=== PATIENT | male | born 1995 | race Caucasian/White ===

== ENCOUNTER 2022-02-25 13:49 | Inpatient (IN) | payer MEDICAID, OTHER ==
[~2022-02-25] VITALS: Ht 172.7 cm; Wt 128.8 kg
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
[2022-02-25 14:15] LABS: BASOPHILS # (AUTO) 0.1 10^3/uL (0.0-0.1); BASOPHILS % (AUTO) 1 % (0-10); EOSINOPHILS # (AUTO) 0.2 10^3/uL (0.0-0.3); EOSINOPHILS % (AUTO) 2 % (0-10); HEMATOCRIT 46 % (40-54); HEMOGLOBIN 14.4 g/dL (13.3-17.7); LYMPHOCYTES # (AUTO) 2.5 10^3/uL (1.0-4.0); LYMPHOCYTES % (AUTO) 21 % (12-44); MEAN CORPUSCULAR HEMOGLOBIN 24 pg (25-34); MEAN CORPUSCULAR HGB CONC 32 g/dL (32-36); MEAN CORPUSCULAR VOLUME 76 fL (80-99); MEAN PLATELET VOLUME 9.2 fL (9.0-12.2); MONOCYTES # (AUTO) 0.8 10^3/uL (0.0-1.0); MONOCYTES % (AUTO) 7 % (0-12); NEUTROPHILS # (AUTO) 8.1 10^3/uL (1.8-7.8); NEUTROPHILS % (AUTO) 69 % (42-75); PLATELET COUNT 426 10^3/uL (130-400); WHITE BLOOD COUNT 11.8 10^3/uL (4.3-11.0)
[2022-02-25] MEDS ORDERED: HYDROmorphone 2 MG/ML VIAL (DILAUDID) IV ONE ×2 (14:30→15:45)
[2022-02-25] MEDS ORDERED: NS 100 ML (IVPB) BAG IV ONE (14:30)
[2022-02-25] MEDS ORDERED: HOLD METFORMIN - RECEIVED CONTRAST 20 ML VIAL IV SCH (14:30)
[2022-02-25] MEDS ORDERED: IOHEXOL 350 MG/ML 100 ML (OMNIPAQUE 350) VIAL IV ONE (14:30)
[2022-02-25 14:32] LABS: ALANINE AMINOTRANSFERASE 74 U/L (0-55); ALBUMIN 4.4 GM/DL (3.2-4.5); ALKALINE PHOSPHATASE 126 U/L (40-136); BILIRUBIN,TOTAL 0.2 MG/DL (0.1-1.0); BUN/CREATININE RATIO 13; CARBON DIOXIDE 23 MMOL/L (21-32); CHLORIDE 101 MMOL/L (98-107); CREATININE SERUM 0.75 MG/DL (0.60-1.30); GFR ESTIMATED 128; GLUCOSE 87 MG/DL (70-105); SALICYLATE < 5.0 MG/DL (5.0-20.0); SODIUM 136 MMOL/L (135-145); TOTAL PROTEIN 9.1 GM/DL (6.4-8.2)
[2022-02-25 14:39] LABS: ACETAMINOPHEN < 10 UG/ML (10-30)
--- NOTE | 2022-02-25 14:40 | Diagnostic Imaging Report ---
PROCEDURE: CT head and CT cervical spine without contrast. TECHNIQUE: Multiple contiguous axial images were obtained through the brain and cervical spine without the use of intravenous contrast. Sagittal and coronal reformations through the cervical spine were then performed. Auto Exposure Controls were utilized during the CT exam to meet ALARA standards for radiation dose reduction. INDICATION: Found down. COMPARISON: No priors. FINDINGS: HEAD: There is no hemorrhage, hydrocephalus, cerebral edema, mass, mass effect, nor evidence for an elevation of the intracerebral pressures. There are no abnormal extra-axial fluid collections. Incidental ventricular variant with a cavum septum pellucidum noted. Orbits sinuses and calvarium all appeared nonacute. There is no evidence for elevated pressures, and there are no findings of focal nor generalized cerebral edema. No mass or mass effect. CERVICAL SPINE: Cervical statures are normal, alignment anatomic. No substantial stenosis. No fracture or bony destructive lesion. IMPRESSION: Unremarkable CT head and cervical spine. Dictated by: Dictated on workstation # [id number]
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
[2022-02-25 15:37] LABS: BILIRUBIN,URINE NEGATIVE (NEGATIVE); CLARITY,URINE CLEAR; COLOR,URINE YELLOW; GLUCOSE, URINE (UA) NEGATIVE (NEGATIVE); KETONES,URINE NEGATIVE (NEGATIVE); LEUKOCYTE ESTERASE ,URINE NEGATIVE (NEGATIVE); NITRITE,URINE NEGATIVE (NEGATIVE); PROTEIN,URINE NEGATIVE (NEGATIVE)
[2022-02-25 15:43] LABS: BACTERIA,URINE NEGATIVE /HPF
[2022-02-25 15:53] LABS: AMPHETAMINE SCREEN, URINE NEGATIVE (NEGATIVE); BARBITURATE SCREEN URINE NEGATIVE (NEGATIVE); BENZODIAZEPINES SCREEN URINE NEGATIVE (NEGATIVE); CANNABINOID SCREEN, URINE POSITIVE (NEGATIVE); COCAINE SCREEN URINE NEGATIVE (NEGATIVE); METHADONE STAT NEGATIVE (NEGATIVE); OPIATE SCREEN URINE NEGATIVE (NEGATIVE); OXYCODONE STAT NEGATIVE (NEGATIVE); PROPOXYPHENE STAT NEGATIVE (NEGATIVE); TRICYCLIC ANTIDEPRESSANTS SCRE NEGATIVE (NEGATIVE)
--- NOTE | 2022-02-25 15:57 | Diagnostic Imaging Report ---
EXAMINATION: Left tibia and fibula radiographs, 2 views. Right tibia and fibula radiographs, 2 views. COMPARISON: None. HISTORY: 26-year-old male, bilateral leg pain. History of prior tibial fractures. FINDINGS: There is sideplate and screw fixation hardware along the left tibia with the mid left tibial diaphyseal fracture. There is a lateral bend of the mid tibial diaphysis. The sideplate and screw fixation hardware appears intact. The tibia projects lateral to the fibula on the frontal view relating to the bend in contour abnormality. There is an essentially nondisplaced mid tibial diaphyseal fracture on the right with intramedullary ousmane and fixation screws. There is a visible fracture line. The hardware appears intact. There is also incompletely imaged hardware at the level of the right distal femur with a mildly displaced distal femoral metadiaphyseal fracture. There are surgical clips posteriorly near the level of the left knee joint. There is no large left knee joint effusion. There is no right knee joint effusion. IMPRESSION: 1. Fractures of the mid tibial diaphysis, bilaterally, with right tibial fracture being essentially nondisplaced with intact open reduction and internal fixation hardware. The left tibial fracture has a significant contour deformity of the tibia and medial bending of the tibia with projection of the tibia lateral to the fibula. 2. Mildly displaced fracture of the right distal femoral metadiaphysis with intact partially visualized hardware. 3. No identified fracture which is not bridged by hardware. 4. No evidence of failure of the hardware. Dictated by: Dictated on workstation # [id number]
--- NOTE | 2022-02-25 16:26 | Diagnostic Imaging Report ---
INDICATION: Found down. EXAM: Two-view bilateral femurs are randomly arranged in a series containing 8 radiographs. FINDINGS: There is an intramedullary ousmaen in the distal right femur. There is a distal femoral shaft horizontal fracture which showed no bony bridging. No proximal injury. On the left, there are surgical clips projecting over the groin, lucencies in the left femur from old removed hardware. In frontal projection, the left knee shows sclerosis at the femoral condyles and tibial articulations with degenerative joint space narrowing and no acute or unhealed left knee fracture. IMPRESSION: Prior surgery to the left knee, severe. Left knee arthritis. Distal right femoral shaft fracture treated with an intramedullary ousmane. Dictated by: Dictated on workstation # [id number]
[2022-02-25] MEDS ORDERED: KETOROLAC 30 MG/ML VIAL IVP ONE (17:00)
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
[2022-02-25 18:00] VITALS: BP 136/86
[2022-02-25] MEDS ORDERED: diphenhydrAMINE 25 MG TAB (BENADRYL) PO PRN (18:15)
[2022-02-25] MEDS ORDERED: ANTACID SUSP 30 ML UDC (MYLANTA) PO PRN (18:15)
[2022-02-25] MEDS ORDERED: BISACODYL 10 MG SUPP (DULCOLAX) PR PRN (18:15)
[2022-02-25] MEDS ORDERED: polyethylene glycoL POWDER 17 GM (MIRALAX) PACK PO PRN (18:15)
[2022-02-25] MEDS ORDERED: MILK OF MAGNESIA 400 MG/5 ML 30 ML UDC PO PRN (18:15)
[2022-02-25] MEDS ORDERED: LACTULOSE SYRUP 10GM/15ML (ENULOSE) 30ML UDC PO PRN (18:15)
[2022-02-25] MEDS ORDERED: CALCIUM CARBONATE 500 MG (TUMS) TAB.CHEW PO PRN (18:15)
[2022-02-25] MEDS ORDERED: ONDANSETRON 4 MG/2 ML (SDV) Z0FRAN IV PRN (18:15)
[2022-02-25] MEDS ORDERED: diphenhydrAMINE 50 MG/ML INJ (BENADRYL) IVP PRN (18:15)
[2022-02-25] MEDS ORDERED: ONDANSETRON 4 MG (ZOFRAN) ORAL DISSOLVE TAB PO PRN (18:15)
[2022-02-25 18:48] VITALS: BP 144/109
[2022-02-25] MEDS: NS IV 1000 ML 1,000 ML IV SCH (18:51)
[2022-02-25] MEDS: ENOXAPARIN 40 MG/0.4 ML (LOVENOX) SYR SC SCH (18:57)
[2022-02-25] MEDS ORDERED: RT-ALBUTEROL SULF 2.5 MG/3 ML PRE-MIX VIAL INH PRN (19:00)
[2022-02-25 19:40] VITALS: BP 106/63
[2022-02-25] MEDS ORDERED: FLU QUADRIvalent (6 months+) 60 mcg/0.5 ml 2022-23 (Fluzone) IM ONE (19:45)
[2022-02-25 20:00] VITALS: BP 103/61
[2022-02-25] MEDS: SENNOSIDES 8.6 MG (SENOKOT) TAB PO SCH (20:29)
[2022-02-25] MEDS: DOCUSATE SODIUM 100 MG (COLACE) CAP PO SCH (20:29)
[2022-02-25] MEDS: HYDROmorphone 2 MG/ML VIAL (DILAUDID) IV PRN (20:30)
[2022-02-25 23:59] VITALS: BP 122/64
[2022-02-26] VITALS (7 sets, daily range): BP systolic 114–154; BP diastolic 59–86
[2022-02-26] MEDS: MELATONIN 3 MG TABLET PO PRN (00:56)
[2022-02-26] MEDS: HYDROmorphone 2 MG/ML VIAL (DILAUDID) IV PRN ×5 (03:28→20:58)
[2022-02-26] MEDS: NS IV 1000 ML 1,000 ML IV SCH ×2 (05:40→10:17)
[2022-02-26] MEDS: ENOXAPARIN 40 MG/0.4 ML (LOVENOX) SYR SC SCH ×2 (05:40→18:48)
[2022-02-26 06:26] LABS: BASOPHILS # (AUTO) 0.1 10^3/uL (0.0-0.1); BASOPHILS % (AUTO) 1 % (0-10); EOSINOPHILS # (AUTO) 0.4 10^3/uL (0.0-0.3); EOSINOPHILS % (AUTO) 6 % (0-10); HEMATOCRIT 45 % (40-54); LYMPHOCYTES # (AUTO) 2.2 10^3/uL (1.0-4.0); LYMPHOCYTES % (AUTO) 29 % (12-44); MEAN CORPUSCULAR HEMOGLOBIN 24 pg (25-34); MEAN CORPUSCULAR HGB CONC 31 g/dL (32-36); MEAN CORPUSCULAR VOLUME 78 fL (80-99); MEAN PLATELET VOLUME 9.8 fL (9.0-12.2); MONOCYTES # (AUTO) 0.5 10^3/uL (0.0-1.0); MONOCYTES % (AUTO) 7 % (0-12); NEUTROPHILS # (AUTO) 4.3 10^3/uL (1.8-7.8); NEUTROPHILS % (AUTO) 58 % (42-75); PLATELET COUNT 151 10^3/uL (130-400); WHITE BLOOD COUNT 7.5 10^3/uL (4.3-11.0)
[2022-02-26 06:35] LABS: SMEAR SCAN COMMENT YES
[2022-02-26 06:54] LABS: ALBUMIN 3.8 GM/DL (3.2-4.5); BILIRUBIN,TOTAL 0.2 MG/DL (0.1-1.0); CALCIUM 9.3 MG/DL (8.5-10.1); CREATININE SERUM 0.73 MG/DL (0.60-1.30); POTASSIUM 4.6 MMOL/L (3.6-5.0); TOTAL PROTEIN 7.9 GM/DL (6.4-8.2)
[2022-02-26] MEDS: DOCUSATE SODIUM 100 MG (COLACE) CAP PO SCH ×2 (08:19→21:03)
[2022-02-26] MEDS: SENNOSIDES 8.6 MG (SENOKOT) TAB PO SCH ×2 (08:20→21:03)
--- NOTE | 2022-02-26 10:18 | Progress Note - Surgery ---
JORGEBORA 02/26/22 1018: Subjective Date Seen by a Provider: Feb 26, 2022 Time Seen by a Provider: 10:13 Subjective/Events-last exam Pt is sleeping comfortably in bed. Pt states no change in his leg pain, rating it a 7/10 at rest. Pt did ask for pain medication in room. Pt states that he has been able to ambulate to bathroom without issue and has been tolerating diet well. Pt has no other complaints at this time. Pt denies CP, SOB, nausea, vomiting, chills, or cough. Review of Systems General: No Chills, No Night Sweats HEENT: No Head Aches, No Eye Pain Pulmonary: No Dyspnea, No Cough Cardiovascular: No: Chest Pain, Lt Headedness Gastrointestinal: No: Nausea, Vomiting, Abdominal Pain Genitourinary: No Dysuria, No Hematuria Musculoskeletal: leg pain (b/l LE) Neurological: No: Weakness, Numbness Objective Exam Vital Signs Date Time Temp Pulse Resp B/P (MAP) Pulse Ox O2 Delivery O2 Flow Rate FiO2 02/26/22 07:27 36.7 103 18 154/82 (106) 96 Room Air 02/26/22 07:26 36.7 103 18 154/82 (106) 96 Room Air 02/26/22 04:00 36.1 98 16 114/59 (77) 94 Room Air 02/26/22 03:57 36.0 98 16 122/64 (83) 97 Room Air 02/25/22 23:59 36.6 98 18 122/64 (83) 97 Room Air 02/25/22 20:00 37.0 80 19 103/61 (75) 96 Room Air 02/25/22 19:40 36.5 100 18 106/63 (77) 95 Room Air 02/25/22 18:48 110 99 21 02/25/22 18:30 99 Room Air 02/25/22 18:00 36.9 109 19 136/86 (103) 94 Room Air 02/25/22 17:35 103 17 114/83 98 Room Air 02/25/22 13:50 110 20 144/109 (121) 99 Room Air I & O 02/26/22 07:00 Intake Total 3320 ml Output Total 2250 ml Balance 1070 ml Capillary Refill : Less Than 3 Seconds General Appearance: No Apparent Distress, Obese HEENT: PERRL/EOMI Respiratory: Lungs Clear, Normal Breath Sounds, No Accessory Muscle Use, No Respiratory Distress Cardiovascular: No Murmur, Tachycardia Peripheral Pulses: 2+ Dorsalis Pedis (R) Gastrointestinal: soft, tenderness (LUQ) Extremity: Pedal Edema (L foot), Other (healing scars and scabs on both legs, bandage on L calf; tenderness over B/L LE) Neurologic/Psychiatric: Alert Skin: Warm/Dry, Other Results Lab Laboratory Tests 02/25/22 13:50: White Blood Count 11.8H, Red Blood Count 5.98H, Hemoglobin 14.4, Hematocrit 46, Mean Corpuscular Volume 76L, Mean Corpuscular Hemoglobin 24L, Mean Corpuscular Hemoglobin Concent 32, Red Cell Distribution Width 20.9H, Platelet Count 426H, Mean Platelet Volume 9.2, Immature Granulocyte % (Auto) 1, Neutrophils (%) (Auto) 69, Lymphocytes (%) (Auto) 21, Monocytes (%) (Auto) 7, Eosinophils (%) (Auto) 2, Basophils (%) (Auto) 1, Neutrophils # (Auto) 8.1H, Lymphocytes # (Auto) 2.5, Monocytes # (Auto) 0.8, Eosinophils # (Auto) 0.2, Basophils # (Auto) 0.1, Immature Granulocyte # (Auto) 0.1, Sodium Level 136, Potassium Level 4.0, Chloride Level 101, Carbon Dioxide Level 23, Anion Gap 12, Blood Urea Nitrogen 10, Creatinine 0.75, Estimat Glomerular Filtration Rate 128, BUN/Creatinine Ratio 13, Glucose Level 87, Calcium Level 10.0, Corrected Calcium 9.7, Total Bilirubin 0.2, Aspartate Amino Transf (AST/SGOT) 40H, Alanine Aminotransferase (ALT/SGPT) 74H, Alkaline Phosphatase 126, C-Reactive Protein High Sensitivity 2.02H, Total Protein 9.1H, Albumin 4.4, Salicylates Level < 5.0L, Acetaminophen Level < 10L, Serum Alcohol < 10 02/25/22 15:30: Urine Color YELLOW, Urine Clarity CLEAR, Urine pH 7.0, Urine Specific [place] <=1.005, Urine Protein NEGATIVE, Urine Glucose (UA) NEGATIVE, Urine Ketones NEGATIVE, Urine Nitrite NEGATIVE, Urine Bilirubin NEGATIVE, Urine Urobilinogen 0.2, Urine Leukocyte Esterase NEGATIVE, Urine RBC (Auto) NEGATIVE, Urine RBC NONE, Urine WBC NONE, Urine Crystals NONE, Urine Bacteria NEGATIVE, Urine Casts NONE, Urine Mucus NEGATIVE, Urine Culture Indicated NO, Urine Opiates Screen NEGATIVE, Urine Oxycodone Screen NEGATIVE, Urine Methadone Screen NEGATIVE, Urine Propoxyphene Screen NEGATIVE, Urine Barbiturates Screen NEGATIVE, Ur Tricyclic Antidepressants Screen NEGATIVE, Urine Phencyclidine Screen NEGATIVE, Urine Amphetamines Screen NEGATIVE, Urine Methamphetamines Screen NEGATIVE, Urine Benzodiazepines Screen NEGATIVE, Urine Cocaine Screen NEGATIVE, Urine Cannabinoids Screen POSITIVEH 02/26/22 06:05: White Blood Count 7.5, Red Blood Count 5.74H, Hemoglobin 14.0, Hematocrit 45, Mean Corpuscular Volume 78L, Mean Corpuscular Hemoglobin 24L, Mean Corpuscular Hemoglobin Concent 31L, Red Cell Distribution Width 21.1H, Platelet Count 151, Mean Platelet Volume 9.8, Immature Granulocyte % (Auto) 1, Neutrophils (%) (Auto) 58, Lymphocytes (%) (Auto) 29, Monocytes (%) (Auto) 7, Eosinophils (%) (Auto) 6, Basophils (%) (Auto) 1, Neutrophils # (Auto) 4.3, Lymphocytes # (Auto) 2.2, Monocytes # (Auto) 0.5, Eosinophils # (Auto) 0.4H, Basophils # (Auto) 0.1, Immature Granulocyte # (Auto) 0.1, Sodium Level 137, Potassium Level 4.6, Chloride Level 107, Carbon Dioxide Level 18L, Anion Gap 12, Blood Urea Nitrogen 14, Creatinine 0.73, Estimat Glomerular Filtration Rate 129, BUN/Creatinine Ratio 19, Glucose Level 94, Calcium Level 9.3, Corrected Calcium 9.5, Total Bilirubin 0.2, Aspartate Amino Transf (AST/SGOT) 47H, Alanine Aminotransferase (ALT/SGPT) 78H, Alkaline Phosphatase 117, Total Protein 7.9, Albumin 3.8, Percent Immature Platelet Fraction 3.3, Smear Scan YES Assessment/Plan Assessment/Plan Assessment/Plan 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 Will defer to wound care for recommendations about L leg wound. Continue pain medication prn, MEMO BRIGGS DO 02/26/22 1244: Subjective Time Seen by a Provider: 11:39 Subjective/Events-last exam Pt javier and examined, states no new changes. He is rating pain at 7 out of 10, but tolerating diet and asking what we can do for his leg. Review of Systems General: No Chills, No Night Sweats Pulmonary: No Dyspnea, No Cough Cardiovascular: No: Chest Pain Gastrointestinal: No: Nausea, Vomiting, Abdominal Pain Musculoskeletal: leg pain (b/l LE) Objective Exam General Appearance: No Apparent Distress, Obese HEENT: PERRL/EOMI Respiratory: Lungs Clear, Normal Breath Sounds, No Accessory Muscle Use, No Respiratory Distress Cardiovascular: No Murmur, Tachycardia Gastrointestinal: soft, tenderness (LUQ) Extremity: Pedal Edema (L foot), Other (healing scars and scabs on both legs, bandage on L calf; tenderness over B/L LE) Assessment/Plan Assessment/Plan Assessment/Plan 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 Continue pain medication prn. Spoke with wound care and Dr. Black regarding his case. Will try Vashe and non-operative treatment of wound, but it may need to be debrided (he has already eaten today). We cannot do a skin graft until the tissue is gone and there is fresh tissue. Supervisory-Addendum Brief Verification & Attestation Participated in pt care: history, MDM, physical Personally performed: exam, history, MDM, supervision of care Care discussed with: Medical Student Procedures: n/a Verification and Attestation of Medical Student E/M Service A medical student performed and documented this service. I then reviewed and verified all information documented by the medical student and made modifications to such information, when appropriate. I personally performed a physical exam, medical decision making and then discussed any differences between the notes and made revisions as necessary to create one note. Memo Briggs , 02/26/22 , 12:44 BORA PATEL Feb 26, 2022 10:18 MEMO BRIGGS DO Feb 26, 2022 12:44
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
[2022-02-27] VITALS (8 sets, daily range): BP systolic 100–131; BP diastolic 64–84
[2022-02-27] MEDS: HYDROmorphone 2 MG/ML VIAL (DILAUDID) IV PRN ×9 (00:42→23:58)
[2022-02-27] MEDS: ENOXAPARIN 40 MG/0.4 ML (LOVENOX) SYR SC SCH ×2 (05:34→18:57)
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
[2022-02-27 06:07] LABS: MEAN CORPUSCULAR HEMOGLOBIN 24 pg (25-34); MEAN CORPUSCULAR VOLUME 80 fL (80-99); MEAN PLATELET VOLUME 10.8 fL (9.0-12.2)
[2022-02-27 06:09] LABS: BASOPHILS # (AUTO) 0.1 10^3/uL (0.0-0.1); BASOPHILS % (AUTO) 1 % (0-10); EOSINOPHILS # (AUTO) 0.6 10^3/uL (0.0-0.3); EOSINOPHILS % (AUTO) 6 % (0-10); HEMATOCRIT 47 % (40-54); HEMOGLOBIN 14.3 g/dL (13.3-17.7); LYMPHOCYTES # (AUTO) 2.5 10^3/uL (1.0-4.0); LYMPHOCYTES % (AUTO) 25 % (12-44); MEAN CORPUSCULAR HGB CONC 30 g/dL (32-36); MONOCYTES # (AUTO) 0.8 10^3/uL (0.0-1.0); MONOCYTES % (AUTO) 8 % (0-12); NEUTROPHILS # (AUTO) 5.9 10^3/uL (1.8-7.8); NEUTROPHILS % (AUTO) 59 % (42-75); PLATELET COUNT 175 10^3/uL (130-400)
[2022-02-27 06:37] LABS: ALBUMIN 3.8 GM/DL (3.2-4.5); BILIRUBIN,TOTAL 0.2 MG/DL (0.1-1.0); CALCIUM 9.4 MG/DL (8.5-10.1); CREATININE SERUM 0.68 MG/DL (0.60-1.30); POTASSIUM 4.5 MMOL/L (3.6-5.0)
[2022-02-27] MEDS: SENNOSIDES 8.6 MG (SENOKOT) TAB PO SCH ×2 (08:38→19:45)
[2022-02-27] MEDS: DOCUSATE SODIUM 100 MG (COLACE) CAP PO SCH ×2 (08:38→19:45)
--- NOTE | 2022-02-27 09:06 | Progress Note - Surgery ---
CASSIERICARDO 02/27/22 0906: Subjective Date Seen by a Provider: Feb 27, 2022 Time Seen by a Provider: 09:00 Subjective/Events-last exam Upon follow up for non-healing LLE wound, S/P debriedment on 02/26/22, Jignesh is resting lateral recumbent in bed. He states that the pain is about the same as yesterday, which he rates as a 6/10. He states that he is sleeping okay, and that he is ambulating. Jignesh has no new complaints at this time. LLE wound is currently bandaged. Review of Systems General: No Chills, No Night Sweats HEENT: No Head Aches, No Visual Changes Pulmonary: No Dyspnea, No Cough Cardiovascular: No: Chest Pain, Palpitations Gastrointestinal: No: Nausea, Vomiting, Abdominal Pain Genitourinary: No Dysuria, No Frequency Musculoskeletal: foot pain (LLE); No: neck pain, shoulder pain Neurological: No: Weakness, Numbness Focused Exam Respiratory: Chest Non Tender, Lungs Clear, Normal Breath Sounds, No Accessory Muscle Use, No Respiratory Distress Cardiovascular: Regular Rate, Rhythm, No Edema, No Gallop, No JVD, No Murmur, Normal Peripheral Pulses Capillary Refill: Less Than 3 Seconds Peripheral Pulses: 2+ Radial Pulses (R), 2+ Radial Pulses (L) Skin: normal color, warm/dry Objective Exam Vital Signs Date Time Temp Pulse Resp B/P (MAP) Pulse Ox O2 Delivery O2 Flow Rate FiO2 02/27/22 08:37 95 Room Air 0.00 02/27/22 07:43 36.7 95 18 130/83 (99) 97 Room Air 02/27/22 06:04 36.5 02/27/22 05:34 36.5 02/27/22 04:00 36.6 107 16 122/84 (97) 99 Room Air 02/27/22 01:12 36.5 02/27/22 00:14 36.5 105 18 117/77 (90) 95 Room Air 02/26/22 21:28 36.2 02/26/22 20:00 Room Air 02/26/22 19:18 36.2 105 20 120/68 (85) 94 Room Air 02/26/22 19:08 95 Room Air 02/26/22 15:46 36.2 103 20 131/86 (101) 95 Room Air 02/26/22 11:11 36.6 100 18 147/79 (101) 95 Room Air I & O 02/27/22 07:00 Intake Total 3870 ml Output Total 4250 ml Balance -380 ml Capillary Refill : Less Than 3 Seconds General Appearance: No Apparent Distress, Obese HEENT: PERRL/EOMI, Pharynx Normal, Moist Mucous Membranes Neck: Full Range of Motion, Normal Inspection, Non Tender, Supple Respiratory: Chest Non Tender, Lungs Clear, Normal Breath Sounds, No Accessory Muscle Use, No Respiratory Distress Cardiovascular: Regular Rate, Rhythm, No Edema, No Gallop, No JVD, No Murmur, Normal Peripheral Pulses Peripheral Pulses: 2+ Radial Pulses (L) Gastrointestinal: non tender, soft Extremity: Inflammation, Pedal Edema, Other ( LLE lesion currently covered with dressing) Neurologic/Psychiatric: Alert, Oriented x3, Normal Mood/Affect, 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 II-XII Norm as Tested Skin: Normal Color, Warm/Dry Results Lab Laboratory Tests 02/27/22 05:44: White Blood Count 10.0, Red Blood Count 5.90H, Hemoglobin 14.3, Hematocrit 47, Mean Corpuscular Volume 80, Mean Corpuscular Hemoglobin 24L, Mean Corpuscular Hemoglobin Concent 30L, Red Cell Distribution Width 20.9H, Platelet Count 175, Mean Platelet Volume 10.8, Immature Granulocyte % (Auto) 1, Neutrophils (%) (Auto) 59, Lymphocytes (%) (Auto) 25, Monocytes (%) (Auto) 8, Eosinophils (%) (Auto) 6, Basophils (%) (Auto) 1, Neutrophils # (Auto) 5.9, Lymphocytes # (Auto) 2.5, Monocytes # (Auto) 0.8, Eosinophils # (Auto) 0.6H, Basophils # (Auto) 0.1, Immature Granulocyte # (Auto) 0.1, Percent Immature Platelet Fraction 10.6H, Sodium Level 135, Potassium Level 4.5, Chloride Level 104, Carbon Dioxide Level 20L, Anion Gap 11, Blood Urea Nitrogen 11, Creatinine 0.68, Estimat Glomerular Filtration Rate 131, BUN/Creatinine Ratio 16, Glucose Level 90, Calcium Level 9.4, Corrected Calcium 9.6, Total Bilirubin 0.2, Aspartate Amino Transf (AST/SGOT) 49H, Alanine Aminotransferase (ALT/SGPT) 82H, Alkaline Phosphatase 112, Total Protein 8.0, Albumin 3.8 Assessment/Plan Assessment/Plan Assessment/Plan Non-healing wound of LLE S/P debridement on 02/26/22 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 Pain controlled currently. Unable to easily ambulate he states, able to use walker to help. Had wound vac on previously. Currently wet to dry. Denies n/v fever sweats chill shortness of breath or chest pain. Objective Exam General Appearance: No Apparent Distress, Obese HEENT: PERRL/EOMI, Moist Mucous Membranes Neck: Normal Inspection, Non Tender Respiratory: Chest Non Tender, No Accessory Muscle Use, No Respiratory Distress Cardiovascular: Regular Rate, Rhythm, No JVD Gastrointestinal: non tender, soft Extremity: Inflammation, Pedal Edema, Other ( LLE lesion currently slight granulation tissue coming in on wound, no eschar. 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 Supervisory-Addendum Brief Verification & Attestation Participated in pt care: history, MDM, physical Personally performed: exam, history, MDM, supervision of care Care discussed with: Medical Student Procedures: n/a Results interpretation: Verified all documentation Verification and Attestation of Medical Student E/M Service A medical student performed and documented this service in my presence. I reviewed and verified all information documented by the medical student and made modifications to such information, when appropriate. I personally performed the physical exam and medical decision making. Neli East, Feb 27, 2022,14:59 RICARDO MATTHEWS Feb 27, 2022 09:06 NELI EAST DO Feb 27, 2022 15:00
--- NOTE | 2022-02-27 12:05 | Physical Therapy Progress Note ---
Therapy Progress Note Pt declined PT this AM. Reports he will get up to chair with nursing later this date. SIMEON LOPEZ DPDaniel Feb 27, 2022 12:05
[2022-02-27] MEDS: HYPOCHLOROUS ACID/NaCl (VASHE) 250 ML IR PRN (21:51)
[2022-02-28] MEDS: HYDROmorphone 2 MG/ML VIAL (DILAUDID) IV PRN ×8 (02:58→23:11)
[2022-02-28 03:01] VITALS: BP 119/77
[2022-02-28] MEDS: ENOXAPARIN 40 MG/0.4 ML (LOVENOX) SYR SC SCH ×2 (05:35→17:56)
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
[2022-02-28 08:51] VITALS: BP 137/83
[2022-02-28] MEDS: DOCUSATE SODIUM 100 MG (COLACE) CAP PO SCH ×2 (08:58→20:39)
[2022-02-28] MEDS: SENNOSIDES 8.6 MG (SENOKOT) TAB PO SCH ×2 (08:58→20:39)
[2022-02-28] MEDS: busPIRone 10 MG (BUSPAR) TAB PO SCH ×2 (08:58→20:39)
[2022-02-28 11:29] VITALS: BP 135/85
--- NOTE | 2022-02-28 15:04 | Progress Note - Surgery ---
Subjective Date Seen by a Provider: Feb 28, 2022 Time Seen by a Provider: 11:05 Subjective/Events-last exam Patient still with some pain. Tolerated dressing change. Not with any new complaints. Denies n/v fever sweats chills shortness of breath or chest pain. Objective Exam Vital Signs Date Time Temp Pulse Resp B/P (MAP) Pulse Ox O2 Delivery O2 Flow Rate FiO2 02/28/22 11:29 36.2 100 18 135/85 (102) 98 Room Air 02/28/22 08:51 35.9 68 18 137/83 (101) 99 Room Air 02/28/22 08:00 Room Air 0.00 02/28/22 03:01 36.5 107 20 119/77 (91) 94 Room Air 02/27/22 23:12 36.4 103 20 131/84 (100) 95 Room Air 02/27/22 21:50 36.7 109 20 129/80 (96) 95 Room Air 02/27/22 20:20 37.0 111 18 130/84 (99) 97 Room Air 02/27/22 19:50 Room Air 02/27/22 19:46 96 Room Air 02/27/22 16:28 36.7 111 18 125/77 (93) 96 Room Air I & O 02/28/22 07:00 Intake Total 3265 ml Output Total 4250 ml Balance -985 ml Capillary Refill : Less Than 3 Seconds General Appearance: No Apparent Distress, WD/WN, Chronically ill HEENT: PERRL/EOMI, Moist Mucous Membranes Neck: Normal Inspection, Non Tender Respiratory: Chest Non Tender, No Accessory Muscle Use, No Respiratory Distress Cardiovascular: Regular Rate, Rhythm, No JVD Peripheral Pulses: 2+ Radial Pulses (R), 2+ Radial Pulses (L) Gastrointestinal: non tender, soft Extremity: Pedal Edema, Other ( LLE lesion currently slight granulation tissue coming in on wound, no eschar. 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 May benefit from skin graft in near future. NELI MALONE DO Feb 28, 2022 15:04
[2022-02-28 15:11] VITALS: BP 124/78
[2022-02-28 20:01] VITALS: BP 121/83
[2022-02-28] MEDS: HYPOCHLOROUS ACID/NaCl (VASHE) 250 ML IR PRN (20:53)
[2022-02-28 23:51] VITALS: BP 112/67
[2022-03-01] VITALS (7 sets, daily range): BP systolic 106–136; BP diastolic 67–87
[2022-03-01] MEDS: HYDROmorphone 2 MG/ML VIAL (DILAUDID) IV PRN ×3 (01:26→06:50)
[2022-03-01] MEDS: ENOXAPARIN 40 MG/0.4 ML (LOVENOX) SYR SC SCH ×2 (06:49→17:14)
[2022-03-01] MEDS: SENNOSIDES 8.6 MG (SENOKOT) TAB PO SCH ×2 (08:45→21:01)
[2022-03-01] MEDS: DOCUSATE SODIUM 100 MG (COLACE) CAP PO SCH ×2 (08:45→21:01)
[2022-03-01] MEDS: busPIRone 10 MG (BUSPAR) TAB PO SCH ×2 (08:45→21:00)
--- NOTE | 2022-03-01 09:18 | Progress Note - Surgery ---
Subjective Date Seen by a Provider: Mar 01, 2022 Time Seen by a Provider: 09:18 Subjective/Events-last exam Patient still with left lower extremity pain. Wound is clean and doing okay. He has no other concerns at this time. Denies n/v fever sweats chills shortness of breath or chest pain at this time. Objective Exam Vital Signs Date Time Temp Pulse Resp B/P (MAP) Pulse Ox O2 Delivery O2 Flow Rate FiO2 03/01/22 08:01 35.8 96 20 116/82 (93) 93 Room Air 03/01/22 03:55 36.0 03/01/22 03:25 36.0 98 16 126/80 (95) 97 Room Air 03/01/22 01:56 36.6 02/28/22 23:51 36.6 86 16 112/67 (82) 96 Room Air 02/28/22 21:12 35.9 02/28/22 20:45 Room Air 02/28/22 20:01 35.9 104 17 121/83 (96) 96 Room Air 02/28/22 19:10 36.0 02/28/22 15:11 36.0 109 18 124/78 (93) 94 Room Air 02/28/22 11:29 36.2 100 18 135/85 (102) 98 Room Air I & O 03/01/22 07:00 Intake Total 3270 ml Output Total 4300 ml Balance -1030 ml Capillary Refill : Less Than 3 Seconds General Appearance: No Apparent Distress, WD/WN, Chronically ill HEENT: PERRL/EOMI, Moist Mucous Membranes Neck: Normal Inspection, Non Tender Respiratory: Chest Non Tender, No Accessory Muscle Use, No Respiratory Distress Cardiovascular: Regular Rate, Rhythm, No JVD Peripheral Pulses: 2+ Radial Pulses (R), 2+ Radial Pulses (L) Gastrointestinal: non tender, soft Extremity: Pedal Edema, Other ( LLE lesion currently slight granulation tissue coming in on wound, no eschar. 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 May benefit from skin graft in near future. No other changes at this time. NELI MALONE DO Mar 01, 2022 09:18
--- NOTE | 2022-03-01 11:15 | Physical Therapy Daily Note ---
PT Daily Note-Current Subjective Patient in bed pre tx, agrees to PT, has 6/10 pain in left leg. Pain Section J - Health Conditions 1. Rarely or not at all 2. Occasionally 3. Frequently 4. Almost constantly 8. Unable to answer Pain Effect on Sleep: 2 Pain Interference with Therapy: 2 Pain Interference w/Day-to-Day: 2 Appearance Patient in recliner post tx with nurse call, phone, tray, all needs met. Mental Status Patient Orientation: Person, Place, Situation Transfers SCALE: Activities may be completed with or without assistive devices. 6-Czdlqadwox-qdzewws completes the activity by him/herself with no assistance from a helper. 5-Set-up or Clean-up Assistance-helper sets up or cleans up; patient completes activity. [place] assists only prior to or following the activity. 4-Supervision or Touching Assistance-helper provides verbal cues and/or touching/steadying and/or contact guard assistance as patient completes activity. Assistance may be provided throughout the activity or intermittently. 3-Partial/Moderate Assistance-helper does LESS THAN HALF the effort. [place] lifts, holds or supports trunk or limbs, but provides less than half the effort. 2-Substantial/Maximal Assistance-helper does MORE THAN HALF the effort. [place] lifts or holds trunk or limbs and provides more than half the effort. 6-Sfkbbptnh-dbjvfr does ALL the effort. Patient does none of the effort to complete the activity. Or, the assistance of 2 or more helpers is required for the patient to complete the activity. If activity was not attempted, code reason: 7-Patient Refused. 9-Not Applicable-not attempted and the patient did not perform the activity before the current illness, exacerbation or injury. 10-Not Attempted due to Environmental Limitations-(lack of equipment, weather restraints, etc.). 88-Not Attempted due to Medical Conditions or Safety Concerns. Roll Left & Right (QC): 6 Lying to Sitting/Side of Bed(Q: 6 Sit to Stand (QC): 4 Chair/Vbh-lo-Pgkdw Xfer(QC): 4 Patient sits to the side of the bed with independence, puts on his own boot on the left side and sock on the right side, ambulates into the restroom to brush his teeth and then to his recliner. Weight Bearing There are no weight bearing restrictions ordered at this time. Patient states that at the hospital he was allowed to bear weight on both legs but he does have to wear a boot on the left leg. Gait Training Distance: 10'x2 Walk 10 feet (QC): 4 Gait Persons Needed: 1 Gait Assistive Device: FWW CGA, encouraged patient to not bear full weight on his LLE due to the bent hardware. Had patient perform no more than partial weight bearing and he did well with it. Exercises Seated Therapy Exercises: Ankle pumps (RLE only), Long arc quads Seated Reps: 20 Treatments bed mobility and transfers, ambulation, LE ROM Assessment Current Status: Fair Progress good mobility, some unsteadiness but no LOB PT Nursing Home Goals Nursing Home Goals PT Oven Dauber Goals Time Frame: Mar 05, 2022 Roll Left & Right (QC): 6 Sit to Lying (QC): 6 Lying-Sitting on Side/Bed(QC): 6 Sit to Stand (QC): 6 Chair/Uus-ro-Bmxsm Xfer(QC): 6 Walk 10 feet (QC): 6 PT Plan Problem List Problem List: Activity Tolerance, Functional Strength, Safety, Balance, Gait, Transfer, Bed Mobility, ROM Treatment/Plan Treatment Plan: Continue Plan of Care Treatment Plan: Bed Mobility, Education, Functional Activity Jony, Functional Strength, Gait, Safety, Therapeutic Exercise, Transfers Treatment Duration: Mar 05, 2022 Frequency: 6 times per week Estimated Hrs Per Day: .25 hour per day Patient and/or Family Agrees t: Yes Safety Risks/Education Patient Education: Gait Training, Transfer Techniques, Correct Positioning, Sa fety Issues Teaching Recipient: Patient Teaching Methods: Demonstration, Discussion Response to Teaching: Reinforcement Needed Time Time In: 1053 Time Out: 1103 DATE: Mar 01, 2022 Total Billed Treatment Time: 10 Total Billed Treatment 1 visit FA 11' MICKEY PORTER PT Mar 01, 2022 11:15
--- NOTE | 2022-03-01 11:15 | Occupational Ther Daily Note ---
OT Current Status-Daily Note Subjective Pt alert, lying in bed. Pt very anxious about clothing for discharge, therapy services after discharge, going to chapel to pray. Will relay to SW. Pt states that pain is not bad. Pt agrees to therapy. Mental Status/Objective Patient Orientation: Person, Place, Time, Situation Attachments: IV ADL-Treatment Supine to EOB independent. Gave pt walking boot and pt able to don/doff by self. Pt donned/doffed R sock by self after gathered supplies. Pt ambulated using FWW with SBA and stood at sink, pt complete oral care independently. Pt able to don/doff hospital gown over head by self. Pt stated that he has had 2 showers since being in the hospital. After session, pt sitting in recliner with call light/phone in reach. All needs met in room. Therapy Code Descriptions/Definitions Functional [place] Measure: 0=Not Assessed/NA 4=Minimal Assistance 1=Total Assistance 5=Supervision or Setup 2=Maximal Assistance 6=Modified [place] 3=Moderate Assistance 7=Complete IndependenceSCALE: Activities may be completed with or without assistive devices. 8-Pzridjsnxa-wdxmszq completes the activity by him/herself with no assistance from a helper. 5-Set-up or Clean-up Assistance-helper sets up or cleans up; patient completes activity. [place] assists only prior to or following the activity. 4-Supervision or Touching Assistance-helper provides verbal cues and/or touching/steadying and/or contact guard assistance as patient completes activity. Assistance may be provided throughout the activity or intermittently. 3-Partial/Moderate Assistance-helper does LESS THAN HALF the effort. [place] lifts, holds or supports trunk or limbs, but provides less than half the effort. 2-Substantial/Maximal Assistance-helper does MORE THAN HALF the effort. [place] lifts or holds trunk or limbs and provides more than half the effort. 9-Lmahsznqs-qhhucg does ALL the effort. Patient does none of the effort to co mplete the activity. Or, the assistance of 2 or more helpers is required for the patient to complete the activity. If activity was not attempted, code reason: 7-Patient Refused. 9-Not Applicable-not attempted and the patient did not perform the activity before the current illness, exacerbation or injury. 10-Not Attempted due to Environmental Limitations-(lack of equipment, weather restraints, etc.). 88-Not Attempted due to Medical Conditions or Safety Concerns. Oral Hygiene (QC): 6 Upper Body Dressing (QC): 5 On/Off Footwear: 5 OT Skilled Nursing Goals [employer] Goals Time Frame: Mar 12, 2022 Eating (QC): 6 Oral Hygiene (QC): 6 Toileting Hygiene (QC): 6 Shower/Bathe Self (QC): 5 Upper Body Dressing (QC): 6 Lower Body Dressing (QC): 6 On/Off Footwear (QC): 5 Additional Goals: 1-Demonstrate ADL Tasks, 2-Verbalize Understanding, 3- ImproveStrength/Jony 1=Demonstrate adherence to instructed precautions during ADL tasks. 2=Patient will verbalize/demonstrate understanding of assistive devices/modifications for ADL. 3=Patient will improve strength/tolerance for activity to enable patient to perform ADL's. OT Education/Plan Problem List/Assessment Assessment: Impaired Self-Care Skills Discharge Recommendations Plan/Recommendations: Continue POC Treatment Plan/Plan of Care Patient would benefit from OT for education, treatment and training to promote independence in ADL's, mobility, safety and/or upper extremity function for ADL's. Plan of Care: ADL Retraining, Functional Mobility, Group Exercise/Act as Ind, Orthotic Fitting/Training, UE Funct Exercise/Act, W/C Management Training Treatment Duration: Mar 12, 2022 Frequency: 3 times per week (3-5x/week ) Estimated Hrs Per Day: .25 hour per day Rehab Potential: Fair Time Start Time: 10:43 Stop Time: 10:55 DATE: Mar 01, 2022 Total Time Billed (hr/min): 12 Billed Treatment Time 1 visit-ADL 1 (12 min) ASHER ALEJO Mar 01, 2022 11:15
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
[2022-03-01] MEDS: MELATONIN 3 MG TABLET PO PRN (21:00)
[2022-03-02 03:37] VITALS: BP 132/64
[2022-03-02] MEDS: ENOXAPARIN 40 MG/0.4 ML (LOVENOX) SYR SC SCH ×2 (05:48→19:42)
[2022-03-02] MEDS: ACETAMINOPHEN 325 MG TABLET PO PRN (05:51)
[2022-03-02 05:52] LABS: HEMATOCRIT 46 % (40-54); HEMOGLOBIN 14.2 g/dL (13.3-17.7); MEAN CORPUSCULAR HEMOGLOBIN 24 pg (25-34); MEAN CORPUSCULAR HGB CONC 31 g/dL (32-36); MEAN CORPUSCULAR VOLUME 77 fL (80-99); MEAN PLATELET VOLUME 9.1 fL (9.0-12.2); PLATELET COUNT 355 10^3/uL (130-400); WHITE BLOOD COUNT 11.7 10^3/uL (4.3-11.0)
[2022-03-02 06:17] LABS: ALBUMIN 4.2 GM/DL (3.2-4.5); BILIRUBIN,TOTAL 0.2 MG/DL (0.1-1.0); CALCIUM 9.9 MG/DL (8.5-10.1); CREATININE SERUM 0.71 MG/DL (0.60-1.30); POTASSIUM 3.9 MMOL/L (3.6-5.0); TOTAL PROTEIN 8.4 GM/DL (6.4-8.2)
[2022-03-02] MEDS: busPIRone 10 MG (BUSPAR) TAB PO SCH ×2 (07:51→19:42)
[2022-03-02] MEDS: SENNOSIDES 8.6 MG (SENOKOT) TAB PO SCH ×2 (07:55→20:48)
[2022-03-02] MEDS: DOCUSATE SODIUM 100 MG (COLACE) CAP PO SCH ×2 (07:55→20:48)
[2022-03-02 07:58] VITALS: BP 104/72
--- NOTE | 2022-03-02 08:39 | Occupational Ther Daily Note ---
OT Current Status-Daily Note Subjective Pt requested pain meds and nursing notified, Pain Numeric Pain Scale: 5-Moderate Pain Location: Left Location Body Site: Calf Pain Description: Throbbing Mental Status/Objective Patient Orientation: Person, Place, Time Wu wrap RLE, CAM boot to be applied when ambulating. Pt apllies boot when handed ADL-Treatment Transfer supine to sit Mi, applied CAM boot RLE sock on LLE with set up. Ambulation to bathroom WBAT w/ encouragement to offload RLE and increase UE strength. for standing grooming tasks CGA Therapy Code Descriptions/Definitions Functional [place] Measure: 0=Not Assessed/NA 4=Minimal Assistance 1=Total Assistance 5=Supervision or Setup 2=Maximal Assistance 6=Modified [place] 3=Moderate Assistance 7=Complete IndependenceSCALE: Activities may be completed with or without assistive devices. 4-Hmbddewrvv-gsdwrfj completes the activity by him/herself with no assistance from a helper. 5-Set-up or Clean-up Assistance-helper sets up or cleans up; patient completes activity. [place] assists only prior to or following the activity. 4-Supervision or Touching Assistance-helper provides verbal cues and/or touching/steadying and/or contact guard assistance as patient completes activity. Assistance may be provided throughout the activity or intermittently. 3-Partial/Moderate Assistance-helper does LESS THAN HALF the effort. [place] lifts, holds or supports trunk or limbs, but provides less than half the effort. 2-Substantial/Maximal Assistance-helper does MORE THAN HALF the effort. [place] lifts or holds trunk or limbs and provides more than half the effort. 8-Tefbqlnry-fvckuc does ALL the effort. Patient does none of the effort to complete the activity. Or, the assistance of 2 or more helpers is required for the patient to complete the activity. If activity was not attempted, code reason: 7-Patient Refused. 9-Not Applicable-not attempted and the patient did not perform the activity before the current illness, exacerbation or injury. 10-Not Attempted due to Environmental Limitations-(lack of equipment, weather restraints, etc.). 88-Not Attempted due to Medical Conditions or Safety Concerns. Oral Hygiene (QC): 5 On/Off Footwear: 5 Education OT Patient Education: Correct positioning, Instructions don/doff splint/brace, Progress toward Goal/Update tx plan, Purpose of tx/functional activities, Reviewed precautions, Safety issues, Transfer techniques, Use of adapted equipment Teaching Recipient: Patient Teaching Methods: Demonstration, Discussion Response to Teaching: Verbalize Understanding, Return Demonstration, R einforcement Needed OT Longterm Goals Longterm Goals Time Frame: Mar 12, 2022 Eating (QC): 6 Oral Hygiene (QC): 6 Toileting Hygiene (QC): 6 Shower/Bathe Self (QC): 5 Upper Body Dressing (QC): 6 Lower Body Dressing (QC): 6 On/Off Footwear (QC): 5 Additional Goals: 1-Demonstrate ADL Tasks, 2-Verbalize Understanding, 3- ImproveStrength/Jony 1=Demonstrate adherence to instructed precautions during ADL tasks. 2=Patient will verbalize/demonstrate understanding of assistive devices/modifications for ADL. 3=Patient will improve strength/tolerance for activity to enable patient to perform ADL's. OT Education/Plan Discharge Recommendations Plan/Recommendations: Continue POC Treatment Plan/Plan of Care Treatment,Training & Education: Yes Patient would benefit from OT for education, treatment and training to promote independence in ADL's, mobility, safety and/or upper extremity function for ADL's. Plan of Care: ADL Retraining, Functional Mobility, Group Exercise/Act as Ind, Orthotic Fitting/Training, UE Funct Exercise/Act, W/C Management Training Treatment Duration: Mar 12, 2022 Frequency: 3 times per week (3-5x/week ) Estimated Hrs Per Day: .25 hour per day Rehab Potential: Fair Time Start Time: 08:11 Stop Time: 08:26 DATE: Mar 02, 2022 Total Time Billed (hr/min): 15 Billed Treatment Time 1 visit, 1 ADL 15 minutes KETTY FIELDS OT Mar 02, 2022 08:39
--- NOTE | 2022-03-02 11:03 | Physical Therapy Daily Note ---
PT Daily Note-Current Subjective Patient in bed pre tx, patient is weeping and has visible beads of sweat on his face, patient states he has 10/10 pain in left leg, patient also has a damp spot on his sheet around his left ankle. Nurse notified. Patient doesn't want to get out of bed at this time but does agree to some exercises in bed. Pain Section J - Health Conditions 1. Rarely or not at all 2. Occasionally 3. Frequently 4. Almost constantly 8. Unable to answer Pain Effect on Sleep: 2 Pain Interference with Therapy: 2 Pain Interference w/Day-to-Day: 2 Appearance Patient in bed post tx with nurse call, phone, tray, all needs met. Mental Status Patient Orientation: Person, Place, Situation Transfers SCALE: Activities may be completed with or without assistive devices. 0-Hcyrfduncc-settgsp completes the activity by him/herself with no assistance from a helper. 5-Set-up or Clean-up Assistance-helper sets up or cleans up; patient completes activity. [place] assists only prior to or following the activity. 4-Supervision or Touching Assistance-helper provides verbal cues and/or touching/steadying and/or contact guard assistance as patient completes activity. Assistance may be provided throughout the activity or intermittently. 3-Partial/Moderate Assistance-helper does LESS THAN HALF the effort. [place] lifts, holds or supports trunk or limbs, but provides less than half the effort. 2-Substantial/Maximal Assistance-helper does MORE THAN HALF the effort. [place] lifts or holds trunk or limbs and provides more than half the effort. 1-Bichmxoyt-eaolur does ALL the effort. Patient does none of the effort to complete the activity. Or, the assistance of 2 or more helpers is required for the patient to complete the activity. If activity was not attempted, code reason: 7-Patient Refused. 9-Not Applicable-not attempted and the patient did not perform the activity before the current illness, exacerbation or injury. 10-Not Attempted due to Environmental Limitations-(lack of equipment, weather restraints, etc.). 88-Not Attempted due to Medical Conditions or Safety Concerns. Weight Bearing There are no weight bearing restrictions ordered at this time. Patient states that at the hospital he was allowed to bear weight on both legs but he does have to wear a boot on the left leg. 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 Time Frame: Mar 05, 2022 Roll Left & Right (QC): 6 Sit to Lying (QC): 6 Lying-Sitting on Side/Bed(QC): 6 Sit to Stand (QC): 6 Chair/Ysg-pv-Jjadn Xfer(QC): 6 Walk 10 feet (QC): 6 PT Plan Problem List Problem List: Activity Tolerance, Functional Strength, Safety, Balance, Gait, Transfer, Bed Mobility, ROM Treatment/Plan Treatment Plan: Continue Plan of Care Treatment Plan: Bed Mobility, Education, Functional Activity Jony, Functional Strength, Gait, Safety, Therapeutic Exercise, Transfers Treatment Duration: Mar 05, 2022 Frequency: 6 times per week Estimated Hrs Per Day: .25 hour per day Patient and/or Family Agrees t: Yes Safety Risks/Education Patient Education: Correct Positioning, Safety Issues Teaching Recipient: Patient Teaching Methods: Demonstration, Discussion Response to Teaching: Reinforcement Needed Time Time In: 1036 Time Out: 1046 DATE: Mar 02, 2022 Total Billed Treatment Time: 10 Total Billed Treatment 1 visit EX MICKEY CARTER PT Mar 02, 2022 11:03
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
[2022-03-02 12:02] VITALS: BP 110/75
--- NOTE | 2022-03-02 13:10 | Progress Note ---
Subjective Subjective/Events-last exam Afebrile, states he is still struggling with pain. Per Surgery plan to debride some of his wound tomorrow. Objective Exam Last Set of Vital Signs Vital Signs Date Time Temp Pulse Resp B/P (MAP) Pulse Ox O2 Delivery O2 Flow Rate FiO2 03/02/22 12:02 36.4 100 18 110/75 (87) 98 Room Air 03/02/22 03:37 0.00 0.00 02/25/22 18:48 21 Capillary Refill : Less Than 3 Seconds I&O Intake and Output 03/02/22 00:00 Intake Total 2920 ml Output Total 2900 ml Balance 20 ml Intake Oral 2920 ml Output Urine Total 2900 ml # Voids 2 # Bowel Movements 3 General: Alert, No Acute Distress Lungs: Clear to Auscultation, Normal Air Movement Heart: Regular Rate, No Murmurs Extremities: Other (left lower leg in brace, bowed, dressing in place to left joyner/lower leg) Psych/Mental Status: Mood NL Results/Procedures Lab Laboratory Tests 03/02/22 05:05: White Blood Count 11.7H, Red Blood Count 5.95H, Hemoglobin 14.2, Hematocrit 46, Mean Corpuscular Volume 77L, Mean Corpuscular Hemoglobin 24L, Mean Corpuscular Hemoglobin Concent 31L, Red Cell Distribution Width 20.6H, Platelet Count 355, Mean Platelet Volume 9.1, Sodium Level 136, Potassium Level 3.9, Chloride Level 101, Carbon Dioxide Level 24, Anion Gap 11, Blood Urea Nitrogen 16, Creatinine 0.71, Estimat Glomerular Filtration Rate 130, BUN/Creatinine Ratio 23, Glucose Level 97, Calcium Level 9.9, Corrected Calcium 9.7, Total Bilirubin 0.2, Aspartate Amino Transf (AST/SGOT) 35H, Alanine Aminotransferase (ALT/SGPT) 90H, Alkaline Phosphatase 122, Total Protein 8.4H, Albumin 4.2 Microbiology 02/26/22 Gram Stain - Final, Complete 02/26/22 Wound Culture - Final, Complete Mixed Bacterial Amy Streptococcus dysgalactiae Radiology Date of Exam:02/25/22 TIBIA/FIBULA, BILATERAL, 2VIEW EXAMINATION: Left tibia and fibula radiographs, 2 views. Right tibia and fibula radiographs, 2 views. COMPARISON: None. HISTORY: 26-year-old male, bilateral leg pain. History of prior tibial fractures. FINDINGS: There is sideplate and screw fixation hardware along the left tibia with the mid left tibial diaphyseal fracture. There is a lateral bend of the mid tibial diaphysis. The sideplate and screw fixation hardware appears intact. The tibia projects lateral to the fibula on the frontal view relating to the bend in contour abnormality. There is an essentially nondisplaced mid tibial diaphyseal fracture on the right with intramedullary ousmane and fixation screws. There is a visible fracture line. The hardware appears intact. There is also incompletely imaged hardware at the level of the right distal femur with a mildly displaced distal femoral metadiaphyseal fracture. There are surgical clips posteriorly near the level of the left knee joint. There is no large left knee joint effusion. There is no right knee joint effusion. IMPRESSION: 1. Fractures of the mid tibial diaphysis, bilaterally, with right tibial fracture being essentially nondisplaced with intact open reduction and internal fixation hardware. The left tibial fracture has a significant contour deformity of the tibia and medial bending of the tibia with projection of the tibia lateral to the fibula. 2. Mildly displaced fracture of the right distal femoral metadiaphysis with intact partially visualized hardware. 3. No identified fracture which is not bridged by hardware. 4. No evidence of failure of the hardware. Dictated by: Dictated on workstation # [id number] Dict: 02/25/22 1549 Trans: 02/25/22 1721 [facility] [id number] Interpreted by: DIANA HESTER MD Electronically signed by: DIANA HESTER MD 02/25/22 172 Date of Exam:02/25/22 CT CHEST/ABDOMEN/PELVIS W PROCEDURE: CT chest, abdomen, and pelvis with contrast. TECHNIQUE: Multiple contiguous axial images were obtained through the chest, abdomen, and pelvis after the administration of intravenous contrast. Auto Exposure Controls were utilized during the CT exam to meet ALARA standards for radiation dose reduction. INDICATION: Found down. The patient does not remember how he wound up face down in a ditch when he was found. COMPARISON: I have no priors. FINDINGS: CHEST: There is some residual thymic tissue in the anterior mediastinum, unremarkable for age. No mediastinal, hilar, or axillary mass or lymphadenopathy. No lung contusion, pneumothorax, or hemothorax. Some physiologic partial atelectasis in the lung bases is likely owing to a somewhat suboptimal inspiratory volume. No convincing evidence for mirna edema or pneumonia. No pleural or pericardial effusion. No acute soft tissue or osseous chest wall pathology. There are nonacute right lateral rib fractures at the seventh, eighth, and ninth levels. Spine appeared unremarkable. Sternum, manubrium, and diaphragm are intact. ABDOMEN AND PELVIS: There is fatty hepatomegaly without evidence for hepatic or splenic laceration. The spleen is normal in size. The adrenals are negative. The gallbladder is unremarkable. The pancreas is nonfocal and nonacute. The unobstructed kidneys were normal. There is no intra- or extra-peritoneal hemorrhage. There was no ascites. The urinary bladder is intact. The bony pelvis is nonacute. Prior surgery to the proximal right femur is noted. There are surgical clips in the left groin. There is no bowel, biliary, or urinary tract obstruction. There are a few scattered diverticula without features of diverticulitis. No viscus perforation. Some mild nonspecific left inguinal adenopathy is present adjacent to the surgical clips, which may be from previous lymph node biopsy or dissection. No intra-abdominal pelvic mesenteric or retroperitoneal adenopathy. IMPRESSION: CHEST: 1. No acute post-traumatic findings in the chest, abdomen, or pelvis. 2. Chest shows subacute or early chronic right lateral rib deformities; otherwise, negative. ABDOMEN AND PELVIS: Fatty hepatomegaly without pancreatitis, organ laceration, ascites, or hemorrhage. There is noninflamed diverticulosis. Prior surgery to the left groin present. There is some mild nonspecific left inguinal lymphadenopathy. Dictated by: Dictated on workstation # [id number] Dict: 02/25/22 1442 Trans: 02/25/22 1515 [id number] Interpreted by: CRISTA CARLIN Electronically signed by: CRISTA CARLIN 02/25/22 1515 Assessment/Plan Assessment/Plan (1) Fall from wheelchair Status: Acute Assessment & Plan: Found down in ditch by road, uncertain etiology and pt does not recall. Imaging shows chronic injuries. PT. Working on safe discharge plan. Qualifiers: Qualified Codes: W05.0XXA - Fall from non-moving wheelchair, initial encounter (2) Leg wound, left Status: Acute Assessment & Plan: Surgery consulted, appreciate recommendations. Possible need for skin graft. 03/02- plan for debridement tomorrow per Surgery Qualifiers: Qualified Codes: S81.802A - Unspecified open wound, left lower leg, initial encounter (3) Bilateral tibial fractures Status: Chronic Assessment & Plan: Hardware in place, s/p rehab stay, using walker and wheelchair per his report. Qualifiers: (4) Right femoral shaft fracture Status: Chronic Qualifiers: (5) Arthritis of left knee Status: Chronic (6) Right rib fracture Status: Chronic Qualifiers: (7) Homeless Status: Acute Assessment & Plan: Social work consulted. (8) DVT prophylaxis Status: Acute Assessment & Plan: Enoxaparin CHAI LOGAN MD Mar 02, 2022 13:10
[2022-03-02 16:06] VITALS: BP 114/60
[2022-03-02] MEDS: MELATONIN 3 MG TABLET PO PRN ×2 (18:01→19:45)
[2022-03-02 19:08] VITALS: BP 137/82
[2022-03-03] VITALS (12 sets, daily range): BP systolic 104–150; BP diastolic 62–98
[2022-03-03] MEDS: ENOXAPARIN 40 MG/0.4 ML (LOVENOX) SYR SC SCH ×2 (06:49→19:14)
--- NOTE | 2022-03-03 07:24 | Progress Note - Surgery ---
MICHAEL THOMPSON 03/03/22 0724: Subjective Date Seen by a Provider: Mar 03, 2022 Time Seen by a Provider: 06:45 Subjective/Events-last exam The patient is lying in bed asleep on evaluation. He is easily rousable. The patient reports the pain in his bilateral legs is still present but improved compared to yesterday. He indicates he does have new onset, dull, aching, persistent chest pain to his left lower lateral chest wall. The patient remarks he has urinated since last night without issue, and had a BM yesterday night as well, which was not diarrheic. The patient denies any fever, chills, abdominal pain, palpations, shortness of breath, cough, headache, or eye pain. He endorses continued numbness to his distal left lower extremity. Review of Systems General: No Chills, No Night Sweats HEENT: No Head Aches, No Eye Pain Pulmonary: No Dyspnea, No Cough Cardiovascular: Chest Pain (left lateral lower chest wall, dull and aching); No: Palpitations Gastrointestinal: No: Abdominal Pain, Diarrhea, Constipation Genitourinary: No Dysuria, No Frequency Musculoskeletal: leg pain Neurological: Numbness Objective Exam Vital Signs Date Time Temp Pulse Resp B/P (MAP) Pulse Ox O2 Delivery O2 Flow Rate FiO2 03/03/22 07:13 36.1 73 18 113/74 (87) 92 Room Air 03/03/22 04:00 36.4 108 18 106/62 (77) 98 Room Air 03/03/22 00:34 36.0 106 18 104/69 (81) 98 Room Air 03/02/22 20:00 Room Air 03/02/22 19:08 36.0 115 20 137/82 (100) 95 Room Air 03/02/22 17:02 109 03/02/22 16:06 36.4 119 20 114/60 (78) 95 Room Air 03/02/22 12:02 36.4 100 18 110/75 (87) 98 Room Air 03/02/22 08:00 Room Air 03/02/22 07:58 36.2 100 18 104/72 (83) 96 Room Air I & O 03/03/22 07:00 Intake Total 2650 ml Output Total 2450 ml Balance 200 ml Capillary Refill : Less Than 3 Seconds General Appearance: WD/WN, Other (somnolent but rousable) HEENT: PERRL/EOMI; No Photophobia Neck: Non Tender; No Carotid Bruit Respiratory: No Accessory Muscle Use, No Respiratory Distress; No Crackles, No Rhonci, No Wheezing Cardiovascular: Regular Rate, Rhythm, No Murmur Peripheral Pulses: 2+ Dorsalis Pedis (R) (left DP pulse not obtained due to bandaging), 2+ Radial Pulses (R), 2+ Radial Pulses (L) Gastrointestinal: normal bowel sounds, non tender, soft Extremity: Pedal Edema (left foot only, also compromising ability to feel pulses in foot. Foot is warm, toes slightly cold), Other (LLE with bandaging around the calf and proximal foot, not directly visualized) Neurologic/Psychiatric: Alert, Oriented x3, Sensory Deficit (numbness to the left foot), Other (Anxious) Skin: No Jaundice, No Pallor Results Lab Microbiology 02/26/22 Gram Stain - Final, Complete 02/26/22 Wound Culture - Final, Complete Mixed Bacterial Amy Streptococcus dysgalactiae Assessment/Plan Assessment/Plan Assessment/Plan Non-healing wound of LLE with necrotic tissue - not visualized this morning, bandage appears dry externally Bent Hardware in Left Tibia Left lower extremity pain Left lower lateral chest wall pain Improved pain management on oxycodone 10 mg Q6H, continue pain control regimen. Visit to the OR scheduled for debridement of LLE necrotic tissue later today. New onset chest pain likely musculoskeletal and secondary to sedentary positioning in his bed. CLARKE BRIGGS DO 03/03/22 1026: Subjective Time Seen by a Provider: 10:19 Subjective/Events-last exam Pt seen in [facility] just before going back to surgery, no new complaints and stated no questions. Left leg marked. Review of Systems General: No Chills, No Night Sweats Pulmonary: No Dyspnea, No Cough Cardiovascular: Chest Pain (left lateral lower chest wall, dull and aching); No: Palpitations Gastrointestinal: No: Abdominal Pain, Diarrhea, Constipation Musculoskeletal: leg pain Neurological: Numbness Objective Exam General Appearance: Mild Distress, Obese HEENT: PERRL/EOMI Respiratory: Lungs Clear, No Accessory Muscle Use, No Respiratory Distress Cardiovascular: Regular Rate, Rhythm, No Murmur Gastrointestinal: non tender, soft Extremity: Pedal Edema (left foot only, also compromising ability to feel pulses in foot. Foot is warm, toes slightly cold), Other (LLE with bandaging around the calf and proximal foot, not directly visualized) Neurologic/Psychiatric: Sensory Deficit (numbness to the left foot), Other (Anxious) Assessment/Plan Assessment/Plan Assessment/Plan Non-healing wound of LLE with necrotic tissue - not visualized this morning, bandage appears dry externally Bent Hardware in Left Tibia Left lower extremity pain Left lower lateral chest wall pain Improved pain management on oxycodone 10 mg Q6H, continue pain control regimen. Visit to the OR scheduled for debridement of LLE necrotic tissue later today. New onset chest pain likely musculoskeletal and secondary to sedentary positioning in his bed. Supervisory-Addendum Brief Verification & Attestation Participated in pt care: history, MDM, physical Personally performed: exam, history, MDM, supervision of care Care discussed with: Medical Student Procedures: n/a Verification and Attestation of Medical Student E/M Service A medical student performed and documented this service. I then reviewed and verified all information documented by the medical student and made modificati ons to such information, when appropriate. I personally performed a physical exam, medical decision making and then discussed any differences between the notes and made revisions as necessary to create one note. Clarke Briggs , 03/03/22 , 10:26 MICHAEL THOMPSON Mar 03, 2022 07:24 CLARKE BRIGGS DO Mar 03, 2022 10:26
[2022-03-03] MEDS: busPIRone 10 MG (BUSPAR) TAB PO SCH ×2 (07:56→20:01)
[2022-03-03] MEDS: SENNOSIDES 8.6 MG (SENOKOT) TAB PO SCH ×2 (07:56→20:01)
[2022-03-03] MEDS: DOCUSATE SODIUM 100 MG (COLACE) CAP PO SCH ×2 (07:56→20:01)
--- NOTE | 2022-03-03 08:14 | Occupational Ther Daily Note ---
OT Current Status-Daily Note Subjective OT arrived with pt sleeping and pt opened eyes with therapist present. Pt is aware of surgery for today. Mental Status/Objective Patient Orientation: Person, Time, Eyes Open ADL-Treatment OT provided 2 sets of clothing for trail. Therapy Code Descriptions/Definitions Functional [place] Measure: 0=Not Assessed/NA 4=Minimal Assistance 1=Total Assistance 5=Supervision or Setup 2=Maximal Assistance 6=Modified [place] 3=Moderate Assistance 7=Complete IndependenceSCALE: Activities may be completed with or without assistive devices. 3-Ppkyqtrjyb-lwrxifj completes the activity by him/herself with no assistance from a helper. 5-Set-up or Clean-up Assistance-helper sets up or cleans up; patient completes activity. [place] assists only prior to or following the activity. 4-Supervision or Touching Assistance-helper provides verbal cues and/or touching/steadying and/or contact guard assistance as patient completes activity. Assistance may be provided throughout the activity or intermittently. 3-Partial/Moderate Assistance-helper does LESS THAN HALF the effort. [place] lifts, holds or supports trunk or limbs, but provides less than half the effort. 2-Substantial/Maximal Assistance-helper does MORE THAN HALF the effort. [place] lifts or holds trunk or limbs and provides more than half the effort. 0-Ppmwwdhsb-uqbkiv does ALL the effort. Patient does none of the effort to complete the activity. Or, the assistance of 2 or more helpers is required for the patient to complete the activity. If activity was not attempted, code reason: 7-Patient Refused. 9-Not Applicable-not attempted and the patient did not perform the activity before the current illness, exacerbation or injury. 10-Not Attempted due to Environmental Limitations-(lack of equipment, weather restraints, etc.). 88-Not Attempted due to Medical Conditions or Safety Concerns. Oral Hygiene (QC): 5 Upper Body Dressing (QC): 5 Lower Body Dressing (QC): 4 (OT assisted elastic leg over CAM boot ) On/Off Footwear: 5 Education OT Patient Education: Correct positioning, Energy conservation, Modified ADL techniques, Reviewed precautions, Rehab process, Safety issues, Use of adapted equipment Teaching Recipient: Patient Teaching Methods: Demonstration, Discussion Response to Teaching: Verbalize Understanding, Return Demonstration, Reinforcement Needed OT Detention Goals Therapy Teacher Goals Time Frame: Mar 12, 2022 Eating (QC): 6 Oral Hygiene (QC): 6 Toileting Hygiene (QC): 6 Shower/Bathe Self (QC): 5 Upper Body Dressing (QC): 6 Lower Body Dressing (QC): 6 On/Off Footwear (QC): 5 Additional Goals: 1-Demonstrate ADL Tasks, 2-Verbalize Understanding, 3- ImproveStrength/Jony 1=Demonstrate adherence to instructed precautions during ADL tasks. 2=Patient will verbalize/demonstrate understanding of assistive devices/modifica tions for ADL. 3=Patient will improve strength/tolerance for activity to enable patient to perform ADL's. OT Education/Plan Discharge Recommendations Plan/Recommendations: Continue POC Treatment Plan/Plan of Care Treatment,Training & Education: Yes Patient would benefit from OT for education, treatment and training to promote independence in ADL's, mobility, safety and/or upper extremity function for ADL's. Plan of Care: ADL Retraining, Functional Mobility, Group Exercise/Act as Ind, Orthotic Fitting/Training, UE Funct Exercise/Act, W/C Management Training Treatment Duration: Mar 12, 2022 Frequency: 3 times per week (3-5x/week ) Estimated Hrs Per Day: .25 hour per day Rehab Potential: Good Time Start Time: 07:31 Stop Time: 07:59 DATE: Mar 03, 2022 Total Time Billed (hr/min): 28 Billed Treatment Time 1 visit 2 ADLS 28 minutes KETTY FIELDS OT Mar 03, 2022 08:14
[2022-03-03] MEDS ORDERED: fentaNYL INJ 100 MCG/2 ML AMP ONE (09:25)
[2022-03-03] MEDS ORDERED: LIDOCAINE PF 2% 5 ML (XYLOCAINE) VIAL ONE (09:25)
[2022-03-03] MEDS ORDERED: proPOfol 200 MG/20 ML (DIPRIVAN) VIAL IV ONE (09:25)
[2022-03-03] MEDS ORDERED: SEVOFLURANE (ULTANE) 15 ML INHAL SOLN ONE ×2 (09:25→11:15)
[2022-03-03] MEDS ORDERED: MIDAZOLAM 2 MG/2 ML (VERSED) VIAL ONE (09:25)
[2022-03-03] MEDS ORDERED: BUP/EPI 0.25% 1:200,000 (MARCAINE) 30 ML VIAL ONE (09:34)
[2022-03-03] MEDS ORDERED: ceFAZolin INJECTION 2,000 MG ONE (10:24)
[2022-03-03] MEDS ORDERED: ceFAZolin INJECTION 2,000 MG in NS (IVPB) 50 ML IV NR (10:30)
[2022-03-03] MEDS: LACTATED RINGERS 1,000 ML IV PRN ×2 (10:39→11:38)
--- NOTE | 2022-03-03 11:16 | Progress Note-Post Operative ---
Post-Operative Progess Note Surgeon (s)/Lime Kiln Operator (s) Surgeon MEMO LANG DO Lime Kiln Operator: TORIBIO Pulido Pre-Operative Diagnosis Non -healing Left lower leg wound with necrotic tissue Post-Operative Diagnosis same pending path Procedure & Operative Findings Date of Procedure 03/03/22 Procedure Performed/Findings Debridement of Necrotic fascia - appx 4 cm squared Anesthesia Type LMA Estimated Blood Loss Estimated blood loss (mL): less than 5ml Specimens/Packing Specimens Removed necrotic tissue Packin MEMO LANG DO Mar 03, 2022 11:16
[2022-03-03] MEDS ORDERED: MEPERIDINE (DEMEROL) INJ 50 MG/ML IVP ONE (11:30)
[2022-03-03] MEDS ORDERED: ONDANSETRON 4 MG/2 ML (SDV) Z0FRAN IVP PRN (11:30)
[2022-03-03] MEDS ORDERED: morphine INJ 10 MG/ML 1ML (SYR OR VIAL) IVP ONE (11:30)
[2022-03-03] MEDS ORDERED: HYDROmorphone 2 MG/ML VIAL (DILAUDID) IV ONE (11:30)
[2022-03-03] MEDS ORDERED: PROMETHAZINE INJ 25 MG/ML (PHENERGAN) AMP IVP ONE (11:30)
[2022-03-03] MEDS ORDERED: morphine INJ 10 MG/ML 1ML (SYR OR VIAL) ONE (11:31)
--- NOTE | 2022-03-03 11:45 | Physical Therapy Progress Note ---
Therapy Progress Note Pt. unavailable for Rx, gone for surgical procedure at this time. will follow . MINA Perez LEE A PTA Mar 03, 2022 11:45
--- NOTE | 2022-03-03 12:12 | Anesthesia-General Post-Op ---
General Patient Condition Mental Status/LOC: Same as Preop Cardiovascular: Satisfactory Nausea/Vomiting: Absent Respiratory: Satisfactory Pain: Controlled Complications: Absent Post Op Complications Complications None Follow Up Care/Instructions Patient Instructions None needed. Anesthesia/Patient Condition Patient Condition Patient is doing well, no complaints, stable vital signs, no apparent adverse anesthesia problems. No complications reported per nursing. ESTRELLITA CALHOUN CRNA Mar 03, 2022 12:12
--- NOTE | 2022-03-03 13:31 | Physical Therapy Daily Note ---
PT Daily Note-Current Subjective Pt. just back from surgical procedure 1 hr ago. Pt. states he is at 7/10 pain in left leg . Pt agrees to bed exercises only. Pain Numeric Pain Scale: 7 Location: Left Location Body Site: Calf (and anterior lower leg) Pain Description: Stabbing Section J - Health Conditions 1. Rarely or not at all 2. Occasionally 3. Frequently 4. Almost constantly 8. Unable to answer Pain Effect on Sleep: 3 Pain Interference with Therapy: 3 Pain Interference w/Day-to-Day: 3 Appearance quiet with furrowed brow during Rx. Mental Status Patient Orientation: Normal For Age Attachments: IV Transfers SCALE: Activities may be completed with or without assistive devices. 1-Edukjtyvil-daaaxak completes the activity by him/herself with no assistance from a helper. 5-Set-up or Clean-up Assistance-helper sets up or cleans up; patient completes activity. [place] assists only prior to or following the activity. 4-Supervision or Touching Assistance-helper provides verbal cues and/or touching/steadying and/or contact guard assistance as patient completes activity. Assistance may be provided throughout the activity or intermittently. 3-Partial/Moderate Assistance-helper does LESS THAN HALF the effort. [place] lifts, holds or supports trunk or limbs, but provides less than half the effort. 2-Substantial/Maximal Assistance-helper does MORE THAN HALF the effort. [place] lifts or holds trunk or limbs and provides more than half the effort. 5-Vtmpsrrpd-zeqryl does ALL the effort. Patient does none of the effort to complete the activity. Or, the assistance of 2 or more helpers is required for the patient to complete the activity. If activity was not attempted, code reason: 7-Patient Refused. 9-Not Applicable-not attempted and the patient did not perform the activity before the current illness, exacerbation or injury. 10-Not Attempted due to Environmental Limitations-(lack of equipment, weather restraints, etc.). 88-Not Attempted due to Medical Conditions or Safety Concerns. pt rolls left and right indep, pushed self up in bed indep with instruction Weight Bearing There are no weight bearing restrictions ordered at this time. Patient states that at the hospital he was allowed to bear weight on both legs but he does have to wear a boot on the left leg. Gait Training pt. declined Exercises Supine Ex: Ankle pumps, Quad Set, Rolling, Glut sets, Heel Slides, Scooting, Straight leg raise, Hip abd/add Supine Reps: 15 Treatments rolling , scooting, LE ex Assessment Current Status: Fair Progress pain limits pts participation this date PT Mcfp Goals Tack Picker Goals PT Tack Picker Goals Time Frame: Mar 05, 2022 Roll Left & Right (QC): 6 Sit to Lying (QC): 6 Lying-Sitting on Side/Bed(QC): 6 Sit to Stand (QC): 6 Chair/Jaz-su-Fthqn Xfer(QC): 6 Walk 10 feet (QC): 6 PT Plan Treatment/Plan Treatment Plan: Continue Plan of Care Treatment Plan: Bed Mobility, Education, Functional Activity Jony, Functional Strength, Gait, Safety, Therapeutic Exercise, Transfers Treatment Duration: Mar 05, 2022 Frequency: 6 times per week Estimated Hrs Per Day: .25 hour per day Patient and/or Family Agrees t: Yes Safety Risks/Education Patient Education: Correct Positioning Teaching Recipient: Patient Response to Teaching: Reinforcement Needed Time Time In: 1310 Time Out: 1325 DATE: Mar 03, 2022 Total Billed Treatment Time: 15 Total Billed Treatment 1,EX 15m TORIN STRONG ACETYLENE PLANT OPERATOR Mar 03, 2022 13:31
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
[2022-03-03] MEDS: LORazepam 0.5 MG (ATIVAN) TABLET PO PRN (16:35)
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
[2022-03-03] MEDS: MELATONIN 3 MG TABLET PO PRN (19:13)
[2022-03-04 03:08] VITALS: BP 127/84
[2022-03-04 06:03] LABS: HEMATOCRIT 45 % (40-54); HEMOGLOBIN 13.8 g/dL (13.3-17.7); MEAN CORPUSCULAR HEMOGLOBIN 24 pg (25-34); MEAN CORPUSCULAR HGB CONC 31 g/dL (32-36); MEAN CORPUSCULAR VOLUME 79 fL (80-99); MEAN PLATELET VOLUME 9.1 fL (9.0-12.2); PLATELET COUNT 308 10^3/uL (130-400); WHITE BLOOD COUNT 9.8 10^3/uL (4.3-11.0)
[2022-03-04] MEDS: ENOXAPARIN 40 MG/0.4 ML (LOVENOX) SYR SC SCH ×2 (06:12→18:20)
[2022-03-04 06:32] LABS: ALBUMIN 4.1 GM/DL (3.2-4.5); BILIRUBIN,TOTAL 0.2 MG/DL (0.1-1.0); CALCIUM 9.5 MG/DL (8.5-10.1); CREATININE SERUM 0.75 MG/DL (0.60-1.30); POTASSIUM 3.9 MMOL/L (3.6-5.0); TOTAL PROTEIN 8.1 GM/DL (6.4-8.2)
--- NOTE | 2022-03-04 06:58 | Progress Note - Surgery ---
MICHAEL THOMPSON 03/04/22 0658: Subjective Date Seen by a Provider: Mar 04, 2022 Time Seen by a Provider: 06:45 Subjective/Events-last exam The patient on evaluation is lying in bed, initially asleep but easily rousable though somnolent. He states he has persistent bilateral leg pain distal to the knees, about the same as yesterday. He indicates he has had a BM and has been urinating without issue since the surgery yesterday. He has also been consuming food and fluids. He denies any chest pain at this time, improved from yesterday. Review of Systems General: No Chills, No Appetite HEENT: No Head Aches Pulmonary: No Dyspnea Cardiovascular: No: Chest Pain Gastrointestinal: No: Abdominal Pain, Diarrhea, Constipation Genitourinary: No Dysuria, No Retention Musculoskeletal: leg pain Neurological: Numbness Objective Exam Vital Signs Date Time Temp Pulse Resp B/P (MAP) Pulse Ox O2 Delivery O2 Flow Rate FiO2 03/04/22 06:07 Room Air 0.00 03/04/22 03:08 36.8 98 20 127/84 (98) 94 Room Air 03/03/22 23:51 36.8 110 20 113/76 (88) 94 Room Air 03/03/22 21:26 35.8 03/03/22 20:00 Room Air 03/03/22 19:21 35.0 116 20 150/86 (107) 98 Room Air 03/03/22 15:17 35.6 114 20 144/83 (103) 95 Room Air 03/03/22 12:13 Room Air 03/03/22 12:10 36.4 18 127/95 (106) 93 Room Air 03/03/22 12:00 18 134/98 (110) 92 Room Air 03/03/22 12:00 36.6 66 18 117/62 (80) 94 Room Air 03/03/22 11:50 Room Air 03/03/22 11:50 20 135/97 (110) 95 Room Air 03/03/22 11:40 20 130/91 (104) 100 OxyMask 2.00 03/03/22 11:35 OxyMask 3.00 03/03/22 11:31 20 122/90 (101) 100 OxyMask 3.00 03/03/22 11:21 36.4 24 126/83 (97) 99 OxyMask 6.00 03/03/22 11:21 OxyMask 6.00 03/03/22 08:00 Room Air 03/03/22 07:13 36.1 73 18 113/74 (87) 92 Room Air I & O 03/04/22 07:00 Intake Total 5500 ml Output Total 3900 ml Balance 1600 ml Capillary Refill : Less Than 3 Seconds General Appearance: Mild Distress, Obese HEENT: PERRL/EOMI, Moist Mucous Membranes Respiratory: Lungs Clear, No Accessory Muscle Use, No Respiratory Distress Cardiovascular: Regular Rate, Rhythm, No Murmur Peripheral Pulses: 2+ Dorsalis Pedis (R) (left DP pulse not obtained due to bandaging), 2+ Radial Pulses (R), 2+ Radial Pulses (L) Gastrointestinal: non tender, soft Extremity: Pedal Edema (left foot only, also compromising ability to feel pulses in foot. Foot and toes are warm with brisk capillary refill.), Other (LLE with bandaging around the calf and proximal foot, not directly visualized) Neurologic/Psychiatric: Sensory Deficit (numbness to the left foot) Skin: No Pallor Results Lab Laboratory Tests 03/04/22 05:40: White Blood Count 9.8, Red Blood Count 5.71H, Hemoglobin 13.8, Hematocrit 45, Mean Corpuscular Volume 79L, Mean Corpuscular Hemoglobin 24L, Mean Corpuscular Hemoglobin Concent 31L, Red Cell Distribution Width 20.4H, Platelet Count 308, Mean Platelet Volume 9.1, Sodium Level 137, Potassium Level 3.9, Chloride Level 104, Carbon Dioxide Level 24, Anion Gap 9, Blood Urea Nitrogen 16, Creatinine 0.75, Estimat Glomerular Filtration Rate 128, BUN/Creatinine Ratio 21, Glucose Level 95, Calcium Level 9.5, Corrected Calcium 9.4, Total Bilirubin 0.2, Aspartate Amino Transf (AST/SGOT) 31, Alanine Aminotransferase (ALT/SGPT) 85H, Alkaline Phosphatase 115, Total Protein 8.1, Albumin 4.1 Microbiology 03/02/22 MRSA Screen - Final, Complete 02/26/22 Gram Stain - Final, Complete 02/26/22 Wound Culture - Final, Complete Mixed Bacterial Amy Streptococcus dysgalactiae Assessment/Plan Assessment/Plan Assessment/Plan Non-healing wound of LLE S/p debridement for non-healing wound of LLE with necrotic tissue - POD 1. Not visualized this morning, bandage appears clean and dry externally Bent Hardware in Left Tibia Left lower extremity pain Left lower lateral chest wall pain - resolved Improved pain management on oxycodone 10 mg Q6H, continue pain control regimen. Bandage not taken down today, will recheck wound in 1-2 days. Chest wall pain has resolved at this time. CLARKE BRIGGS DO 03/04/22 1150: Subjective Time Seen by a Provider: 11:09 Subjective/Events-last exam Pt seen and examined, no new changes and still has leg pain. He is asking about the skin graft. Review of Systems General: No Chills HEENT: No Head Aches Pulmonary: No Dyspnea, No Cough Cardiovascular: No: Chest Pain Gastrointestinal: No: Abdominal Pain, Diarrhea, Constipation Musculoskeletal: leg pain Neurological: Numbness Objective Exam General Appearance: Anxious, Mild Distress, Obese HEENT: Moist Mucous Membranes Respiratory: Lungs Clear, Normal Breath Sounds, No Accessory Muscle Use, No Respiratory Distress Cardiovascular: Regular Rate, Rhythm, No Murmur Gastrointestinal: non tender, soft Extremity: Pedal Edema (left foot only, also compromising ability to feel pulses in foot. Foot and toes are warm with brisk capillary refill.), Other (LLE with bandaging around the calf and proximal foot, not directly visualized) Assessment/Plan Assessment/Plan Assessment/Plan Non-healing wound of LLE S/p debridement for non-healing wound of LLE with necrotic tissue - POD 1. Not visualized this morning, bandage appears clean and dry externally Bent Hardware in Left Tibia Left lower extremity pain Left lower lateral chest wall pain - resolved Improved pain management on oxycodone 10 mg Q6H, continue pain control regimen. Plan to take to OR tomorrow for skin graft and wound VAC placement. Discussed risks and complications with pt; not limited to pain, bleeding, infection, scar (especially from donor site). All questions answered to his satisfaction. Supervisory-Addendum Brief Verification & Attestation Participated in pt care: history, MDM, physical Personally performed: exam, history, MDM, supervision of care Care discussed with: Medical Student Procedures: n/a Verification and Attestation of Medical Student E/M Service A medical student performed and documented this service. I then reviewed and verified all information documented by the medical student and made modifications to such information, when appropriate. I personally performed a physical exam, medical decision making and then discussed any differences between the notes and made revisions as necessary to create one note. Clarke Briggs , 03/04/22 , 11:50 MICHAEL THOMPSON Mar 04, 2022 06:58 CLARKE BRIGGS DO Mar 04, 2022 11:50
[2022-03-04 07:26] VITALS: BP 118/68
[2022-03-04] MEDS: busPIRone 10 MG (BUSPAR) TAB PO SCH ×2 (08:10→20:11)
[2022-03-04] MEDS: LORazepam 0.5 MG (ATIVAN) TABLET PO PRN ×2 (08:13→16:52)
--- NOTE | 2022-03-04 08:17 | Occupational Ther Daily Note ---
OT Current Status-Daily Note Subjective Slept well and ordered breakfast this morning, requesting a sweat shirt or jacket for wheeling self in hallways Pain Numeric Pain Scale: 5-Moderate Pain Comment: Both legs from knees down to feet. numbness to left foot Mental Status/Objective Patient Orientation: Person, Place, Time Attachments: IV IV disconnected by nurse to allow patient access to bathroom ADL-Treatment Therapy Code Descriptions/Definitions Functional Cable Measure: 0=Not Assessed/NA 4=Minimal Assistance 1=Total Assistance 5=Supervision or Setup 2=Maximal Assistance 6=Modified Cable 3=Moderate Assistance 7=Complete IndependenceSCALE: Activities may be completed with or without assistive devices. 4-Pwgnlfdbma-bqdrlyj completes the activity by him/herself with no assistance from a helper. 5-Set-up or Clean-up Assistance-helper sets up or cleans up; patient completes activity. [place] assists only prior to or following the activity. 4-Supervision or Touching Assistance-helper provides verbal cues and/or touching/steadying and/or contact guard assistance as patient completes activity. Assistance may be provided throughout the activity or intermittently. 3-Partial/Moderate Assistance-helper does LESS THAN HALF the effort. [place] lifts, holds or supports trunk or limbs, but provides less than half the effort. 2-Substantial/Maximal Assistance-helper does MORE THAN HALF the effort. [place] lifts or holds trunk or limbs and provides more than half the effort. 7-Ehxswhxdw-cjmmbf does ALL the effort. Patient does none of the effort to complete the activity. Or, the assistance of 2 or more helpers is required for the patient to complete the activity. If activity was not attempted, code reason: 7-Patient Refused. 9-Not Applicable-not attempted and the patient did not perform the activity before the current illness, exacerbation or injury. 10-Not Attempted due to Environmental Limitations-(lack of equipment, weather restraints, etc.). 88-Not Attempted due to Medical Conditions or Safety Concerns. Oral Hygiene (QC): 6 On/Off Footwear: 5 (does not wear CAM boot despite OT recommendation. Set up o f clean nonskid socks provided w/ fall reduction educaiton) Toilet Transfer (QC): 5 (Transer out of WC to stand and use GB for stability to urinate) Education OT Patient Education: Correct positioning, Instructions don/doff splint/brace, Progress toward Goal/Update tx plan, Purpose of tx/functional activities, Reviewed precautions, Rehab process, Safety issues, Transfer techniques, Use of adapted equipment Teaching Recipient: Patient Teaching Methods: Demonstration, Discussion Response to Teaching: Verbalize Understanding, Return Demonstration, Reinforcement Needed OT Correction Goals Director Fraud Goals Time Frame: Mar 12, 2022 Eating (QC): 6 Oral Hygiene (QC): 6 Toileting Hygiene (QC): 6 Shower/Bathe Self (QC): 5 Upper Body Dressing (QC): 6 Lower Body Dressing (QC): 6 On/Off Footwear (QC): 5 Additional Goals: 1-Demonstrate ADL Tasks, 2-Verbalize Understanding, 3-ImproveStrength/Jony 1=Demonstrate adherence to instructed precautions during ADL tasks. 2=Patient will verbalize/demonstrate understanding of assistive devices/modifications for ADL. 3=Patient will improve strength/tolerance for activity to enable patient to perform ADL's. OT Education/Plan Discharge Recommendations Plan/Recommendations: Continue POC Treatment Plan/Plan of Care Treatment,Training & Education: Yes Patient would benefit from OT for education, treatment and training to promote independence in ADL's, mobility, safety and/or upper extremity function for ADL's. Plan of Care: ADL Retraining, Functional Mobility, Group Exercise/Act as Ind, Orthotic Fitting/Training, UE Funct Exercise/Act, W/C Management Training Treatment Duration: Mar 12, 2022 Frequency: 3 times per week (3-5x/week ) Estimated Hrs Per Day: .25 hour per day Rehab Potential: Good Time Start Time: 07:30 Stop Time: 07:47 DATE: Mar 04, 2022 Total Time Billed (hr/min): 17 Billed Treatment Time 1 visit, 1 ADLS 17 minutes KETTY FIELDS OT Mar 04, 2022 08:17
[2022-03-04] MEDS: DOCUSATE SODIUM 100 MG (COLACE) CAP PO SCH ×2 (09:42→20:11)
[2022-03-04] MEDS: SENNOSIDES 8.6 MG (SENOKOT) TAB PO SCH ×2 (09:43→20:11)
--- NOTE | 2022-03-04 09:57 | Physical Therapy Daily Note ---
PT Daily Note-Current Subjective Patient in bed sleeping pre tx, agrees to exercises in bed, states he has already been up and doesn't want to get out of bed at this time. Pain 6/10 in left leg. Pain Section J - Health Conditions 1. Rarely or not at all 2. Occasionally 3. Frequently 4. Almost constantly 8. Unable to answer Pain Effect on Sleep: 3 Pain Interference with Therapy: 3 Pain Interference w/Day-to-Day: 3 Appearance patient in bed post tx with nurse call, phone, tray, all needs met. Mental Status Patient Orientation: Person, Place, Situation Transfers SCALE: Activities may be completed with or without assistive devices. 7-Yeckirifsk-novrxik completes the activity by him/herself with no assistance from a helper. 5-Set-up or Clean-up Assistance-helper sets up or cleans up; patient completes activity. [place] assists only prior to or following the activity. 4-Supervision or Touching Assistance-helper provides verbal cues and/or touching/steadying and/or contact guard assistance as patient completes activity. Assistance may be provided throughout the activity or intermittently. 3-Partial/Moderate Assistance-helper does LESS THAN HALF the effort. [place] lifts, holds or supports trunk or limbs, but provides less than half the effort. 2-Substantial/Maximal Assistance-helper does MORE THAN HALF the effort. [place] lifts or holds trunk or limbs and provides more than half the effort. 6-Evjndvlxy-ousjec does ALL the effort. Patient does none of the effort to complete the activity. Or, the assistance of 2 or more helpers is required for the patient to complete the activity. If activity was not attempted, code reason: 7-Patient Refused. 9-Not Applicable-not attempted and the patient did not perform the activity before the current illness, exacerbation or injury. 10-Not Attempted due to Environmental Limitations-(lack of equipment, weather restraints, etc.). 88-Not Attempted due to Medical Conditions or Safety Concerns. Weight Bearing There are no weight bearing restrictions ordered at this time. Patient states that at the hospital he was allowed to bear weight on both legs but he does have to wear a boot on the left leg. Exercises Supine Ex: Ankle pumps, Quad Set, Glut sets, Heel Slides, Short Arc Quads, Straight leg raise, Hip abd/add Supine Reps: 20 Treatments LE ROM Assessment Current Status: Fair Progress patient very drowsy, needed several cues to stay on task PT Senior Care Goals Financial Reporting Director Goals PT Financial Reporting Director Goals Time Frame: Mar 05, 2022 Roll Left & Right (QC): 6 Sit to Lying (QC): 6 Lying-Sitting on Side/Bed(QC): 6 Sit to Stand (QC): 6 Chair/Oba-ls-Ssnra Xfer(QC): 6 Walk 10 feet (QC): 6 PT Plan Problem List Problem List: Activity Tolerance, Functional Strength, Safety, Balance, Gait, Transfer, Bed Mobility, ROM Treatment/Plan Treatment Plan: Continue Plan of Care Treatment Plan: Bed Mobility, Education, Functional Activity Jony, Functional Strength, Gait, Safety, Therapeutic Exercise, Transfers Treatment Duration: Mar 05, 2022 Frequency: 6 times per week Estimated Hrs Per Day: .25 hour per day Patient and/or Family Agrees t: Yes Safety Risks/Education Patient Education: Correct Positioning, Safety Issues Teaching Recipient: Patient Teaching Methods: Demonstration, Discussion Response to Teaching: Reinforcement Needed Time Time In: 928 Time Out: 938 DATE: Mar 04, 2022 Total Billed Treatment Time: 10 Total Billed Treatment 1 visit EX MICKEY CARTER PT Mar 04, 2022 09:57
[2022-03-04 12:05] VITALS: BP 131/66
--- NOTE | 2022-03-04 12:49 | Progress Note ---
Subjective Subjective/Events-last exam Afebrile, no acute events. He says the anxiety medicine didn't work. He thinks he needs another surgery. States pain is bearable. Objective Exam Last Set of Vital Signs Vital Signs Date Time Temp Pulse Resp B/P (MAP) Pulse Ox O2 Delivery O2 Flow Rate FiO2 03/04/22 12:05 36.0 108 18 131/66 (87) 96 Room Air 03/04/22 06:07 0.00 Capillary Refill : Less Than 3 Seconds I&O Intake and Output 03/04/22 00:00 Intake Total 4900 ml Output Total 3350 ml Balance 1550 ml Intake Oral 1800 ml IV Total 3100 ml Output Urine Total 3350 ml General: Alert, No Acute Distress Lungs: Clear to Auscultation, Normal Air Movement Psych/Mental Status: Mood NL Results/Procedures Lab Laboratory Tests 03/04/22 05:40: White Blood Count 9.8, Red Blood Count 5.71H, Hemoglobin 13.8, Hematocrit 45, Mean Corpuscular Volume 79L, Mean Corpuscular Hemoglobin 24L, Mean Corpuscular Hemoglobin Concent 31L, Red Cell Distribution Width 20.4H, Platelet Count 308, Mean Platelet Volume 9.1, Sodium Level 137, Potassium Level 3.9, Chloride Level 104, Carbon Dioxide Level 24, Anion Gap 9, Blood Urea Nitrogen 16, Creatinine 0.75, Estimat Glomerular Filtration Rate 128, BUN/Creatinine Ratio 21, Glucose Level 95, Calcium Level 9.5, Corrected Calcium 9.4, Total Bilirubin 0.2, Aspar purcell Amino Transf (AST/SGOT) 31, Alanine Aminotransferase (ALT/SGPT) 85H, Alkaline Phosphatase 115, Total Protein 8.1, Albumin 4.1 Microbiology 03/02/22 MRSA Screen - Final, Complete 02/26/22 Gram Stain - Final, Complete 02/26/22 Wound Culture - Final, Complete Mixed Bacterial Amy Streptococcus dysgalactiae Radiology Date of Exam:02/25/22 TIBIA/FIBULA, BILATERAL, 2VIEW EXAMINATION: Left tibia and fibula radiographs, 2 views. Right tibia and fibula radiographs, 2 views. COMPARISON: None. HISTORY: 26-year-old male, bilateral leg pain. History of prior tibial fractures. FINDINGS: There is sideplate and screw fixation hardware along the left tibia with the mid left tibial diaphyseal fracture. There is a lateral bend of the mid tibial diaphysis. The sideplate and screw fixation hardware appears intact. The tibia projects lateral to the fibula on the frontal view relating to the bend in contour abnormality. There is an essentially nondisplaced mid tibial diaphyseal fracture on the right with intramedullary ousmane and fixation screws. There is a visible fracture line. The hardware appears intact. There is also incompletely imaged hardware at the level of the right distal femur with a mildly displaced distal femoral metadiaphyseal fracture. There are surgical clips posteriorly near the level of the left knee joint. There is no large left knee joint effusion. There is no right knee joint effusion. IMPRESSION: 1. Fractures of the mid tibial diaphysis, bilaterally, with right tibial fracture being essentially nondisplaced with intact open reduction and internal fixation hardware. The left tibial fracture has a significant contour deformity of the tibia and medial bending of the tibia with projection of the tibia lateral to the fibula. 2. Mildly displaced fracture of the right distal femoral metadiaphysis with intact partially visualized hardware. 3. No identified fracture which is not bridged by hardware. 4. No evidence of failure of the hardware. Dictated by: Dictated on workstation # [id number] Dict: 02/25/22 1549 Trans: 02/25/22 1721 [facility] [id number] Interpreted by: DIANA HESTER MD Electronically signed by: DIANA HESTER MD 02/25/22 1721 Date of Exam:02/25/22 CT CHEST/ABDOMEN/PELVIS W PROCEDURE: CT chest, abdomen, and pelvis with contrast. TECHNIQUE: Multiple contiguous axial images were obtained through the chest, abdomen, and pelvis after the administration of intravenous contrast. Auto Exposure Controls were utilized during the CT exam to meet ALARA standards for radiation dose reduction. INDICATION: Found down. The patient does not remember how he wound up face down in a ditch when he was found. COMPARISON: I have no priors. FINDINGS: CHEST: There is some residual thymic tissue in the anterior mediastinum, unremarkable for age. No mediastinal, hilar, or axillary mass or lymphadenopathy. No lung contusion, pneumothorax, or hemothorax. Some physiologic partial atelectasis in the lung bases is likely owing to a somewhat suboptimal inspiratory volume. No convincing evidence for mirna edema or pneumonia. No pleural or pericardial effusion. No acute soft tissue or osseous chest wall pathology. There are nonacute right lateral rib fractures at the seventh, eighth, and ninth levels. Spine appeared unremarkable. Sternum, manubrium, and diaphragm are intact. ABDOMEN AND PELVIS: There is fatty hepatomegaly without evidence for hepatic or splenic laceration. The spleen is normal in size. The adrenals are negative. The gallbladder is unremarkable. The pancreas is nonfocal and nonacute. The unobstructed kidneys were normal. There is no intra- or extra-peritoneal hemorrhage. There was no ascites. The urinary bladder is intact. The bony pelvis is nonacute. Prior surgery to the proximal right femur is noted. There are surgical clips in the left groin. There is no bowel, biliary, or urinary tract obstruction. There are a few scattered diverticula without features of diverticulitis. No viscus perforation. Some mild nonspecific left inguinal adenopathy is present adjacent to the surgical clips, which may be from previous lymph node biopsy or dissection. No intra-abdominal pelvic mesenteric or retroperitoneal adenopathy. IMPRESSION: CHEST: 1. No acute post-traumatic findings in the chest, abdomen, or pelvis. 2. Chest shows subacute or early chronic right lateral rib deformities; otherwise, negative. ABDOMEN AND PELVIS: Fatty hepatomegaly without pancreatitis, organ laceration, ascites, or hemorrhage. There is noninflamed diverticulosis. Prior surgery to the left groin present. There is some mild nonspecific left inguinal lymphadenopathy. Dictated by: Dictated on workstation # [id number] Dict: 02/25/22 1442 Trans: 02/25/22 1515 [id number] Interpreted by: CRISTA CARLIN Electronically signed by: CRISTA CARLIN 02/25/22 1515 Assessment/Plan Assessment/Plan (1) Fall from wheelchair Status: Acute Assessment & Plan: Found down in ditch by road, uncertain etiology and pt does not recall. Imaging shows chronic injuries. PT. Working on safe discharge plan. Qualifiers: Qualified Codes: W05.0XXA - Fall from non-moving wheelchair, initial encounter (2) Leg wound, left Status: Acute Assessment & Plan: Surgery consulted, appreciate recommendations. Possible need for skin graft. 03/02- plan for debridement tomorrow per Surgery 03/03- s/p debridement, appreciate Surgery recommendations Qualifiers: Qualified Codes: S81.802A - Unspecified open wound, left lower leg, initial encounter (3) Bilateral tibial fractures Status: Chronic Assessment & Plan: Hardware in place, s/p rehab stay, using walker and wheelchair per his report. Qualifiers: (4) Right femoral shaft fracture Status: Chronic Qualifiers: (5) Arthritis of left knee Status: Chronic (6) Right rib fracture Status: Chronic Qualifiers: (7) Homeless Status: Acute Assessment & Plan: Social work consulted. 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 (9) DVT prophylaxis Status: Acute Assessment & Plan: Enoxaparin CHAI LOGAN MD Mar 04, 2022 12:49
[2022-03-04 16:16] VITALS: BP 145/87
[2022-03-04 19:03] VITALS: BP 132/72
[2022-03-04] MEDS: MELATONIN 3 MG TABLET PO PRN (20:11)
[2022-03-05] VITALS (13 sets, daily range): BP systolic 104–143; BP diastolic 55–108
[2022-03-05] MEDS: ENOXAPARIN 40 MG/0.4 ML (LOVENOX) SYR SC SCH ×2 (06:02→18:34)
--- NOTE | 2022-03-05 08:04 | Progress Note - Surgery ---
MICHAEL THOMPSON 03/05/22 0804: Subjective Date Seen by a Provider: Mar 05, 2022 Time Seen by a Provider: 07:40 Subjective/Events-last exam The patient at time of evaluation is seated in his wheelchair, about to move around the hallways of the fourth floor. The patient reports he feels improved from yesterday, with decreased bilateral leg pain. He states he is having BMs and urinating without issue. He denies any new pains or complaints. Patient is again asking about skin graft surgery. Review of Systems General: No Chills, No Fatigue HEENT: No Head Aches Pulmonary: No Dyspnea, No Cough Cardiovascular: No: Chest Pain Gastrointestinal: No: Abdominal Pain Genitourinary: No Dysuria, No Retention Musculoskeletal: leg pain Objective Exam Vital Signs Date Time Temp Pulse Resp B/P (MAP) Pulse Ox O2 Delivery O2 Flow Rate FiO2 03/05/22 03:56 36.0 97 16 119/77 (91) 98 Room Air 03/05/22 00:20 36.1 98 16 108/61 (77) 97 Room Air 03/04/22 20:10 Room Air 03/04/22 19:03 36.8 114 18 132/72 (92) 96 Room Air 03/04/22 16:16 35.9 115 18 145/87 (106) 96 Room Air 03/04/22 12:05 36.0 108 18 131/66 (87) 96 Room Air I & O 03/05/22 07:00 Intake Total 2100 ml Output Total 4000 ml Balance -1900 ml Capillary Refill : Less Than 3 Seconds General Appearance: No Apparent Distress, Anxious, Obese HEENT: Moist Mucous Membranes Respiratory: Lungs Clear, Normal Breath Sounds, No Accessory Muscle Use, No Respiratory Distress Cardiovascular: Regular Rate, Rhythm, No Murmur Peripheral Pulses: 2+ Dorsalis Pedis (R) (left DP pulse not obtained due to bandaging), 2+ Radial Pulses (R), 2+ Radial Pulses (L) Gastrointestinal: non tender, soft Extremity: Pedal Edema (left foot only, also compromising ability to feel pulses in foot. Foot and toes are warm with brisk capillary refill.), Other (LLE with bandaging around the calf and proximal foot, not directly visualized) Neurologic/Psychiatric: Alert, Oriented x3, Sensory Deficit (numbness to the left foot) Skin: No Pallor Results Lab Microbiology 03/02/22 MRSA Screen - Final, Complete 02/26/22 Gram Stain - Final, Complete 02/26/22 Wound Culture - Final, Complete Mixed Bacterial Amy Streptococcus dysgalactiae Assessment/Plan Assessment/Plan Assessment/Plan Non-healing wound of LLE S/p debridement for non-healing wound of LLE with necrotic tissue - POD 2. Not visualized this morning, bandage appears clean and dry externally Bent Hardware in Left Tibia Left lower extremity pain Left lower lateral chest wall pain - resolved Improved pain management on oxycodone 10 mg Q6H, continue pain control regimen. Plan to take to OR today for skin graft and wound VAC placement. CLARKE BRIGGS DO 03/05/22 1031: Subjective Time Seen by a Provider: 10:04 Subjective/Events-last exam Pt seen and examined, no changes and states he is ready for skin graft today. Review of Systems General: No Chills HEENT: No Head Aches Pulmonary: No Dyspnea, No Cough Cardiovascular: No: Chest Pain Gastrointestinal: No: Abdominal Pain Genitourinary: No Dysuria Musculoskeletal: leg pain Objective Exam General Appearance: No Apparent Distress, Anxious, Obese HEENT: Moist Mucous Membranes Respiratory: Lungs Clear, Normal Breath Sounds, No Accessory Muscle Use, No Respiratory Distress Cardiovascular: Regular Rate, Rhythm, No Murmur Gastrointestinal: non tender, soft Extremity: Pedal Edema (left foot only, also compromising ability to feel pul ses in foot. Foot and toes are warm with brisk capillary refill.), Other (LLE with bandaging around the calf and proximal foot, not directly visualized) Assessment/Plan Assessment/Plan Assessment/Plan Non-healing wound of LLE S/p debridement for non-healing wound of LLE with necrotic tissue - POD 2. Not visualized this morning, bandage appears clean and dry externally Bent Hardware in Left Tibia Left lower extremity pain Left lower lateral chest wall pain - resolved Improved pain management on oxycodone 10 mg Q6H, continue pain control regimen. Plan to take to OR today for skin graft and wound VAC placement. Supervisory-Addendum Brief Verification & Attestation Participated in pt care: history, MDM, physical Personally performed: exam, history, MDM, supervision of care Care discussed with: Medical Student Procedures: n/a Verification and Attestation of Medical Student E/M Service A medical student performed and documented this service. I then reviewed and verified all information documented by the medical student and made modifications to such information, when appropriate. I personally performed a physical exam, medical decision making and then discussed any differences between the notes and made revisions as necessary to create one note. Clarke Briggs , 03/05/22 , 10:31 MICHAEL THOMPSON Mar 05, 2022 08:04 CLARKE BRIGGS DO Mar 05, 2022 10:31
[2022-03-05] MEDS: SENNOSIDES 8.6 MG (SENOKOT) TAB PO SCH ×2 (09:00→20:04)
[2022-03-05] MEDS: DOCUSATE SODIUM 100 MG (COLACE) CAP PO SCH ×2 (09:00→20:04)
[2022-03-05] MEDS: busPIRone 10 MG (BUSPAR) TAB PO SCH (09:00)
--- NOTE | 2022-03-05 09:06 | Occupational Ther Daily Note ---
OT Current Status-Daily Note Subjective NPO currently for skin graft of LE, reports family member in [place] is opening her home for pt to stay ADL-Treatment Therapy Code Descriptions/Definitions Functional [place] Measure: 0=Not Assessed/NA 4=Minimal Assistance 1=Total Assistance 5=Supervision or Setup 2=Maximal Assistance 6=Modified [place] 3=Moderate Assistance 7=Complete IndependenceSCALE: Activities may be completed with or without assistive devices. 0-Cbsrafjvmv-fizygba completes the activity by him/herself with no assistance from a helper. 5-Set-up or Clean-up Assistance-helper sets up or cleans up; patient completes activity. [place] assists only prior to or following the activity. 4-Supervision or Touching Assistance-helper provides verbal cues and/or touching/steadying and/or contact guard assistance as patient completes activity. Assistance may be provided throughout the activity or intermittently. 3-Partial/Moderate Assistance-helper does LESS THAN HALF the effort. [place] lifts, holds or supports trunk or limbs, but provides less than half the effort. 2-Substantial/Maximal Assistance-helper does MORE THAN HALF the effort. [place] lifts or holds trunk or limbs and provides more than half the effort. 6-Dyxwlttzv-glgqzl does ALL the effort. Patient does none of the effort to complete the activity. Or, the assistance of 2 or more helpers is required for the patient to complete the activity. If activity was not attempted, code reason: 7-Patient Refused. 9-Not Applicable-not attempted and the patient did not perform the activity before the current illness, exacerbation or injury. 10-Not Attempted due to Environmental Limitations-(lack of equipment, weather restraints, etc.). 88-Not Attempted due to Medical Conditions or Safety Concerns. On/Off Footwear: 6 Toileting Hygiene (QC): 6 Toilet Transfer (QC): 6 WC transfers from bed Mod I, SBA standing for toileting, Mod I standing grooming at sink Education OT Patient Education: Correct positioning, Energy conservation, Modified ADL techniques, Reviewed precautions, Rehab process, Safety issues Teaching Recipient: Patient Teaching Methods: Demonstration, Discussion Response to Teaching: Verbalize Understanding, Return Demonstration, Reinforcement Needed OT Long-Term Goals Long-Term Goals Time Frame: Mar 12, 2022 Eating (QC): 6 Oral Hygiene (QC): 6 Toileting Hygiene (QC): 6 Shower/Bathe Self (QC): 5 Upper Body Dressing (QC): 6 Lower Body Dressing (QC): 6 On/Off Footwear (QC): 5 Additional Goals: 1-Demonstrate ADL Tasks, 2-Verbalize Understanding, 3- ImproveStrength/Jony 1=Demonstrate adherence to instructed precautions during ADL tasks. 2=Patient will verbalize/demonstrate understanding of assistive devices/modifications for ADL. 3=Patient will improve strength/tolerance for activity to enable patient to perform ADL's. OT Education/Plan Discharge Recommendations Plan/Recommendations: Continue POC Treatment Plan/Plan of Care Patient would benefit from OT for education, treatment and training to promote independence in ADL's, mobility, safety and/or upper extremity function for ADL's. Plan of Care: ADL Retraining, Functional Mobility, Group Exercise/Act as Ind, Orthotic Fitting/Training, UE Funct Exercise/Act, W/C Management Training Treatment Duration: Mar 12, 2022 Frequency: 3 times per week (3-5x/week ) Estimated Hrs Per Day: .25 hour per day Rehab Potential: Good Time Start Time: 07:30 Stop Time: 07:45 DATE: Mar 05, 2022 Total Time Billed (hr/min): 15 Billed Treatment Time 1, ADL, 15 KETTY FIELDS OT Mar 05, 2022 09:06
[2022-03-05] MEDS ORDERED: morphine INJ 10 MG/ML 1ML (SYR OR VIAL) IVP STA (09:24)
--- NOTE | 2022-03-05 10:55 | Physical Therapy Daily Note ---
PT Daily Note-Current Subjective Patient in bed pre tx, agrees to PT, has unrated pain in left leg, patient states his pain is better than yesterday. Pain Section J - Health Conditions 1. Rarely or not at all 2. Occasionally 3. Frequently 4. Almost constantly 8. Unable to answer Pain Effect on Sleep: 3 Pain Interference with Therapy: 3 Pain Interference w/Day-to-Day: 3 Appearance Patient in at bedside post tx, has nurse call, phone, tray, all need smet. Mental Status Patient Orientation: Person, Place, Situation Transfers SCALE: Activities may be completed with or without assistive devices. 8-Efpojsxnvk-rdyijrp completes the activity by him/herself with no assistance from a helper. 5-Set-up or Clean-up Assistance-helper sets up or cleans up; patient completes activity. [place] assists only prior to or following the activity. 4-Supervision or Touching Assistance-helper provides verbal cues and/or touching/steadying and/or contact guard assistance as patient completes activity. Assistance may be provided throughout the activity or intermittently. 3-Partial/Moderate Assistance-helper does LESS THAN HALF the effort. [place] lifts, holds or supports trunk or limbs, but provides less than half the effort. 2-Substantial/Maximal Assistance-helper does MORE THAN HALF the effort. [place] lifts or holds trunk or limbs and provides more than half the effort. 1-Obhtnqxeu-htvxjo does ALL the effort. Patient does none of the effort to complete the activity. Or, the assistance of 2 or more helpers is required for the patient to complete the activity. If activity was not attempted, code reason: 7-Patient Refused. 9-Not Applicable-not attempted and the patient did not perform the activity before the current illness, exacerbation or injury. 10-Not Attempted due to Environmental Limitations-(lack of equipment, weather restraints, etc.). 88-Not Attempted due to Medical Conditions or Safety Concerns. Lying to Sitting/Side of Bed(Q: 6 Chair/Lim-vs-Yfsob Xfer(QC): 4 squat pivot transfer to from bed SBA Weight Bearing There are no weight bearing restrictions ordered at this time. Patient states that at the hospital he was allowed to bear weight on both legs but he does have to wear a boot on the left leg. Wheelchair Training Does the Pt Use a Wheelchair?: Yes Wheel 50 ft with 2 turns (QC): 6 Wheel 150 ft (QC): 6 1000', patient practiced going up and down a long ramp Treatments bed mobility and transfers, WC mobility Assessment Current Status: Fair Progress no difficulty with WC mobility or ramp PT Physical Therapy Director Goals Physical Therapy Director Goals PT Physical Therapy Director Goals Time Frame: Mar 05, 2022 Roll Left & Right (QC): 6 Sit to Lying (QC): 6 Lying-Sitting on Side/Bed(QC): 6 Sit to Stand (QC): 6 Chair/Qrh-fv-Wspuf Xfer(QC): 6 Walk 10 feet (QC): 6 PT Plan Problem List Problem List: Activity Tolerance, Functional Strength, Safety, Balance, Gait, Transfer, Bed Mobility, ROM Treatment/Plan Treatment Plan: Continue Plan of Care Treatment Plan: Bed Mobility, Education, Functional Activity Jony, Functional Strength, Gait, Safety, Therapeutic Exercise, Transfers Treatment Duration: Mar 05, 2022 Frequency: 6 times per week Estimated Hrs Per Day: .25 hour per day Patient and/or Family Agrees t: Yes Safety Risks/Education Patient Education: Transfer Techniques, Correct Positioning, W/C Management, Safety Issues Teaching Recipient: Patient Teaching Methods: Demonstration, Discussion Response to Teaching: Reinforcement Needed Time Time In: 1030 Time Out: 1041 DATE: Mar 05, 2022 Total Billed Treatment Time: 11 Total Billed Treatment 1 visit FA 11' MICKEY PORTER PT Mar 05, 2022 10:55
[2022-03-05] MEDS ORDERED: MINERAL OIL 10 ML (MURI-LUBE) VIAL ONE (12:05)
[2022-03-05] MEDS ORDERED: fentaNYL INJ 100 MCG/2 ML AMP ONE (12:49)
[2022-03-05] MEDS ORDERED: proPOfol 200 MG/20 ML (DIPRIVAN) VIAL IV ONE (12:49)
[2022-03-05] MEDS ORDERED: MIDAZOLAM 2 MG/2 ML (VERSED) VIAL ONE (12:49)
[2022-03-05] MEDS ORDERED: ONDANSETRON 4 MG/2 ML (SDV) Z0FRAN ONE (12:49)
[2022-03-05] MEDS ORDERED: LIDOCAINE PF 2% 5 ML (XYLOCAINE) VIAL ONE (12:49)
[2022-03-05] MEDS ORDERED: HYDROmorphone 2 MG/ML VIAL (DILAUDID) ONE (13:12)
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
--- NOTE | 2022-03-05 13:47 | Progress Note-Post Operative ---
Post-Operative Progess Note Surgeon (s)/Surgical Pathologist (s) Surgeon MEMO LANG DO Surgical Pathologist: TORIBIO Pulido Pre-Operative Diagnosis Non -healing Left lower leg wound Post-Operative Diagnosis same pending path Procedure & Operative Findings Date of Procedure 03/05/22 Procedure Performed/Findings Skin excision from donor site 13 x 5cm Split thickness skin graft 9.5 x 4.5 cm Wound VAC placement 10 x 5 cm Anesthesia Type LMA Estimated Blood Loss Estimated blood loss (mL): scant Specimens/Packing Specimens Removed none Packin MEMO LANG DO Mar 05, 2022 13:47
[2022-03-05] MEDS ORDERED: SEVOFLURANE (ULTANE) 15 ML INHAL SOLN ONE (13:56)
[2022-03-05] MEDS: morphine ER 15 MG (MS CONTIN) TAB PO SCH ×2 (14:00→21:58)
[2022-03-05] MEDS: LACTATED RINGERS 1,000 ML IV PRN (14:11)
[2022-03-05] MEDS ORDERED: CATHETER FLUSH 10 ML SYR IVP PRN (14:15)
[2022-03-05] MEDS ORDERED: LACTATED RINGERS 1,000 ML IV PRN ×2 (14:15→14:30)
[2022-03-05] MEDS ORDERED: morphine INJ 10 MG/ML 1ML (SYR OR VIAL) ONE (14:28)
--- NOTE | 2022-03-05 14:28 | Anesthesia-General Post-Op ---
General Patient Condition Mental Status/LOC: Same as Preop Cardiovascular: Satisfactory Nausea/Vomiting: Absent Respiratory: Satisfactory Pain: Controlled Complications: Absent Post Op Complications Complications None Follow Up Care/Instructions Patient Instructions None needed. Anesthesia/Patient Condition Patient Condition Patient is doing well, no complaints, stable vital signs, no apparent adverse anesthesia problems. No complications reported per nursing. ESTRELLITA CALHOUN CRNA Mar 05, 2022 14:28
[2022-03-05] MEDS ORDERED: HYDROmorphone 2 MG/ML VIAL (DILAUDID) IV ONE (14:30)
[2022-03-05] MEDS ORDERED: morphine INJ 10 MG/ML 1ML (SYR OR VIAL) IVP ONE (14:30)
[2022-03-05] MEDS ORDERED: ONDANSETRON 4 MG/2 ML (SDV) Z0FRAN IVP PRN (14:30)
[2022-03-05] MEDS ORDERED: MEPERIDINE (DEMEROL) INJ 50 MG/ML IVP ONE (14:30)
[2022-03-05] MEDS ORDERED: PROMETHAZINE INJ 25 MG/ML (PHENERGAN) AMP IVP ONE (14:30)
[2022-03-05] MEDS: busPIRone 15 MG (BUSPAR) TABLET PO SCH (20:04)
[2022-03-05] MEDS: OLANZapine 5 MG ODT (ZyPREXA ZYDIS) PO SCH (20:04)
[2022-03-05] MEDS: MELATONIN 3 MG TABLET PO PRN (20:04)
[2022-03-05] MEDS: DULoxetine 30 MG (CYMBALTA) CAP PO SCH (20:04)
[2022-03-05] MEDS: PREGABALIN 50 MG (LYRICA) CAP PO SCH (20:04)
[2022-03-05] MEDS: SENNA W/DOCUSATE (SENOKOT S) TABLET PO SCH (20:04)
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
[2022-03-06 03:56] VITALS: BP 102/54
[2022-03-06] MEDS: morphine ER 15 MG (MS CONTIN) TAB PO SCH ×3 (06:02→21:42)
[2022-03-06] MEDS: ENOXAPARIN 40 MG/0.4 ML (LOVENOX) SYR SC SCH ×2 (06:02→17:55)
[2022-03-06] MEDS: MULTIVIT W/MINERALS TAB (THERAGRAN M) PO SCH (06:02)
[2022-03-06 07:06] VITALS: BP 107/64
[2022-03-06] MEDS: ZINC SULFATE 220 MG CAPSULE PO SCH (08:27)
[2022-03-06] MEDS: OLANZapine 2.5 MG (ZyPREXA) TAB PO SCH (08:27)
[2022-03-06] MEDS: PREGABALIN 50 MG (LYRICA) CAP PO SCH ×2 (08:28→20:01)
[2022-03-06] MEDS: SENNA W/DOCUSATE (SENOKOT S) TABLET PO SCH ×2 (08:28→20:01)
[2022-03-06] MEDS: DULoxetine 30 MG (CYMBALTA) CAP PO SCH ×3 (08:28→20:01)
[2022-03-06] MEDS: CLOPIDOGREL 75 MG (PLAVIX) TABLET PO SCH (08:28)
[2022-03-06] MEDS: DOCUSATE SODIUM 100 MG (COLACE) CAP PO SCH ×2 (08:28→20:01)
[2022-03-06] MEDS: busPIRone 15 MG (BUSPAR) TABLET PO SCH ×3 (08:28→20:01)
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
[2022-03-06] MEDS: SENNOSIDES 8.6 MG (SENOKOT) TAB PO SCH ×2 (09:51→20:01)
[2022-03-06 11:02] VITALS: BP 143/89
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
--- NOTE | 2022-03-06 13:25 | Physical Therapy Daily Note ---
PT Daily Note-Current Subjective Pt notes (L) LE pain is 7/10 on arrival, but he is eager to get up and walk. Pt states, "I need to get out of this bed." Pain Section J - Health Conditions 1. Rarely or not at all 2. Occasionally 3. Frequently 4. Almost constantly 8. Unable to answer Pain Effect on Sleep: 3 Pain Interference with Therapy: 3 Pain Interference w/Day-to-Day: 3 Mental Status Patient Orientation: Person, Place, Time, Situation wound vac Transfers SCALE: Activities may be completed with or without assistive devices. 2-Lnkqqfuzej-zvspyry completes the activity by him/herself with no assistance from a helper. 5-Set-up or Clean-up Assistance-helper sets up or cleans up; patient completes activity. [place] assists only prior to or following the activity. 4-Supervision or Touching Assistance-helper provides verbal cues and/or touching/steadying and/or contact guard assistance as patient completes activity. Assistance may be provided throughout the activity or intermittently. 3-Partial/Moderate Assistance-helper does LESS THAN HALF the effort. [place] lifts, holds or supports trunk or limbs, but provides less than half the effort. 2-Substantial/Maximal Assistance-helper does MORE THAN HALF the effort. [place] lifts or holds trunk or limbs and provides more than half the effort. 1-Lurkegjjx-yzncbc does ALL the effort. Patient does none of the effort to complete the activity. Or, the assistance of 2 or more helpers is required for the patient to complete the activity. If activity was not attempted, code reason: 7-Patient Refused. 9-Not Applicable-not attempted and the patient did not perform the activity before the current illness, exacerbation or injury. 10-Not Attempted due to Environmental Limitations-(lack of equipment, weather restraints, etc.). 88-Not Attempted due to Medical Conditions or Safety Concerns. Roll Left & Right (QC): 5 Sit to Lying (QC): 5 Lying to Sitting/Side of Bed(Q: 5 Sit to Stand (QC): 5 Chair/Jxd-fc-Fziqk Xfer(QC): 5 Weight Bearing Left Lower Extremity: Left Weight Bearing/Tolerated There are no weight bearing restrictions ordered at this time. Patient states that at the hospital he was allowed to bear weight on both legs but he does have to wear a boot on the left leg. Gait Training Does the Patient Walk?: Yes Distance: 92ft Walk 10 feet (QC): 5 Walk 50 ft with 2 Turns(QC): 5 Gait Persons Needed: 1 Gait Assistive Device: FWW Wheelchair Training Does the Pt Use a Wheelchair?: No Exercises Supine Ex: LE Protocol Supine Reps: 20 Assessment Current Status: Good Progress Pt is able to perform (L) LE supine ex (I). No issues with gait. Pt was able to ambulate safely and stopped due to fatigue. PT Junior Web Designer Goals Junior Web Designer Goals PT Junior Web Designer Goals Time Frame: Mar 05, 2022 Roll Left & Right (QC): 6 Sit to Lying (QC): 6 Lying-Sitting on Side/Bed(QC): 6 Sit to Stand (QC): 6 Chair/Pss-lr-Afekm Xfer(QC): 6 Walk 10 feet (QC): 6 PT Plan Treatment/Plan Treatment Plan: Continue Plan of Care Treatment Plan: Bed Mobility, Education, Functional Activity Jony, Functional Strength, Gait, Safety, Therapeutic Exercise, Transfers Treatment Duration: Mar 05, 2022 Frequency: 6 times per week Estimated Hrs Per Day: .25 hour per day Patient and/or Family Agrees t: Yes Time Time In: 1120 Time Out: 1140 DATE: Mar 06, 2022 Total Billed Treatment Time: 20 Total Billed Treatment 1, gt 20 JAMIR MORTON PT Mar 06, 2022 13:25
[2022-03-06 15:37] VITALS: BP 123/70
[2022-03-06 19:08] VITALS: BP 145/82
[2022-03-06] MEDS: OLANZapine 5 MG ODT (ZyPREXA ZYDIS) PO SCH (20:01)
[2022-03-06] MEDS: MELATONIN 3 MG TABLET PO PRN (20:01)
[2022-03-06 23:13] VITALS: BP 109/67
[2022-03-07] VITALS (7 sets, daily range): BP systolic 105–163; BP diastolic 64–82
[2022-03-07] MEDS: ENOXAPARIN 40 MG/0.4 ML (LOVENOX) SYR SC SCH ×2 (06:06→18:14)
[2022-03-07] MEDS: MULTIVIT W/MINERALS TAB (THERAGRAN M) PO SCH (06:06)
[2022-03-07] MEDS: morphine ER 15 MG (MS CONTIN) TAB PO SCH ×3 (06:06→20:31)
[2022-03-07] MEDS: PREGABALIN 50 MG (LYRICA) CAP PO SCH ×2 (08:09→20:31)
[2022-03-07] MEDS: DULoxetine 30 MG (CYMBALTA) CAP PO SCH ×3 (08:09→20:31)
[2022-03-07] MEDS: ZINC SULFATE 220 MG CAPSULE PO SCH (08:09)
[2022-03-07] MEDS: busPIRone 15 MG (BUSPAR) TABLET PO SCH ×3 (08:09→20:30)
[2022-03-07] MEDS: DOCUSATE SODIUM 100 MG (COLACE) CAP PO SCH ×2 (08:09→20:31)
[2022-03-07] MEDS: OLANZapine 2.5 MG (ZyPREXA) TAB PO SCH (08:09)
[2022-03-07] MEDS: CLOPIDOGREL 75 MG (PLAVIX) TABLET PO SCH (08:10)
[2022-03-07] MEDS: SENNA W/DOCUSATE (SENOKOT S) TABLET PO SCH ×2 (08:42→20:30)
[2022-03-07] MEDS: SENNOSIDES 8.6 MG (SENOKOT) TAB PO SCH ×2 (08:42→20:31)
--- NOTE | 2022-03-07 11:37 | Progress Note - Surgery ---
MESERET RUVALCABA 03/07/22 1137: Subjective Date Seen by a Provider: Mar 07, 2022 Time Seen by a Provider: 10:05 Subjective/Events-last exam Pt resting comfortably in NAD. States his pain is under control, but still present. He started PT yesterday. Denies fever, chills, sweats, N/V, chest pain, shortness of breath. Review of Systems General: No Chills, No Night Sweats HEENT: No Visual Changes Pulmonary: No Dyspnea, No Cough Cardiovascular: No: Chest Pain Gastrointestinal: No: Nausea, Vomiting, Abdominal Pain Genitourinary: No Dysuria, No Frequency Musculoskeletal: leg pain (left leg pain) Neurological: No: Weakness, Numbness Objective Exam Vital Signs Date Time Temp Pulse Resp B/P (MAP) Pulse Ox O2 Delivery O2 Flow Rate FiO2 03/07/22 11:10 36.9 105 20 132/76 (94) 95 Room Air 03/07/22 08:48 Room Air 03/07/22 07:22 36.6 104 18 124/79 (94) 95 Room Air 03/07/22 06:47 Room Air 0.00 03/07/22 03:06 36.1 72 16 105/64 (78) 96 Room Air 03/06/22 23:13 36.2 80 16 109/67 (81) 94 Room Air 03/06/22 19:49 Room Air 03/06/22 19:08 36.7 98 18 145/82 (103) 94 Room Air 03/06/22 15:37 36.0 95 18 123/70 (87) 92 Room Air I & O 03/07/22 07:00 Intake Total 2080 ml Output Total 2025 ml Balance 55 ml Capillary Refill : Less Than 3 Seconds General Appearance: No Apparent Distress, Chronically ill HEENT: PERRL/EOMI, Moist Mucous Membranes Neck: Non Tender, Supple Respiratory: Chest Non Tender, No Accessory Muscle Use, No Respiratory Distress Cardiovascular: Regular Rate, Rhythm, No JVD Peripheral Pulses: 2+ Dorsalis Pedis (R), 2+ Left Dors-Pedis (L), 2+ Radial Pulses (R), 2+ Radial Pulses (L) Gastrointestinal: non tender, soft Extremity: Other (LLE with c/d/i bandaging. No surrounding erythema. Wound vacc in place.) Neurologic/Psychiatric: Alert, Oriented x3 Skin: Normal Color, Warm/Dry Lymphatic: No Adenopathy (supraclavicular) Results Lab Microbiology 03/02/22 MRSA Screen - Final, Complete 02/26/22 Gram Stain - Final, Complete 02/26/22 Wound Culture - Final, Complete Mixed Bacterial Amy Streptococcus dysgalactiae Assessment/Plan Assessment/Plan Assessment/Plan Non-healing wound of LLE S/p debridement for non-healing wound of LLE with necrotic tissue - POD 4. S/p skin graft and wound VAC placement - POD 2. Bent Hardware in Left Tibia Left lower extremity pain Left lower lateral chest wall pain - resolved Wound VAC in place Continue PT Pain control NELI EAST DO 03/07/22 1227: Subjective Subjective/Events-last exam Laying in bed. Wound vac on. Pain controlled. Denies any new complaints. Denies n/v fever sweats chills shortness of breath or chest pain. Objective Exam General Appearance: No Apparent Distress, Chronically ill HEENT: PERRL/EOMI, Normal ENT Inspection Neck: Non Tender, Supple Respiratory: Chest Non Tender, No Accessory Muscle Use, No Respiratory Distress Cardiovascular: Regular Rate, Rhythm, No JVD Gastrointestinal: non tender, soft Extremity: Non Tender, No Calf Tenderness Neurologic/Psychiatric: Alert, Oriented x3 Skin: Normal Color, Warm/Dry Lymphatic: No Adenopathy Assessment/Plan Assessment/Plan Assessment/Plan Non-healing wound of LLE S/p debridement for non-healing wound of LLE with necrotic tissue - POD 4. S/p skin graft and wound VAC placement - POD 2. Bent Hardware in Left Tibia Left lower extremity pain Left lower lateral chest wall pain - resolved Wound VAC in place Continue PT Pain control Supervisory-Addendum Brief Verification & Attestation Participated in pt care: history, MDM, physical Personally performed: exam, history, MDM, supervision of care Care discussed with: Medical Student Procedures: n/a Results interpretation: Verified all documentation Verification and Attestation of Medical Student E/M Service A medical student performed and documented this service in my presence. I reviewed and verified all information documented by the medical student and made modifications to such information, when appropriate. I personally performed the physical exam and medical decision making. Neli East, Mar 07, 2022,12:27 MESERET RUVALCABA Mar 07, 2022 11:37 NELI EAST DO Mar 07, 2022 12:27
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
[2022-03-07] MEDS: LORazepam 0.5 MG (ATIVAN) TABLET PO PRN (17:25)
[2022-03-07] MEDS: MELATONIN 3 MG TABLET PO PRN (18:14)
[2022-03-07] MEDS: OLANZapine 5 MG ODT (ZyPREXA ZYDIS) PO SCH (20:30)
[2022-03-08] VITALS (7 sets, daily range): BP systolic 105–146; BP diastolic 61–90
[2022-03-08] MEDS: MULTIVIT W/MINERALS TAB (THERAGRAN M) PO SCH (06:06)
[2022-03-08] MEDS: morphine ER 15 MG (MS CONTIN) TAB PO SCH ×3 (06:06→20:45)
[2022-03-08] MEDS: ENOXAPARIN 40 MG/0.4 ML (LOVENOX) SYR SC SCH ×2 (06:06→18:29)
--- NOTE | 2022-03-08 07:41 | Progress Note - Surgery ---
MICHAEL THOMPSON 03/08/22 0741: Subjective Date Seen by a Provider: Mar 08, 2022 Time Seen by a Provider: 07:15 Subjective/Events-last exam The patient is lying in bed asleep at time of evaluation, easily rousable but somnolent. The patient reports his leg pain is unchanged from the past couple days and is manageable at this time. He indicates he started PT 2 days ago and believes this has been going well. The patient denies any new symptoms, as well as any chills, chest pain, abdominal pain, shortness of breath, cough, headache, difficulty eating or drinking, or difficulty urinating or passing stools. Review of Systems General: No Chills, No Appetite HEENT: No Head Aches Pulmonary: No Dyspnea, No Cough Cardiovascular: No: Chest Pain Gastrointestinal: No: Abdominal Pain, Diarrhea, Constipation Genitourinary: No Dysuria, No Retention Musculoskeletal: leg pain (bilateral) Neurological: Numbness (left) Objective Exam Vital Signs Date Time Temp Pulse Resp B/P (MAP) Pulse Ox O2 Delivery O2 Flow Rate FiO2 03/08/22 03:22 36.7 89 18 105/66 (79) 93 Room Air 03/07/22 23:26 36.2 96 18 123/82 (96) 96 Room Air 03/07/22 20:00 Room Air 03/07/22 19:37 36.4 78 20 135/78 (97) 94 03/07/22 16:00 130/80 (97) 03/07/22 15:23 36.7 114 20 163/72 (102) 94 03/07/22 11:10 36.9 105 20 132/76 (94) 95 Room Air 03/07/22 08:48 Room Air I & O 03/08/22 07:00 Intake Total 2570 ml Output Total 4300 ml Balance -1730 ml Capillary Refill : Less Than 3 Seconds General Appearance: No Apparent Distress, Obese HEENT: PERRL/EOMI Neck: Non Tender Respiratory: Lungs Clear, Normal Breath Sounds, No Accessory Muscle Use, No Respiratory Distress Cardiovascular: Regular Rate, Rhythm, No Edema, No Gallop, No Murmur Peripheral Pulses: 2+ Dorsalis Pedis (R), 2+ Left Dors-Pedis (L) Gastrointestinal: non tender, soft Extremity: No Pedal Edema, Other (left leg with bandaging and wound VAC dressing in place. bandaging appears clean, dry, and intact. no erythema on surrounding skin) Neurologic/Psychiatric: Alert, Oriented x3, Sensory Deficit (numbness to left leg) Skin: Normal Color, Warm/Dry Results Lab Microbiology 03/02/22 MRSA Screen - Final, Complete 02/26/22 Gram Stain - Final, Complete 02/26/22 Wound Culture - Final, Complete Mixed Bacterial Amy Streptococcus dysgalactiae Assessment/Plan Assessment/Plan Assessment/Plan Non-healing wound of LLE S/p debridement for non-healing wound of LLE with necrotic tissue - POD 5. S/p skin graft and wound VAC placement - POD 3. Bent Hardware in Left Tibia Left lower extremity pain Left lower lateral chest wall pain - resolved Wound VAC in place, consider bandage takedown and visualization today. Continue PT. Continue pain control. CLARKE BRIGGS DO 03/08/22 1630: Subjective Time Seen by a Provider: 15:23 Subjective/Events-last exam Pt seen and examined, no new complaints although he did ask about fixing "the bow" in my leg. Pain is controlled. Review of Systems General: No Chills HEENT: No Head Aches Pulmonary: No Dyspnea, No Cough Cardiovascular: No: Chest Pain Gastrointestinal: No: Abdominal Pain, Diarrhea, Constipation Musculoskeletal: leg pain (bilateral) Neurological: Numbness (left) Objective Exam General Appearance: No Apparent Distress HEENT: PERRL/EOMI Respiratory: Lungs Clear, Normal Breath Sounds, No Accessory Muscle Use, No Respiratory Distress Cardiovascular: Regular Rate, Rhythm, No Murmur Gastrointestinal: non tender, soft Extremity: No Pedal Edema, Other (left leg with bandaging and wound VAC dressing in place. bandaging appears clean, dry, and intact. no erythema on surrounding skin) Neurologic/Psychiatric: Alert, Oriented x3 Assessment/Plan Assessment/Plan Assessment/Plan Non-healing wound of LLE - S/p debridement for non-healing wound of LLE with necrotic tissue - POD 5. S/p skin graft and wound VAC placement - POD 3. Bent Hardware in Left Tibia Left lower extremity pain Left lower lateral chest wall pain - resolved Wound VAC in place, consider bandage takedown and visualization today. Continue PT. Continue pain control. Supervisory-Addendum Brief Verification & Attestation Participated in pt care: history, MDM, physical Personally performed: exam, history, MDM, supervision of care Care discussed with: Medical Student Procedures: n/a Verification and Attestation of Medical Student E/M Service A medical student performed and documented this service. I then reviewed and verified all information documented by the medical student and made modifications to such information, when appropriate. I personally performed a physical exam, medical decision making and then discussed any differences between the notes and made revisions as necessary to create one note. Clarke Briggs , 03/08/22 , 16:30 MICHAEL THOMPSON Mar 08, 2022 07:41 CLARKE BRIGGS DO Mar 08, 2022 16:30
[2022-03-08] MEDS: OLANZapine 2.5 MG (ZyPREXA) TAB PO SCH (08:22)
[2022-03-08] MEDS: CLOPIDOGREL 75 MG (PLAVIX) TABLET PO SCH (08:22)
[2022-03-08] MEDS: DOCUSATE SODIUM 100 MG (COLACE) CAP PO SCH ×2 (08:22→20:45)
[2022-03-08] MEDS: SENNOSIDES 8.6 MG (SENOKOT) TAB PO SCH ×2 (08:22→20:45)
[2022-03-08] MEDS: DULoxetine 30 MG (CYMBALTA) CAP PO SCH ×3 (08:22→20:45)
[2022-03-08] MEDS: ZINC SULFATE 220 MG CAPSULE PO SCH (08:22)
[2022-03-08] MEDS: SENNA W/DOCUSATE (SENOKOT S) TABLET PO SCH ×2 (08:22→20:45)
[2022-03-08] MEDS: busPIRone 15 MG (BUSPAR) TABLET PO SCH ×3 (08:22→20:46)
[2022-03-08] MEDS: PREGABALIN 50 MG (LYRICA) CAP PO SCH ×2 (08:22→20:46)
[2022-03-08] MEDS ORDERED: hydrOXYzine (ATARAX) 10 MG TAB PO PRN (10:45)
--- NOTE | 2022-03-08 11:44 | Physical Therapy Daily Note ---
PT Daily Note-Current Subjective Patient in bed pre tx, agrees to PT, has 5/10 pain in his left leg, patient has a wound vac now. Pain Section J - Health Conditions 1. Rarely or not at all 2. Occasionally 3. Frequently 4. Almost constantly 8. Unable to answer Pain Effect on Sleep: 3 Pain Interference with Therapy: 3 Pain Interference w/Day-to-Day: 3 Appearance Patient in bed post tx with nurse call, phone, tray, all needs met. Mental Status Patient Orientation: Person, Place, Situation wound vac Transfers SCALE: Activities may be completed with or without assistive devices. 1-Jzuzhfqvfq-ffjoxma completes the activity by him/herself with no assistance from a helper. 5-Set-up or Clean-up Assistance-helper sets up or cleans up; patient completes activity. Shevlin assists only prior to or following the activity. 4-Supervision or Touching Assistance-helper provides verbal cues and/or touching/steadying and/or contact guard assistance as patient completes activity. Assistance may be provided throughout the activity or intermittently. 3-Partial/Moderate Assistance-helper does LESS THAN HALF the effort. Shevlin lifts, holds or supports trunk or limbs, but provides less than half the effort. 2-Substantial/Maximal Assistance-helper does MORE THAN HALF the effort. Shevlin lifts or holds trunk or limbs and provides more than half the effort. 4-Aalysjgzb-ytkmgy does ALL the effort. Patient does none of the effort to complete the activity. Or, the assistance of 2 or more helpers is required for the patient to complete the activity. If activity was not attempted, code reason: 7-Patient Refused. 9-Not Applicable-not attempted and the patient did not perform the activity before the current illness, exacerbation or injury. 10-Not Attempted due to Environmental Limitations-(lack of equipment, weather restraints, etc.). 88-Not Attempted due to Medical Conditions or Safety Concerns. Roll Left & Right (QC): 6 Sit to Lying (QC): 6 Lying to Sitting/Side of Bed(Q: 6 Sit to Stand (QC): 4 Chair/Gfp-gj-Loivv Xfer(QC): 4 Weight Bearing Left Lower Extremity: Left Weight Bearing/Tolerated There are no weight bearing restrictions ordered at this time. Patient states that at the hospital he was allowed to bear weight on both legs but he does have to wear a boot on the left leg. Gait Training Distance: 70' Walk 10 feet (QC): 4 Walk 50 ft with 2 Turns(QC): 4 Gait Persons Needed: 1 Gait Assistive Device: FWW SBA, uses boot on his left leg, performed partial weight bearing, patient is very concerned about the bend in his leg. Treatments bed mobility and ambulation Assessment Current Status: Fair Progress performed well PT Family Lawyer Goals Nursing Home Goals PT Nursing Home Goals Time Frame: Mar 05, 2022 Roll Left & Right (QC): 6 Sit to Lying (QC): 6 Lying-Sitting on Side/Bed(QC): 6 Sit to Stand (QC): 6 Chair/Jwn-lm-Lqrsn Xfer(QC): 6 Walk 10 feet (QC): 6 PT Plan Problem List Problem List: Activity Tolerance, Functional Strength, Safety, Balance, Gait, Transfer, Bed Mobility, ROM Treatment/Plan Treatment Plan: Continue Plan of Care Treatment Plan: Bed Mobility, Education, Functional Activity Jony, Functional Strength, Gait, Safety, Therapeutic Exercise, Transfers Treatment Duration: Mar 05, 2022 Frequency: 6 times per week Estimated Hrs Per Day: .25 hour per day Patient and/or Family Agrees t: Yes Safety Risks/Education Patient Education: Gait Training, Transfer Techniques, Correct Positioning, Safety Issues Teaching Recipient: Patient Teaching Methods: Demonstration, Discussion Response to Teaching: Reinforcement Needed Time Time In: 1124 Time Out: 1134 DATE: Mar 08, 2022 Total Billed Treatment Time: 10 Total Billed Treatment 1 visit FA MICKEY CARTER PT Mar 08, 2022 11:44
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
[2022-03-08] MEDS: LORazepam 0.5 MG (ATIVAN) TABLET PO PRN (14:32)
--- NOTE | 2022-03-08 14:46 | Occupational Ther Daily Note ---
OT Current Status-Daily Note Subjective Pt alert, sitting in recliner. Pt agrees to therapy. Pt appears very anxious today. Mental Status/Objective Patient Orientation: Person, Place, Time, Situation Attachments: Drains (wound vac), IV ADL-Treatment Therapy Code Descriptions/Definitions Functional [place] Measure: 0=Not Assessed/NA 4=Minimal Assistance 1=Total Assistance 5=Supervision or Setup 2=Maximal Assistance 6=Modified [place] 3=Moderate Assistance 7=Complete IndependenceSCALE: Activities may be completed with or without assistive devices. 2-Idzmkapwjk-yrerqge completes the activity by him/herself with no assistance from a helper. 5-Set-up or Clean-up Assistance-helper sets up or cleans up; patient completes activity. [place] assists only prior to or following the activity. 4-Supervision or Touching Assistance-helper provides verbal cues and/or touching/steadying and/or contact guard assistance as patient completes activity. Assistance may be provided throughout the activity or intermittently. 3-Partial/Moderate Assistance-helper does LESS THAN HALF the effort. [place] lifts, holds or supports trunk or limbs, but provides less than half the effort. 2-Substantial/Maximal Assistance-helper does MORE THAN HALF the effort. [place] lifts or holds trunk or limbs and provides more than half the effort. 5-Dllxqpdfb-sufwrj does ALL the effort. Patient does none of the effort to complete the activity. Or, the assistance of 2 or more helpers is required for the patient to complete the activity. If activity was not attempted, code reason: 7-Patient Refused. 9-Not Applicable-not attempted and the patient did not perform the activity before the current illness, exacerbation or injury. 10-Not Attempted due to Environmental Limitations-(lack of equipment, weather restraints, etc.). 88-Not Attempted due to Medical Conditions or Safety Concerns. Other Treatment Pt completed 3 B UE exercises against gravity to increase strength for daily functional activities. 2 sets 15 reps of 2 exercises, 2 sets 9 reps of arm chair pushups. Pt fatigued quickly and declines to complete more than 2 sets of each exercises. After therapy, pt sitting in recliner with call light/phone in reach. All needs met. OT Mcfp Goals Senior Hadoop Developer Goals Time Frame: Mar 12, 2022 Eating (QC): 6 Oral Hygiene (QC): 6 Toileting Hygiene (QC): 6 Shower/Bathe Self (QC): 5 Upper Body Dressing (QC): 6 Lower Body Dressing (QC): 6 On/Off Footwear (QC): 5 Additional Goals: 1-Demonstrate ADL Tasks, 2-Verbalize Understanding, 3- ImproveStrength/Jony 1=Demonstrate adherence to instructed precautions during ADL tasks. 2=Patient will verbalize/demonstrate understanding of assistive devices/modifications for ADL. 3=Patient will improve strength/tolerance for activity to enable patient to perform ADL's. OT Education/Plan Problem List/Assessment Assessment: Decreased Activ Tolerance, Decreased UE Strength Discharge Recommendations Plan/Recommendations: Continue POC Treatment Plan/Plan of Care Patient would benefit from OT for education, treatment and training to promote independence in ADL's, mobility, safety and/or upper extremity function for ADL's. Plan of Care: ADL Retraining, Functional Mobility, Group Exercise/Act as Ind, Orthotic Fitting/Training, UE Funct Exercise/Act, W/C Management Training Treatment Duration: Mar 12, 2022 Frequency: 3 times per week (3-5x/week ) Estimated Hrs Per Day: .25 hour per day Rehab Potential: Good Time Start Time: 13:55 Stop Time: 14:15 DATE: Mar 08, 2022 Total Time Billed (hr/min): 20 Billed Treatment Time 1 visit-EX 1 (20 min) ASHER ALEJO Mar 08, 2022 14:46
[2022-03-08] MEDS: MELATONIN 3 MG TABLET PO PRN (20:45)
[2022-03-08] MEDS: hydrOXYzine (VISTARIL/ATARAX) 25 MG capsule/tablet PO PRN (20:46)
[2022-03-08] MEDS: OLANZapine 5 MG ODT (ZyPREXA ZYDIS) PO SCH (20:46)
[2022-03-09 03:25] VITALS: BP 127/83
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
[2022-03-09] MEDS: MULTIVIT W/MINERALS TAB (THERAGRAN M) PO SCH (05:44)
[2022-03-09] MEDS: ENOXAPARIN 40 MG/0.4 ML (LOVENOX) SYR SC SCH ×2 (05:44→17:44)
[2022-03-09] MEDS: morphine ER 15 MG (MS CONTIN) TAB PO SCH ×3 (05:44→21:44)
[2022-03-09 06:41] LABS: BASOPHILS # (AUTO) 0.1 10^3/uL (0.0-0.1); BASOPHILS % (AUTO) 1 % (0-10); EOSINOPHILS # (AUTO) 0.6 10^3/uL (0.0-0.3); EOSINOPHILS % (AUTO) 5 % (0-10); HEMATOCRIT 43 % (40-54); HEMOGLOBIN 13.1 g/dL (13.3-17.7); LYMPHOCYTES # (AUTO) 2.5 10^3/uL (1.0-4.0); LYMPHOCYTES % (AUTO) 23 % (12-44); MEAN CORPUSCULAR HEMOGLOBIN 24 pg (25-34); MEAN CORPUSCULAR HGB CONC 31 g/dL (32-36); MEAN CORPUSCULAR VOLUME 79 fL (80-99); MEAN PLATELET VOLUME 9.6 fL (9.0-12.2); MONOCYTES % (AUTO) 10 % (0-12); NEUTROPHILS # (AUTO) 6.5 10^3/uL (1.8-7.8); NEUTROPHILS % (AUTO) 60 % (42-75); PLATELET COUNT 306 10^3/uL (130-400); WHITE BLOOD COUNT 10.8 10^3/uL (4.3-11.0)
[2022-03-09 07:22] LABS: ALBUMIN 3.9 GM/DL (3.2-4.5); BILIRUBIN,TOTAL 0.2 MG/DL (0.1-1.0); CALCIUM 9.6 MG/DL (8.5-10.1); CREATININE SERUM 0.71 MG/DL (0.60-1.30); POTASSIUM 3.9 MMOL/L (3.6-5.0); TOTAL PROTEIN 7.8 GM/DL (6.4-8.2)
[2022-03-09 08:02] VITALS: BP 123/60
[2022-03-09] MEDS: ZINC SULFATE 220 MG CAPSULE PO SCH (08:22)
[2022-03-09] MEDS: PREGABALIN 50 MG (LYRICA) CAP PO SCH ×2 (08:22→21:12)
[2022-03-09] MEDS: DOCUSATE SODIUM 100 MG (COLACE) CAP PO SCH ×2 (08:22→21:11)
[2022-03-09] MEDS: SENNA W/DOCUSATE (SENOKOT S) TABLET PO SCH ×2 (08:22→21:12)
[2022-03-09] MEDS: SENNOSIDES 8.6 MG (SENOKOT) TAB PO SCH ×2 (08:22→21:12)
[2022-03-09] MEDS: OLANZapine 2.5 MG (ZyPREXA) TAB PO SCH (08:22)
[2022-03-09] MEDS: busPIRone 15 MG (BUSPAR) TABLET PO SCH ×3 (08:22→21:12)
[2022-03-09] MEDS: DULoxetine 30 MG (CYMBALTA) CAP PO SCH ×3 (08:22→21:11)
[2022-03-09] MEDS: CLOPIDOGREL 75 MG (PLAVIX) TABLET PO SCH (08:22)
--- NOTE | 2022-03-09 08:30 | Progress Note - Surgery ---
MICHAEL THOMPSON 03/09/22 0830: Subjective Date Seen by a Provider: Mar 09, 2022 Time Seen by a Provider: 07:45 Subjective/Events-last exam The patient is asleep in bed at time of evaluation, easily rousable. The patient reports his leg pain is unchanged at this time, as is his left leg numbness. He states PT is going well. The patient denies any new concerns, as well as any headache, chest pain, shortness of breath, chills, abdominal pain, decreased appetite, or difficulty with urination or stooling. Review of Systems General: No Chills HEENT: No Head Aches Pulmonary: No Dyspnea Cardiovascular: No: Chest Pain Gastrointestinal: No: Abdominal Pain Genitourinary: No Dysuria, No Retention Musculoskeletal: leg pain Neurological: Numbness Objective Exam Vital Signs Date Time Temp Pulse Resp B/P (MAP) Pulse Ox O2 Delivery O2 Flow Rate FiO2 03/09/22 08:02 36.4 96 20 123/60 (81) 94 Room Air 03/09/22 03:25 36.4 75 18 127/83 (98) 96 Room Air 0.00 0.00 03/08/22 23:06 36.5 95 18 146/90 (108) 94 Room Air 0.00 0.00 03/08/22 20:00 Room Air 03/08/22 19:24 36.5 110 18 139/77 (97) 93 Room Air 03/08/22 15:25 36.2 109 18 132/79 (96) 94 Room Air 03/08/22 13:34 109 140/85 (103) 03/08/22 12:00 36.6 112 19 132/81 (98) 94 Room Air I & O 03/09/22 06:59 Intake Total 2250 ml Output Total 2025 ml Balance 225 ml Capillary Refill : Less Than 3 Seconds General Appearance: No Apparent Distress, Obese HEENT: PERRL/EOMI Neck: Non Tender Respiratory: Lungs Clear, Normal Breath Sounds, No Accessory Muscle Use, No Respiratory Distress Cardiovascular: Regular Rate, Rhythm, No Murmur Peripheral Pulses: 2+ Dorsalis Pedis (R), 2+ Left Dors-Pedis (L), 2+ Radial Pulses (R), 2+ Radial Pulses (L) Gastrointestinal: non tender, soft Extremity: No Pedal Edema, Other (left leg with bandaging and wound VAC dressing in place. bandaging appears clean, dry, and intact. no erythema on surrounding skin) Neurologic/Psychiatric: Alert, Oriented x3, Sensory Deficit (left lower leg) Skin: Warm/Dry, Erythema (left lower leg) Results Lab Laboratory Tests 03/09/22 05:25: White Blood Count 10.8, Red Blood Count 5.36, Hemoglobin 13.1L, Hematocrit 43, Mean Corpuscular Volume 79L, Mean Corpuscular Hemoglobin 24L, Mean Corpuscular Hemoglobin Concent 31L, Red Cell Distribution Width 19.6H, Platelet Count 306, Mean Platelet Volume 9.6, Immature Granulocyte % (Auto) 1, Neutrophils (%) (Auto) 60, Lymphocytes (%) (Auto) 23, Monocytes (%) (Auto) 10, Eosinophils (%) (Auto) 5, Basophils (%) (Auto) 1, Neutrophils # (Auto) 6.5, Lymphocytes # (Auto) 2.5, Monocytes # (Auto) 1.0, Eosinophils # (Auto) 0.6H, Basophils # (Auto) 0.1, Immature Granulocyte # (Auto) 0.1, Sodium Level 136, Potassium Level 3.9, Chloride Level 103, Carbon Dioxide Level 25, Anion Gap 8, Blood Urea Nitrogen 14, Creatinine 0.71, Estimat Glomerular Filtration Rate 130, BUN/Creatinine Ratio 20, Glucose Level 98, Calcium Level 9.6, Corrected Calcium 9.7, Total Bilirubin 0.2, Aspartate Amino Transf (AST/SGOT) 24, Alanine Aminotransferase (ALT/SGPT) 70H, Alkaline Phosphatase 106, Total Protein 7.8, Albumin 3.9 Microbiology 03/02/22 MRSA Screen - Final, Complete 02/26/22 Gram Stain - Final, Complete 02/26/22 Wound Culture - Final, Complete Mixed Bacterial Amy Streptococcus dysgalactiae Assessment/Plan Assessment/Plan Assessment/Plan Non-healing wound of LLE - S/p debridement for non-healing wound of LLE with necrotic tissue - POD 6. S/p skin graft and wound VAC placement - POD 4. Bent Hardware in Left Tibia Left lower extremity pain Left lower lateral chest wall pain - resolved Wound VAC in place, plan for takedown and visualization in 3 days. Continue PT. Continue pain control. Begin discussion with social insurance adviser for placement of the patient in a care facility. CLARKE BRIGGS DO 03/09/22 1413: Subjective Time Seen by a Provider: 11:35 Subjective/Events-last exam Pt seen and examined, no new changes. Review of Systems General: No Chills HEENT: No Head Aches Pulmonary: No Dyspnea Cardiovascular: No: Chest Pain Gastrointestinal: No: Abdominal Pain Genitourinary: No Dysuria Musculoskeletal: leg pain Neurological: Numbness Objective Exam General Appearance: No Apparent Distress, Obese HEENT: PERRL/EOMI Respiratory: Lungs Clear, Normal Breath Sounds, No Accessory Muscle Use, No Respiratory Distress Cardiovascular: Regular Rate, Rhythm, No Murmur Gastrointestinal: non tender, soft Extremity: No Pedal Edema, Other (left leg with bandaging and wound VAC dressing in place. bandaging appears clean, dry, and intact. no erythema on surrounding skin) Neurologic/Psychiatric: Alert, Oriented x3, Sensory Deficit (left lower leg) Skin: Erythema (left lower leg) Assessment/Plan Assessment/Plan Assessment/Plan Non-healing wound of LLE - S/p debridement for non-healing wound of LLE with necrotic tissue - POD 6. S/p skin graft and wound VAC placement - POD 4. Bent Hardware in Left Tibia Left lower extremity pain Left lower lateral chest wall pain - resolved Wound VAC in place, plan for takedown and visualization on Tuesday. Continue PT. Continue pain control. Begin discussion with social insurance adviser for placement of the patient in a care facility. Supervisory-Addendum Brief Verification & Attestation Participated in pt care: history, MDM, physical Personally performed: exam, history, MDM, supervision of care Care discussed with: Medical Student Procedures: n/a Verification and Attestation of Medical Student E/M Service A medical student performed and documented this service. I then reviewed and verified all information documented by the medical student and made modifications to such information, when appropriate. I personally performed a physical exam, medical decision making and then discussed any differences between the notes and made revisions as necessary to create one note. Clarke Briggs , 03/09/22 , 14:13 MICHAEL THOMPSON Mar 09, 2022 08:30 CLARKE BRIGGS DO Mar 09, 2022 14:13
--- NOTE | 2022-03-09 09:29 | Physical Therapy Daily Note ---
PT Daily Note-Current Subjective Patient in bed pre tx, agrees reluctantly to PT, states he is too tired to ambulate, agrees to exercises in bed, doesn't voice any complaints of pain. Pain Section J - Health Conditions 1. Rarely or not at all 2. Occasionally 3. Frequently 4. Almost constantly 8. Unable to answer Pain Effect on Sleep: 3 Pain Interference with Therapy: 3 Pain Interference w/Day-to-Day: 3 Appearance Patient in bed post tx with nurse call, phone, tray, all needs met. Mental Status Patient Orientation: Person, Place, Situation wound vac Transfers SCALE: Activities may be completed with or without assistive devices. 4-Nzcafzlrsd-zdopffn completes the activity by him/herself with no assistance from a helper. 5-Set-up or Clean-up Assistance-helper sets up or cleans up; patient completes activity. [place] assists only prior to or following the activity. 4-Supervision or Touching Assistance-helper provides verbal cues and/or touching/steadying and/or contact guard assistance as patient completes activity. Assistance may be provided throughout the activity or intermittently. 3-Partial/Moderate Assistance-helper does LESS THAN HALF the effort. [place] lifts, holds or supports trunk or limbs, but provides less than half the effort. 2-Substantial/Maximal Assistance-helper does MORE THAN HALF the effort. [place] lifts or holds trunk or limbs and provides more than half the effort. 7-Rblnyzwdn-czrqby does ALL the effort. Patient does none of the effort to complete the activity. Or, the assistance of 2 or more helpers is required for the patient to complete the activity. If activity was not attempted, code reason: 7-Patient Refused. 9-Not Applicable-not attempted and the patient did not perform the activity before the current illness, exacerbation or injury. 10-Not Attempted due to Environmental Limitations-(lack of equipment, weather restraints, etc.). 88-Not Attempted due to Medical Conditions or Safety Concerns. Weight Bearing Left Lower Extremity: Left Weight Bearing/Tolerated There are no weight bearing restrictions ordered at this time. Patient states that at the hospital he was allowed to bear weight on both legs but he does have to wear a boot on the left leg. Exercises Supine Ex: Ankle pumps, Quad Set, Glut sets, Heel Slides, Short Arc Quads, Straight leg raise, Hip abd/add Supine Reps: 20 (AROM) Treatments LE ROM Assessment Current Status: Fair Progress all AROM, no assist needed PT Custodial Goals Solar Lab Technician Goals PT Solar Lab Technician Goals Time Frame: Mar 05, 2022 Roll Left & Right (QC): 6 Sit to Lying (QC): 6 Lying-Sitting on Side/Bed(QC): 6 Sit to Stand (QC): 6 Chair/Tqv-wb-Gjbvv Xfer(QC): 6 Walk 10 feet (QC): 6 PT Plan Problem List Problem List: Activity Tolerance, Functional Strength, Safety, Balance, Gait, Transfer, Bed Mobility, ROM Treatment/Plan Treatment Plan: Continue Plan of Care Treatment Plan: Bed Mobility, Education, Functional Activity Jony, Functional Strength, Gait, Safety, Therapeutic Exercise, Transfers Treatment Duration: Mar 05, 2022 Frequency: 6 times per week Estimated Hrs Per Day: .25 hour per day Patient and/or Family Agrees t: Yes Safety Risks/Education Patient Education: Correct Positioning, Safety Issues Teaching Recipient: Patient Teaching Methods: Demonstration, Discussion Response to Teaching: Reinforcement Needed Time Time In: 909 Time Out: 919 DATE: Mar 09, 2022 Total Billed Treatment Time: 10 Total Billed Treatment 1 visit EX 10' MICKEY PORTER PT Mar 09, 2022 09:29
[2022-03-09 11:24] VITALS: BP 101/66
--- NOTE | 2022-03-09 11:57 | Occ Therapy Progress Note ---
Therapy Progress Note Pt sleeping in bed, woke to name. Pt stated that he just finished with therapy and was sleeping. Encouraged pt to participate in OT session. Pt continued to refuse stating that he was sleeping and is to tired to participate. ASHER ALEJO Mar 09, 2022 11:57
[2022-03-09 15:32] VITALS: BP 124/79
[2022-03-09] MEDS: LORazepam 0.5 MG (ATIVAN) TABLET PO PRN (16:22)
[2022-03-09 20:03] VITALS: BP 135/80
[2022-03-09] MEDS: OLANZapine 5 MG ODT (ZyPREXA ZYDIS) PO SCH (21:11)
[2022-03-09 23:12] VITALS: BP 129/85
[2022-03-10 03:03] VITALS: BP 127/84
[2022-03-10] MEDS: ENOXAPARIN 40 MG/0.4 ML (LOVENOX) SYR SC SCH ×2 (06:02→17:30)
[2022-03-10] MEDS: MULTIVIT W/MINERALS TAB (THERAGRAN M) PO SCH (06:03)
[2022-03-10] MEDS: morphine ER 15 MG (MS CONTIN) TAB PO SCH ×3 (06:03→22:09)
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
[2022-03-10 08:02] VITALS: BP 114/71
[2022-03-10] MEDS: PREGABALIN 50 MG (LYRICA) CAP PO SCH ×2 (08:43→20:01)
[2022-03-10] MEDS: DULoxetine 30 MG (CYMBALTA) CAP PO SCH ×3 (08:43→20:02)
[2022-03-10] MEDS: busPIRone 15 MG (BUSPAR) TABLET PO SCH ×3 (08:43→20:01)
[2022-03-10] MEDS: ZINC SULFATE 220 MG CAPSULE PO SCH (08:43)
[2022-03-10] MEDS: CLOPIDOGREL 75 MG (PLAVIX) TABLET PO SCH (08:43)
[2022-03-10] MEDS: DOCUSATE SODIUM 100 MG (COLACE) CAP PO SCH ×2 (08:43→22:28)
[2022-03-10] MEDS: OLANZapine 2.5 MG (ZyPREXA) TAB PO SCH (08:43)
[2022-03-10] MEDS: SENNOSIDES 8.6 MG (SENOKOT) TAB PO SCH ×2 (08:43→22:28)
[2022-03-10] MEDS: SENNA W/DOCUSATE (SENOKOT S) TABLET PO SCH ×2 (08:44→22:28)
--- NOTE | 2022-03-10 09:01 | Occ Therapy Progress Note ---
Therapy Progress Note [id number] In room with Patient, discussed recent refusals and sleepiness and benefits of OT. Call to nurse to discuss participation level and possible DC KETTY FIELDS OT Mar 10, 2022 09:01
[2022-03-10 12:05] VITALS: BP 144/89
--- NOTE | 2022-03-10 14:15 | Physical Therapy Daily Note ---
PT Daily Note-Current Subjective Patient in bed pre tx, agrees to PT, has 7/10 pain in left leg. Pain Section J - Health Conditions 1. Rarely or not at all 2. Occasionally 3. Frequently 4. Almost constantly 8. Unable to answer Pain Effect on Sleep: 3 Pain Interference with Therapy: 3 Pain Interference w/Day-to-Day: 3 Appearance Patient in bed post tx with nurse call, phone, tray, all needs met. Mental Status Patient Orientation: Person, Place, Situation wound vac Transfers SCALE: Activities may be completed with or without assistive devices. 9-Jvbvtwqhfg-tpbcvnm completes the activity by him/herself with no assistance from a helper. 5-Set-up or Clean-up Assistance-helper sets up or cleans up; patient completes activity. [place] assists only prior to or following the activity. 4-Supervision or Touching Assistance-helper provides verbal cues and/or touching/steadying and/or contact guard assistance as patient completes activ ity. Assistance may be provided throughout the activity or intermittently. 3-Partial/Moderate Assistance-helper does LESS THAN HALF the effort. [place] lifts, holds or supports trunk or limbs, but provides less than half the effort. 2-Substantial/Maximal Assistance-helper does MORE THAN HALF the effort. [place] lifts or holds trunk or limbs and provides more than half the effort. 9-Tgwgdmjxa-xwqfel does ALL the effort. Patient does none of the effort to complete the activity. Or, the assistance of 2 or more helpers is required for the patient to complete the activity. If activity was not attempted, code reason: 7-Patient Refused. 9-Not Applicable-not attempted and the patient did not perform the activity before the current illness, exacerbation or injury. 10-Not Attempted due to Environmental Limitations-(lack of equipment, weather restraints, etc.). 88-Not Attempted due to Medical Conditions or Safety Concerns. Roll Left & Right (QC): 6 Sit to Lying (QC): 6 Lying to Sitting/Side of Bed(Q: 6 Sit to Stand (QC): 4 Weight Bearing Left Lower Extremity: Left Weight Bearing/Tolerated There are no weight bearing restrictions ordered at this time. Patient states that at the hospital he was allowed to bear weight on both legs but he does have to wear a boot on the left leg. Gait Training Distance: 60' Walk 10 feet (QC): 4 Walk 50 ft with 2 Turns(QC): 4 Gait Assistive Device: FWW SBA, patient wears a boot on the left leg, slow, antalgic ambulation, SOB afterward Treatments bed mobility and transfers, ambulation Assessment Current Status: Poor Progress patient seems to be declining in endurance PT Bridge Mechanic Goals Bridge Mechanic Goals PT Nursing Home Goals Time Frame: Mar 05, 2022 Roll Left & Right (QC): 6 Sit to Lying (QC): 6 Lying-Sitting on Side/Bed(QC): 6 Sit to Stand (QC): 6 Chair/Ypt-vo-Lbprw Xfer(QC): 6 Walk 10 feet (QC): 6 PT Plan Problem List Problem List: Activity Tolerance, Functional Strength, Safety, Balance, Gait, Transfer, Bed Mobility, ROM Treatment/Plan Treatment Plan: Continue Plan of Care Treatment Plan: Bed Mobility, Education, Functional Activity Jony, Functional Strength, Gait, Safety, Therapeutic Exercise, Transfers Treatment Duration: Mar 05, 2022 Frequency: 6 times per week Estimated Hrs Per Day: .25 hour per day Patient and/or Family Agrees t: Yes Safety Risks/Education Patient Education: Gait Training, Transfer Techniques, Correct Positioning, Safety Issues Teaching Recipient: Patient Teaching Methods: Demonstration, Discussion Response to Teaching: Reinforcement Needed Time Time In: 1347 Time Out: 1357 DATE: Mar 10, 2022 Total Billed Treatment Time: 10 Total Billed Treatment 1 visit GT MICKEY CARTER PT Mar 10, 2022 14:15
[2022-03-10 15:45] VITALS: BP 150/90
[2022-03-10] MEDS ORDERED: NS IV 1000 ML 1,000 ML IV SCH (17:00)
[2022-03-10] MEDS ORDERED: amLODIPine 5 MG (NORVASC) TAB PO NR (17:15)
[2022-03-10 17:33] LABS: BASOPHILS # (AUTO) 0.1 10^3/uL (0.0-0.1); BASOPHILS % (AUTO) 1 % (0-10); EOSINOPHILS # (AUTO) 0.6 10^3/uL (0.0-0.3); EOSINOPHILS % (AUTO) 5 % (0-10); HEMATOCRIT 42 % (40-54); HEMOGLOBIN 13.1 g/dL (13.3-17.7); LYMPHOCYTES # (AUTO) 2.6 10^3/uL (1.0-4.0); LYMPHOCYTES % (AUTO) 23 % (12-44); MEAN CORPUSCULAR HEMOGLOBIN 24 pg (25-34); MEAN CORPUSCULAR HGB CONC 31 g/dL (32-36); MEAN CORPUSCULAR VOLUME 79 fL (80-99); MEAN PLATELET VOLUME 9.1 fL (9.0-12.2); MONOCYTES % (AUTO) 9 % (0-12); NEUTROPHILS # (AUTO) 7.3 10^3/uL (1.8-7.8); NEUTROPHILS % (AUTO) 63 % (42-75); PLATELET COUNT 329 10^3/uL (130-400); WHITE BLOOD COUNT 11.6 10^3/uL (4.3-11.0)
[2022-03-10 18:05] LABS: ALBUMIN 3.9 GM/DL (3.2-4.5); POTASSIUM 4.2 MMOL/L (3.6-5.0)
[2022-03-10 18:06] LABS: CALCIUM 8.9 MG/DL (8.5-10.1)
[2022-03-10 18:08] LABS: TOTAL PROTEIN 7.9 GM/DL (6.4-8.2)
[2022-03-10 18:09] LABS: BILIRUBIN,TOTAL 0.1 MG/DL (0.1-1.0)
[2022-03-10 18:11] LABS: CREATININE SERUM 0.76 MG/DL (0.60-1.30)
[2022-03-10 19:06] VITALS: BP 128/83
[2022-03-10] MEDS: LORazepam 0.5 MG (ATIVAN) TABLET PO PRN (20:00)
[2022-03-10] MEDS: OLANZapine 5 MG ODT (ZyPREXA ZYDIS) PO SCH (20:03)
[2022-03-10] MEDS: inSUlin ASPART (NovoLOG) 1 UNIT/0.01 ML (CHARGE PER UNIT) SC SCH (21:34)
[2022-03-10] MEDS: MELATONIN 3 MG TABLET PO PRN (23:01)
[2022-03-10 23:03] VITALS: BP 138/91
[2022-03-11] VITALS (7 sets, daily range): BP systolic 111–143; BP diastolic 65–90
[2022-03-11] MEDS: inSUlin ASPART (NovoLOG) 1 UNIT/0.01 ML (CHARGE PER UNIT) SC SCH ×4 (05:44→19:47)
[2022-03-11] MEDS: morphine ER 15 MG (MS CONTIN) TAB PO SCH ×3 (06:21→21:06)
[2022-03-11] MEDS: ENOXAPARIN 40 MG/0.4 ML (LOVENOX) SYR SC SCH ×2 (06:22→17:52)
[2022-03-11] MEDS: MULTIVIT W/MINERALS TAB (THERAGRAN M) PO SCH (06:22)
--- NOTE | 2022-03-11 07:41 | Progress Note - Surgery ---
MICHAEL THOMPSON 03/11/22 0741: Subjective Date Seen by a Provider: Mar 11, 2022 Time Seen by a Provider: 07:00 Subjective/Events-last exam The patient is lying in bed asleep at time of evaluation this morning, easily rousable. The patient reports his bilateral leg pain and left leg numbness are unchanged since yesterday. He indicates PT is going well. He has no difficulty with food or fluid intake, or urination or stooling. The patient denies any new concerns, as well as any chills, chest pain, shortness of breath, or abdominal pain. Review of Systems General: No Chills Pulmonary: No Dyspnea Cardiovascular: No: Chest Pain Gastrointestinal: No: Abdominal Pain, Diarrhea, Constipation Genitourinary: No Frequency, No Retention Focused Exam Lactate Level 03/10/22 17:23: Lactic Acid Level 1.80 Objective Exam Vital Signs Date Time Temp Pulse Resp B/P (MAP) Pulse Ox O2 Delivery O2 Flow Rate FiO2 03/11/22 03:41 36.4 83 20 134/80 (98) 93 Room Air 03/10/22 23:03 36.8 106 20 138/91 (107) 95 Room Air 03/10/22 20:01 Room Air 03/10/22 19:06 36.6 112 18 128/83 (98) 95 Room Air 03/10/22 15:45 36.3 120 18 150/90 (110) 96 Room Air 03/10/22 12:05 37.1 120 18 144/89 (107) 96 Room Air 03/10/22 08:02 36.6 83 18 114/71 (85) 91 Room Air 03/10/22 08:00 Room Air I & O 03/11/22 07:00 Intake Total 2720 ml Output Total 2575 ml Balance 145 ml Capillary Refill : Less Than 3 Seconds General Appearance: No Apparent Distress, WD/WN, Chronically ill HEENT: PERRL/EOMI Respiratory: Lungs Clear, Normal Breath Sounds, No Accessory Muscle Use, No Respiratory Distress Cardiovascular: Regular Rate, Rhythm, No Murmur Peripheral Pulses: 2+ Dorsalis Pedis (R), 2+ Left Dors-Pedis (L), 2+ Radial Pul ses (R), 2+ Radial Pulses (L) Gastrointestinal: non tender, soft Extremity: No Pedal Edema, Other (left lower leg with bandaging and wound VAC dressing in place. left upper leg dressing still in place after being changed yesterday, surrounding skin is dry and nonerythematous.) Neurologic/Psychiatric: Alert, Oriented x3, Sensory Deficit (left lower leg) Skin: Normal Color, Warm/Dry, Erythema (left lower leg) Results Lab Laboratory Tests 03/10/22 17:23: White Blood Count 11.6H, Red Blood Count 5.38, Hemoglobin 13.1L, Hematocrit 42, Mean Corpuscular Volume 79L, Mean Corpuscular Hemoglobin 24L, Mean Corpuscular Hemoglobin Concent 31L, Red Cell Distribution Width 19.3H, Platelet Count 329, Mean Platelet Volume 9.1, Immature Granulocyte % (Auto) 1, Neutrophils (%) (Auto) 63, Lymphocytes (%) (Auto) 23, Monocytes (%) (Auto) 9, Eosinophils (%) (Auto) 5, Basophils (%) (Auto) 1, Neutrophils # (Auto) 7.3, Lymphocytes # (Auto) 2.6, Monocytes # (Auto) 1.0, Eosinophils # (Auto) 0.6H, Basophils # (Auto) 0.1, Immature Granulocyte # (Auto) 0.1, Sodium Level 135, Potassium Level 4.2, Chloride Level 103, Carbon Dioxide Level 21, Anion Gap 11, Blood Urea Nitrogen 17, Creatinine 0.76, Estimat Glomerular Filtration Rate 127, BUN/Creatinine Ratio 22, Glucose Level 210H, Lactic Acid Level 1.80, Calcium Level 8.9, Corrected Calcium 9.0, Total Bilirubin 0.1, Aspartate Amino Transf (AST/SGOT) 26, Alanine Aminotransferase (ALT/SGPT) 61H, Alkaline Phosphatase 117, Total Protein 7.9, Albumin 3.9 03/10/22 21:23: Glucometer 147H 03/11/22 05:40: Glucometer 114H Microbiology 03/02/22 MRSA Screen - Final, Complete 02/26/22 Gram Stain - Final, Complete 02/26/22 Wound Culture - Final, Complete Mixed Bacterial Amy Streptococcus dysgalactiae Assessment/Plan Assessment/Plan Assessment/Plan Non-healing wound of LLE - S/p debridement for non-healing wound of LLE with necrotic tissue - POD 8. S/p skin graft and wound VAC placement - POD 6. Bent Hardware in Left Tibia Left lower extremity pain Left lower lateral chest wall pain - resolved Left lower leg numbness Wound VAC in place, plan for takedown and visualization on Tuesday. Continue PT. Continue pain control. Begin discussion with geriatric social work professor for placement of the patient in a care facility. CLARKE BRIGGS DO 03/11/22 1424: Subjective Time Seen by a Provider: 11:12 Subjective/Events-last exam Pt seen and examined, no new complaints. Sitting up in bed eating lunch. Review of Systems General: No Chills Pulmonary: No Dyspnea Cardiovascular: No: Chest Pain Gastrointestinal: No: Abdominal Pain, Diarrhea, Constipation Genitourinary: No Frequency, No Retention Objective Exam General Appearance: No Apparent Distress, WD/WN HEENT: PERRL/EOMI Respiratory: Lungs Clear, Normal Breath Sounds, No Accessory Muscle Use, No Respiratory Distress Cardiovascular: Regular Rate, Rhythm, No Murmur Gastrointestinal: non tender, soft Extremity: Other (left lower leg with bandaging and wound VAC dressing in place. left upper leg dressing still in place after being changed yesterday, surrounding skin is dry and nonerythematous.) Neurologic/Psychiatric: Sensory Deficit (left lower leg) Skin: Erythema (left lower leg) Assessment/Plan Assessment/Plan Assessment/Plan Non-healing wound of LLE - S/p debridement for non-healing wound of LLE with necrotic tissue - POD 8. S/p skin graft and wound VAC placement - POD 6. Bent Hardware in Left Tibia Left lower extremity pain Left lower lateral chest wall pain - resolved Left lower leg numbness Wound VAC in place, plan for takedown and visualization on Tuesday. Continue PT. Continue pain control. Begin discussion with geriatric social work professor for placement of the patient in a care facility. Supervisory-Addendum Brief Verification & Attestation Participated in pt care: history, MDM, physical Personally performed: exam, history, MDM, supervision of care Care discussed with: Medical Student Procedures: n/a Verification and Attestation of Medical Student E/M Service A medical student performed and documented this service. I then reviewed and verified all information documented by the medical student and made modific ations to such information, when appropriate. I personally performed a physical exam, medical decision making and then discussed any differences between the notes and made revisions as necessary to create one note. Clarke Briggs , 03/11/22 , 14:24 MICHAEL THOMPSON Mar 11, 2022 07:41 CLARKE BRIGGS DO Mar 11, 2022 14:24
[2022-03-11] MEDS: DOCUSATE SODIUM 100 MG (COLACE) CAP PO SCH ×2 (08:43→19:40)
[2022-03-11] MEDS: SENNA W/DOCUSATE (SENOKOT S) TABLET PO SCH ×2 (08:43→19:40)
[2022-03-11] MEDS: SENNOSIDES 8.6 MG (SENOKOT) TAB PO SCH ×2 (08:43→19:40)
[2022-03-11] MEDS: OLANZapine 2.5 MG (ZyPREXA) TAB PO SCH (08:43)
[2022-03-11] MEDS: busPIRone 15 MG (BUSPAR) TABLET PO SCH ×3 (08:43→19:40)
[2022-03-11] MEDS: PREGABALIN 50 MG (LYRICA) CAP PO SCH ×2 (08:43→19:40)
[2022-03-11] MEDS: CLOPIDOGREL 75 MG (PLAVIX) TABLET PO SCH (08:43)
[2022-03-11] MEDS: ZINC SULFATE 220 MG CAPSULE PO SCH (08:43)
[2022-03-11] MEDS: DULoxetine 30 MG (CYMBALTA) CAP PO SCH ×3 (08:43→19:40)
[2022-03-11] MEDS: amLODIPine 5 MG (NORVASC) TAB PO SCH (08:44)
--- NOTE | 2022-03-11 08:46 | Occupational Ther Daily Note ---
OT Current Status-Daily Note Subjective Asleep on arrival and easily aroused Pain Numeric Pain Scale: 0-No Pain Appearance Wrapped in blankets and facing window Mental Status/Objective Patient Orientation: Person, Place, Time, Eyes Open, Situation, Normal For Age Attachments: Other-See Comments (wound vac) ADL-Treatment Change hospital gown declined clothing, toileting transfer from Therapy Code Descriptions/Definitions Functional [place] Measure: 0=Not Assessed/NA 4=Minimal Assistance 1=Total Assistance 5=Supervision or Setup 2=Maximal Assistance 6=Modified [place] 3=Moderate Assistance 7=Complete IndependenceSCALE: Activities may be completed with or without assistive devices. 2-Jcomqfeqrv-nttfkkv completes the activity by him/herself with no assistance from a helper. 5-Set-up or Clean-up Assistance-helper sets up or cleans up; patient completes activity. [place] assists only prior to or following the activity. 4-Supervision or Touching Assistance-helper provides verbal cues and/or touching/steadying and/or contact guard assistance as patient completes activity. Assistance may be provided throughout the activity or intermittently. 3-Partial/Moderate Assistance-helper does LESS THAN HALF the effort. [place] lif ts, holds or supports trunk or limbs, but provides less than half the effort. 2-Substantial/Maximal Assistance-helper does MORE THAN HALF the effort. [place] lifts or holds trunk or limbs and provides more than half the effort. 2-Mlmdtedfu-knwzib does ALL the effort. Patient does none of the effort to complete the activity. Or, the assistance of 2 or more helpers is required for the patient to complete the activity. If activity was not attempted, code reason: 7-Patient Refused. 9-Not Applicable-not attempted and the patient did not perform the activity before the current illness, exacerbation or injury. 10-Not Attempted due to Environmental Limitations-(lack of equipment, weather restraints, etc.). 88-Not Attempted due to Medical Conditions or Safety Concerns. Upper Body Dressing (QC): 6 On/Off Footwear: 6 (socks only, CAM boot for transfer) Toilet Transfer (QC): 5 (OT assist with wound vac managment during transfer.) Education OT Patient Education: Energy conservation, Progress toward Goal/Update tx plan, Purpose of tx/functional activities, Reviewed precautions (A caring and [place] converation for particiaotion, plan for future, and DC to family in [facility]), Rehab process, Safety issues, Transfer techniques Teaching Recipient: Patient Response to Teaching: Verbalize Understanding, Return Demonstration, Reinforcement Needed OT Detention Goals Detention Goals Time Frame: Mar 12, 2022 Eating (QC): 6 Oral Hygiene (QC): 6 Toileting Hygiene (QC): 6 Shower/Bathe Self (QC): 5 Upper Body Dressing (QC): 6 Lower Body Dressing (QC): 6 On/Off Footwear (QC): 5 Additional Goals: 1-Demonstrate ADL Tasks, 2-Verbalize Understanding, 3- ImproveStrength/Jony 1=Demonstrate adherence to instructed precautions during ADL tasks. 2=Patient will verbalize/demonstrate understanding of assistive devices/modifications for ADL. 3=Patient will improve strength/tolerance for activity to enable patient to perform ADL's. OT Education/Plan Discharge Recommendations Plan/Recommendations: Continue POC Therapy Discharge Recommendati: Post Acute OT Comment Pt reports he can stay with his aunt, OT recommends HH for transition to home Treatment Plan/Plan of Care Treatment,Training & Education: Yes Patient would benefit from OT for education, treatment and training to promote independence in ADL's, mobility, safety and/or upper extremity function for ADL's. Plan of Care: ADL Retraining, Functional Mobility, Group Exercise/Act as Ind, Orthotic Fitting/Training, UE Funct Exercise/Act, W/C Management Training Treatment Duration: Mar 12, 2022 Frequency: 3 times per week (3-5x/week ) Estimated Hrs Per Day: .25 hour per day Rehab Potential: Good OT left with pt up on commode, WC wound vac and instruction to use call light, OT notified MANAGER [employer] Time Start Time: 07:42 Stop Time: 07:58 DATE: Mar 11, 2022 Total Time Billed (hr/min): 16 Billed Treatment Time 1 ADL 16 KETTY FIELDS OT Mar 11, 2022 08:46
--- NOTE | 2022-03-11 10:48 | Physical Therapy Daily Note ---
PT Daily Note-Current Subjective Patient declined ambulation on this date. He agrees to w/c mobility Pain Section J - Health Conditions 1. Rarely or not at all 2. Occasionally 3. Frequently 4. Almost constantly 8. Unable to answer Pain Effect on Sleep: 3 Pain Interference with Therapy: 3 Pain Interference w/Day-to-Day: 3 Mental Status Patient Orientation: Normal For Age wound vac distal left LE Transfers SCALE: Activities may be completed with or without assistive devices. 8-Xfnfjijndx-uewcwlv completes the activity by him/herself with no assistance from a helper. 5-Set-up or Clean-up Assistance-helper sets up or cleans up; patient completes activity. [place] assists only prior to or following the activity. 4-Supervision or Touching Assistance-helper provides verbal cues and/or touching/steadying and/or contact guard assistance as patient completes activity. Assistance may be provided throughout the activity or intermittently. 3-Partial/Moderate Assistance-helper does LESS THAN HALF the effort. [place] lifts, holds or supports trunk or limbs, but provides less than half the effort. 2-Substantial/Maximal Assistance-helper does MORE THAN HALF the effort. [place] lifts or holds trunk or limbs and provides more than half the effort. 8-Qxqkxerdp-sevvjc does ALL the effort. Patient does none of the effort to complete the activity. Or, the assistance of 2 or more helpers is required for the patient to complete the activity. If activity was not attempted, code reason: 7-Patient Refused. 9-Not Applicable-not attempted and the patient did not perform the activity before the current illness, exacerbation or injury. 10-Not Attempted due to Environmental Limitations-(lack of equipment, weather restraints, etc.). 88-Not Attempted due to Medical Conditions or Safety Concerns. Lying to Sitting/Side of Bed(Q: 6 Sit to Stand (QC): 6 Toilet Transfer (QC): 6 Weight Bearing Left Lower Extremity: Left Weight Bearing/Tolerated There are no weight bearing restrictions ordered at this time. Patient states that at the hospital he was allowed to bear weight on both legs but he does have to wear a boot on the left leg. Wheelchair Training Does the Pt Use a Wheelchair?: Yes Wheel 50 ft with 2 turns (QC): 6 Wheel 150 ft (QC): 6 Type of Wheelchair: Manual patient able to negotiate turns independently. Safely locks brakes for safe transfers Assessment PT donned left distal LE boot to protect LE. Patient tolerated treatment well. PT to increase activity as tolerated by patient. PT Long-Term Goals Long-Term Goals PT Monogram Operator Goals Time Frame: Mar 05, 2022 Roll Left & Right (QC): 6 Sit to Lying (QC): 6 Lying-Sitting on Side/Bed(QC): 6 Sit to Stand (QC): 6 Chair/Kqn-ri-Lmnzs Xfer(QC): 6 Walk 10 feet (QC): 6 PT Plan Treatment/Plan Treatment Plan: Continue Plan of Care Treatment Plan: Bed Mobility, Education, Functional Activity Jony, Functional Strength, Gait, Safety, Therapeutic Exercise, Transfers Treatment Duration: Mar 05, 2022 Frequency: 6 times per week Estimated Hrs Per Day: .25 hour per day Patient and/or Family Agrees t: Yes Time Time In: 929 Time Out: 939 DATE: Mar 11, 2022 Total Billed Treatment Time: 10 Total Billed Treatment 1 visit [facility] 10 min VINCE CONTI PT Mar 11, 2022 10:47
[2022-03-11] MEDS ORDERED: meTOprolol TARTRATE 25 MG (LOPRESSOR) TABLET PO NR (12:00)
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
[2022-03-11] MEDS: hydrOXYzine (VISTARIL/ATARAX) 25 MG capsule/tablet PO PRN (17:52)
[2022-03-11] MEDS: MELATONIN 3 MG TABLET PO PRN (19:40)
[2022-03-11] MEDS: meTOprolol TARTRATE 50 MG (LOPRESSOR) TAB PO SCH (19:40)
[2022-03-11] MEDS: OLANZapine 5 MG ODT (ZyPREXA ZYDIS) PO SCH (19:40)
[2022-03-12 03:30] VITALS: BP 103/57
[2022-03-12] MEDS: inSUlin ASPART (NovoLOG) 1 UNIT/0.01 ML (CHARGE PER UNIT) SC SCH ×4 (05:45→21:07)
[2022-03-12] MEDS: ENOXAPARIN 40 MG/0.4 ML (LOVENOX) SYR SC SCH ×2 (05:48→21:07)
[2022-03-12] MEDS: morphine ER 15 MG (MS CONTIN) TAB PO SCH ×3 (05:48→21:06)
[2022-03-12] MEDS: MULTIVIT W/MINERALS TAB (THERAGRAN M) PO SCH (05:48)
[2022-03-12] MEDS: OLANZapine 2.5 MG (ZyPREXA) TAB PO SCH (08:00)
[2022-03-12] MEDS: busPIRone 15 MG (BUSPAR) TABLET PO SCH ×3 (08:00→21:07)
[2022-03-12] MEDS: meTOprolol TARTRATE 50 MG (LOPRESSOR) TAB PO SCH ×2 (08:00→21:05)
[2022-03-12] MEDS: DULoxetine 30 MG (CYMBALTA) CAP PO SCH ×3 (08:00→21:06)
[2022-03-12] MEDS: SENNA W/DOCUSATE (SENOKOT S) TABLET PO SCH ×2 (08:01→21:06)
[2022-03-12] MEDS: SENNOSIDES 8.6 MG (SENOKOT) TAB PO SCH ×2 (08:01→21:00)
[2022-03-12] MEDS: PREGABALIN 50 MG (LYRICA) CAP PO SCH ×2 (08:01→21:06)
[2022-03-12] MEDS: amLODIPine 5 MG (NORVASC) TAB PO SCH (08:01)
[2022-03-12] MEDS: DOCUSATE SODIUM 100 MG (COLACE) CAP PO SCH ×2 (08:01→21:06)
[2022-03-12] MEDS: CLOPIDOGREL 75 MG (PLAVIX) TABLET PO SCH (08:01)
[2022-03-12] MEDS: ZINC SULFATE 220 MG CAPSULE PO SCH (08:01)
[2022-03-12 08:04] VITALS: BP 123/75
--- NOTE | 2022-03-12 08:46 | Occupational Ther Daily Note ---
OT Current Status-Daily Note Subjective Up sitting EOB on arrival Appearance Hospital gown CAM boot on , wound vac turned off, scheduled to remove today Mental Status/Objective Patient Orientation: Person, Place, Time, Situation Attachments: Other-See Comments (wound vac turned off and secured, possible removal today) ADL-Treatment Pt declined change of gown, WC level oral and face grooming and apply deodorant Therapy Code Descriptions/Definitions Functional [place] Measure: 0=Not Assessed/NA 4=Minimal Assistance 1=Total Assistance 5=Supervision or Setup 2=Maximal Assistance 6=Modified [place] 3=Moderate Assistance 7=Complete IndependenceSCALE: Activities may be completed with or without assistive devices. 8-Nexaioinyx-lqxpcht completes the activity by him/herself with no assistance from a helper. 5-Set-up or Clean-up Assistance-helper sets up or cleans up; patient completes activity. [place] assists only prior to or following the activity. 4-Supervision or Touching Assistance-helper provides verbal cues and/or touch ing/steadying and/or contact guard assistance as patient completes activity. Assistance may be provided throughout the activity or intermittently. 3-Partial/Moderate Assistance-helper does LESS THAN HALF the effort. [place] lifts, holds or supports trunk or limbs, but provides less than half the effort. 2-Substantial/Maximal Assistance-helper does MORE THAN HALF the effort. [place] lifts or holds trunk or limbs and provides more than half the effort. 7-Uzbcvylte-dktejc does ALL the effort. Patient does none of the effort to complete the activity. Or, the assistance of 2 or more helpers is required for the patient to complete the activity. If activity was not attempted, code reason: 7-Patient Refused. 9-Not Applicable-not attempted and the patient did not perform the activity before the current illness, exacerbation or injury. 10-Not Attempted due to Environmental Limitations-(lack of equipment, weather restraints, etc.). 88-Not Attempted due to Medical Conditions or Safety Concerns. Oral Hygiene (QC): 6 Other Treatment completed WC mobility in hallways with OT added resistance to WC for strengthening and endurance Education OT Patient Education: Exercise program, Purpose of tx/functional activities, Reviewed precautions, Rehab process, Safety issues, W/C management Teaching Recipient: Patient Teaching Methods: Demonstration, Discussion Response to Teaching: Verbalize Understanding, Return Demonstration, Reinforcement Needed OT Roll Out Manager Goals Roll Out Manager Goals Time Frame: Mar 12, 2022 Eating (QC): 6 Oral Hygiene (QC): 6 Toileting Hygiene (QC): 6 Shower/Bathe Self (QC): 5 Upper Body Dressing (QC): 6 Lower Body Dressing (QC): 6 On/Off Footwear (QC): 5 Additional Goals: 1-Demonstrate ADL Tasks, 2-Verbalize Understanding, 3- ImproveStrength/Jony 1=Demonstrate adherence to instructed precautions during ADL tasks. 2=Patient will verbalize/demonstrate understanding of assistive devices/modifications for ADL. 3=Patient will improve strength/tolerance for activity to enable patient to perform ADL's. OT Education/Plan Discharge Recommendations Plan/Recommendations: Continue POC Therapy Discharge Recommendati: Home & Family, Post Acute OT Comment Pt reports needs a ride to family in [place]. At completion of therapy up in chair drawing at tray table, phone and call light in reach, wound vac on WC Treatment Plan/Plan of Care Treatment,Training & Education: Yes Patient would benefit from OT for education, treatment and training to promote independence in ADL's, mobility, safety and/or upper extremity function for ADL's. Plan of Care: ADL Retraining, Functional Mobility, Group Exercise/Act as Ind, Orthotic Fitting/Training, UE Funct Exercise/Act, W/C Management Training Treatment Duration: Mar 12, 2022 Frequency: 3 times per week (3-5x/week ) Estimated Hrs Per Day: .25 hour per day Rehab Potential: Good Time Start Time: 08:13 Stop Time: 08:37 DATE: Mar 12, 2022 Total Time Billed (hr/min): 24 Billed Treatment Time 1 ADl, 1 FA 24 minutes KETTY FIELDS OT Mar 12, 2022 08:46
--- NOTE | 2022-03-12 09:12 | Progress Note - Surgery ---
MICHAEL THOMPSON 03/12/22 0912: Subjective Date Seen by a Provider: Mar 12, 2022 Time Seen by a Provider: 09:00 Subjective/Events-last exam The patient is seated comfortably in his recliner at the time of his evaluation. He reports his pain is unchanged from yesterday, with pain below his knees bilat erally. He endorses unchanged left lower leg numbness as well. The patient denies any chills, headache, chest pain, shortness of breath, abdominal pain, change in appetite, difficulty with food or fluid intake, or issues with urination or stooling, Review of Systems General: No Chills HEENT: No Head Aches Pulmonary: No Dyspnea Cardiovascular: No: Chest Pain Gastrointestinal: No: Abdominal Pain, Diarrhea, Constipation Genitourinary: No Dysuria, No Retention Focused Exam Lactate Level 03/10/22 17:23: Lactic Acid Level 1.80 Objective Exam Vital Signs Date Time Temp Pulse Resp B/P (MAP) Pulse Ox O2 Delivery O2 Flow Rate FiO2 03/12/22 08:04 36.6 80 18 123/75 (91) 93 Room Air 03/12/22 03:30 36.4 86 18 103/57 (72) 92 Room Air 03/11/22 23:46 36.0 86 18 117/72 (87) 93 Room Air 03/11/22 19:40 Room Air 03/11/22 19:37 36.9 110 18 143/88 (106) 95 Room Air 03/11/22 16:38 37.0 97 18 128/86 (100) 96 Room Air 03/11/22 11:41 37.2 111 18 122/76 (91) 97 Room Air I & O 03/12/22 07:00 Intake Total 3267 ml Output Total 1200 ml Balance 2067 ml Capillary Refill : Less Than 3 Seconds General Appearance: No Apparent Distress, Obese HEENT: PERRL/EOMI Respiratory: Lungs Clear, Normal Breath Sounds, No Accessory Muscle Use, No Respiratory Distress Cardiovascular: Regular Rate, Rhythm, No Murmur Peripheral Pulses: 2+ Dorsalis Pedis (R), 2+ Left Dors-Pedis (L), 2+ Radial Pulses (R), 2+ Radial Pulses (L) Gastrointestinal: non tender, soft Extremity: Other (left lower leg with bandaging and wound VAC dressing in place. left upper leg dressing in place, surrounding skin is dry and noner ythematous.) Neurologic/Psychiatric: Sensory Deficit (left lower leg) Skin: Erythema (left lower leg) Results Lab Laboratory Tests 03/11/22 11:04: Glucometer 155H 03/11/22 16:37: Glucometer 99 03/11/22 19:44: Glucometer 178H 03/12/22 05:40: Glucometer 111H Microbiology 03/02/22 MRSA Screen - Final, Complete 02/26/22 Gram Stain - Final, Complete 02/26/22 Wound Culture - Final, Complete Mixed Bacterial Amy Streptococcus dysgalactiae Assessment/Plan Assessment/Plan Assessment/Plan Non-healing wound of LLE - S/p debridement for non-healing wound of LLE with n ecrotic tissue - POD 9. S/p skin graft and wound VAC placement - POD 7. Bent Hardware in Left Tibia Left lower extremity pain Left lower lateral chest wall pain - resolved Left lower leg numbness Wound VAC in place, plan for takedown and visualization later today. If skin graft appears to be doing well, plan for discharge to a long-term care facility as soon as [employer] job [employer] are able to find one; plan to consult orthopedics for repair of his left lower leg hardware. Continue PT. Continue pain control. CLARKE BRIGGS DO 03/12/22 1205: Subjective Time Seen by a Provider: 10:58 Subjective/Events-last exam Pt seen and examined, no new complaints. Still states leg hurts and he is very worried about the "bend". Review of Systems General: No Chills HEENT: No Head Aches Pulmonary: No Dyspnea Cardiovascular: No: Chest Pain Gastrointestinal: No: Abdominal Pain Genitourinary: No Dysuria Musculoskeletal: leg pain Objective Exam General Appearance: Anxious, Obese HEENT: PERRL/EOMI Respiratory: Lungs Clear, Normal Breath Sounds, No Accessory Muscle Use, No Respiratory Distress Cardiovascular: Regular Rate, Rhythm, No Murmur Extremity: Other (Donor site looks good and is healing well, Lower leg has foul smell, but VAC taken down and it appears that the skin graft has taken) Neurologic/Psychiatric: Sensory Deficit (left lower leg) Assessment/Plan Assessment/Plan Assessment/Plan Non-healing wound of LLE - S/p debridement for non-healing wound of LLE with necrotic tissue - POD 9. S/p skin graft and wound VAC placement - POD 7. Bent Hardware in Left Tibia Left lower extremity pain Left lower lateral chest wall pain - resolved Left lower leg numbness Wound takedown and visualization done; area looks good, but may have pseusomonas colonization and that is foul smell. Skin graft is viable. Will use VASHE wash and dressings on the area now. Ortho consult needed after everything has healed. I told pt he should not walk on that leg, it is only going to make "bend" worse. Supervisory-Addendum Brief Verification & Attestation Participated in pt care: history, MDM, physical Personally performed: exam, history, MDM, supervision of care Care discussed with: Medical Student Procedures: n/a Verification and Attestation of Medical Student E/M Service A medical student performed and documented this service. I then reviewed and verified all information documented by the medical student and made modifications to such information, when appropriate. I personally performed a physical exam, medical decision making and then discussed any differences between the notes and made revisions as necessary to create one note. Clarke Briggs , 03/12/22 , 12:04 MICHAEL THOMPSON Mar 12, 2022 09:12 CLARKE BRIGGS DO Mar 12, 2022 12:05
--- NOTE | 2022-03-12 10:41 | Physical Therapy Daily Note ---
PT Daily Note-Current Subjective Patient in recliner pre tx, agrees to PT, has 5/10 pain in left leg. Pain Section J - Health Conditions 1. Rarely or not at all 2. Occasionally 3. Frequently 4. Almost constantly 8. Unable to answer Pain Effect on Sleep: 3 Pain Interference with Therapy: 3 Pain Interference w/Day-to-Day: 3 Appearance Patient in WC in room post tx with nurse call. Mental Status Patient Orientation: Person, Place, Situation wound vac Transfers SCALE: Activities may be completed with or without assistive devices. 2-Qirdegpzfv-ynacohp completes the activity by him/herself with no assistance from a helper. 5-Set-up or Clean-up Assistance-helper sets up or cleans up; patient completes activity. [place] assists only prior to or following the activity. 4-Supervision or Touching Assistance-helper provides verbal cues and/or touching/steadying and/or contact guard assistance as patient completes activity. Assistance may be provided throughout the activity or intermittently. 3-Partial/Moderate Assistance-helper does LESS THAN HALF the effort. [place] lifts, holds or supports trunk or limbs, but provides less than half the effort. 2-Substantial/Maximal Assistance-helper does MORE THAN HALF the effort. [place] lifts or holds trunk or limbs and provides more than half the effort. 9-Ibfjbkjsi-jkqlto does ALL the effort. Patient does none of the effort to complete the activity. Or, the assistance of 2 or more helpers is required for the patient to complete the activity. If activity was not attempted, code reason: 7-Patient Refused. 9-Not Applicable-not attempted and the patient did not perform the activity before the current illness, exacerbation or injury. 10-Not Attempted due to Environmental Limitations-(lack of equipment, weather restraints, etc.). 88-Not Attempted due to Medical Conditions or Safety Concerns. Sit to Stand (QC): 4 Chair/Zio-hx-Qfncd Xfer(QC): 4 SBA Weight Bearing Left Lower Extremity: Left Weight Bearing/Tolerated There are no weight bearing restrictions ordered at this time. Patient states that at the hospital he was allowed to bear weight on both legs but he does have to wear a boot on the left leg. Gait Training Distance: 50' Walk 10 feet (QC): 4 Walk 50 ft with 2 Turns(QC): 4 Gait Persons Needed: 1 Gait Assistive Device: FWW SBA, WC follow, wears boot, patient instructed to take weight off of left leg due to bent hardware. Slow, antalgic ambulation. Wheelchair Training Does the Pt Use a Wheelchair?: Yes Wheel 50 ft with 2 turns (QC): 6 Wheel 150 ft (QC): 6 Type of Wheelchair: Manual 200' Treatments transfers, ambulation, WC mobility Assessment Current Status: Poor Progress Patient continues to have a lot of pain with activity/ambulation. PT Shelter Goals Town Planner Goals PT Shelter Goals Time Frame: Mar 05, 2022 Roll Left & Right (QC): 6 Sit to Lying (QC): 6 Lying-Sitting on Side/Bed(QC): 6 Sit to Stand (QC): 6 Chair/Qyw-wj-Xgnui Xfer(QC): 6 Walk 10 feet (QC): 6 PT Plan Problem List Problem List: Activity Tolerance, Functional Strength, Safety, Balance, Gait, Transfer, Bed Mobility, ROM Treatment/Plan Treatment Plan: Continue Plan of Care Treatment Plan: Bed Mobility, Education, Functional Activity Jony, Functional Strength, Gait, Safety, Therapeutic Exercise, Transfers Treatment Duration: Mar 05, 2022 Frequency: 6 times per week Estimated Hrs Per Day: .25 hour per day Patient and/or Family Agrees t: Yes Safety Risks/Education Patient Education: Gait Training, Transfer Techniques, Reviewed Precautions, Correct Positioning, W/C Management, Safety Issues Teaching Recipient: Patient Teaching Methods: Demonstration, Discussion Response to Teaching: Reinforcement Needed Time Time In: 1008 Time Out: 1018 DATE: Mar 12, 2022 Total Billed Treatment Time: 10 Total Billed Treatment 1 visit FA MICKEY CARTER PT Mar 12, 2022 10:41
[2022-03-12 11:25] VITALS: BP 122/73
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
[2022-03-12] MEDS: LORazepam 0.5 MG (ATIVAN) TABLET PO PRN (12:24)
[2022-03-12 15:21] VITALS: BP 106/55
[2022-03-12 19:21] VITALS: BP 115/75
[2022-03-12] MEDS: OLANZapine 5 MG ODT (ZyPREXA ZYDIS) PO SCH (21:06)
[2022-03-12] MEDS: MELATONIN 3 MG TABLET PO PRN (21:07)
[2022-03-12 23:27] VITALS: BP 117/75
[2022-03-13] VITALS (8 sets, daily range): BP systolic 100–144; BP diastolic 67–100
[2022-03-13] MEDS: inSUlin ASPART (NovoLOG) 1 UNIT/0.01 ML (CHARGE PER UNIT) SC SCH ×4 (05:36→20:59)
[2022-03-13] MEDS: ENOXAPARIN 40 MG/0.4 ML (LOVENOX) SYR SC SCH ×2 (05:40→17:17)
[2022-03-13] MEDS: morphine ER 15 MG (MS CONTIN) TAB PO SCH ×3 (05:40→21:00)
[2022-03-13] MEDS: MULTIVIT W/MINERALS TAB (THERAGRAN M) PO SCH (05:40)
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
[2022-03-13] MEDS: PREGABALIN 50 MG (LYRICA) CAP PO SCH ×2 (08:34→21:00)
[2022-03-13] MEDS: ZINC SULFATE 220 MG CAPSULE PO SCH (08:34)
[2022-03-13] MEDS: busPIRone 15 MG (BUSPAR) TABLET PO SCH ×3 (08:34→20:59)
[2022-03-13] MEDS: SENNA W/DOCUSATE (SENOKOT S) TABLET PO SCH ×2 (08:34→22:39)
[2022-03-13] MEDS: DOCUSATE SODIUM 100 MG (COLACE) CAP PO SCH ×2 (08:34→22:39)
[2022-03-13] MEDS: meTOprolol TARTRATE 50 MG (LOPRESSOR) TAB PO SCH ×2 (08:34→20:59)
[2022-03-13] MEDS: DULoxetine 30 MG (CYMBALTA) CAP PO SCH ×3 (08:34→21:00)
[2022-03-13] MEDS: CLOPIDOGREL 75 MG (PLAVIX) TABLET PO SCH (08:34)
[2022-03-13] MEDS: OLANZapine 2.5 MG (ZyPREXA) TAB PO SCH (08:34)
[2022-03-13] MEDS: amLODIPine 5 MG (NORVASC) TAB PO SCH (08:35)
[2022-03-13] MEDS: SENNOSIDES 8.6 MG (SENOKOT) TAB PO SCH ×2 (08:35→22:39)
--- NOTE | 2022-03-13 09:06 | Physical Therapy Progress Note ---
Therapy Progress Note Patient declined PT on this date wanting to sleep. PT attempted to encourage patient, however, patient continued to decline. Will attempt Tuesday. 1 ref VINCE CONTI PT Mar 13, 2022 09:06
[2022-03-13] MEDS: LORazepam 0.5 MG (ATIVAN) TABLET PO PRN (12:51)
[2022-03-13] MEDS: MELATONIN 3 MG TABLET PO PRN (21:00)
[2022-03-13] MEDS: OLANZapine 5 MG ODT (ZyPREXA ZYDIS) PO SCH (21:00)
[2022-03-14 04:00] VITALS: BP 124/80
[2022-03-14] MEDS: inSUlin ASPART (NovoLOG) 1 UNIT/0.01 ML (CHARGE PER UNIT) SC SCH ×4 (05:27→21:00)
[2022-03-14] MEDS: morphine ER 15 MG (MS CONTIN) TAB PO SCH ×3 (05:34→20:56)
[2022-03-14] MEDS: MULTIVIT W/MINERALS TAB (THERAGRAN M) PO SCH (05:34)
[2022-03-14] MEDS: ENOXAPARIN 40 MG/0.4 ML (LOVENOX) SYR SC SCH ×2 (05:34→17:58)
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
[2022-03-14 07:57] VITALS: BP 110/76
[2022-03-14] MEDS: PREGABALIN 50 MG (LYRICA) CAP PO SCH ×2 (08:28→20:56)
[2022-03-14] MEDS: DULoxetine 30 MG (CYMBALTA) CAP PO SCH ×3 (08:28→20:56)
[2022-03-14] MEDS: ZINC SULFATE 220 MG CAPSULE PO SCH (08:28)
[2022-03-14] MEDS: ACETAMINOPHEN 325 MG TABLET PO PRN (08:28)
[2022-03-14] MEDS: OLANZapine 2.5 MG (ZyPREXA) TAB PO SCH (08:28)
[2022-03-14] MEDS: CLOPIDOGREL 75 MG (PLAVIX) TABLET PO SCH (08:28)
[2022-03-14] MEDS: busPIRone 15 MG (BUSPAR) TABLET PO SCH ×3 (08:28→20:56)
[2022-03-14] MEDS: amLODIPine 5 MG (NORVASC) TAB PO SCH (08:28)
[2022-03-14] MEDS: meTOprolol TARTRATE 50 MG (LOPRESSOR) TAB PO SCH ×2 (08:28→20:56)
[2022-03-14] MEDS: SENNOSIDES 8.6 MG (SENOKOT) TAB PO SCH ×2 (09:34→21:00)
[2022-03-14] MEDS: SENNA W/DOCUSATE (SENOKOT S) TABLET PO SCH ×2 (09:34→21:00)
[2022-03-14] MEDS: DOCUSATE SODIUM 100 MG (COLACE) CAP PO SCH ×2 (09:34→21:00)
[2022-03-14 11:08] VITALS: BP 130/80
[2022-03-14 15:12] VITALS: BP 131/82
[2022-03-14] MEDS: hydrOXYzine (VISTARIL/ATARAX) 25 MG capsule/tablet PO PRN (15:33)
[2022-03-14 19:09] VITALS: BP 140/90
[2022-03-14] MEDS: MELATONIN 3 MG TABLET PO PRN (20:56)
[2022-03-14] MEDS: OLANZapine 5 MG ODT (ZyPREXA ZYDIS) PO SCH (20:56)
[2022-03-14 23:38] VITALS: BP 114/71
[2022-03-15 04:03] VITALS: BP 125/69
[2022-03-15] MEDS: inSUlin ASPART (NovoLOG) 1 UNIT/0.01 ML (CHARGE PER UNIT) SC SCH ×4 (05:23→21:12)
[2022-03-15] MEDS: MULTIVIT W/MINERALS TAB (THERAGRAN M) PO SCH (05:28)
[2022-03-15] MEDS: morphine ER 15 MG (MS CONTIN) TAB PO SCH ×3 (05:29→20:57)
[2022-03-15] MEDS: ENOXAPARIN 40 MG/0.4 ML (LOVENOX) SYR SC SCH ×2 (05:29→17:27)
[2022-03-15 08:00] VITALS: BP 132/83
[2022-03-15] MEDS: busPIRone 15 MG (BUSPAR) TABLET PO SCH ×3 (08:28→20:57)
[2022-03-15] MEDS: PREGABALIN 50 MG (LYRICA) CAP PO SCH ×2 (08:28→20:57)
[2022-03-15] MEDS: OLANZapine 2.5 MG (ZyPREXA) TAB PO SCH (08:28)
[2022-03-15] MEDS: CLOPIDOGREL 75 MG (PLAVIX) TABLET PO SCH (08:28)
[2022-03-15] MEDS: meTOprolol TARTRATE 50 MG (LOPRESSOR) TAB PO SCH ×2 (08:28→20:57)
[2022-03-15] MEDS: DOCUSATE SODIUM 100 MG (COLACE) CAP PO SCH ×2 (08:28→21:25)
[2022-03-15] MEDS: ZINC SULFATE 220 MG CAPSULE PO SCH (08:28)
[2022-03-15] MEDS: ACETAMINOPHEN 325 MG TABLET PO PRN (08:29)
[2022-03-15] MEDS: DULoxetine 30 MG (CYMBALTA) CAP PO SCH ×3 (08:29→20:57)
[2022-03-15] MEDS: amLODIPine 5 MG (NORVASC) TAB PO SCH (08:29)
[2022-03-15] MEDS: SENNA W/DOCUSATE (SENOKOT S) TABLET PO SCH ×2 (08:40→21:26)
[2022-03-15] MEDS: SENNOSIDES 8.6 MG (SENOKOT) TAB PO SCH ×2 (08:41→21:26)
--- NOTE | 2022-03-15 09:06 | Physical Therapy Daily Note ---
PT Daily Note-Current Subjective Patient in WC at bedside pre tx, agrees to PT, has 4/10 pain in left leg. Pain Section J - Health Conditions 1. Rarely or not at all 2. Occasionally 3. Frequently 4. Almost constantly 8. Unable to answer Pain Effect on Sleep: 3 Pain Interference with Therapy: 3 Pain Interference w/Day-to-Day: 3 Appearance patient in WC post tx with nurse call, phone, tray, all needs met. Mental Status Patient Orientation: Person, Place, Situation Transfers SCALE: Activities may be completed with or without assistive devices. 5-Qnyiudwitd-sjwaxkd completes the activity by him/herself with no assistance from a helper. 5-Set-up or Clean-up Assistance-helper sets up or cleans up; patient completes activity. [place] assists only prior to or following the activity. 4-Supervision or Touching Assistance-helper provides verbal cues and/or touching/steadying and/or contact guard assistance as patient completes activi ty. Assistance may be provided throughout the activity or intermittently. 3-Partial/Moderate Assistance-helper does LESS THAN HALF the effort. [place] lifts, holds or supports trunk or limbs, but provides less than half the effort. 2-Substantial/Maximal Assistance-helper does MORE THAN HALF the effort. [place] lifts or holds trunk or limbs and provides more than half the effort. 5-Wlnmjiqkz-xpfkym does ALL the effort. Patient does none of the effort to complete the activity. Or, the assistance of 2 or more helpers is required for the patient to complete the activity. If activity was not attempted, code reason: 7-Patient Refused. 9-Not Applicable-not attempted and the patient did not perform the activity before the current illness, exacerbation or injury. 10-Not Attempted due to Environmental Limitations-(lack of equipment, weather restraints, etc.). 88-Not Attempted due to Medical Conditions or Safety Concerns. Sit to Stand (QC): 4 Weight Bearing Left Lower Extremity: Left Weight Bearing/Tolerated There are no weight bearing restrictions ordered at this time. Patient states that at the hospital he was allowed to bear weight on both legs but he does have to wear a boot on the left leg. Gait Training Distance: 80' Walk 10 feet (QC): 4 Walk 50 ft with 2 Turns(QC): 4 Gait Persons Needed: 1 Gait Assistive Device: FWW WC follow, SBA, slow but steady ambulation, needs several standing rest breaks due to arm fatigue, wears boot on left leg Treatments ambulation Assessment Current Status: Fair Progress slowly improving endurance PT Life Claims Examiner Goals Life Claims Examiner Goals PT Mcfp Goals Time Frame: Mar 05, 2022 Roll Left & Right (QC): 6 Sit to Lying (QC): 6 Lying-Sitting on Side/Bed(QC): 6 Sit to Stand (QC): 6 Chair/Nua-pc-Hzent Xfer(QC): 6 Walk 10 feet (QC): 6 PT Plan Problem List Problem List: Activity Tolerance, Functional Strength, Safety, Balance, Gait, Transfer, Bed Mobility, ROM Treatment/Plan Treatment Plan: Continue Plan of Care Treatment Plan: Bed Mobility, Education, Functional Activity Jony, Functional Strength, Gait, Safety, Therapeutic Exercise, Transfers Treatment Duration: Mar 05, 2022 Frequency: 6 times per week Estimated Hrs Per Day: .25 hour per day Patient and/or Family Agrees t: Yes Safety Risks/Education Patient Education: Gait Training, Transfer Techniques, Correct Positioning, Safety Issues Teaching Recipient: Patient Teaching Methods: Demonstration, Discussion Response to Teaching: Reinforcement Needed Time Time In: 820 Time Out: 829 DATE: Mar 15, 2022 Total Billed Treatment Time: 9 Total Billed Treatment 1 visit GT 9' MICKEY PORTER PT Mar 15, 2022 09:06
--- NOTE | 2022-03-15 09:51 | Occupational Ther Daily Note ---
OT Current Status-Daily Note Subjective Pt alert, lying in bed. Pt agrees to therapy. No c/o pain. Mental Status/Objective Patient Orientation: Person, Place, Time, Situation Attachments: Other-See Comments (cam boot) ADL-Treatment Pt completed sponge bath seated at sink, stood to complete berenice area/buttocks by self. Set up for upper/lower body dressing. Independent with oral care seated at sink. After session, pt sitting in w/c with call light/phone in reach. All needs met in room. Therapy Code Descriptions/Definitions Functional [place] Measure: 0=Not Assessed/NA 4=Minimal Assistance 1=Total Assistance 5=Supervision or Setup 2=Maximal Assistance 6=Modified [place] 3=Moderate Assistance 7=Complete IndependenceSCALE: Activities may be completed with or without assistive devices. 8-Voabjxqtgp-ndzyrda completes the activity by him/herself with no assistance from a helper. 5-Set-up or Clean-up Assistance-helper sets up or cleans up; patient completes activity. [place] assists only prior to or following the activity. 4-Supervision or Touching Assistance-helper provides verbal cues and/or touching/steadying and/or contact guard assistance as patient completes act ivity. Assistance may be provided throughout the activity or intermittently. 3-Partial/Moderate Assistance-helper does LESS THAN HALF the effort. [place] lifts, holds or supports trunk or limbs, but provides less than half the effort. 2-Substantial/Maximal Assistance-helper does MORE THAN HALF the effort. [place] lifts or holds trunk or limbs and provides more than half the effort. 3-Ttlrklluu-lztpds does ALL the effort. Patient does none of the effort to complete the activity. Or, the assistance of 2 or more helpers is required for the patient to complete the activity. If activity was not attempted, code reason: 7-Patient Refused. 9-Not Applicable-not attempted and the patient did not perform the activity before the current illness, exacerbation or injury. 10-Not Attempted due to Environmental Limitations-(lack of equipment, weather restraints, etc.). 88-Not Attempted due to Medical Conditions or Safety Concerns. Oral Hygiene (QC): 6 Upper Body Dressing (QC): 5 Lower Body Dressing (QC): 5 OT Pin Attacher Goals Pin Attacher Goals Time Frame: Mar 12, 2022 Eating (QC): 6 Oral Hygiene (QC): 6 Toileting Hygiene (QC): 6 Shower/Bathe Self (QC): 5 Upper Body Dressing (QC): 6 Lower Body Dressing (QC): 6 On/Off Footwear (QC): 5 Additional Goals: 1-Demonstrate ADL Tasks, 2-Verbalize Understanding, 3- ImproveStrength/Jony 1=Demonstrate adherence to instructed precautions during ADL tasks. 2=Patient will verbalize/demonstrate understanding of assistive devices/modifications for ADL. 3=Patient will improve strength/tolerance for activity to enable patient to perform ADL's. OT Education/Plan Problem List/Assessment Assessment: Impaired Self-Care Skills Discharge Recommendations Plan/Recommendations: Continue POC Treatment Plan/Plan of Care Patient would benefit from OT for education, treatment and training to promote independence in ADL's, mobility, safety and/or upper extremity function for ADL's. Plan of Care: ADL Retraining, Functional Mobility, Group Exercise/Act as Ind, Orthotic Fitting/Training, UE Funct Exercise/Act, W/C Management Training Treatment Duration: Mar 12, 2022 Frequency: 3 times per week (3-5x/week ) Estimated Hrs Per Day: .25 hour per day Rehab Potential: Good Time Start Time: 09:33 Stop Time: 09:48 DATE: Mar 15, 2022 Total Time Billed (hr/min): 15 Billed Treatment Time 1 visit-ADL 1 (15 min) ASHER ALEJO Mar 15, 2022 09:51
[2022-03-15 11:55] VITALS: BP 147/78
--- NOTE | 2022-03-15 15:01 | Progress Note ---
Subjective Subjective/Events-last exam Patient states that he is feeling well this AM. Been up in wheel chair most of the morning. Tolerating PO diet. Review of Systems Pulmonary: No Dyspnea, No Cough Cardiovascular: No: Chest Pain, Palpitations Musculoskeletal: leg pain Neurological: Weakness, Incoordination Objective Exam Last Set of Vital Signs Vital Signs Date Time Temp Pulse Resp B/P (MAP) Pulse Ox O2 Delivery O2 Flow Rate FiO2 03/15/22 11:55 35.4 110 19 147/78 (101) 92 Room Air 03/12/22 08:00 0.00 Capillary Refill : Less Than 3 Seconds I&O Intake and Output 03/15/22 00:00 Intake Total 3930 ml Output Total 4510 ml Balance -580 ml Intake Oral 3930 ml Output Urine Total 4510 ml General: Alert, Oriented X3, No Acute Distress Lungs: Clear to Auscultation, Normal Air Movement Heart: Regular Rate, No Murmurs Abdomen: Normal Bowel Sounds, Soft, No Tenderness, No Masses Extremities: Other (Left leg brace in place) Neuro: Normal Speech, Cranial Nerves 3-12 NL Results/Procedures Lab Laboratory Tests 03/14/22 15:14: Glucometer 142H 03/14/22 20:30: Glucometer 145H 03/15/22 05:11: Glucometer 113H 03/15/22 11:12: Glucometer 93 Microbiology 03/02/22 MRSA Screen - Final, Complete 02/26/22 Gram Stain - Final, Complete 02/26/22 Wound Culture - Final, Complete Mixed Bacterial Amy Streptococcus dysgalactiae Radiology Date of Exam:02/25/22 TIBIA/FIBULA, BILATERAL, 2VIEW EXAMINATION: Left tibia and fibula radiographs, 2 views. Right tibia and fibula radiographs, 2 views. COMPARISON: None. HISTORY: 26-year-old male, bilateral leg pain. History of prior tibial fractures. FINDINGS: There is sideplate and screw fixation hardware along the left tibia with the mid left tibial diaphyseal fracture. There is a lateral bend of the mid tibial diaphysis. The sideplate and screw fixation hardware appears intact. The tibia projects lateral to the fibula on the frontal view relating to the bend in contour abnormality. There is an essentially nondisplaced mid tibial diaphyseal fracture on the right with intramedullary ousmane and fixation screws. There is a visible fracture line. The hardware appears intact. There is also incompletely imaged hardware at the level of the right distal femur with a mildly displaced distal femoral metadiaphyseal fracture. There are surgical clips posteriorly near the level of the left knee joint. There is no large left knee joint effusion. There is no right knee joint effusion. IMPRESSION: 1. Fractures of the mid tibial diaphysis, bilaterally, with right tibial fracture being essentially nondisplaced with intact open reduction and internal fixation hardware. The left tibial fracture has a significant contour deformity of the tibia and medial bending of the tibia with projection of the tibia lateral to the fibula. 2. Mildly displaced fracture of the right distal femoral metadiaphysis with intact partially visualized hardware. 3. No identified fracture which is not bridged by hardware. 4. No evidence of failure of the hardware. Dictated by: Dictated on workstation # [id number] Dict: 02/25/22 1549 Trans: 02/25/22 1721 [id number] Interpreted by: DIANA HESTER MD Electronically signed by: DIANA HESTER MD 02/25/22 172 Date of Exam:02/25/22 CT CHEST/ABDOMEN/PELVIS W PROCEDURE: CT chest, abdomen, and pelvis with contrast. TECHNIQUE: Multiple contiguous axial images were obtained through the chest, abdomen, and pelvis after the administration of intravenous contrast. Auto Exposure Controls were utilized during the CT exam to meet ALARA standards for radiation dose reduction. INDICATION: Found down. The patient does not remember how he wound up face down in a ditch when he was found. COMPARISON: I have no priors. FINDINGS: CHEST: There is some residual thymic tissue in the anterior mediastinum, unremarkable for age. No mediastinal, hilar, or axillary mass or lymphadenopathy. No lung contusion, pneumothorax, or hemothorax. Some physiologic partial atelectasis in the lung bases is likely owing to a somewhat suboptimal inspiratory volume. No convincing evidence for mirna edema or pneumonia. No pleural or pericardial effusion. No acute soft tissue or osseous chest wall pathology. There are nonacute right lateral rib fractures at the seventh, eighth, and ninth levels. Spine appeared unremarkable. Sternum, manubrium, and diaphragm are intact. ABDOMEN AND PELVIS: There is fatty hepatomegaly without evidence for hepatic or splenic laceration. The spleen is normal in size. The adrenals are negative. The gallbladder is unremarkable. The pancreas is nonfocal and nonacute. The unobstructed kidneys were normal. There is no intra- or extra-peritoneal hemorrhage. There was no ascites. The urinary bladder is intact. The bony pelvis is nonacute. Prior surgery to the proximal right femur is noted. There are surgical clips in the left groin. There is no bowel, biliary, or urinary tract obstruction. There are a few scattered diverticula without features of diverticulitis. No viscus perforation. Some mild nonspecific left inguinal adenopathy is present adjacent to the surgical clips, which may be from previous lymph node biopsy or dissection. No intra-abdominal pelvic mesenteric or retroperitoneal adenopathy. IMPRESSION: CHEST: 1. No acute post-traumatic findings in the chest, abdomen, or pelvis. 2. Chest shows subacute or early chronic right lateral rib deformities; otherwise, negative. ABDOMEN AND PELVIS: Fatty hepatomegaly without pancreatitis, organ laceration, ascites, or hemorrhage. There is noninflamed diverticulosis. Prior surgery to the left groin present. There is some mild nonspecific left inguinal lymphadenopathy. Dictated by: Dictated on workstation # [id number] Dict: 02/25/22 1442 Trans: 02/25/22 1515 [id number] Interpreted by: CRISTA CARLIN Electronically signed by: CRISTA CARLIN 02/25/22 1515 Assessment/Plan Assessment/Plan (1) Fall from wheelchair Status: Acute Assessment & Plan: Found down in ditch by road, uncertain etiology and pt does not recall. Imaging shows chronic injuries. PT. Working on safe discharge plan. 03/15: Plan to d.c to SNF in AM Qualifiers: Qualified Codes: W05.0XXA - Fall from non-moving wheelchair, initial encounter (2) Leg wound, left Status: Acute Assessment & Plan: Surgery consulted, appreciate recommendations. Possible need for skin graft. 03/02- plan for debridement tomorrow per Surgery 03/03- s/p debridement, appreciate Surgery recommendations 03/05- to OR again today 03/15: No longer requiring wound vac, dressing per surgery Qualifiers: Qualified Codes: S81.802A - Unspecified open wound, left lower leg, initial encounter (3) Bilateral tibial fractures Status: Chronic Assessment & Plan: Hardware in place, s/p rehab stay, using walker and wheelchair per his report. Qualifiers: (4) Right femoral shaft fracture Status: Chronic Qualifiers: (5) Arthritis of left knee Status: Chronic (6) Right rib fracture Status: Chronic Qualifiers: (7) HTN (hypertension) Status: Chronic Assessment & Plan: 03/15: Well controlled, no med adjustment at this time Qualifiers: Qualified Codes: I10 - Essential (primary) hypertension (8) Homeless Status: Acute Assessment & Plan: Social work consulted. 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 03/05 able to get his discharge med list, resuming multiple medications including increasing dose of scheduled buspirone, hydroxyzine prn, cymbalta and olanzepine (10) DVT prophylaxis Status: Acute Assessment & Plan: Enoxaparin CLAUDIA BA MD Mar 15, 2022 15:01
[2022-03-15 15:57] VITALS: BP 131/83
[2022-03-15 19:22] VITALS: BP 120/86
[2022-03-15] MEDS: OLANZapine 5 MG ODT (ZyPREXA ZYDIS) PO SCH (20:57)
[2022-03-15 23:38] VITALS: BP 113/73
[2022-03-16] MEDS: LORazepam 0.5 MG (ATIVAN) TABLET PO PRN ×2 (02:18→20:01)
[2022-03-16 03:25] VITALS: BP 121/79
[2022-03-16] MEDS: inSUlin ASPART (NovoLOG) 1 UNIT/0.01 ML (CHARGE PER UNIT) SC SCH ×4 (05:19→22:21)
[2022-03-16] MEDS: morphine ER 15 MG (MS CONTIN) TAB PO SCH ×3 (05:53→20:01)
[2022-03-16] MEDS: ENOXAPARIN 40 MG/0.4 ML (LOVENOX) SYR SC SCH ×2 (05:54→17:38)
[2022-03-16] MEDS: MULTIVIT W/MINERALS TAB (THERAGRAN M) PO SCH (05:54)
[2022-03-16 07:14] VITALS: BP 138/79
[2022-03-16] MEDS: DOCUSATE SODIUM 100 MG (COLACE) CAP PO SCH ×2 (08:14→22:25)
[2022-03-16] MEDS: SENNOSIDES 8.6 MG (SENOKOT) TAB PO SCH ×2 (08:15→22:26)
[2022-03-16] MEDS: SENNA W/DOCUSATE (SENOKOT S) TABLET PO SCH ×2 (08:15→22:26)
--- NOTE | 2022-03-16 08:20 | Occupational Ther Daily Note ---
OT Current Status-Daily Note Subjective Resting peacefully on arrival, no c/o pain Mental Status/Objective Patient Orientation: Person, Place, Time, Situation ADL-Treatment Patient participate in WC level LB/UB dressing and sink grooming for face/hair/oral care Therapy Code Descriptions/Definitions Functional [place] Measure: 0=Not Assessed/NA 4=Minimal Assistance 1=Total Assistance 5=Supervision or Setup 2=Maximal Assistance 6=Modified [place] 3=Moderate Assistance 7=Complete IndependenceSCALE: Activities may be completed with or without assistive devices. 7-Bpwjyocovd-ysrlyoo completes the activity by him/herself with no assistance from a helper. 5-Set-up or Clean-up Assistance-helper sets up or cleans up; patient completes activity. [place] assists only prior to or following the activity. 4-Supervision or Touching Assistance-helper provides verbal cues and/or touching/steadying and/or contact guard assistance as patient completes a ctivity. Assistance may be provided throughout the activity or intermittently. 3-Partial/Moderate Assistance-helper does LESS THAN HALF the effort. [place] lifts, holds or supports trunk or limbs, but provides less than half the effort. 2-Substantial/Maximal Assistance-helper does MORE THAN HALF the effort. [place] lifts or holds trunk or limbs and provides more than half the effort. 2-Jmrouhyuh-lbaojl does ALL the effort. Patient does none of the effort to complete the activity. Or, the assistance of 2 or more helpers is required for the patient to complete the activity. If activity was not attempted, code reason: 7-Patient Refused. 9-Not Applicable-not attempted and the patient did not perform the activity before the current illness, exacerbation or injury. 10-Not Attempted due to Environmental Limitations-(lack of equipment, weather restraints, etc.). 88-Not Attempted due to Medical Conditions or Safety Concerns. Eating (QC): 6 Oral Hygiene (QC): 6 Upper Body Dressing (QC): 6 Lower Body Dressing (QC): 6 On/Off Footwear: 6 Education OT Patient Education: Exercise program, Progress toward Goal/Update tx plan, Reviewed precautions, Rehab process, Safety issues Teaching Recipient: Patient Teaching Methods: Demonstration, Discussion Response to Teaching: Verbalize Understanding, Return Demonstration 3 sets of clothing have been provided for Patient, west snot have shoes or undergarments, items are in a new backpack OT Residential Goals Community Services Manager Goals Time Frame: Mar 12, 2022 Eating (QC): 6 Oral Hygiene (QC): 6 Toileting Hygiene (QC): 6 Shower/Bathe Self (QC): 5 Upper Body Dressing (QC): 6 Lower Body Dressing (QC): 6 On/Off Footwear (QC): 5 Additional Goals: 1-Demonstrate ADL Tasks, 2-Verbalize Understanding, 3- ImproveStrength/Jony 1=Demonstrate adherence to instructed precautions during ADL tasks. 2=Patient will verbalize/demonstrate understanding of assistive devices/modifications for ADL. 3=Patient will improve strength/tolerance for activity to enable patient to perform ADL's. OT Education/Plan Problem List/Assessment Assessment: Decreased Activ Tolerance, Impaired I ADL's Discharge Recommendations Plan/Recommendations: Continue POC Comment Patient reports to OT may DC to post acute rehab today Treatment Plan/Plan of Care Treatment,Training & Education: Yes Patient would benefit from OT for education, treatment and training to promote independence in ADL's, mobility, safety and/or upper extremity function for ADL's. Plan of Care: ADL Retraining, Functional Mobility, Group Exercise/Act as Ind, Orthotic Fitting/Training, UE Funct Exercise/Act, W/C Management Training Treatment Duration: Mar 12, 2022 Frequency: 3 times per week (3-5x/week ) Estimated Hrs Per Day: .25 hour per day Rehab Potential: Good Patient in WC fully dressed and performing WC mobility in hallways Time Start Time: 07:33 Stop Time: 07:46 DATE: Mar 16, 2022 Total Time Billed (hr/min): 13 Billed Treatment Time 1 ADL 13 KETTY FIELDS OT Mar 16, 2022 08:20
[2022-03-16] MEDS: ZINC SULFATE 220 MG CAPSULE PO SCH (08:24)
[2022-03-16] MEDS: meTOprolol TARTRATE 50 MG (LOPRESSOR) TAB PO SCH ×2 (08:25→20:01)
[2022-03-16] MEDS: PREGABALIN 50 MG (LYRICA) CAP PO SCH ×2 (08:25→20:01)
[2022-03-16] MEDS: OLANZapine 2.5 MG (ZyPREXA) TAB PO SCH (08:25)
[2022-03-16] MEDS: busPIRone 15 MG (BUSPAR) TABLET PO SCH ×3 (08:25→20:01)
[2022-03-16] MEDS: DULoxetine 30 MG (CYMBALTA) CAP PO SCH ×3 (08:25→20:01)
[2022-03-16] MEDS: CLOPIDOGREL 75 MG (PLAVIX) TABLET PO SCH (08:25)
[2022-03-16] MEDS: amLODIPine 5 MG (NORVASC) TAB PO SCH (08:25)
--- NOTE | 2022-03-16 08:32 | Physical Therapy Daily Note ---
PT Daily Note-Current Subjective Patient in WC pre tx, agrees to PT, has 6/10 pain in left leg. Pain Section J - Health Conditions 1. Rarely or not at all 2. Occasionally 3. Frequently 4. Almost constantly 8. Unable to answer Pain Effect on Sleep: 3 Pain Interference with Therapy: 3 Pain Interference w/Day-to-Day: 3 Appearance Patient in WC at bedside post tx with nurse call, phone, tray, all needs met. Mental Status Patient Orientation: Person, Place, Situation Transfers SCALE: Activities may be completed with or without assistive devices. 9-Mnozzdsjsn-rppyuqy completes the activity by him/herself with no assistance from a helper. 5-Set-up or Clean-up Assistance-helper sets up or cleans up; patient completes activity. [place] assists only prior to or following the activity. 4-Supervision or Touching Assistance-helper provides verbal cues and/or touching/steadying and/or contact guard assistance as patient completes activi ty. Assistance may be provided throughout the activity or intermittently. 3-Partial/Moderate Assistance-helper does LESS THAN HALF the effort. [place] lifts, holds or supports trunk or limbs, but provides less than half the effort. 2-Substantial/Maximal Assistance-helper does MORE THAN HALF the effort. [place] lifts or holds trunk or limbs and provides more than half the effort. 8-Gmrjvrcdr-mglqlf does ALL the effort. Patient does none of the effort to complete the activity. Or, the assistance of 2 or more helpers is required for the patient to complete the activity. If activity was not attempted, code reason: 7-Patient Refused. 9-Not Applicable-not attempted and the patient did not perform the activity before the current illness, exacerbation or injury. 10-Not Attempted due to Environmental Limitations-(lack of equipment, weather restraints, etc.). 88-Not Attempted due to Medical Conditions or Safety Concerns. Sit to Stand (QC): 4 Chair/Mam-io-Rvqsi Xfer(QC): 4 Weight Bearing Left Lower Extremity: Left Weight Bearing/Tolerated There are no weight bearing restrictions ordered at this time. Patient states that at the hospital he was allowed to bear weight on both legs but he does have to wear a boot on the left leg. Gait Training Distance: 80' Walk 10 feet (QC): 4 Walk 50 ft with 2 Turns(QC): 4 Gait Persons Needed: 1 Gait Assistive Device: FWW SBA, slow and steady but antalgic ambulation, wears boot on the left leg. Treatments ambulation Assessment Current Status: Fair Progress slowly improving ambulation and endurance, patient was fairly SOB after ambulation, recovered quickly after sitting back down PT Fdc Goals Fdc Goals PT Samples And Repairs Preparer Goals Time Frame: Mar 05, 2022 Roll Left & Right (QC): 6 Sit to Lying (QC): 6 Lying-Sitting on Side/Bed(QC): 6 Sit to Stand (QC): 6 Chair/Dih-mx-Xneja Xfer(QC): 6 Walk 10 feet (QC): 6 PT Plan Problem List Problem List: Activity Tolerance, Functional Strength, Safety, Balance, Gait, Transfer, ROM Treatment/Plan Treatment Plan: Continue Plan of Care Treatment Plan: Education, Functional Activity Jony, Functional Strength, Gait, Safety, Therapeutic Exercise, Transfers Treatment Duration: Mar 05, 2022 Frequency: 6 times per week Estimated Hrs Per Day: .25 hour per day Patient and/or Family Agrees t: Yes Safety Risks/Education Patient Education: Gait Training, Transfer Techniques, Correct Positioning, Safety Issues Teaching Recipient: Patient Teaching Methods: Demonstration, Discussion Response to Teaching: Reinforcement Needed Time Time In: 815 Time Out: 823 DATE: Mar 16, 2022 Total Billed Treatment Time: 8 Total Billed Treatment 1 visit GT 8' MICKEY PORTER PT Mar 16, 2022 08:32
--- NOTE | 2022-03-16 08:39 | Progress Note - Surgery ---
MICHAEL THOMPSON 03/16/22 0839: Subjective Date Seen by a Provider: Mar 16, 2022 Time Seen by a Provider: 08:30 Subjective/Events-last exam The patient is seated in his wheelchair this morning at time of evaluation. He states he is feeling well today, and his bilateral leg pain is unchanged from previous. He endorses continued left lower leg numbness. The patient indicates he is non-weightbearing on his left leg as much as possible at this time. He denies any chills, headache, chest pain, shortness of breath, abdominal pain, difficulty with food or fluid intake, diarrhea, constipation, or urinary symptoms. Review of Systems General: No Chills HEENT: No Head Aches Pulmonary: No Dyspnea Cardiovascular: No: Chest Pain Gastrointestinal: No: Abdominal Pain, Diarrhea, Constipation Genitourinary: No Dysuria, No Retention Musculoskeletal: leg pain Objective Exam Vital Signs Date Time Temp Pulse Resp B/P (MAP) Pulse Ox O2 Delivery O2 Flow Rate FiO2 03/16/22 08:00 Room Air 03/16/22 07:14 37.1 87 16 138/79 (98) 91 Room Air 03/16/22 03:25 36.7 97 18 121/79 (93) 95 Room Air 03/15/22 23:38 36.3 95 18 113/73 (86) 94 Room Air 03/15/22 20:58 Room Air 03/15/22 19:22 36.8 103 18 120/86 (97) 94 Room Air 03/15/22 15:57 37.1 97 18 131/83 (99) 94 Room Air 03/15/22 11:55 35.4 110 19 147/78 (101) 92 Room Air 03/15/22 08:36 Room Air I & O 03/16/22 07:00 Intake Total 4030 ml Output Total 3000 ml Balance 1030 ml Capillary Refill : Less Than 3 Seconds General Appearance: No Apparent Distress, Chronically ill HEENT: PERRL/EOMI Respiratory: Lungs Clear, Normal Breath Sounds, No Accessory Muscle Use, No Respiratory Distress Cardiovascular: Regular Rate, Rhythm, No Murmur Peripheral Pulses: 2+ Dorsalis Pedis (R), 2+ Radial Pulses (R), 2+ Radial Pulses (L) Gastrointestinal: non tender, soft Extremity: Pedal Edema (trace left pedal edema), Other (Left anterior thigh donor site has dressing, not visualized, dressing appears clean, dry, and intact. Left lateral lower leg has dressing in place, wound not visualized, dressing appears clean, dry, intact externally.) Neurologic/Psychiatric: Alert, Oriented x3, Sensory Deficit (left lower leg) Skin: Erythema (left lower leg) Results Lab Laboratory Tests 03/15/22 11:12: Glucometer 93 03/15/22 16:01: Glucometer 152H 03/15/22 20:47: Glucometer 115H 03/16/22 05:16: Glucometer 121H Microbiology 03/02/22 MRSA Screen - Final, Complete 02/26/22 Gram Stain - Final, Complete 02/26/22 Wound Culture - Final, Complete Mixed Bacterial Amy Streptococcus dysgalactiae Assessment/Plan Assessment/Plan Assessment/Plan Non-healing wound of LLE - S/p debridement for non-healing wound of LLE with necrotic tissue - POD 13. S/p skin graft and wound VAC placement - POD 11. Bent Hardware in Left Tibia Left lower extremity pain Left lower lateral chest wall pain - resolved Left lower leg numbness Patient states he is feeling ready to go to custodial facility, plan is to move him to SNF later today. Patient continued to be non-weightbearing on his left leg. Outpatient orthopedics consult recommended for left leg fracture. Continue using VASHE wash and dressings to cleanse left lower leg wound, and monitor skin graft periodically. CLARKE BRIGGS DO 03/16/22 1114: Subjective Time Seen by a Provider: 11:09 Subjective/Events-last exam Pt seen and examined, no new changes. He is ready to go to rehab/LTF. Review of Systems General: No Chills Pulmonary: No Dyspnea Cardiovascular: No: Chest Pain Gastrointestinal: No: Abdominal Pain, Diarrhea, Constipation Musculoskeletal: leg pain Objective Exam General Appearance: No Apparent Distress, Chronically ill HEENT: PERRL/EOMI Respiratory: Lungs Clear, Normal Breath Sounds, No Accessory Muscle Use, No Respiratory Distress Cardiovascular: Regular Rate, Rhythm, No Murmur Gastrointestinal: non tender, soft Extremity: Pedal Edema (trace left pedal edema), Other (Left anterior thigh donor site has dressing, not visualized, dressing appears clean, dry, and intact. Left lateral lower leg has dressing in place, wound not visualized, dressing appears clean, dry, intact externally.) Neurologic/Psychiatric: Sensory Deficit (left lower leg) Skin: Erythema (left lower leg) Assessment/Plan Assessment/Plan Assessment/Plan Non-healing wound of LLE - S/p debridement for non-healing wound of LLE with necrotic tissue - POD 13. S/p skin graft and wound VAC placement - POD 11. Bent Hardware in Left Tibia Left lower extremity pain Left lower lateral chest wall pain - resolved Left lower leg numbness Patient states he is feeling ready to go to custodial facility, plan is to move him to SNF later today. Patient continued to be non-weightbearing on his left leg. Outpatient orthopedics consult recommended for left leg fracture. Continue using VASHE wash and dressings to cleanse left lower leg wound, and monitor skin graft periodically. Supervisory-Addendum Brief Verification & Attestation Participated in pt care: history, MDM, physical Personally performed: exam, history, MDM, supervision of care Care discussed with: Medical Student Procedures: n/a Verification and Attestation of Medical Student E/M Service A medical student performed and documented this service. I then reviewed and verified all information documented by the medical student and made modifications to such information, when appropriate. I personally performed a physical exam, medical decision making and then discussed any differences between the notes and made revisions as necessary to create one note. Clarke Briggs , 03/16/22 , 11:14 MICHAEL THOMPSON Mar 16, 2022 08:39 CLARKE BRIGGS DO Mar 16, 2022 11:14
[2022-03-16 11:23] VITALS: BP 125/73
--- NOTE | 2022-03-16 11:32 | Discharge Summary ---
Discharge Summary Hospital Course Hospital Course Date of Admission: Mar 02, 2022 at 13:10 Admission Diagnosis : Family Physician/Provider: [facility] Date of Discharge: 03/16/22 Discharge Diagnosis: Fall From Wheelchair Left leg wound Bilateral tibial fractures R Femoral shaft fracture HTN Anxiety BMI 40 Hospital Course: 26 yo M that was found in the ditch with concerns of trauma. Large Left LE wound that required wound vac during hospitalization. Patient good rehab candidate and will transition to SNF to work on strength and wound care. Labs and Pending Lab Test: Laboratory Tests 03/15/22 16:01: Glucometer 152H 03/15/22 20:47: Glucometer 115H 03/16/22 05:16: Glucometer 121H Microbiology 03/02/22 MRSA Screen - Final, Complete 02/26/22 Gram Stain - Final, Complete 02/26/22 Wound Culture - Final, Complete Mixed Bacterial Amy Streptococcus dysgalactiae Home Meds Active No Active Prescriptions or Reported Medications Skilled NF Admit to: [facility] Certification (SNF) I certify that SNF services are required to be given on an inpatient basis because of the above named patient's need for jail care on a continuing basis for the conditions(s) for which he/she was receiving inpatient hospital services prior to his/her transfer to the SNF. Senior Living Facility Order: Nursing Services, Agency Manager-Evaluate & Treat, Physical Therapy-Evaluate & Treat, Wound Care-Eval/Treat Oxygen Delivery Method: Room Air Discharge Diet: Cardiac Diet Daily Activity as Tolerated: Yes Resuscitation Status: Full Code Claudia Huffman Mar 16, 2022 11:28 Discharge Physical Exam General: Alert, Oriented X3, No Acute Distress Lungs: Clear to Auscultation, Normal Air Movement Heart: Regular Rate, No Murmurs Abdomen: Normal Bowel Sounds, Soft, No Tenderness, No Masses Extremities: Other (LE deformity with halo brace on left LE) Neuro: Normal Speech, Cranial Nerves 3-12 NL CLAUDIA HUFFMAN MD Mar 16, 2022 11:32
[2022-03-16] MEDS ORDERED: PREG50CA2 PO (11:37)
[2022-03-16] MEDS ORDERED: OLAN5TAB23 PO (11:37)
[2022-03-16] MEDS ORDERED: MULT-1137 PO (11:37)
[2022-03-16] MEDS ORDERED: OLAN2.5T27 PO (11:37)
[2022-03-16] MEDS ORDERED: TIZA-186 PO (11:37)
[2022-03-16] MEDS ORDERED: CLOP75TA28 PO (11:37)
[2022-03-16] MEDS ORDERED: AMLO-250 PO (11:37)
[2022-03-16] MEDS ORDERED: DULO30CA3 PO (11:37)
[2022-03-16] MEDS ORDERED: METO50TA15 PO (11:37)
[2022-03-16 15:59] VITALS: BP 131/81
[2022-03-16 19:52] VITALS: BP 123/81
[2022-03-16] MEDS: OLANZapine 5 MG ODT (ZyPREXA ZYDIS) PO SCH (20:01)
[2022-03-16] MEDS: HYPOCHLOROUS ACID/NaCl (VASHE) 250 ML IR PRN (22:15)
[2022-03-16] MEDS: MELATONIN 3 MG TABLET PO PRN (22:24)
[2022-03-16 23:02] VITALS: BP 123/89
[2022-03-17] MEDS: ENOXAPARIN 40 MG/0.4 ML (LOVENOX) SYR SC SCH (06:32)
[2022-03-17] MEDS: MULTIVIT W/MINERALS TAB (THERAGRAN M) PO SCH (06:32)
[2022-03-17] MEDS: morphine ER 15 MG (MS CONTIN) TAB PO SCH ×2 (06:32→13:43)
[2022-03-17] MEDS: inSUlin ASPART (NovoLOG) 1 UNIT/0.01 ML (CHARGE PER UNIT) SC SCH ×2 (06:34→11:01)
[2022-03-17 07:04] VITALS: BP 126/74
[2022-03-17] MEDS: busPIRone 15 MG (BUSPAR) TABLET PO SCH ×2 (07:39→13:43)
[2022-03-17] MEDS: OLANZapine 2.5 MG (ZyPREXA) TAB PO SCH (07:39)
[2022-03-17] MEDS: DULoxetine 30 MG (CYMBALTA) CAP PO SCH ×2 (07:39→13:43)
[2022-03-17] MEDS: PREGABALIN 50 MG (LYRICA) CAP PO SCH (07:39)
[2022-03-17] MEDS: amLODIPine 5 MG (NORVASC) TAB PO SCH (07:40)
[2022-03-17] MEDS: ZINC SULFATE 220 MG CAPSULE PO SCH (07:40)
[2022-03-17] MEDS: meTOprolol TARTRATE 50 MG (LOPRESSOR) TAB PO SCH (07:40)
[2022-03-17] MEDS: CLOPIDOGREL 75 MG (PLAVIX) TABLET PO SCH (07:40)
[2022-03-17] MEDS: DOCUSATE SODIUM 100 MG (COLACE) CAP PO SCH (07:44)
[2022-03-17] MEDS: SENNA W/DOCUSATE (SENOKOT S) TABLET PO SCH (07:44)
[2022-03-17] MEDS: SENNOSIDES 8.6 MG (SENOKOT) TAB PO SCH (07:44)
--- NOTE | 2022-03-17 09:40 | Physical Therapy Daily Note ---
PT Daily Note-Current Subjective Patient in in room pre tx, agrees to PT, has 4/10 pain in left leg. Pain Section J - Health Conditions 1. Rarely or not at all 2. Occasionally 3. Frequently 4. Almost constantly 8. Unable to answer Pain Effect on Sleep: 3 Pain Interference with Therapy: 3 Pain Interference w/Day-to-Day: 3 Appearance Patient in in room post tx, has nurse call Mental Status Patient Orientation: Person, Place, Situation Transfers SCALE: Activities may be completed with or without assistive devices. 4-Cmeytetios-gtvdipz completes the activity by him/herself with no assistance from a helper. 5-Set-up or Clean-up Assistance-helper sets up or cleans up; patient completes activity. [place] assists only prior to or following the activity. 4-Supervision or Touching Assistance-helper provides verbal cues and/or touching/steadying and/or contact guard assistance as patient completes activity. Assistance may be provided throughout the activity or intermittently. 3-Partial/Moderate Assistance-helper does LESS THAN HALF the effort. [place] lifts, holds or supports trunk or limbs, but provides less than half the effort. 2-Substantial/Maximal Assistance-helper does MORE THAN HALF the effort. [place] lifts or holds trunk or limbs and provides more than half the effort. 5-Pqhsmhpdf-pioken does ALL the effort. Patient does none of the effort to complete the activity. Or, the assistance of 2 or more helpers is required for the patient to complete the activity. If activity was not attempted, code reason: 7-Patient Refused. 9-Not Applicable-not attempted and the patient did not perform the activity before the current illness, exacerbation or injury. 10-Not Attempted due to Environmental Limitations-(lack of equipment, weather restraints, etc.). 88-Not Attempted due to Medical Conditions or Safety Concerns. Sit to Stand (QC): 4 SBA Weight Bearing Left Lower Extremity: Left Weight Bearing/Tolerated There are no weight bearing restrictions ordered at this time. Patient states that at the hospital he was allowed to bear weight on both legs but he does have to wear a boot on the left leg. 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 PT Detention Goals Time Frame: Mar 05, 2022 Roll Left & Right (QC): 6 Sit to Lying (QC): 6 Lying-Sitting on Side/Bed(QC): 6 Sit to Stand (QC): 6 Chair/Jmx-nt-Caphj Xfer(QC): 6 Walk 10 feet (QC): 6 PT Plan Problem List Problem List: Activity Tolerance, Functional Strength, Safety, Balance, Gait, Transfer, ROM Treatment/Plan Treatment Plan: Continue Plan of Care Treatment Plan: Education, Functional Activity Jony, Functional Strength, Gait, Safety, Therapeutic Exercise, Transfers Treatment Duration: Mar 05, 2022 Frequency: 6 times per week Estimated Hrs Per Day: .25 hour per day Patient and/or Family Agrees t: Yes Safety Risks/Education Patient Education: Gait Training, Transfer Techniques, Correct Positioning, Safety Issues Teaching Recipient: Patient Teaching Methods: Demonstration, Discussion Response to Teaching: Reinforcement Needed Time Time In: 926 Time Out: 934 DATE: Mar 17, 2022 Total Billed Treatment Time: 8 Total Billed Treatment 1 visit FA 8' MICKEY PORTER PT Mar 17, 2022 09:40
[2022-03-17 12:19] VITALS: BP 130/75
[2022-03-17] MEDS: ACETAMINOPHEN 325 MG TABLET PO PRN (13:43)
[2022-03-17] MEDS: LORazepam 0.5 MG (ATIVAN) TABLET PO PRN (13:43)
--- NOTE | 2022-03-17 13:57 | Occupational Ther Daily Note ---
OT Current Status-Daily Note Subjective Pt alert, lying in bed. Pt agrees to therapy, not OOB. Pt states that he has a headache, reported to [facility]. Mental Status/Objective Patient Orientation: Person, Place, Time, Situation ADL-Treatment Therapy Code Descriptions/Definitions Functional [place] Measure: 0=Not Assessed/NA 4=Minimal Assistance 1=Total Assistance 5=Supervision or Setup 2=Maximal Assistance 6=Modified [place] 3=Moderate Assistance 7=Complete IndependenceSCALE: Activities may be completed with or without assistive devices. 5-Ppbndxqxmg-joftbiy completes the activity by him/herself with no assistance from a helper. 5-Set-up or Clean-up Assistance-helper sets up or cleans up; patient completes activity. [place] assists only prior to or following the activity. 4-Supervision or Touching Assistance-helper provides verbal cues and/or touching/steadying and/or contact guard assistance as patient completes activity. Assistance may be provided throughout the activity or intermittently. 3-Partial/Moderate Assistance-helper does LESS THAN HALF the effort. [place] lifts, holds or supports trunk or limbs, but provides less than half the effort. 2-Substantial/Maximal Assistance-helper does MORE THAN HALF the effort. [place] lifts or holds trunk or limbs and provides more than half the effort. 1-Ulbmnpdgr-efahgj does ALL the effort. Patient does none of the effort to complete the activity. Or, the assistance of 2 or more helpers is required for the patient to complete the activity. If activity was not attempted, code reason: 7-Patient Refused. 9-Not Applicable-not attempted and the patient did not perform the activity before the current illness, exacerbation or injury. 10-Not Attempted due to Environmental Limitations-(lack of equipment, weather restraints, etc.). 88-Not Attempted due to Medical Conditions or Safety Concerns. Other Treatment Pt completed 3 B UE exercises against gravity, 1 set 20 reps. Pt declined any further exercises or ADLs. After therapy, pt lying in bed with call light/phone. All needs met in room. 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 2=Patient will verbalize/demonstrate understanding of assistive devices/modifications for ADL. 3=Patient will improve strength/tolerance for activity to enable patient to perform ADL's. OT Education/Plan Discharge Recommendations Plan/Recommendations: Continue POC Treatment Plan/Plan of Care Patient would benefit from OT for education, treatment and training to promote independence in ADL's, mobility, safety and/or upper extremity function for ADL's. Plan of Care: ADL Retraining, Functional Mobility, Group Exercise/Act as Ind, Orthotic Fitting/Training, UE Funct Exercise/Act, W/C Management Training Treatment Duration: Mar 12, 2022 Frequency: 3 times per week (3-5x/week ) Estimated Hrs Per Day: .25 hour per day Rehab Potential: Good Time Start Time: 13:33 Stop Time: 13:41 DATE: Mar 17, 2022 Total Time Billed (hr/min): 8 Billed Treatment Time 1 visit-EX 1 (8 min) ASHER ALEJO Mar 17, 2022 13:57
[2022-03-17 15:30] VITALS: BP 130/75
== END 2022-03-17 15:30 | DRG 577 ==
LOC: EDUNIT# 13:49 → ER 13:51 → 4TH 16:56 → OBSVTOIN 03-02 13:10 → 4TH 03-09 13:09
PROVIDERS: ADMIT Internal Medicine; ATTEND Family Medicine
PROC: 0JBP0ZZ Excision of Left Lower Leg Subcutaneous Tissue and Fascia, Open Approach (ICD-10-PCS; principal; 2022-03-03 10:43)
PROC: 0HRLX74 Replacement of Left Lower Leg Skin with Autologous Tissue Substitute, Partial Thickness, External Approach (ICD-10-PCS; 2022-03-05)
DX: S81.802A Unspecified open wound, left lower leg, initial encounter (principal); Z68.41 Body mass index [BMI] 40.0-44.9, adult; F17.210 Nicotine dependence, cigarettes, uncomplicated; F41.9 Anxiety disorder, unspecified; F32.A Depression, unspecified; G89.29 Other chronic pain; F43.20 Adjustment disorder, unspecified; W05.0XXA Fall from non-moving wheelchair, initial encounter; M17.12 Unilateral primary osteoarthritis, left knee; E66.9 Obesity, unspecified; R07.89 Other chest pain; Z20.822 Contact with and (suspected) exposure to COVID-19
CPT/HCPCS: 36415; 70450; 71260; 72125; 74177; 80053; 80306; 80320; 80329; 81000; 82947; 83605; 85025; 85027; 86141; 87070; 87081; 87205; 87636; 90686; 93041; 94760; 96374; 96375; 96376; G0378

== ENCOUNTER → 2022-03-31 | Outpatient (CLI) | payer MEDICAID ==
[~2022-03-31] MED LIST: AMLO-250 PO; CLOP75TA28 PO; DULO30CA3 PO; METO50TA15 PO; MULT-1137 PO; OLAN2.5T27 PO; OLAN5TAB23 PO; PREG50CA2 PO; TIZA-186 PO
[2022-03-31 14:05] LABS: BASOPHILS # (AUTO) 0.1 10^3/uL (0.0-0.1); BASOPHILS % (AUTO) 0 % (0-10); EOSINOPHILS # (AUTO) 0.2 10^3/uL (0.0-0.3); EOSINOPHILS % (AUTO) 1 % (0-10); HEMATOCRIT 47 % (40-54); HEMOGLOBIN 14.9 g/dL (13.3-17.7); LYMPHOCYTES # (AUTO) 2.2 10^3/uL (1.0-4.0); LYMPHOCYTES % (AUTO) 14 % (12-44); MEAN CORPUSCULAR HEMOGLOBIN 25 pg (25-34); MEAN CORPUSCULAR HGB CONC 32 g/dL (32-36); MEAN CORPUSCULAR VOLUME 78 fL (80-99); MEAN PLATELET VOLUME 9.1 fL (9.0-12.2); MONOCYTES % (AUTO) 12 % (0-12); NEUTROPHILS % (AUTO) 73 % (42-75); PLATELET COUNT 278 10^3/uL (130-400); WHITE BLOOD COUNT 16.5 10^3/uL (4.3-11.0)
[2022-03-31 14:42] LABS: ANISOCYTOSIS SLIGHT; BAND NEUTROPHILS 3 %; BASOPHILS % (MANUAL) 0 %; EOSINOPHILS % (MANUAL) 0 %; ERYTHROCYTE SEDIMENTATION RATE 6 MM/HR (0-15); LYMPHOCYTES % (MANUAL) 13 %; MONOCYTES % (MANUAL) 16 %; NEUTROPHILS % (MANUAL) 68 %
== END ==
LOC: WOUNDCARE 12:48
PROVIDERS: ATTEND Family Medicine
DX: I96 Gangrene, not elsewhere classified (principal); L97.323 Non-pressure chronic ulcer of left ankle with necrosis of muscle; T81.31XA Disruption of external operation (surgical) wound, not elsewhere classified, initial encounter; T84.7XXA Infection and inflammatory reaction due to other internal orthopedic prosthetic devices, implants and grafts, initial encounter; R73.9 Hyperglycemia, unspecified; T65.292A Toxic effect of other tobacco and nicotine, intentional self-harm, initial encounter; R50.9 Fever, unspecified; E66.01 Morbid (severe) obesity due to excess calories; T86.821 Skin graft (allograft) (autograft) failure; Z68.41 Body mass index [BMI] 40.0-44.9, adult
CPT/HCPCS: 11043; 83036; 85007; 85027; 85652; 86141; 87070; 87205; A6260; G0463; L4360; 36415

== ENCOUNTER → 2022-04-09 | Outpatient (CLI) | payer MEDICAID ==
[~2022-04-09] MED LIST changes: +GADOTERATE 0.5 MMOL/ML (CLARISCAN) 20 ML VIAL IV ONE
--- NOTE | 2022-04-09 14:07 | Diagnostic Imaging Report ---
Exam: MRI left tibia and fibula without and with intravenous contrast. Date: April 09, 2022. Indication: 26-year-old male, left lower leg ulcer. Comparison: Tibia and fibula radiographs February 25, 2022. Technique: Multiple noncontrast MRI sequences of the left tibia and fibula were obtained. Findings: There is hardware related artifact relating to sideplate and screw fixation hardware at the level of the tibia. There is a deformity of the tibia. There is no clearly identified T1 marrow signal loss or bone destruction. Osseous evaluation is limited in the region of the hardware given the adjacent artifact. There is edema involving essentially the entire imaged musculature with sparing of the medial head of gastrocnemius. There is no identified intramuscular fluid collection or otherwise identified drainable fluid collection. There is no tibiotalar or subtalar joint effusion. Impression: 1. Prominent hardware related artifact relating to left tibial hardware. 2. No definite evidence of osteomyelitis or other acute osseous abnormality. 3. Multifocal intramuscular edema involving the entire imaged musculature except for the medial head of gastrocnemius. This is nonspecific and may reflect early denervation related signal changes or nonspecific myositis. Multiple low-grade muscle strains or contusions are considered less likely. 4. No identified discrete drainable fluid collection or abscess. Dictated by: Dictated on workstation # [id number]
--- NOTE | 2022-04-09 16:48 | Diagnostic Imaging Report ---
INDICATION: Bilateral lower extremity ulcers. History of tobacco use and hypertension. Bilateral claudication and rest pain. TECHNIQUE: Segmental pulse pressures were performed of the upper and lower extremities. FINDINGS: Resting Doppler Blood Pressures RIGHT Brachial: 104 mmHg Ankle (Posterior Tibial): 141 mm Hg Index: 1.36 Ankle (Dorsalis Pedis): 134 mm Hg Index: 1.29 LEFT Brachial: 91 mmHg Ankle (Posterior Tibial): 125 mm Hg Index: 1.20 Ankle (Dorsalis Pedis): 121 mm Hg Index: 1.16 IMPRESSION: Ankle-brachial indices as above. Ankle-Brachial Index Diagnosis/Interpretation <=0.90 Peripheral Arterial Disease 0.91-0.99 Borderline 1.00-1.40 Normal >1.40 Concern for noncompressible arteries, (assoc with Diabetes Mellitus) Dictated by: Dictated on workstation # [id number]
== END ==
LOC: RAD 10:45
PROVIDERS: ATTEND Family Medicine
DX: L97.323 Non-pressure chronic ulcer of left ankle with necrosis of muscle (principal); T81.31XA Disruption of external operation (surgical) wound, not elsewhere classified, initial encounter; T84.7XXA Infection and inflammatory reaction due to other internal orthopedic prosthetic devices, implants and grafts, initial encounter; R73.9 Hyperglycemia, unspecified; T65.292A Toxic effect of other tobacco and nicotine, intentional self-harm, initial encounter; R50.9 Fever, unspecified; E66.01 Morbid (severe) obesity due to excess calories; T86.821 Skin graft (allograft) (autograft) failure; I10 Essential (primary) hypertension; L97.929 Non-pressure chronic ulcer of unspecified part of left lower leg with unspecified severity; L97.919 Non-pressure chronic ulcer of unspecified part of right lower leg with unspecified severity
CPT/HCPCS: 73720; 93923

== ENCOUNTER → 2022-04-12 | Outpatient (CLI) | payer MEDICAID ==
[~2022-04-12] MED LIST changes: -GADOTERATE 0.5 MMOL/ML (CLARISCAN) 20 ML VIAL IV ONE
== END ==
LOC: WOUNDCARE 08:24
PROVIDERS: ATTEND Family Medicine
DX: T81.31XA Disruption of external operation (surgical) wound, not elsewhere classified, initial encounter (principal); T84.7XXA Infection and inflammatory reaction due to other internal orthopedic prosthetic devices, implants and grafts, initial encounter; R73.9 Hyperglycemia, unspecified; T65.292A Toxic effect of other tobacco and nicotine, intentional self-harm, initial encounter; R50.9 Fever, unspecified; E66.01 Morbid (severe) obesity due to excess calories; T86.821 Skin graft (allograft) (autograft) failure; I70.242 Atherosclerosis of native arteries of left leg with ulceration of calf; I77.77 Dissection of artery of lower extremity; T79.A22A Traumatic compartment syndrome of left lower extremity, initial encounter; R00.0 Tachycardia, unspecified; T43.625A Adverse effect of amphetamines, initial encounter; I96 Gangrene, not elsewhere classified
CPT/HCPCS: 11044; 11047; 87070; 87205; G0463

== ENCOUNTER 2022-09-25 19:50 | Inpatient (IN) | payer MEDICAID ==
[~2022-09-25] VITALS: Ht 172.7 cm; Wt 134.1 kg
[2022-09-25 19:45] VITALS: BP 160/108
[2022-09-25] MEDS ORDERED: ASPIRIN 81 MG CHEWABLE TABLET PO ONE (20:00)
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
[2022-09-25] MEDS ORDERED: KETOROLAC 30 MG/ML VIAL IVP STA (20:24)
[2022-09-25 20:29] LABS: BASOPHILS # (AUTO) 0.1 10^3/uL (0.0-0.1); BASOPHILS % (AUTO) 1 % (0-10); EOSINOPHILS # (AUTO) 0.4 10^3/uL (0.0-0.3); EOSINOPHILS % (AUTO) 3 % (0-10); HEMATOCRIT 49 % (40-54); HEMOGLOBIN 16.6 g/dL (13.3-17.7); LYMPHOCYTES # (AUTO) 3.1 10^3/uL (1.0-4.0); LYMPHOCYTES % (AUTO) 19 % (12-44); MEAN CORPUSCULAR HEMOGLOBIN 27 pg (25-34); MEAN CORPUSCULAR HGB CONC 34 g/dL (32-36); MEAN CORPUSCULAR VOLUME 81 fL (80-99); MEAN PLATELET VOLUME 11.3 fL (9.0-12.2); MONOCYTES # (AUTO) 0.7 10^3/uL (0.0-1.0); MONOCYTES % (AUTO) 5 % (0-12); NEUTROPHILS # (AUTO) 11.4 10^3/uL (1.8-7.8); NEUTROPHILS % (AUTO) 72 % (42-75); PLATELET COUNT 283 10^3/uL (130-400); WHITE BLOOD COUNT 15.8 10^3/uL (4.3-11.0)
[2022-09-25 20:35] LABS: BILIRUBIN,URINE NEGATIVE (NEGATIVE); CLARITY,URINE CLEAR; COLOR,URINE YELLOW; GLUCOSE, URINE (UA) 3+ (NEGATIVE); KETONES,URINE NEGATIVE (NEGATIVE); LEUKOCYTE ESTERASE ,URINE NEGATIVE (NEGATIVE); NITRITE,URINE NEGATIVE (NEGATIVE); PH,URINE 6.5 (5-9); PROTEIN,URINE NEGATIVE (NEGATIVE)
[2022-09-25 20:42] LABS: ALANINE AMINOTRANSFERASE 114 U/L (0-55); ALBUMIN 4.3 GM/DL (3.2-4.5); ALKALINE PHOSPHATASE 148 U/L (40-136); AMYLASE 28 U/L (25-125); BILIRUBIN,TOTAL 0.2 MG/DL (0.1-1.0); BUN/CREATININE RATIO 16; CALCIUM 9.9 MG/DL (8.5-10.1); CARBON DIOXIDE 19 MMOL/L (21-32); CHLORIDE 91 MMOL/L (98-107); CREATINE KINASE 80 U/L (30-200); CREATININE SERUM 1.12 MG/DL (0.60-1.30); GFR ESTIMATED 92; LIPASE 67 U/L (8-78); POTASSIUM 4.6 MMOL/L (3.6-5.0); SODIUM 126 MMOL/L (135-145); TOTAL PROTEIN 9.7 GM/DL (6.4-8.2)
[2022-09-25 20:43] LABS: INR 0.8 (0.8-1.4); PROTHROMBIN TIME PATIENT 11.6 SEC (12.2-14.7)
[2022-09-25 20:46] LABS: FIBRIN DEGRADATION PRODUCTS 0.59 UG/ML (0.00-0.49); GLUCOSE 561 MG/DL (70-105)
--- NOTE | 2022-09-25 20:48 | Diagnostic Imaging Report ---
HISTORY: Chest pain. COMPARISON: None. TECHNIQUE: Frontal view of the chest. FINDINGS: Lung volumes are low. The cardiac silhouette appears normal in size given technique. Vascular structures are mildly prominent and there is mild atelectasis in the right lung base, likely due to the low lung volumes. No pleural effusion or pneumothorax is seen. IMPRESSION: Prominence of the pulmonary markings as well as right basilar atelectasis is thought to be due to low lung volumes. Underlying infection or edema is not excluded. Dictated by: Dictated on workstation # [id number]
[2022-09-25] MEDS ORDERED: NS IV 1000 ML 1,000 ML IV SCH (21:00)
[2022-09-25 21:01] LABS: BACTERIA,URINE TRACE /HPF
[2022-09-25 21:02] LABS: ERYTHROCYTE SEDIMENTATION RATE 1 MM/HR (0-15)
[2022-09-25 21:03] LABS: CREATINE KINASE MB 0.9 NG/ML (<6.6); TSH (THYROID ANALYZER) 2.44 UIU/ML (0.35-4.94)
[2022-09-25 21:10] LABS: AMPHETAMINE SCREEN, URINE NEGATIVE (NEGATIVE); BARBITURATE SCREEN URINE NEGATIVE (NEGATIVE); BENZODIAZEPINES SCREEN URINE NEGATIVE (NEGATIVE); CANNABINOID SCREEN, URINE NEGATIVE (NEGATIVE); COCAINE SCREEN URINE NEGATIVE (NEGATIVE); METHADONE STAT NEGATIVE (NEGATIVE); OPIATE SCREEN URINE NEGATIVE (NEGATIVE); OXYCODONE STAT NEGATIVE (NEGATIVE); PROPOXYPHENE STAT NEGATIVE (NEGATIVE); TRICYCLIC ANTIDEPRESSANTS SCRE NEGATIVE (NEGATIVE)
[2022-09-25 21:45] LABS: ABG OXYGEN SATURATION 93 % (94-100); ABG PCO2 53 MMHG (35-45); ABG PO2 62 MMHG (79-93)
[2022-09-25 21:50] LABS: ABG PH 7.33 (7.37-7.43); ALLENS TEST YES-POS; PATIENT TEMP 36.9; VENTILATOR NO
--- NOTE | 2022-09-25 21:50 | Diagnostic Imaging Report ---
INDICATION: Chest pain, dyspnea, elev lft. EXAMINATION: CTA chest, abdomen, and pelvis. TECHNIQUE: Thin axial sections through the chest, abdomen, and pelvis were obtained following intravenous contrast bolus. Multiplanar MIP images were reconstructed and reviewed. All CT scans use one or more of the following dose optimizing techniques: automated exposure control, MA and/or KvP adjustment based on patient size and exam type or iterative reconstruction. COMPARISON: 02/25/2022. FINDINGS: CTA CHEST: There is motion artifact on multiple images resulting in suboptimal evaluation. The pulmonary arteries are diagnostic to the lobar and proximal segmental levels. No filling defects are seen to indicate a pulmonary embolus. There is no right heart strain. The heart is normal in size. There is no pericardial effusion. The aorta is normal in caliber. There is no axillary adenopathy. There is no mediastinal adenopathy. There is marked elevation of the right hemidiaphragm. There is atelectasis in the right lung base. There is no pleural effusion or pneumothorax. No acute osseous abnormality is seen. CT ABDOMEN AND PELVIS: There is fatty infiltration throughout the liver and the liver is large measuring 28 cm in length. The spleen appears normal. The pancreas appears normal. The adrenal glands are normal. The kidneys demonstrate normal enhancement with no hydronephrosis. The aorta is normal in caliber. There is no lymphadenopathy. The bowel loops are nondistended without obstruction. There is no free fluid or free air seen. The appendix is normal. There is moderate stool throughout the colon. There are clips noted in the left inguinal region. There is a ousmane in the right femur. No acute osseous abnormality is seen. IMPRESSION: 1. No pulmonary embolus. 2. Elevated right hemidiaphragm with right basilar atelectasis. 3. Marked hepatomegaly with hepatic steatosis. 4. Moderate stool in the colon, please correlate with any history of constipation. Dictated by: Dictated on workstation # [id number]
[2022-09-25] MEDS ORDERED: CEFEPIME INJECTION 1,000 MG in NS (IVPB) 50 ML 50 ML IV ONE (22:00)
[2022-09-25] MEDS ORDERED: inSUlin (REGULAR) HUMAN 1 UNIT/0.01 ML (CHARGE PER UNIT) IV ONE ×2 (22:00→23:00)
[2022-09-25] MEDS ORDERED: HOLD METFORMIN - RECEIVED CONTRAST 20 ML VIAL IV SCH (22:15)
[2022-09-25] MEDS ORDERED: IOHEXOL 350 MG/ML 100 ML (OMNIPAQUE 350) VIAL IV ONE (22:15)
[2022-09-25] MEDS ORDERED: NS 100 ML (IVPB) BAG IV ONE (22:15)
[2022-09-25] MEDS ORDERED: fentaNYL INJ 100 MCG/2 ML AMP IVP ONE (22:30)
[2022-09-25 23:00] VITALS: BP 138/85
[2022-09-25] MEDS ORDERED: DexMEDEtomidine 250 ML DRIP 250 ML IV SCH (23:00)
[2022-09-25] MEDS ORDERED: LACTULOSE SYRUP 10GM/15ML (ENULOSE) 30ML UDC PO PRN (23:00)
[2022-09-25] MEDS ORDERED: NS IV 500 ML 500 ML IV PRN (23:00)
[2022-09-25] MEDS ORDERED: ONDANSETRON 4 MG (ZOFRAN) ORAL DISSOLVE TAB PO PRN (23:00)
[2022-09-25] MEDS ORDERED: ANTACID SUSP 30 ML UDC (MYLANTA) PO PRN (23:00)
[2022-09-25] MEDS ORDERED: polyethylene glycoL POWDER 17 GM (MIRALAX) PACK PO PRN (23:00)
[2022-09-25] MEDS ORDERED: diphenhydrAMINE 25 MG TABLET PO PRN (23:00)
[2022-09-25] MEDS ORDERED: ENOXAPARIN 40 MG/0.4 ML SYRINGE SC SCH (23:00)
[2022-09-25] MEDS ORDERED: diphenhydrAMINE INJ 50 MG/ML VIAL IVP PRN (23:00)
[2022-09-25] MEDS ORDERED: MILK OF MAGNESIA 400 MG/5 ML 30 ML UDC PO PRN (23:00)
[2022-09-25] MEDS ORDERED: BISACODYL 10 MG SUPPOSITORY PR PRN (23:00)
[2022-09-25] MEDS ORDERED: VANCOMYCIN INJECTION 0.1 MG in NS (IVPB) 250 ML 250 ML IV SCH (23:00)
[2022-09-25] MEDS ORDERED: CALCIUM CARBONATE 500 MG CHEW TABLET PO PRN (23:00)
[2022-09-25 23:03] VITALS: BP 151/115
[2022-09-25] MEDS: NS IV 1000 ML 1,000 ML IV SCH (23:24)
--- NOTE | 2022-09-25 23:47 | Tele-ICU Consult ---
Progress Note 27 yo male presented with chest pain and dyspnea x 3 days. Also subjective fever, nonproductive cough Focused Exam Sepsis Stage: Sepsis Possible Source: Pulmonary Lactate Level 09/25/22 20:10: Lactic Acid Level 1.22 Height, Weight, BMI Height: '" Weight: lbs. oz. kg; 43.18 BMI Method:Stated Respiratory: No Accessory Muscle Use, No Respiratory Distress Skin: normal color Lactic Acid Level Laboratory Tests Test 09/25/22 20:10 Lactic Acid Level 1.22 MMOL/L (0.50-2.00) Within 3hrs of presentation: Lactate level Allergies and Home Medications Allergies Coded Allergies: No Known Drug Allergies (Unverified , 11/10/11) Home Medications Amlodipine Besylate 5 Mg Tablet, 5 MG PO DAILY Prescribed by: CLAUDIA BA on 03/16/22 113 Clopidogrel Bisulfate 75 Mg Tablet, 75 MG PO DAILY Prescribed by: CLAUDIA BA on 03/16/22 113 Duloxetine HCl 30 Mg Capsule.dr, 30 MG PO TID Prescribed by: CLAUDIA BA on 03/16/22 113 Metoprolol Tartrate 50 Mg Tablet, 50 MG PO BID Prescribed by: CLAUDIA BA on 03/16/22 1137 Multivitamin/Iron/Folic Acid 18 Mg Iron-400 Mcg Tablet, 1 EA PO DAILY@0700 Prescribed by: CLAUDIA BA on 03/16/22 113 Olanzapine 2.5 Mg Tablet, 2.5 MG PO DAILY Prescribed by: CLAUDIA BA on 03/16/22 1137 Olanzapine 5 Mg Tab.rapdis, 10 MG PO HS Prescribed by: CLAUDIA BA on 03/16/22 113 Pregabalin 50 Mg Capsule, 50 MG PO BID Prescribed by: CLAUDIA BA on 03/16/22 1138 Tizanidine HCl 4 Mg Tablet, 4 MG PO BID PRN for spasm Prescribed by: CLAUDIA BA on 03/16/22 113 Assessment/Plan Assessment and Plan Assess & Plan/Chief Complaint 27 yo male, possible sepsis, given Abx for possible pneumonia, lactate normal, check urine legionella Chest pain, check f/u troponin DM, uncontrolled, insulin drip started Enoxaparin prophy Critical Care Critically Ill Patient CC TIME : Critical Care Start Date: Sep 25, 2022 Critical Care Start Time: 23:40 Stop date: Sep 25, 2022 Stop Time: 23:56 Past Ereldpz-Fknwyo-Lypmfn Hx Patient Social History Smoking Status: Current Everyday Smoker Alcohol Use?: No Past Medical History Surgeries: Yes (Chest and abdominal surgery status post,) Orthopedic Respiratory: No Currently Using CPAP: No Currently Using BIPAP: No Cardiac: No Neurological: Yes Concussion, Neuropathy Genitourinary: No Gastrointestinal: Yes (Abdominal surgery secondary to trauma) Musculoskeletal: Yes Arthritis, Fractures Endocrine: No HEENT: No Cancer: No Psychosocial: Yes Anxiety, Depression Family Medical History No Pertinent Family Hx, Other Conditions/Hx Physical Exam Physical Exam Vital Signs Vital Signs - First Documented 09/25/22 09/25/22 09/25/22 09/25/22 19:45 19:50 19:56 23:03 Temp 36.9 Pulse 104 Resp 39 B/P (MAP) 160/108 (125) Pulse Ox 94 O2 Delivery Room Air O2 Flow Rate 2.00 FiO2 21 Capillary Refill : Less Than 3 Seconds Height, Weight, BMI Height: '" Weight: lbs. oz. kg; 43.18 BMI Method:Stated General Appearance: No Apparent Distress HEENT: Moist Mucous Membranes Respiratory: No Accessory Muscle Use, No Respiratory Distress Results Labs Labs Laboratory Tests 09/25/22 20:00: Influenza Type A (RT-PCR) Not Detected, Influenza Type B (RT-PCR) Not Detected, SARS-CoV-2 RNA (RT-PCR) Not Detected 09/25/22 20:10: White Blood Count 15.8H, Red Blood Count 6.07H, Hemoglobin 16.6, Hematocrit 49, Mean Corpuscular Volume 81, Mean Corpuscular Hemoglobin 27, Mean Corpuscular Hemoglobin Concent 34, Red Cell Distribution Width 17.1H, Platelet Count 283, Mean Platelet Volume 11.3, Immature Granulocyte % (Auto) 1, Neutrophils (%) (Auto) 72, Lymphocytes (%) (Auto) 19, Monocytes (%) (Auto) 5, Eosinophils (%) (Auto) 3, Basophils (%) (Auto) 1, Neutrophils # (Auto) 11.4H, Lymphocytes # (Auto) 3.1, Monocytes # (Auto) 0.7, Eosinophils # (Auto) 0.4H, Basophils # (Auto) 0.1, Immature Granulocyte # (Auto) 0.1, Erythrocyte Sedimentation Rate 1, Prothrombin Time 11.6L, INR Comment 0.8, Activated Partial Thromboplast Time 30, D-Dimer 0.59H, Sodium Level 126L, Potassium Level 4.6, Chloride Level 91L, Carbon Dioxide Level 19L, Anion Gap 16H, Blood Urea Nitrogen 18, Creatinine 1.12, Estimat Glomerular Filtration Rate 92, BUN/Creatinine Ratio 16, Glucose Level 561*H, Lactic Acid Level 1.22, Calcium Level 9.9, Corrected Calcium 9.7, Magnesium Level 2.0, Total Bilirubin 0.2, Aspartate Amino Transf (AST/SGOT) 61H, Alanine Aminotransferase (ALT/SGPT) 114H, Alkaline Phosphatase 148H, Total Creatine Kinase 80, Creatine Kinase MB 0.9, Myoglobin 13.0, Troponin I < 0.028, C-Reactive Protein High Sensitivity 3.27H, B-Type Natriuretic Peptide < 10.0, Total Protein 9.7H, Albumin 4.3, Amylase Level 28, Lipase 67, Beta- Hydroxybutyrate (Chem panel) 0.40H, TSH O'Brien Testing 2.44, Serum Alcohol < 10 09/25/22 20:30: Urine Color YELLOW, Urine Clarity CLEAR, Urine pH 6.5, Urine Specific Tram 1.010L, Urine Protein NEGATIVE, Urine Glucose (UA) 3+H, Urine Ketones NEGATIVE, Urine Nitrite NEGATIVE, Urine Bilirubin NEGATIVE, Urine Urobilinogen 0.2, Urine Leukocyte Esterase NEGATIVE, Urine RBC (Auto) NEGATIVE, Urine RBC NONE, Urine WBC NONE, Urine Squamous Epithelial Cells NONE, Urine Crystals NONE, Urine Bacteria TRACE, Urine Casts NONE, Urine Mucus NEGATIVE, Urine Culture Indicated NO, Urine Opiates Screen NEGATIVE, Urine Oxycodone Screen NEGATIVE, Urine Methadone Screen NEGATIVE, Urine Propoxyphene Screen NEGATIVE, Urine Barbiturates Screen NEGATIVE, Ur Tricyclic Antidepressants Screen NEGATIVE, Urine Phencyclidine Screen NEGATIVE, Urine Amphetamines Screen NEGATIVE, Urine Methamphetamines Screen NEGATIVE, Urine Benzodiazepines Screen NEGATIVE, Urine Cocaine Screen NEGATIVE, Urine Cannabinoids Screen NEGATIVE 09/25/22 21:05: Rapid Plasma Reagin Nonreactive 09/25/22 21:35: Blood Gas Puncture Site RIGHT RADIAL, Blood Gas Patient Temperature 36.9, Arterial Blood pH 7.33*L, Arterial Blood Partial Pressure CO2 53H, Arterial Blood Partial Pressure O2 62L, Arterial Blood HCO3 27, Arterial Blood Total CO2 29.0, Arterial Blood Oxygen Saturation 93L, Arterial Blood Base Excess 2.0, Mike Test YES-POS, Blood Gas Ventilator Setting NO, Blood Gas Inspired Oxygen NA 09/25/22 23:21: Glucometer 367H GRICELDA ROQUE MD Sep 25, 2022 23:47
[2022-09-25] MEDS: VANCOMYCIN 1250MG/250ML PREMIX 250 ML IV SCH (23:54)
[2022-09-26] MEDS ORDERED: RT-ALBUTEROL SULF 2.5 MG/3 ML PRE-MIX VIAL INH PRN
[2022-09-26] MEDS: VANCOMYCIN 1250MG/250ML PREMIX 250 ML IV SCH (02:19)
[2022-09-26] MEDS: HYDROmorphone 2 MG/ML VIAL (DILAUDID) IV PRN ×6 (02:20→23:41)
[2022-09-26] MEDS: CEFEPIME INJECTION 1,000 MG in NS (IVPB) 50 ML 50 ML IV SCH ×4 (04:48→22:09)
[2022-09-26 05:01] LABS: BASOPHILS # (AUTO) 0.1 10^3/uL (0.0-0.1); BASOPHILS % (AUTO) 1 % (0-10); EOSINOPHILS # (AUTO) 0.4 10^3/uL (0.0-0.3); EOSINOPHILS % (AUTO) 3 % (0-10); HEMATOCRIT 45 % (40-54); HEMOGLOBIN 14.8 g/dL (13.3-17.7); LYMPHOCYTES # (AUTO) 3.1 10^3/uL (1.0-4.0); LYMPHOCYTES % (AUTO) 27 % (12-44); MEAN CORPUSCULAR HEMOGLOBIN 27 pg (25-34); MEAN CORPUSCULAR HGB CONC 33 g/dL (32-36); MEAN CORPUSCULAR VOLUME 82 fL (80-99); MEAN PLATELET VOLUME 10.3 fL (9.0-12.2); MONOCYTES # (AUTO) 0.7 10^3/uL (0.0-1.0); MONOCYTES % (AUTO) 6 % (0-12); NEUTROPHILS # (AUTO) 7.2 10^3/uL (1.8-7.8); NEUTROPHILS % (AUTO) 62 % (42-75); PLATELET COUNT 190 10^3/uL (130-400); WHITE BLOOD COUNT 11.7 10^3/uL (4.3-11.0)
[2022-09-26] MEDS: RT-ALBUTEROL SULF 2.5 MG/3 ML PRE-MIX VIAL INH SCH ×4 (05:31→21:18)
[2022-09-26 05:45] LABS: ALANINE AMINOTRANSFERASE 93 U/L (0-55); ALBUMIN 3.7 GM/DL (3.2-4.5); ALKALINE PHOSPHATASE 123 U/L (40-136); BILIRUBIN,TOTAL 0.2 MG/DL (0.1-1.0); BUN/CREATININE RATIO 22; CALCIUM 8.8 MG/DL (8.5-10.1); CARBON DIOXIDE 20 MMOL/L (21-32); CHLORIDE 102 MMOL/L (98-107); CHOLESTEROL 250 MG/DL (< 200); CREATININE SERUM 0.77 MG/DL (0.60-1.30); GFR ESTIMATED 126; GLUCOSE 196 MG/DL (70-105); HDL CHOLESTEROL 30 MG/DL (40-60); PHOSPHORUS 4.9 MG/DL (2.3-4.7); POTASSIUM 3.8 MMOL/L (3.6-5.0); SODIUM 136 MMOL/L (135-145); TOTAL PROTEIN 7.7 GM/DL (6.4-8.2); TRIGLYCERIDES 1106 MG/DL (<150)
[2022-09-26 05:57] LABS: ABG BASE EXCESS 1.4 MMOL/L (-2.5-2.5); ABG OXYGEN SATURATION 97 % (94-100); ABG PCO2 64 MMHG (35-45); ABG PO2 88 MMHG (79-93); ABG TCO2 29.8 MMOL/L (21.0-31.0)
[2022-09-26] MEDS: KCL 20 MEQ TAB (K-DUR) PO SCH (05:57)
[2022-09-26] MEDS: MAGNESIUM 1 GM/100 ML IVPB 100 ML IV SCH (05:57)
[2022-09-26] MEDS: POTASSIUM CL 10MEQ/50ML IVPB 50 ML IV SCH (05:57)
[2022-09-26 05:58] LABS: INSPIRED O2 27% NC; PATIENT TEMP 36.7; VENTILATOR NO
[2022-09-26 05:59] LABS: ABG PH 7.26 (7.37-7.43)
[2022-09-26] MEDS ORDERED: KCL 20 MEQ TAB (K-DUR) PO ONE (06:15)
[2022-09-26 06:30] VITALS: BP 158/92
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
[2022-09-26] MEDS: SENNOSIDES 8.6 MG (SENOKOT) TAB PO SCH ×2 (08:13→21:00)
[2022-09-26] MEDS: DOCUSATE SODIUM 100 MG CAPSULE PO SCH ×2 (08:13→21:00)
[2022-09-26] MEDS: NS IV 1000 ML 1,000 ML IV SCH ×2 (08:14→15:07)
[2022-09-26 10:28] VITALS: BP 140/88
[2022-09-26] MEDS ORDERED: NS IV 500 ML 500 ML IV SCH (10:30)
--- NOTE | 2022-09-26 10:37 | Tele-ICU Progress Note ---
Subjective Date Seen by a Provider: Sep 26, 2022 Time Seen by a Provider: 10:21 Subjective/Events-last exam (Tele-ICU Physician , Progress Note ) Service provided via interactive audio and video telecommunications [facility] to a patient admitted to ICU bed in [facility]. Patient is seen today due to persistent need of ICU care Available chart/ vitals / labs / Images reviewed Video assessment done using teleICU camera, rest of exam as per RN He is a 27-year-old male resident of a local [facility] with past medical history of severe anxiety disorder and morbid obesity presented to the emergency room with a complaint of weakness and nausea and found to be having very high blood sugar. Patient is not known to have any diabetes. Before. He is also complaining of right-sided chest pain. It is kind of a pleuritic type pain. He was evaluated with CT angiogram of the chest and showed no acute pulmonary embolism but has a right basilar atelectasis with elevated diaphragm on the right side. He was somewhat warm and diaphoretic. His troponin x2 are negative and EKG also did not show any acute changes. He is admitted to the intensive care unit for close monitoring and management and a insulin drip is initiated as well as IV antibiotics for possible sepsis. He is started on IV fluids but so far he did not have much of urine output. Blood sugars are improving. Impression 1. Newly diagnosed with a diabetes mellitus which is uncontrolled and appears to be type II. 2. Oliguria secondary to dehydration. 3. Right-sided chest pain probably muscular skeletal type or possibly underlying pneumonia. 4. Chronic anxiety disorder. 5. Morbid obesity. Recommendations 1. We will continue insulin drip and try to wean off as soon as blood sugars are under control 2. Continue IV antibiotics per primary care physician 3. Analgesic therapy per pain management 4. Ativan for anxiety disorder. 5. DVT prophylaxis with subcutaneous Lovenox. 6. Suggest cardiology consultation. Also get a 2D echocardiogram. 7. We will give a normal saline bolus 500 cc now and see the urine output response. Coordination of care with primary care physician and bedside consultants. I am remotely monitoring this patient from Tele icu station in [place]. I am unable to do the bedside exam, and history/physical and pertinent information is taken from other notes in the computer and bedside staff. Certain portions of this document may have been dictated utilizing voice r ecognition technology such as Dragon. Inherent to this technology, typographical and grammatical errors may exist. As much as I am diligent to identify and correct to these mistakes, some errors may remain in the document. Critical care time devoted to this patient today is approximately is-20 minutes Certain portions of this document may have been dictated utilizing voice recognition technology such as Dragon. Inherent to this technology, typographical and grammatical errors may exist. As much as I am diligent to identify and correct to these mistakes, some errors may remain in the document Sepsis Event Evaluation Height, Weight, BMI Height: '" Weight: lbs. oz. kg; 45.09 BMI Method:Stated Focused Exam Lactate Level 09/25/22 20:10: Lactic Acid Level 1.22 Time of Focused Exam: 21:45 Exam Exam Patient acknowledged, consented, and participated in this virtual visit which was conducted using real time audio/video Vital Signs Date Time Temp Pulse Resp B/P (MAP) Pulse Ox O2 Delivery O2 Flow Rate FiO2 09/26/22 10:00 86 15 148/113 (125) 92 Nasal Cannula 3.00 09/26/22 09:49 36.9 09/26/22 09:00 101 14 157/108 (118) 94 NIV Bilevel 30.00 09/26/22 08:00 100 20 139/103 (111) 94 NIV Bilevel 30.00 09/26/22 08:00 97 Nasal Cannula 2.00 09/26/22 07:05 36.9 09/26/22 07:00 92 15 134/80 (99) 94 NIV Bilevel 30.00 09/26/22 07:00 91 09/26/22 06:30 75 26 92 30.00 09/26/22 06:30 NIV Bilevel 30.00 09/26/22 06:21 95 Nasal Cannula 2.00 09/26/22 06:00 85 150/116 (127) 94 Nasal Cannula 2.00 09/26/22 05:31 100 Nasal Cannula 2.00 09/26/22 05:00 76 151/111 (124) 96 Nasal Cannula 2.00 09/26/22 04:00 97 Nasal Cannula 2.00 09/26/22 04:00 76 178/98 (124) 92 Nasal Cannula 2.00 09/26/22 03:00 66 11 170/146 (154) 96 Nasal Cannula 2.00 09/26/22 02:00 109 27 136/79 (98) 97 Nasal Cannula 2.00 09/26/22 01:04 105 09/26/22 01:00 108 147/106 (120) 94 Nasal Cannula 2.00 09/26/22 00:08 90 Room Air 0.00 21 09/25/22 23:49 93 Room Air 0.00 21 09/25/22 23:45 105 147/93 (118) 93 Nasal Cannula 2.00 09/25/22 23:30 111 28 168/111 (128) 92 Nasal Cannula 2.00 09/25/22 23:15 120 20 143/109 (116) 92 Room Air 09/25/22 23:03 36.9 123 92 21 09/25/22 23:00 97 28 138/85 (102) 92 Room Air 09/25/22 23:00 97 23 138/85 (100) 93 Room Air 09/25/22 23:00 92 Room Air 09/25/22 22:47 111 09/25/22 22:45 36.5 09/25/22 22:18 36.9 109 20 137/92 98 Nasal Cannula 2.00 09/25/22 19:56 Nasal Cannula 2.00 09/25/22 19:50 36.9 123 20 151/115 (127) 94 Room Air 09/25/22 19:45 104 39 160/108 (125) Room Air I & O 09/26/22 07:00 Intake Total 3130 ml Output Total 1250 ml Balance 1880 ml Height & Weight Height: '" Weight: lbs. oz. kg; 45.09 BMI Method:Stated General Appearance: WD/WN, Obese, Other (MILDLY DYSPNEIC, VERY WARM AND SKIN IS MOIST/DIAPHORETIC) HEENT: PERRL/EOMI, Normal ENT Inspection, Moist Mucous Membranes Neck: Normal Inspection Respiratory: Other (STILL MILDLY DYSPNEIC AND TACHYPNEIC WITH SOME MILD UPPER AIRWAY WHEEZING) Cardiovascular: Tachycardia Capillary Refill: Less Than 3 Seconds Extremity: Normal Capillary Refill, No Pedal Edema, Other (LEFT BKA STUMP WITH AT LEAST 2 OPEN AREAS WITH SMALL AMOUNT OF PURULENT AND SEROUS DRAINAGE. THERE IS MILD ERYTHEMA TO THE SURGICAL SCAR, THERE IS TENDERNESS TO THE AREA. 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, workforce analyst II-XII Norm as Tested Skin: Normal Color (DARK SKINNED/), Diaphoresis, Tattoos/Piercings (MULTIPLE TATTOOS), Other (WARM , MOIST) Results Lab Laboratory Tests 09/25/22 20:10 09/26/22 05:00 Assessment/Plan Assessment/Plan as above Critical Care: Critically Ill Patient Time spent with patient (mins): 20 DOROTHY JOLLY MD Sep 26, 2022 10:37
[2022-09-26] MEDS: VANCOMYCIN 1500MG/300ML PREMIX 300 ML IV SCH ×2 (10:47→22:56)
--- NOTE | 2022-09-26 12:38 | Diagnostic Imaging Report ---
EXAMINATION: Chest 1 view HISTORY: Pneumonia. Followup. COMPARISON: 09/25/2022. FINDINGS: Lung volumes are low. Opacities are again noted in the right lung base. Stable prominent cardiac silhouette. No large pleural effusion or pneumothorax. IMPRESSION: 1. Persistent low lung volumes with stable right basilar opacities. Findings may represent atelectasis or infection. Dictated by: Dictated on workstation # [id number]
[2022-09-26] MEDS: ENOXAPARIN 40 MG/0.4 ML SYRINGE SC SCH ×2 (13:20→22:56)
[2022-09-26] MEDS: LORazepam INJ 2 MG/ML (ATIVAN) VIAL IVP PRN ×2 (13:21→23:35)
[2022-09-26 14:44] LABS: ABG BASE EXCESS 2.2 MMOL/L (-2.5-2.5); ABG OXYGEN SATURATION 96 % (94-100); ABG PCO2 57 MMHG (35-45); ABG PO2 69 MMHG (79-93); ABG TCO2 30.2 MMOL/L (21.0-31.0)
[2022-09-26] MEDS: ONDANSETRON 4 MG/2 ML (SDV) Z0FRAN IV PRN ×2 (14:46→22:17)
[2022-09-26 14:48] LABS: ALLENS TEST NO; INSPIRED O2 4; PATIENT TEMP 35.2; VENTILATOR NO
[2022-09-26 14:59] VITALS: BP 136/93
[2022-09-26 15:45] LABS: CHLORIDE 104 MMOL/L (98-107); POTASSIUM 4.2 MMOL/L (3.6-5.0); SODIUM 135 MMOL/L (135-145)
[2022-09-26 15:46] LABS: CALCIUM 8.6 MG/DL (8.5-10.1)
[2022-09-26 15:47] LABS: GLUCOSE 178 MG/DL (70-105)
[2022-09-26 15:48] LABS: CARBON DIOXIDE 23 MMOL/L (21-32)
--- NOTE | 2022-09-26 15:50 | Diagnostic Imaging Report ---
PROCEDURE: CT abdomen and pelvis without contrast. TECHNIQUE: Multiple contiguous axial images were obtained through the abdomen and pelvis without the use of intravenous contrast. Auto Exposure Controls were utilized during the CT exam to meet ALARA standards for radiation dose reduction. INDICATION: Right upper quadrant abdominal pain. COMPARISON: 09/25/2022. FINDINGS: No interval change since the CT from the day before. Stable hepatomegaly with hepatic steatosis. IMPRESSION: Stable abdomen and pelvis. Dictated by: Dictated on workstation # [id number]
[2022-09-26 15:51] LABS: BUN/CREATININE RATIO 19; CREATININE SERUM 0.67 MG/DL (0.60-1.30); GFR ESTIMATED 131
[2022-09-26] MEDS: METOCLOPRAMIDE INJ 10 MG/2 ML (REGLAN) IVP PRN ×2 (16:22→23:28)
[2022-09-26 18:36] VITALS: BP 165/120
[2022-09-26] MEDS: LORazepam 0.5 MG (ATIVAN) TABLET PO PRN (18:58)
[2022-09-27] MEDS: ACETAMINOPHEN 325 MG TABLET PO PRN (01:22)
[2022-09-27] MEDS: RT-ALBUTEROL SULF 2.5 MG/3 ML PRE-MIX VIAL INH SCH ×4 (02:24→22:14)
[2022-09-27] MEDS: NS IV 1000 ML 1,000 ML IV SCH ×4 (02:26→20:53)
[2022-09-27] MEDS: CEFEPIME INJECTION 1,000 MG in NS (IVPB) 50 ML 50 ML IV SCH ×4 (03:13→21:11)
[2022-09-27 05:05] LABS: BASOPHILS # (AUTO) 0.1 10^3/uL (0.0-0.1); BASOPHILS % (AUTO) 1 % (0-10); EOSINOPHILS # (AUTO) 0.1 10^3/uL (0.0-0.3); EOSINOPHILS % (AUTO) 1 % (0-10); HEMATOCRIT 44 % (40-54); LYMPHOCYTES # (AUTO) 1.2 10^3/uL (1.0-4.0); LYMPHOCYTES % (AUTO) 9 % (12-44); MEAN CORPUSCULAR HEMOGLOBIN 27 pg (25-34); MEAN CORPUSCULAR HGB CONC 32 g/dL (32-36); MEAN CORPUSCULAR VOLUME 83 fL (80-99); MEAN PLATELET VOLUME 10.3 fL (9.0-12.2); MONOCYTES # (AUTO) 0.6 10^3/uL (0.0-1.0); MONOCYTES % (AUTO) 5 % (0-12); NEUTROPHILS # (AUTO) 10.9 10^3/uL (1.8-7.8); NEUTROPHILS % (AUTO) 84 % (42-75); PLATELET COUNT 205 10^3/uL (130-400); WHITE BLOOD COUNT 12.9 10^3/uL (4.3-11.0)
[2022-09-27 05:24] LABS: ALBUMIN 3.7 GM/DL (3.2-4.5); POTASSIUM 3.9 MMOL/L (3.6-5.0)
[2022-09-27 05:25] LABS: CALCIUM 8.9 MG/DL (8.5-10.1)
[2022-09-27 05:26] LABS: TOTAL PROTEIN 6.9 GM/DL (6.4-8.2)
[2022-09-27 05:28] LABS: BILIRUBIN,TOTAL 0.2 MG/DL (0.1-1.0)
[2022-09-27 05:30] LABS: CREATININE SERUM 0.64 MG/DL (0.60-1.30); PHOSPHORUS 3.3 MG/DL (2.3-4.7)
[2022-09-27] MEDS: MAGNESIUM 1 GM/100 ML IVPB 100 ML IV SCH (05:36)
[2022-09-27] MEDS: POTASSIUM CL 10MEQ/50ML IVPB 50 ML IV SCH ×3 (05:36→07:34)
[2022-09-27] MEDS: KCL 20 MEQ TAB (K-DUR) PO SCH (05:36)
[2022-09-27 05:58] VITALS: BP 139/79
[2022-09-27] MEDS: HYDROmorphone 2 MG/ML VIAL (DILAUDID) IV PRN ×7 (07:42→23:38)
[2022-09-27] MEDS: ONDANSETRON 4 MG/2 ML (SDV) Z0FRAN IV PRN (07:42)
--- NOTE | 2022-09-27 08:10 | Diagnostic Imaging Report ---
INDICATION: Shortness of air TECHNIQUE: Single view chest 3:27 AM CORRELATION STUDY: 09/26/2022 FINDINGS: Hypoventilation with asymmetric located right diaphragm again demonstrated. Given this, there are some chronic lung limon but no definitive infiltrates. Unchanged cardiac enlargement. Vasculature overall stable. IMPRESSION: 1. Hypoventilation with low lung volumes. No definitive infiltrate. Cardiac enlargement without overt failure. Dictated by: Dictated on workstation # [id number]
[2022-09-27] MEDS ORDERED: TROUGH ORDER-PHARMACY XX ONE (09:00)
[2022-09-27] MEDS: MUPIROCIN 2% OINT 22 GM (BACTROBAN) TUBE TOP SCH ×2 (09:28→21:12)
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
[2022-09-27] MEDS ORDERED: BUSP10TA95 PO (10:20)
[2022-09-27] MEDS ORDERED: PREG150C46 PO (10:20)
[2022-09-27] MEDS ORDERED: TRZ50T PO (10:20)
[2022-09-27] MEDS ORDERED: OLN5T PO (10:20)
[2022-09-27] MEDS ORDERED: SENN-109 PO (10:20)
[2022-09-27] MEDS ORDERED: PREG200C28 PO (10:20)
[2022-09-27] MEDS ORDERED: DULO30CA49 PO (10:20)
[2022-09-27] MEDS ORDERED: MIRT-69 PO (10:20)
[2022-09-27] MEDS ORDERED: CLOP75TA28 PO (10:20)
[2022-09-27] MEDS: SENNOSIDES 8.6 MG (SENOKOT) TAB PO SCH ×2 (10:22→20:52)
[2022-09-27] MEDS: DOCUSATE SODIUM 100 MG CAPSULE PO SCH ×2 (10:22→20:52)
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
[2022-09-27] MEDS: VANCOMYCIN 1,750 MG/NS 500 ML IVPB IV SCH ×4 (11:06→23:28)
[2022-09-27] MEDS: ENOXAPARIN 40 MG/0.4 ML SYRINGE SC SCH ×2 (11:06→23:28)
--- NOTE | 2022-09-27 12:40 | Progress Note ---
Subjective Subjective/Events-last exam Patient stating he is very hungry this AM and would like to eat a sandwich. States that his pain is much improved. He is breathing much better. Review of Systems General: Fatigue Pulmonary: Dyspnea Cardiovascular: No: Chest Pain, Palpitations, Edema Gastrointestinal: Nausea; No: Vomiting, Abdominal Pain, Diarrhea, Constipation Neurological: Weakness Focused Exam Lactate Level 09/25/22 20:10: Lactic Acid Level 1.22 Time of Focused Exam: 21:45 Objective Exam Last Set of Vital Signs Vital Signs Date Time Temp Pulse Resp B/P (MAP) Pulse Ox O2 Delivery O2 Flow Rate FiO2 09/27/22 12:25 112 09/27/22 11:53 37.2 09/27/22 09:00 124/84 (97) 97 NIV Bilevel 30.00 09/27/22 05:58 21 09/26/22 20:00 30 Capillary Refill : Less Than 3 Seconds I&O Intake and Output 09/27/22 00:00 Intake Total 3980 ml Output Total 3125 ml Balance 855 ml Intake Oral 2680 ml IV Total 1300 ml Output Urine Total 3125 ml # Bowel Movements 1 # Emeses 2 General: Alert, Oriented X3, No Acute Distress Lungs: Clear to Auscultation, Normal Air Movement Heart: Regular Rate Abdomen: Normal Bowel Sounds, Soft, No Tenderness, No Masses Extremities: Other (Right BKA, mild erythema (seems to be improved from previous), no edema) Neuro: Normal Speech Results/Procedures Lab Laboratory Tests 09/26/22 13:31: Glucometer 270H 09/26/22 14:37: Blood Gas Puncture Site RIGHT RADIAL, Blood Gas Patient Temperature 35.2, Arterial Blood pH 7.30*L, Arterial Blood Partial Pressure CO2 57H, Arterial Blood Partial Pressure O2 69L, Arterial Blood HCO3 28H, Arterial Blood Total CO2 30.2, Arterial Blood Oxygen Saturation 96, Arterial Blood Base Excess 2.2, Mike Test NO, Blood Gas Ventilator Setting NO, Blood Gas Inspired Oxygen 4 09/26/22 14:39: Glucometer 189H 09/26/22 15:19: Sodium Level 135, Potassium Level 4.2, Chloride Level 104, Carbon Dioxide Level 23, Anion Gap 8, Blood Urea Nitrogen 13, Creatinine 0.67, Estimat Glomerular Filtration Rate 131, BUN/Creatinine Ratio 19, Glucose Level 178H, Calcium Level 8.6, Troponin I < 0.028 09/26/22 15:43: Glucometer 180H 09/26/22 16:27: Glucometer 175H 09/26/22 17:36: Glucometer 125H 09/26/22 18:31: Glucometer 144H 09/26/22 19:39: Glucometer 166H 09/26/22 20:35: Glucometer 155H 09/26/22 22:07: Glucometer 126H 09/26/22 22:52: Glucometer 116H 09/26/22 23:45: Glucometer 110 09/27/22 00:34: Glucometer 101 09/27/22 01:25: Glucometer 93 09/27/22 02:28: Glucometer 125H 09/27/22 03:34: Glucometer 112H 09/27/22 04:46: Glucometer 76 09/27/22 04:52: White Blood Count 12.9H, Red Blood Count 5.26, Hemoglobin 14.0, Hematocrit 44, Mean Corpuscular Volume 83, Mean Corpuscular Hemoglobin 27, Mean Corpuscular Hemoglobin Concent 32, Red Cell Distribution Width 16.8H, Platelet Count 205, Mean Platelet Volume 10.3, Immature Granulocyte % (Auto) 1, Neutrophils (%) (Auto) 84H, Lymphocytes (%) (Auto) 9L, Monocytes (%) (Auto) 5, Eosinophils (%) (Auto) 1, Basophils (%) (Auto) 1, Neutrophils # (Auto) 10.9H, Lymphocytes # (Auto) 1.2, Monocytes # (Auto) 0.6, Eosinophils # (Auto) 0.1, Basophils # (Auto) 0.1, Immature Granulocyte # (Auto) 0.1, Sodium Level 139, Potassium Level 3.9, Chloride Level 105, Carbon Dioxide Level 25, Anion Gap 9, Blood Urea Nitrogen 8, Creatinine 0.64, Estimat Glomerular Filtration Rate 133, BUN/Creatinine Ratio 13, Glucose Level 73, Calcium Level 8.9, Corrected Calcium 9.1, Phosphorus Level 3.3, Magnesium Level 2.0, Total Bilirubin 0.2, Aspartate Amino Transf (AST/SGOT) 115H, Alanine Aminotransferase (ALT/SGPT) 142H, Alkaline Phosphatase 114, Total Protein 6.9, Albumin 3.7 09/27/22 05:01: Bedside Blood Gas pH (LAB) 7.290*L, Bedside Blood Gas pCO2 (LAB) 58.1H, Bedside Blood Gas pO2 (LAB) 89, Bedside Blood Gas HCO3 (LAB) 27.9, POC Blood Gas Total CO2 Calc 30H, Bedside Bl Gas O2 Saturation (Calc) 95, Bedside Arterial Blood Base Excess 1 09/27/22 05:27: Glucometer 124H 09/27/22 06:46: Glucometer 103 09/27/22 07:30: Glucometer 82 09/27/22 08:33: Glucometer 102 09/27/22 09:15: Vancomycin Level Trough 7.5L 09/27/22 09:34: Glucometer 75 09/27/22 10:31: Glucometer 113H 09/27/22 11:31: Glucometer 198H 09/27/22 12:31: Glucometer 249H Microbiology 09/25/22 MRSA Screen - Final, Complete 09/25/22 Blood Culture - Preliminary, Resulted 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, 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) See Comments 09/25/22 Urine Culture - Final, Complete See Comments 09/25/22 Gram Stain - Final, Resulted 09/25/22 Wound Culture - Preliminary, Resulted Staphylococcus aureus Susceptibility To Follow Assessment/Plan Assessment/Plan (1) Acute respiratory failure with hypoxia and hypercapnia Status: Acute Assessment & Plan: 09/27: Likely has a CHEYANNE component due to 90# weight gain, Will need outpatient evaluation, will wean oxygen as tolerated (2) HCAP (healthcare-associated pneumonia) Status: Acute Assessment & Plan: 09/27: Continue IV antibiotics and will transition to PO in AM (3) Hyperosmolar hyperglycemic coma due to diabetes mellitus without ketoacidosis Status: Resolved Assessment & Plan: 09/27: Transition off insulin gtts (4) New onset type 2 diabetes mellitus Status: Acute Assessment & Plan: 09/27: Will start metformin at d/c (5) Sepsis Status: Resolved (6) HTN (hypertension) Status: Chronic Assessment & Plan: - Continue home meds (7) DVT prophylaxis Assessment & Plan: - Lovenox Clinical Quality Measures AMI/AHF: ASA po Prior to arrival: Yes CLAUDIA BA MD Sep 27, 2022 12:40
[2022-09-27 13:50] LABS: HEPATITIS C ANTIBODY C Non-Reactive (Non-Reactive)
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
[2022-09-27 14:34] VITALS: BP 139/94
[2022-09-27] MEDS: LORazepam INJ 2 MG/ML (ATIVAN) VIAL IVP PRN (19:51)
[2022-09-27] MEDS: MELATONIN 3 MG TABLET PO PRN (21:45)
[2022-09-27 22:14] VITALS: BP_SYST 139; BP_SYST 155; BP_DIAS 94; BP_DIAS 98
[2022-09-28] MEDS: RT-ALBUTEROL SULF 2.5 MG/3 ML PRE-MIX VIAL INH SCH ×4 (02:30→21:15)
[2022-09-28] MEDS: HYDROmorphone 2 MG/ML VIAL (DILAUDID) IV PRN ×3 (02:42→12:49)
[2022-09-28] MEDS: CEFEPIME INJECTION 1,000 MG in NS (IVPB) 50 ML 50 ML IV SCH ×4 (03:48→22:32)
[2022-09-28 04:04] LABS: BASOPHILS # (AUTO) 0.1 10^3/uL (0.0-0.1); BASOPHILS % (AUTO) 1 % (0-10); EOSINOPHILS # (AUTO) 0.4 10^3/uL (0.0-0.3); EOSINOPHILS % (AUTO) 6 % (0-10); HEMATOCRIT 43 % (40-54); HEMOGLOBIN 13.5 g/dL (13.3-17.7); LYMPHOCYTES # (AUTO) 1.6 10^3/uL (1.0-4.0); LYMPHOCYTES % (AUTO) 20 % (12-44); MEAN CORPUSCULAR HEMOGLOBIN 26 pg (25-34); MEAN CORPUSCULAR HGB CONC 31 g/dL (32-36); MEAN CORPUSCULAR VOLUME 83 fL (80-99); MEAN PLATELET VOLUME 10.6 fL (9.0-12.2); MONOCYTES # (AUTO) 0.5 10^3/uL (0.0-1.0); MONOCYTES % (AUTO) 7 % (0-12); NEUTROPHILS # (AUTO) 5.4 10^3/uL (1.8-7.8); NEUTROPHILS % (AUTO) 67 % (42-75); PLATELET COUNT 164 10^3/uL (130-400); WHITE BLOOD COUNT 8.1 10^3/uL (4.3-11.0)
[2022-09-28 04:11] LABS: ALBUMIN 3.5 GM/DL (3.2-4.5)
[2022-09-28 04:12] LABS: POTASSIUM 3.9 MMOL/L (3.6-5.0)
[2022-09-28 04:13] LABS: CALCIUM 8.8 MG/DL (8.5-10.1)
[2022-09-28 04:14] LABS: TOTAL PROTEIN 7.1 GM/DL (6.4-8.2)
[2022-09-28 04:16] LABS: BILIRUBIN,TOTAL 0.3 MG/DL (0.1-1.0)
[2022-09-28 04:17] LABS: PHOSPHORUS 3.6 MG/DL (2.3-4.7)
[2022-09-28 04:18] LABS: CREATININE SERUM 0.78 MG/DL (0.60-1.30)
[2022-09-28 04:20] LABS: MAGNESIUM 1.9 MG/DL (1.6-2.4)
[2022-09-28] MEDS: ONDANSETRON 4 MG/2 ML (SDV) Z0FRAN IV PRN (04:59)
[2022-09-28] MEDS: POTASSIUM CL 10MEQ/50ML IVPB 50 ML IV SCH ×3 (05:26→07:16)
[2022-09-28] MEDS: MAGNESIUM 1 GM/100 ML IVPB 100 ML IV SCH ×3 (05:26→07:17)
[2022-09-28] MEDS: KCL 20 MEQ TAB (K-DUR) PO SCH (05:27)
[2022-09-28] MEDS ORDERED: POTASSIUM CL 10MEQ/50ML IVPB 100 ML IV ONE (05:37)
[2022-09-28] MEDS ORDERED: MAGNESIUM 1 GM/100 ML IVPB 200 ML IV ONE (05:37)
[2022-09-28 05:40] LABS: ABG BASE EXCESS 6.5 MMOL/L (-2.5-2.5); ABG OXYGEN SATURATION 97 % (94-100); ABG PCO2 60 MMHG (35-45); ABG PO2 77 MMHG (79-93); ABG TCO2 34.3 MMOL/L (21.0-31.0)
[2022-09-28 05:41] LABS: ALLENS TEST YES-POS; INSPIRED O2 30%; PATIENT TEMP 35.7; VENTILATOR NO
[2022-09-28 05:42] LABS: ABG PH 7.34 (7.37-7.43)
[2022-09-28] MEDS: NS IV 1000 ML 1,000 ML IV SCH ×2 (07:17→17:56)
[2022-09-28] MEDS: ACETAMINOPHEN 325 MG TABLET PO PRN (07:27)
[2022-09-28] MEDS ORDERED: ACETAMINOPHEN 325 MG TABLET PO PRN (08:15)
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
--- NOTE | 2022-09-28 08:44 | Diagnostic Imaging Report ---
INDICATION: Hypoxia, septic shock TECHNIQUE: Single view chest 6:14 AM CORRELATION STUDY: 09/27/2022 FINDINGS: Limited depth of inspiration. There is asymmetrically elevated right diaphragm, stable. More focal infiltrate or atelectasis appears changed from prior at the right lung base. Left lung generally stable. Heart size and mediastinum remain enlarged and prominent. IMPRESSION: 1. Hypoventilation with atelectasis or infiltrate developing at the right lung base. Dictated by: Dictated on workstation # [id number]
[2022-09-28] MEDS: MUPIROCIN 2% OINT 22 GM (BACTROBAN) TUBE TOP SCH ×2 (09:02→20:09)
[2022-09-28] MEDS: LOSARTAN 100 MG (COZAAR) TABLET PO SCH (09:02)
[2022-09-28] MEDS: DOCUSATE SODIUM 100 MG CAPSULE PO SCH ×2 (09:03→20:08)
[2022-09-28] MEDS: SENNOSIDES 8.6 MG (SENOKOT) TAB PO SCH ×2 (09:03→20:08)
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
[2022-09-28 09:38] VITALS: BP 141/108
[2022-09-28 10:00] VITALS: BP 157/101
[2022-09-28] MEDS: ENOXAPARIN 40 MG/0.4 ML SYRINGE SC SCH ×2 (10:47→22:32)
[2022-09-28] MEDS: inSUlin ASPART (NovoLOG) 1 UNIT/0.01 ML (CHARGE PER UNIT) SC SCH ×4 (10:59→20:08)
[2022-09-28] MEDS: VANCOMYCIN 1,750 MG/NS 500 ML IVPB IV SCH ×4 (11:00→22:32)
[2022-09-28] MEDS: LORazepam 0.5 MG (ATIVAN) TABLET PO PRN (11:41)
[2022-09-28] MEDS ORDERED: inSUlin ASPART (NovoLOG) 1 UNIT/0.01 ML (CHARGE PER UNIT) SC SCH (12:00)
--- NOTE | 2022-09-28 13:37 | Progress Note ---
Subjective Subjective/Events-last exam Patient having increased work of breathing this AM. States that he did not get much sleep ON. Tolerating PO diet. Review of Systems General: Fatigue, Malaise Pulmonary: Dyspnea; No Cough Cardiovascular: Edema; No: Chest Pain, Palpitations Gastrointestinal: No: Nausea, Vomiting, Abdominal Pain, Diarrhea, Constipation Neurological: Weakness, Incoordination Focused Exam Lactate Level 09/25/22 20:10: Lactic Acid Level 1.22 Time of Focused Exam: 21:45 Objective Exam Last Set of Vital Signs Vital Signs Date Time Temp Pulse Resp B/P (MAP) Pulse Ox O2 Delivery O2 Flow Rate FiO2 09/28/22 12:03 95 09/28/22 12:00 28 147/97 (114) 93 Nasal Cannula 3.00 09/28/22 04:00 36.4 09/26/22 20:00 30 Capillary Refill : Less Than 3 Seconds I&O Intake and Output 09/28/22 00:00 Intake Total 4390 ml Output Total 6125 ml Balance -1735 ml Intake Oral 2340 ml IV Total 2050 ml Output Urine Total 6125 ml # Emeses 2 General: Alert, Oriented X3, Other (Currently on bipap) Lungs: Other (Basilar wheezing, normal work of breathing) Heart: Regular Rate, No Murmurs Abdomen: Soft, No Tenderness Extremities: Other (1+ edema bilateral LE, L BKA) Neuro: Normal Speech Results/Procedures Lab Laboratory Tests 09/27/22 13:33: Glucometer 280H 09/27/22 14:32: Glucometer 294H 09/27/22 15:49: Glucometer 263H 09/27/22 17:34: Glucometer 206H 09/27/22 18:21: Glucometer 262H 09/27/22 20:54: Glucometer 350H 09/27/22 23:27: Glucometer 313H 09/28/22 03:49: Glucometer 266H 09/28/22 03:50: White Blood Count 8.1, Red Blood Count 5.18, Hemoglobin 13.5, Hematocrit 43, Mean Corpuscular Volume 83, Mean Corpuscular Hemoglobin 26, Mean Corpuscular Hemoglobin Concent 31L, Red Cell Distribution Width 16.7H, Platelet Count 164, Mean Platelet Volume 10.6, Immature Granulocyte % (Auto) 1, Neutrophils (%) (Auto) 67, Lymphocytes (%) (Auto) 20, Monocytes (%) (Auto) 7, Eosinophils (%) (Auto) 6, Basophils (%) (Auto) 1, Neutrophils # (Auto) 5.4, Lymphocytes # (Auto) 1.6, Monocytes # (Auto) 0.5, Eosinophils # (Auto) 0.4H, Basophils # (Auto) 0.1, Immature Granulocyte # (Auto) 0.1, Sodium Level 135, Potassium Level 3.9, Chloride Level 101, Carbon Dioxide Level 26, Anion Gap 8, Blood Urea Nitrogen 8, Creatinine 0.78, Estimat Glomerular Filtration Rate 125, BUN/Creatinine Ratio 10, Glucose Level 286H, Calcium Level 8.8, Corrected Calcium 9.2, Phosphorus Level 3.6, Magnesium Level 1.9, Total Bilirubin 0.3, Aspartate Amino Transf (AST/SGOT) 94H, Alanine Aminotransferase (ALT/SGPT) 137H, Alkaline Phosphatase 109, Total Protein 7.1, Albumin 3.5 09/28/22 05:33: Blood Gas Puncture Site RT BRACHIAL, Blood Gas Patient Temperature 35.7, Arterial Blood pH 7.34*L, Arterial Blood Partial Pressure CO2 60H, Arterial Blood Partial Pressure O2 77L, Arterial Blood HCO3 32H, Arterial Blood Total CO2 34.3H, Arterial Blood Oxygen Saturation 97, Arterial Blood Base Excess 6.5H, Mike Test YES-POS, Blood Gas Ventilator Setting NO, Blood Gas Inspired Oxygen 30% 09/28/22 10:55: Glucometer 379H Microbiology 09/25/22 MRSA Screen - Final, Complete 09/25/22 Blood Culture - Preliminary, Resulted Staph, Coag Neg (CUSTOMER SUPPLY COORDINATOR) See Comments 09/25/22 Urine Culture - Final, Complete See Comments 09/25/22 Gram Stain - Final, Complete 09/25/22 Wound Culture - Final, Complete Staphylococcus aureus Radiology Date of Exam:09/26/22 CT ABDOMEN/PELVIS WO PROCEDURE: CT abdomen and pelvis without contrast. TECHNIQUE: Multiple contiguous axial images were obtained through the abdomen and pelvis without the use of intravenous contrast. Auto Exposure Controls were utilized during the CT exam to meet ALARA standards for radiation dose reduction. INDICATION: Right upper quadrant abdominal pain. COMPARISON: 09/25/2022. FINDINGS: No interval change since the CT from the day before. Stable hepatomegaly with hepatic steatosis. IMPRESSION: Stable abdomen and pelvis. Dictated by: Dictated on workstation # [id number] Dict: 09/26/22 1547 Trans: 09/26/22 1550 [facility] [id number] Interpreted by: RAFAEL MACIAS DO Electronically signed by: RAFAEL MACIAS DO 09/26/22 1550 Assessment/Plan Assessment/Plan (1) Acute respiratory failure with hypoxia and hypercapnia Status: Acute Assessment & Plan: 09/27: Likely has a CHEYANNE component due to 90# weight gain, Will need outpatient evaluation, will wean oxygen as tolerated 09/28: Currently on bipap, will continue to titrate as tolerated (2) HCAP (healthcare-associated pneumonia) Status: Acute Assessment & Plan: 09/27: Continue IV antibiotics and will transition to PO in AM (3) Hyperosmolar hyperglycemic coma due to diabetes mellitus without ketoacidosis Status: Resolved Assessment & Plan: 09/27: Transition off insulin gtts (4) New onset type 2 diabetes mellitus Status: Acute Assessment & Plan: 09/27: Will start metformin at d/c 09/28: Increased long acting insulin (5) Sepsis Status: Resolved (6) HTN (hypertension) Status: Chronic Assessment & Plan: - Continue home meds (7) DVT prophylaxis Assessment & Plan: - Lovenox Clinical Quality Measures AMI/AHF: ASA po Prior to arrival: Yes CLAUDIA BA MD Sep 28, 2022 13:37
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
[2022-09-28 17:19] VITALS: BP 130/81
[2022-09-28 19:05] VITALS: BP 122/58
[2022-09-28] MEDS ORDERED: TROUGH ORDER-PHARMACY XX NR (21:30)
[2022-09-28 23:16] VITALS: BP 107/64
[2022-09-29] MEDS: RT-ALBUTEROL SULF 2.5 MG/3 ML PRE-MIX VIAL INH SCH ×4 (02:24→21:15)
[2022-09-29] MEDS: NS IV 1000 ML 1,000 ML IV SCH ×3 (03:45→23:21)
[2022-09-29] MEDS: CEFEPIME INJECTION 1,000 MG in NS (IVPB) 50 ML 50 ML IV SCH ×4 (03:53→22:15)
[2022-09-29 03:58] VITALS: BP 119/80
[2022-09-29 05:25] LABS: BASOPHILS # (AUTO) 0.1 10^3/uL (0.0-0.1); BASOPHILS % (AUTO) 1 % (0-10); EOSINOPHILS # (AUTO) 0.5 10^3/uL (0.0-0.3); EOSINOPHILS % (AUTO) 5 % (0-10); HEMATOCRIT 45 % (40-54); HEMOGLOBIN 14.4 g/dL (13.3-17.7); LYMPHOCYTES # (AUTO) 1.4 10^3/uL (1.0-4.0); LYMPHOCYTES % (AUTO) 14 % (12-44); MEAN CORPUSCULAR HEMOGLOBIN 27 pg (25-34); MEAN CORPUSCULAR HGB CONC 32 g/dL (32-36); MEAN CORPUSCULAR VOLUME 83 fL (80-99); MEAN PLATELET VOLUME 10.3 fL (9.0-12.2); MONOCYTES # (AUTO) 0.6 10^3/uL (0.0-1.0); MONOCYTES % (AUTO) 6 % (0-12); NEUTROPHILS # (AUTO) 7.4 10^3/uL (1.8-7.8); NEUTROPHILS % (AUTO) 74 % (42-75); PLATELET COUNT 172 10^3/uL (130-400)
[2022-09-29 05:34] LABS: ALBUMIN 3.7 GM/DL (3.2-4.5); POTASSIUM 3.9 MMOL/L (3.6-5.0)
[2022-09-29 05:35] LABS: CALCIUM 9.4 MG/DL (8.5-10.1)
[2022-09-29 05:37] LABS: TOTAL PROTEIN 7.6 GM/DL (6.4-8.2)
[2022-09-29 05:38] LABS: BILIRUBIN,TOTAL 0.5 MG/DL (0.1-1.0)
[2022-09-29 05:40] LABS: CREATININE SERUM 0.7 MG/DL (0.60-1.30); PHOSPHORUS 3.5 MG/DL (2.3-4.7)
[2022-09-29 05:43] LABS: MAGNESIUM 1.9 MG/DL (1.6-2.4)
[2022-09-29] MEDS: inSUlin ASPART (NovoLOG) 1 UNIT/0.01 ML (CHARGE PER UNIT) SC SCH ×7 (06:06→20:52)
[2022-09-29 07:24] VITALS: BP 128/87
--- NOTE | 2022-09-29 07:53 | Diagnostic Imaging Report ---
INDICATION: Dyspnea. Single AP view of the chest is obtained with comparison made study of one day earlier. FINDINGS: Heart size and pulmonary vascularity are within normal limits. There is elevation right hemidiaphragm. Mild right basilar atelectasis is noted. IMPRESSION: Stable chest with mild right basilar atelectasis. Dictated by: Dictated on workstation # [id number]
[2022-09-29] MEDS: LOSARTAN 100 MG (COZAAR) TABLET PO SCH (08:32)
[2022-09-29] MEDS: MUPIROCIN 2% OINT 22 GM (BACTROBAN) TUBE TOP SCH ×2 (08:33→20:52)
[2022-09-29] MEDS: SENNOSIDES 8.6 MG (SENOKOT) TAB PO SCH ×2 (08:36→20:44)
[2022-09-29] MEDS: DOCUSATE SODIUM 100 MG CAPSULE PO SCH ×2 (08:36→20:44)
[2022-09-29] MEDS: LORazepam 0.5 MG (ATIVAN) TABLET PO PRN ×3 (08:48→20:44)
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
[2022-09-29 11:34] VITALS: BP 109/73
--- NOTE | 2022-09-29 11:36 | Progress Note ---
Subjective Subjective/Events-last exam Patient resting comfortably with bipap. He did refuse Bipap some overnight but compliant this AM. Tolerating PO diet. Review of Systems General: Fatigue, Malaise Pulmonary: Dyspnea; No Cough Cardiovascular: No: Chest Pain, Palpitations Gastrointestinal: No: Nausea, Vomiting, Abdominal Pain, Diarrhea, Constipation Neurological: Weakness, Incoordination Focused Exam Time of Focused Exam: 21:45 Objective Exam Last Set of Vital Signs Vital Signs Date Time Temp Pulse Resp B/P (MAP) Pulse Ox O2 Delivery O2 Flow Rate FiO2 09/29/22 09:26 105 20 96 40.00 09/29/22 08:37 NIV Bilevel 09/29/22 07:24 37.0 128/87 (101) 09/26/22 20:00 30 Capillary Refill : Less Than 3 Seconds I&O Intake and Output 09/29/22 00:00 Intake Total 2550 ml Output Total 5200 ml Balance -2650 ml Intake Oral 2200 ml IV Total 350 ml Output Urine Total 5200 ml General: Alert, Oriented X3, No Acute Distress Lungs: Other (diffuse wheezing with normal work of breathing at rest.) Heart: Regular Rate, No Murmurs Abdomen: Normal Bowel Sounds, Soft, No Tenderness, No Masses Extremities: No Edema, No Tenderness/Swelling Neuro: Normal Speech Psych/Mental Status: Mental Status NL, Mood NL Results/Procedures Lab Laboratory Tests 09/28/22 15:34: Glucometer 266H 09/28/22 19:21: Glucometer 220H 09/28/22 21:38: Vancomycin Level Trough 7.4L 09/29/22 04:58: White Blood Count 10.0, Red Blood Count 5.42, Hemoglobin 14.4, Hematocrit 45, Mean Corpuscular Volume 83, Mean Corpuscular Hemoglobin 27, Mean Corpuscular Hemoglobin Concent 32, Red Cell Distribution Width 16.4H, Platelet Count 172, Mean Platelet Volume 10.3, Immature Granulocyte % (Auto) 1, Neutrophils (%) (Auto) 74, Lymphocytes (%) (Auto) 14, Monocytes (%) (Auto) 6, Eosinophils (%) (Auto) 5, Basophils (%) (Auto) 1, Neutrophils # (Auto) 7.4, Lymphocytes # (Auto) 1.4, Monocytes # (Auto) 0.6, Eosinophils # (Auto) 0.5H, Basophils # (Auto) 0.1, Immature Granulocyte # (Auto) 0.1, Sodium Level 136, Potassium Level 3.9, Chloride Level 100, Carbon Dioxide Level 27, Anion Gap 9, Blood Urea Nitrogen 9, Creatinine 0.70, Estimat Glomerular Filtration Rate 130, BUN/Creatinine Ratio 13, Glucose Level 222H, Calcium Level 9.4, Corrected Calcium 9.6, Phosphorus Level 3.5, Magnesium Level 1.9, Total Bilirubin 0.5, Aspartate Amino Transf (AST/SGOT) 94H, Alanine Aminotransferase (ALT/SGPT) 157H, Alkaline Phosphatase 112, Total Protein 7.6, Albumin 3.7 09/29/22 11:06: Glucometer 245H Microbiology 09/25/22 MRSA Screen - Final, Complete 09/25/22 Blood Culture - Preliminary, Resulted Staph, Coag Neg (GENERAL PARTNER) See Comments 09/25/22 Urine Culture - Final, Complete See Comments 09/25/22 Gram Stain - Final, Complete 09/25/22 Wound Culture - Final, Complete Staphylococcus aureus Radiology Date of Exam:09/26/22 CT ABDOMEN/PELVIS WO PROCEDURE: CT abdomen and pelvis without contrast. TECHNIQUE: Multiple contiguous axial images were obtained through the abdomen and pelvis without the use of intravenous contrast. Auto Exposure Controls were utilized during the CT exam to meet ALARA standards for radiation dose reduction. INDICATION: Right upper quadrant abdominal pain. COMPARISON: 09/25/2022. FINDINGS: No interval change since the CT from the day before. Stable hepatomegaly with hepatic steatosis. IMPRESSION: Stable abdomen and pelvis. Dictated by: Dictated on workstation # [id number] Dict: 09/26/22 1547 Trans: 09/26/22 1550 [facility] [id number] Interpreted by: RAFAEL MACIAS DO Electronically signed by: RAFAEL MACIAS DO 09/26/22 1550 Assessment/Plan Assessment/Plan (1) Acute respiratory failure with hypoxia and hypercapnia Status: Acute Assessment & Plan: 09/27: Likely has a CHEYANNE component due to 90# weight gain, Will need outpatient evaluation, will wean oxygen as tolerated 09/28: Currently on bipap, will continue to titrate as tolerated 09/29: Patient require bipap at night due to underlying CHEYANNE, will get script for home use (2) HCAP (healthcare-associated pneumonia) Status: Acute Assessment & Plan: 09/27: Continue IV antibiotics and will transition to PO in AM (3) Hyperosmolar hyperglycemic coma due to diabetes mellitus without ketoacidosis Status: Resolved Assessment & Plan: 09/27: Transition off insulin gtts (4) New onset type 2 diabetes mellitus Status: Acute Assessment & Plan: 09/27: Will start metformin at d/c 09/28: Increased long acting insulin 09/29: Will start metformin today (5) Sepsis Status: Resolved (6) HTN (hypertension) Status: Chronic Assessment & Plan: - Continue home meds (7) DVT prophylaxis Assessment & Plan: - Lovenox Clinical Quality Measures AMI/AHF: ASA po Prior to arrival: Yes CLAUDIA BA MD Sep 29, 2022 11:36
[2022-09-29] MEDS: ENOXAPARIN 40 MG/0.4 ML SYRINGE SC SCH ×2 (11:37→22:15)
--- NOTE | 2022-09-29 11:51 | Physical Therapy Progress Note ---
Therapy Progress Note Patient refuses PT treatment. He reports he has severe chest pain and does want to do anything. Will attempt again tomorrow and progress per patient tolerance. BARBARA CADET PT Sep 29, 2022 11:51
[2022-09-29] MEDS: ACETAMINOPHEN 325 MG TABLET PO PRN (12:20)
[2022-09-29 15:45] VITALS: BP 104/71
[2022-09-29] MEDS: metFORMIN XR 500 MG (GLUCOPHAGE XR) TAB PO SCH (16:43)
[2022-09-29 19:54] VITALS: BP 129/86
[2022-09-29] MEDS: MELATONIN 3 MG TABLET PO PRN (20:44)
[2022-09-29 23:29] VITALS: BP 112/72
[2022-09-30] MEDS: RT-ALBUTEROL SULF 2.5 MG/3 ML PRE-MIX VIAL INH SCH ×3 (03:47→15:15)
[2022-09-30 04:00] VITALS: BP 115/67
[2022-09-30 06:11] LABS: BASOPHILS # (AUTO) 0.1 10^3/uL (0.0-0.1); BASOPHILS % (AUTO) 1 % (0-10); EOSINOPHILS # (AUTO) 0.4 10^3/uL (0.0-0.3); EOSINOPHILS % (AUTO) 4 % (0-10); HEMATOCRIT 45 % (40-54); HEMOGLOBIN 14.7 g/dL (13.3-17.7); LYMPHOCYTES # (AUTO) 1.7 10^3/uL (1.0-4.0); LYMPHOCYTES % (AUTO) 16 % (12-44); MEAN CORPUSCULAR HEMOGLOBIN 27 pg (25-34); MEAN CORPUSCULAR HGB CONC 33 g/dL (32-36); MEAN CORPUSCULAR VOLUME 82 fL (80-99); MEAN PLATELET VOLUME 10.4 fL (9.0-12.2); MONOCYTES # (AUTO) 0.7 10^3/uL (0.0-1.0); MONOCYTES % (AUTO) 7 % (0-12); NEUTROPHILS # (AUTO) 7.6 10^3/uL (1.8-7.8); NEUTROPHILS % (AUTO) 72 % (42-75); PLATELET COUNT 212 10^3/uL (130-400); WHITE BLOOD COUNT 10.6 10^3/uL (4.3-11.0)
[2022-09-30 06:20] LABS: ALBUMIN 3.8 GM/DL (3.2-4.5); POTASSIUM 3.9 MMOL/L (3.6-5.0)
[2022-09-30 06:21] LABS: CALCIUM 9.6 MG/DL (8.5-10.1)
[2022-09-30 06:23] LABS: TOTAL PROTEIN 7.6 GM/DL (6.4-8.2)
[2022-09-30 06:24] LABS: BILIRUBIN,TOTAL 0.5 MG/DL (0.1-1.0)
[2022-09-30 06:26] LABS: CREATININE SERUM 0.79 MG/DL (0.60-1.30); PHOSPHORUS 3.6 MG/DL (2.3-4.7)
[2022-09-30 06:29] LABS: MAGNESIUM 1.8 MG/DL (1.6-2.4)
[2022-09-30] MEDS: inSUlin ASPART (NovoLOG) 1 UNIT/0.01 ML (CHARGE PER UNIT) SC SCH ×5 (06:29→15:17)
[2022-09-30] MEDS: metFORMIN XR 500 MG (GLUCOPHAGE XR) TAB PO SCH (06:37)
[2022-09-30 07:18] VITALS: BP 128/71
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
--- NOTE | 2022-09-30 08:08 | Diagnostic Imaging Report ---
EXAMINATION: Chest 1 view HISTORY: Short COMPARISON: 09/29/2021 FINDINGS: Lung volumes are small. There is bibasilar atelectasis. No pneumothorax. Heart size is normal. IMPRESSION: 1. Small lung volumes and bibasilar atelectasis. Dictated by: Dictated on workstation # [id number]
[2022-09-30] MEDS: LORazepam 0.5 MG (ATIVAN) TABLET PO PRN ×2 (08:51→14:56)
[2022-09-30] MEDS: LOSARTAN 100 MG (COZAAR) TABLET PO SCH (08:51)
[2022-09-30] MEDS: DOCUSATE SODIUM 100 MG CAPSULE PO SCH (08:51)
[2022-09-30] MEDS: SENNOSIDES 8.6 MG (SENOKOT) TAB PO SCH (08:52)
[2022-09-30] MEDS: MUPIROCIN 2% OINT 22 GM (BACTROBAN) TUBE TOP SCH (08:53)
[2022-09-30] MEDS: NS IV 1000 ML 1,000 ML IV SCH (09:23)
--- NOTE | 2022-09-30 10:07 | Physical Therapy Daily Note ---
PT Daily Note-Current Subjective Patient agrees to PT. He reports he is getting his left BKA prosthesis in 2 weeks and is very excited. Pain Section J - Health Conditions 1. Rarely or not at all 2. Occasionally 3. Frequently 4. Almost constantly 8. Unable to answer Pain Effect on Sleep: 1 Pain Interference with Therapy: 1 Pain Interference w/Day-to-Day: 1 Mental Status Patient Orientation: Normal For Age Attachments: Oxygen (3L) Transfers SCALE: Activities may be completed with or without assistive devices. 2-Svlnwwxtqx-zxojwhq completes the activity by him/herself with no assistance from a helper. 5-Set-up or Clean-up Assistance-helper sets up or cleans up; patient completes activity. Austin assists only prior to or following the activity. 4-Supervision or Touching Assistance-helper provides verbal cues and/or touching/steadying and/or contact guard assistance as patient completes activity. Assistance may be provided throughout the activity or intermittently. 3-Partial/Moderate Assistance-helper does LESS THAN HALF the effort. Austin lift s, holds or supports trunk or limbs, but provides less than half the effort. 2-Substantial/Maximal Assistance-helper does MORE THAN HALF the effort. Austin lifts or holds trunk or limbs and provides more than half the effort. 1-Kkvmcnvaf-crcewt does ALL the effort. Patient does none of the effort to complete the activity. Or, the assistance of 2 or more helpers is required for the patient to complete the activity. If activity was not attempted, code reason: 7-Patient Refused. 9-Not Applicable-not attempted and the patient did not perform the activity before the current illness, exacerbation or injury. 10-Not Attempted due to Environmental Limitations-(lack of equipment, weather restraints, etc.). 88-Not Attempted due to Medical Conditions or Safety Concerns. Lying to Sitting/Side of Bed(Q: 6 Sit to Stand (QC): 6 Chair/Iia-wc-Yhiqt Xfer(QC): 6 Exercises Seated Therapy Exercises: Long arc quads Seated Reps: 15 Assessment Patient up in recliner performing exercises independently. Patient much improved on this date. PT Trashman Goals Trashman Goals PT Mcfp Goals Time Frame: Oct 09, 2022 Roll Left & Right (QC): 6 Sit to Lying (QC): 6 Lying-Sitting on Side/Bed(QC): 6 Sit to Stand (QC): 6 Chair/Dhh-bw-Ohmdt Xfer(QC): 6 PT Plan Treatment/Plan Treatment Plan: Continue Plan of Care Treatment Plan: Education, Functional Activity Jony, Functional Strength, Safety, Therapeutic Exercise, Transfers Treatment Duration: Oct 09, 2022 Frequency: 5 times per week Estimated Hrs Per Day: .25 hour per day Patient and/or Family Agrees t: Yes Time Time In: 947 Time Out: 957 DATE: Sep 30, 2022 Total Billed Treatment Time: 10 Total Billed Treatment 1 visit FA 10 min VINCE CONTI PT Sep 30, 2022 10:07
[2022-09-30 11:21] VITALS: BP 127/69
[2022-09-30] MEDS: ENOXAPARIN 40 MG/0.4 ML SYRINGE SC SCH (11:46)
--- NOTE | 2022-09-30 14:47 | Discharge Summary ---
Diagnosis/Chief Complaint Date of Admission Sep 25, 2022 at 22:40 Date of Discharge 09/30/22 Admission Diagnosis Admission Diagnosis See problem list Discharge Diagnosis See below Problems/Diagnosis: (1) Acute respiratory failure with hypoxia and hypercapnia Assessment & Plan: 09/27: Likely has a CHEYANNE component due to 90# weight gain, Will need outpatient evaluation, will wean oxygen as tolerated 09/28: Currently on bipap, will continue to titrate as tolerated 09/29: Patient require bipap at night due to underlying CHEYANNE, will get script for home use 09/30: Machine delivered to facility, discussed with patient the need to focus on diet and weight loss Status: Acute (2) HCAP (healthcare-associated pneumonia) Assessment & Plan: 09/27: Continue IV antibiotics and will transition to PO in AM Status: Acute (3) Hyperosmolar hyperglycemic coma due to diabetes mellitus without ketoacidosis Assessment & Plan: 09/27: Transition off insulin gtts Status: Resolved Resolution Date/Time: 09/27/22 @ 12:39 (4) New onset type 2 diabetes mellitus Assessment & Plan: 09/27: Will start metformin at d/c 09/28: Increased long acting insulin 09/29: Will start metformin today Status: Acute (5) Sepsis Status: Resolved Resolution Date/Time: 09/27/22 @ 12:39 (6) HTN (hypertension) Assessment & Plan: - Continue home meds Status: Chronic (7) DVT prophylaxis Assessment & Plan: - Lovenox Discharge Summary-Simple/Stand Consultations Cardiology: Dr Burr Discharge Physical Examination Allergies: Coded Allergies: No Known Drug Allergies (Unverified , 11/10/11) Vitals & I&Os Vital Sign - Last 12Hours Date Time Temp Pulse Resp B/P (MAP) Pulse Ox O2 Delivery O2 Flow Rate FiO2 09/30/22 11:21 36.2 99 17 127/69 (88) 96 Room Air 09/30/22 09:52 3.00 09/26/22 20:00 30 Intake and Output 09/30/22 00:00 Intake Total 2780 ml Output Total 1350 ml Balance 1430 ml General Appearance: Alert, Oriented X3, No Acute Distress Respiratory: Clear to Auscultation, Normal Air Movement Cardiovascular: Regular Rate, No Murmurs Abdominal: Normal Bowel Sounds, Soft, No Tenderness, No Masses Extremities: Other (left BKA, trace swelling in RLE) Neuro: Normal Speech Hospital Course See final discharge diagnosis. Radiology Reviewed Date of Exam:09/26/22 CT ABDOMEN/PELVIS WO PROCEDURE: CT abdomen and pelvis without contrast. TECHNIQUE: Multiple contiguous axial images were obtained through the abdomen and pelvis without the use of intravenous contrast. Auto Exposure Controls were utilized during the CT exam to meet ALARA standards for radiation dose reduction. INDICATION: Right upper quadrant abdominal pain. COMPARISON: 09/25/2022. FINDINGS: No interval change since the CT from the day before. Stable hepatomegaly with hepatic steatosis. IMPRESSION: Stable abdomen and pelvis. Dictated by: Dictated on workstation # [id number] Dict: 09/26/22 1547 Trans: 09/26/22 1550 [facility] [phone] Interpreted by: RAFAEL MACIAS DO Electronically signed by: RAFAEL MACIAS DO 09/26/22 1550 Discharge Condition at discharge stable Instructions to patient/family Please see electronic discharge instructions given to patient. Discharge Medications Reviewed and agree with Discharge Medication list on patient's Discharge Instruction sheet Clinical Quality Measures AMI/AHF: ASA po Prior to arrival: Yes CLAUDIA BA MD Sep 30, 2022 14:47
[2022-09-30] MEDS ORDERED: LOSA100T58 PO (14:50)
[2022-09-30] MEDS ORDERED: INSU100V5 SQ (14:50)
[2022-09-30] MEDS ORDERED: INSU100V16 SC (14:50)
[2022-09-30] MEDS ORDERED: METF-865 PO (14:50)
--- NOTE | 2022-09-30 14:51 | Discharge Summary ---
Discharge [facility] Reconcile Patient Problems Problems Reviewed?: Yes Discharge Medications New, Converted or Re-Newed RX: Transmitted to Pharmacy New Medications: Insulin Aspart (Novolog) 100 Unit/Ml Susp 10 UNIT SC AC, #100 ML Insulin Determir (Levemir) 100 Unit/Ml Soln 25 UNIT SQ BID, #1 EA Losartan Potassium (Losartan Potassium) 100 Mg Tablet 100 MG PO DAILY, #30 TAB Metformin HCl (Metformin HCl ER) 500 Mg Tab.er.24h 500 MG PO BID@07,17, #60 TAB Continued Medications: Buspirone HCl (Buspirone HCl) 10 Mg Tablet 10 MG PO 0900,1300,1700, TAB Clopidogrel Bisulfate (Clopidogrel) 75 Mg Tablet 75 MG PO 0600, TAB Duloxetine HCl (Duloxetine HCl) 30 Mg Capsule.dr 90 MG PO 0900, CAP TAKES 3 (30MG) CAPS Mirtazapine (Mirtazapine) 30 Mg Tablet 30 MG PO HS, TAB Olanzapine (Olanzapine) 5 Mg Tablet 5 MG PO 0900,1700, TAB Pregabalin (Pregabalin) 200 Mg Capsule 200 MG PO 0600,1000,1800, CAP Sennosides/Docusate Sodium (Senna-S Tablet) 8.6 Mg-50 Mg Tablet 1 EACH PO 0900,1700, TAB Trazodone HCl (Trazodone HCl) 50 Mg Tablet 50-100 MG PO HS, TAB TAKES 1 TO 2 (50MG) TABS Patient Instructions Goal/Follow Up Appt: Nani Duncan will see patient at facility Patient Instructions: - Disussed ADA diet and the importance of weight loss - Make sure to use bipap when sleeping Activity & Diet Discharge Diet: ADA Diet Activity as Tolerated: Yes CLAUDIA BA MD Sep 30, 2022 14:51
[2022-09-30 15:09] VITALS: BP 116/62
== END 2022-09-30 16:30 | DRG 871 ==
LOC: EDUNIT# 19:50 → ER 19:52 → ICU 22:40 → 4TH 09-28 17:00
PROVIDERS: ADMIT Internal Medicine; ATTEND Family Medicine
PROC: 5A09357 Assistance with Respiratory Ventilation, Less than 24 Consecutive Hours, Continuous Positive Airway Pressure (ICD-10-PCS; principal; 2022-09-26)
DX: A41.9 Sepsis, unspecified organism (principal); E11.01 Type 2 diabetes mellitus with hyperosmolarity with coma; J18.9 Pneumonia, unspecified organism; J96.02 Acute respiratory failure with hypercapnia; J96.01 Acute respiratory failure with hypoxia; T87.44 Infection of amputation stump, left lower extremity; Z68.41 Body mass index [BMI] 40.0-44.9, adult; E66.01 Morbid (severe) obesity due to excess calories; I10 Essential (primary) hypertension; E11.65 Type 2 diabetes mellitus with hyperglycemia; E11.40 Type 2 diabetes mellitus with diabetic neuropathy, unspecified; F17.210 Nicotine dependence, cigarettes, uncomplicated; G47.33 Obstructive sleep apnea (adult) (pediatric); F41.9 Anxiety disorder, unspecified; R34 Anuria and oliguria; E86.0 Dehydration; R07.89 Other chest pain; Z20.822 Contact with and (suspected) exposure to COVID-19; Z79.899 Other long term (current) drug therapy
CPT/HCPCS: 36415; 36600; 71045; 71275; 74176; 74177; 80048; 80053; 80061; 80074; 80202; 80306; 80320; 81000; 82010; 82150; 82550; 82553; 82805; 82947; 83036; 83605; 83690; 83735; 83874; 83880; 84100; 84443; 84484; 85025; 85379; 85610; 85652; 85730; 86141; 86592; 87040; 87070; 87077; 87081; 87088; 87186; 87205; 87389; 87449; 87636; 93005; 93041; 93306; 94640; 94660; 94664; 96361; 96365; 96375

== ENCOUNTER 2022-10-12 16:47 | Observation (INO) | payer MEDICAID ==
[~2022-10-12] VITALS: Ht 175.3 cm; Wt 133.5 kg
[~2022-10-12 16:47] MED LIST changes: +BUSP10TA95 PO; +DULO30CA49 PO; +INSU100V16 SC; +INSU100V5 SQ; +LOSA100T58 PO; +METF-865 PO; +MIRT-69 PO; +OLN5T PO; +PREG150C46 PO; +PREG200C28 PO; +SENN-109 PO; +TRZ50T PO
[2022-10-12] MEDS ORDERED: morphine INJ 10 MG/ML 1ML (SYR OR VIAL) IV STA (17:19)
[2022-10-12 17:26] LABS: BASOPHILS # (AUTO) 0.1 10^3/uL (0.0-0.1); BASOPHILS % (AUTO) 1 % (0-10); EOSINOPHILS # (AUTO) 0.4 10^3/uL (0.0-0.3); EOSINOPHILS % (AUTO) 3 % (0-10); HEMATOCRIT 50 % (40-54); LYMPHOCYTES # (AUTO) 3.2 10^3/uL (1.0-4.0); LYMPHOCYTES % (AUTO) 22 % (12-44); MEAN CORPUSCULAR HEMOGLOBIN 27 pg (25-34); MEAN CORPUSCULAR HGB CONC 32 g/dL (32-36); MEAN CORPUSCULAR VOLUME 85 fL (80-99); MEAN PLATELET VOLUME 10.8 fL (9.0-12.2); MONOCYTES # (AUTO) 0.8 10^3/uL (0.0-1.0); MONOCYTES % (AUTO) 5 % (0-12); NEUTROPHILS # (AUTO) 10.1 10^3/uL (1.8-7.8); NEUTROPHILS % (AUTO) 68 % (42-75); PLATELET COUNT 274 10^3/uL (130-400); WHITE BLOOD COUNT 14.8 10^3/uL (4.3-11.0)
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
[2022-10-12] MEDS ORDERED: NS IV 1000 ML 1,000 ML IV SCH ×2 (17:30→19:30)
[2022-10-12] MEDS ORDERED: ONDANSETRON 4 MG/2 ML (SDV) Z0FRAN IVP ONE (17:30)
[2022-10-12] MEDS ORDERED: ASPIRIN 81 MG CHEWABLE TABLET PO ONE (17:30)
[2022-10-12 17:33] LABS: ALBUMIN 4.4 GM/DL (3.2-4.5); CHLORIDE 99 MMOL/L (98-107)
[2022-10-12 17:34] LABS: SODIUM 134 MMOL/L (135-145)
[2022-10-12 17:35] LABS: CALCIUM 9.9 MG/DL (8.5-10.1)
[2022-10-12 17:36] LABS: GLUCOSE 365 MG/DL (70-105); TOTAL PROTEIN 8.7 GM/DL (6.4-8.2)
--- NOTE | 2022-10-12 17:36 | Diagnostic Imaging Report ---
INDICATION: Chest pain. TIME OF EXAM: 5:35 p.m. COMPARISON: Correlation is made with prior chest from 09/30/2022. FINDINGS: Heart size is normal. Right hemidiaphragm is elevated with subsegmental atelectasis at the right base. Otherwise, the lungs are clear. There is no effusion or pneumothorax. IMPRESSION: Elevation of the right hemidiaphragm with right basilar subsegmental atelectasis. Dictated by: Dictated on workstation # [id number]
[2022-10-12 17:37] LABS: CARBON DIOXIDE 24 MMOL/L (21-32)
[2022-10-12 17:38] LABS: BILIRUBIN,TOTAL 0.2 MG/DL (0.1-1.0)
[2022-10-12 17:39] LABS: ALKALINE PHOSPHATASE 124 U/L (40-136); INR 0.9 (0.8-1.4); PROTHROMBIN TIME PATIENT 12.6 SEC (12.2-14.7)
[2022-10-12 17:40] LABS: CREATININE SERUM 0.89 MG/DL (0.60-1.30); GFR ESTIMATED 120
[2022-10-12 17:41] LABS: BUN/CREATININE RATIO 13
[2022-10-12 17:42] LABS: ALANINE AMINOTRANSFERASE 141 U/L (0-55); FIBRIN DEGRADATION PRODUCTS 0.27 UG/ML (0.00-0.49); MAGNESIUM 2.2 MG/DL (1.6-2.4)
[2022-10-12 17:43] LABS: LIPASE 37 U/L (8-78)
[2022-10-12 18:15] LABS: BAND NEUTROPHILS 7 %; EOSINOPHILS % (MANUAL) 2 %; LYMPHOCYTES % (MANUAL) 18 %; METAMYELOCYTES % 1 %; NEUTROPHILS % (MANUAL) 72 %
[2022-10-12 18:16] LABS: PLATELET ESTIMATE ADEQUATE; RBC MORPH NORMAL
[2022-10-12] MEDS ORDERED: NS 100 ML (IVPB) BAG IV ONE (19:00)
[2022-10-12] MEDS ORDERED: IOHEXOL 350 MG/ML 100 ML (OMNIPAQUE 350) VIAL IV ONE (19:00)
--- NOTE | 2022-10-12 19:25 | Diagnostic Imaging Report ---
INDICATION: Chest pain for 3 days radiating to the back. TECHNIQUE: After intravenous administration of contrast, thin section axial CT angiography of the chest was performed. 3D MIP reconstructions were made. All CT scans use one or more of the following dose optimizing techniques: automated exposure control, MA and/or KvP adjustment based on a patient size and exam type, or iterative reconstruction. FINDINGS: The thoracic aorta is normal caliber. No dissection is identified. The pulmonary arterial system is without evidence of thromboembolism. No definite filling defects are seen. There is no pericardial or pleural fluid. There is some dependent atelectasis in both bases. Right hemidiaphragm is elevated. Upper abdomen does show marked low attenuation throughout the liver consistent with hepatic steatosis. Liver also appears to be enlarged. IMPRESSION: 1. No evidence of pulmonary embolism or acute aortic disease. 2. Hepatic steatosis and hepatomegaly. Dictated by: Dictated on workstation # [id number]
[2022-10-12] MEDS ORDERED: morphine INJ 4 MG/ML 1 ML (VIAL/SYRINGE) IVP ONE (19:30)
[2022-10-12] MEDS ORDERED: clonazePAM 1 MG TABLET PO ONE (19:30)
[2022-10-12 20:55] VITALS: BP 141/95
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
[2022-10-12] MEDS ORDERED: ONDANSETRON 4 MG/2 ML (SDV) Z0FRAN IV PRN (22:00)
[2022-10-12] MEDS ORDERED: ONDANSETRON 4 MG (ZOFRAN) ORAL DISSOLVE TAB PO PRN (22:00)
[2022-10-12] MEDS ORDERED: MELATONIN 3 MG TABLET PO PRN (22:00)
[2022-10-12] MEDS ORDERED: polyethylene glycoL POWDER 17 GM (MIRALAX) PACK PO PRN (22:00)
[2022-10-12] MEDS: CALCIUM CARBONATE 500 MG CHEW TABLET PO PRN (22:24)
[2022-10-12] MEDS: ACETAMINOPHEN 325 MG TABLET PO PRN (22:24)
[2022-10-12] MEDS ORDERED: inSUlin ASPART 1 UNIT/0.01 ML (PER UNIT) ONE (22:39)
[2022-10-12] MEDS: inSUlin ASPART 1 UNIT/0.01 ML (PER UNIT) SC SCH (22:45)
[2022-10-12 23:49] VITALS: BP 124/66
[2022-10-13] MEDS: CALCIUM CARBONATE 500 MG CHEW TABLET PO PRN (03:02)
[2022-10-13] MEDS: hydrOXYzine 10 MG TABLET PO PRN ×2 (03:03→08:22)
[2022-10-13] MEDS: ACETAMINOPHEN 325 MG TABLET PO PRN ×2 (03:03→08:22)
[2022-10-13 03:40] VITALS: BP 114/67
[2022-10-13] MEDS: KETOROLAC INJ 30 MG/ML VIAL IVP PRN ×2 (04:21→11:25)
[2022-10-13] MEDS: inSUlin ASPART 1 UNIT/0.01 ML (PER UNIT) SC SCH ×2 (06:16→11:25)
[2022-10-13 07:20] VITALS: BP 152/84
[2022-10-13 07:39] LABS: BASOPHILS # (AUTO) 0.1 10^3/uL (0.0-0.1); BASOPHILS % (AUTO) 1 % (0-10); EOSINOPHILS # (AUTO) 0.4 10^3/uL (0.0-0.3); EOSINOPHILS % (AUTO) 4 % (0-10); PLATELET COUNT 185 10^3/uL (130-400)
[2022-10-13 07:41] LABS: HEMATOCRIT 46 % (40-54); HEMOGLOBIN 14.1 g/dL (13.3-17.7); LYMPHOCYTES # (AUTO) 2.2 10^3/uL (1.0-4.0); LYMPHOCYTES % (AUTO) 21 % (12-44); MEAN CORPUSCULAR HEMOGLOBIN 26 pg (25-34); MEAN CORPUSCULAR HGB CONC 31 g/dL (32-36); MEAN CORPUSCULAR VOLUME 86 fL (80-99); MEAN PLATELET VOLUME 10.9 fL (9.0-12.2); MONOCYTES # (AUTO) 0.6 10^3/uL (0.0-1.0); MONOCYTES % (AUTO) 5 % (0-12); NEUTROPHILS # (AUTO) 7.3 10^3/uL (1.8-7.8); NEUTROPHILS % (AUTO) 67 % (42-75); WHITE BLOOD COUNT 10.8 10^3/uL (4.3-11.0)
[2022-10-13 07:49] LABS: ALBUMIN 3.8 GM/DL (3.2-4.5); POTASSIUM 4.5 MMOL/L (3.6-5.0)
[2022-10-13 07:51] LABS: CALCIUM 9.4 MG/DL (8.5-10.1)
[2022-10-13 07:52] LABS: TOTAL PROTEIN 7.4 GM/DL (6.4-8.2)
[2022-10-13 07:54] LABS: BILIRUBIN,TOTAL 0.2 MG/DL (0.1-1.0)
[2022-10-13 07:55] LABS: CREATININE SERUM 0.86 MG/DL (0.60-1.30)
[2022-10-13] MEDS ORDERED: PANTOPRAZOLE 40 MG (PROTONIX) VIAL IV SCH (09:00)
[2022-10-13] MEDS ORDERED: ENOXAPARIN 40 MG/0.4 ML SYRINGE SC SCH (09:00)
[2022-10-13 11:06] VITALS: BP 107/59
[2022-10-13] MEDS ORDERED: inSUlin DETERMIR 1 UNIT/0.01 ML (CHARGE PER UNIT) SQ SCH (11:45)
--- NOTE | 2022-10-13 13:19 | Diagnostic Imaging Report ---
PROCEDURE: US Hepatic (Liver). TECHNIQUE: Multiple real-time grayscale images were obtained over the right upper quadrant in various projections. INDICATION: Elevated liver enzymes. FINDINGS: Liver is enlarged at 27 cm. There is diffuse increased echogenicity throughout the liver consistent with hepatic steatosis. No liver mass is detected. Portal vein is patent and shows normal direction of flow. Gallbladder is without stones or sludge. There is no wall thickening or biliary ductal dilatation. The extrahepatic bile duct is obscured. Pancreas, aorta, and IVC were obscured by bowel gas. Right kidney is without calculi or hydronephrosis. There is no ascites. IMPRESSION: 1. Hepatomegaly and hepatic steatosis. 2. No evidence of cholelithiasis acute cholecystitis. 3. Otherwise, moderately compromised study due to overlying bowel gas and patient body habitus. Dictated by: Dictated on workstation # [id number]
[2022-10-13 14:34] LABS: HEPATITIS C ANTIBODY C Non-Reactive (Non-Reactive)
[2022-10-13 15:39] VITALS: BP 126/87
[2022-10-13] MEDS ORDERED: INSU100I14 SQ (16:40)
[2022-10-13] MEDS ORDERED: CLON1TAB13 PO (16:40)
[2022-10-13] MEDS ORDERED: INSU100I88 SQ (16:40)
[2022-10-13] MEDS ORDERED: GBPN600T PO (16:40)
[2022-10-13] MEDS ORDERED: PANT40TA52 PO (16:41)
--- NOTE | 2022-10-13 16:42 | Discharge Summary ---
Discharge Summary Hospital Course Problems/Diagnosis: (1) Type 2 diabetes mellitus Status: Chronic Assessment & Plan: Resumed home meds- insulin recently increased outpatient. Qualifiers: Qualified Codes: E11.9 - Type 2 diabetes mellitus without complications (2) Chest pain Status: Acute Assessment & Plan: - Pt complains of right-sided chest pain that radiates to epigastrium - Burning, persistent pain - EKG uneremarkable - ECHO 10/11: EF 55-60%, no wall abnormalities - Chest CTA unremarkable Patient reported improvement and requested d/c later in the day the day after admit. Discharged on Protonix. Qualifiers: Qualified Codes: R07.9 - Chest pain, unspecified (3) Tachycardia Status: Acute Assessment & Plan: - s/p 2x fluid boluses - HR 120s in ED, EKG with sinus tachycardia. Heart rate decreased to 90s at time of d/c. (4) HTN (hypertension) Status: Chronic Assessment & Plan: - Pt's BP appropriate - losartan 100 mg at home (5) Anxiety Status: Chronic Assessment & Plan: Resume home meds (6) Elevated LFTs Status: Acute Assessment & Plan: - Pt found to have elevated ALT and AST on CMP in ED - Likely viral hepatitis vs NAFLD vs medication toxicity - Liver US showed hepatic steatosis, viral hepatitis panel negative. Hospital Course Date of Admission: Oct 12, 2022 at 20:36 Admission Diagnosis : Family Physician/Provider: May/Tfifanie,[facility] Date of Discharge: 10/13/22 Discharge Diagnosis: See problem list Hospital Course: See problem list Labs and Pending Lab Test: Laboratory Tests 10/12/22 17:10: White Blood Count 14.8H, Red Blood Count 5.92H, Hemoglobin 16.0, Hematocrit 50, Mean Corpuscular Volume 85, Mean Corpuscular Hemoglobin 27, Mean Corpuscular Hemoglobin Concent 32, Red Cell Distribution Width 16.6H, Platelet Count 274, Mean Platelet Volume 10.8, Immature Granulocyte % (Auto) 2, Neutrophils (%) (Auto) 68, Lymphocytes (%) (Auto) 22, Monocytes (%) (Auto) 5, Eosinophils (%) (Auto) 3, Basophils (%) (Auto) 1, Neutrophils # (Auto) 10.1H, Lymphocytes # (Auto) 3.2, Monocytes # (Auto) 0.8, Eosinophils # (Auto) 0.4H, Basophils # (Auto) 0.1, Immature Granulocyte # (Auto) 0.2H, Neutrophils % (Manual) 72, Lymphocytes % (Manual) 18, Eosinophils % (Manual) 2, Metamyelocytes % 1, Band Neutrophils 7, Platelet Estimate ADEQUATE, Blood Morphology Comment NORMAL, Prothrombin Time 12.6, INR Comment 0.9, Activated Partial Thromboplast Time 25, D-Dimer 0.27, Sodium Level 134L, Potassium Level 4.0, Chloride Level 99, Carbon Dioxide Level 24, Anion Gap 11, Blood Urea Nitrogen 12, Creatinine 0.89, Estimat Glomerular Filtration Rate 120, BUN/Creatinine Ratio 13, Glucose Level 365H, Calcium Level 9.9, Corrected Calcium 9.6, Magnesium Level 2.2, Total Bilirubin 0.2, Aspartate Amino Transf (AST/SGOT) 67H, Alanine Aminotransferase (ALT/SGPT) 141H, Alkaline Phosphatase 124, Troponin I < 0.028, Total Protein 8.7H, Albumin 4.4, Lipase 37 10/12/22 17:47: Lactic Acid Level 1.64 10/12/22 22:13: Lipase 52, Hepatitis A IgM Antibody Non-Reactive, Hepatitis B Surface Antigen Non-Reactive, Hepatitis B Core IgM Antibody Non-Reactive, Hepatitis C Antibody Non-Reactive 10/12/22 22:22: Glucometer 279H 10/13/22 06:03: Glucometer 290H 10/13/22 07:32: White Blood Count 10.8, Red Blood Count 5.35, Hemoglobin 14.1, Hematocrit 46, Mean Corpuscular Volume 86, Mean Corpuscular Hemoglobin 26, Mean Corpuscular Hemoglobin Concent 31L, Red Cell Distribution Width 15.9H, Platelet Count 185, Mean Platelet Volume 10.9, Immature Granulocyte % (Auto) 2, Neutrophils (%) (Auto) 67, Lymphocytes (%) (Auto) 21, Monocytes (%) (Auto) 5, Eosinophils (%) (Auto) 4, Basophils (%) (Auto) 1, Neutrophils # (Auto) 7.3, Lymphocytes # (Auto) 2.2, Monocytes # (Auto) 0.6, Eosinophils # (Auto) 0.4H, Basophils # (Auto) 0.1, Immature Granulocyte # (Auto) 0.2H, Percent Immature Platelet Fraction 6.2, Sodium Level 134L, Potassium Level 4.5, Chloride Level 101, Carbon Dioxide Level 25, Anion Gap 8, Blood Urea Nitrogen 15, Creatinine 0.86, Estimat Glomerular Filtration Rate 122, BUN/Creatinine Ratio 17, Glucose Level 307H, Calcium Level 9.4, Corrected Calcium 9.6, Total Bilirubin 0.2, Aspartate Amino Transf (AST/SGOT) 91H, Alanine Aminotransferase (ALT/SGPT) 139H, Alkaline Phosphatase 102, Total Protein 7.4, Albumin 3.8 10/13/22 10:31: Glucometer 322H 10/13/22 15:45: Glucometer 260H Microbiology 10/12/22 Blood Culture - Preliminary, Resulted Gram Positive Cocci in Chains Home Meds Active Pantoprazole Sodium 40 Mg Tablet.dr 40 Mg PO DAILY Metformin HCl ER (Metformin HCl) 500 Mg Tab.er.24h 500 Mg PO BID@07,17 Losartan Potassium 100 Mg Tablet 100 Mg PO DAILY Reported Novolog Flexpen (Insulin Aspart) 100 Unit/Ml (3 Ml) Solution 20 Units SQ AC Levemir Flexpen (Insulin Detemir) 100 Unit/Ml (3 Ml) Insuln.pen 40 Units SQ BID Clonazepam 1 Mg Tablet 1 Mg PO BID Gabapentin 600 Mg Tablet 600 Mg PO TID Buspirone HCl 10 Mg Tablet 10 Mg PO 0900,1300,1700 Senna-S Tablet (Sennosides/Docusate Sodium) 8.6 Mg-50 Mg Tablet 1 Each PO 0900,1700 Olanzapine 5 Mg Tablet 5 Mg PO 0900,1700 Trazodone HCl 50 Mg Tablet 50-100 Mg PO HS TAKES 1 TO 2 (50MG) TABS Mirtazapine 30 Mg Tablet 30 Mg PO HS Duloxetine HCl 30 Mg Capsule.dr 90 Mg PO 0900 TAKES 3 (30MG) CAPS Clopidogrel (Clopidogrel Bisulfate) 75 Mg Tablet 75 Mg PO 0600 Assessment/Pt DC Instructions Follow up with provider at halfway. Discharge Diet: ADA Diet Activity as Tolerated: Yes Discharge Physical Examination Allergies: Coded Allergies: No Known Drug Allergies (Unverified , 11/10/11) General Appearance: No Apparent Distress Respiratory: Lungs Clear, Normal Breath Sounds Cardiovascular: Regular Rate, Rhythm Gastrointestinal: Normal Bowel Sounds, Non Tender, Distended Extremity: Other (left BKA, clean, dry and intact with no erythema) Skin: Warm/Dry Neurologic/Psychiatric: Alert Clinical Quality Measures AMI/AHF: ASA po Prior to arrival: No DESMOND,CHAI N MD Oct 13, 2022 16:42
[2022-10-13 16:52] VITALS: BP 126/87
== END 2022-10-13 16:50 ==
LOC: EDUNIT# 16:47 → ER 16:49 → 4TH 20:36 → UNDOADMOB 20:36 → 4TH 20:53 → UNDODISOB 10-13 16:50
PROVIDERS: ADMIT Family Medicine; ATTEND Family Medicine
DX: E11.9 Type 2 diabetes mellitus without complications (principal); R07.9 Chest pain, unspecified; R00.0 Tachycardia, unspecified; I10 Essential (primary) hypertension; D72.829 Elevated white blood cell count, unspecified; R79.89 Other specified abnormal findings of blood chemistry; R06.02 Shortness of breath; F17.210 Nicotine dependence, cigarettes, uncomplicated; F41.9 Anxiety disorder, unspecified; F17.290 Nicotine dependence, other tobacco product, uncomplicated; Z79.01 Long term (current) use of anticoagulants; Z79.4 Long term (current) use of insulin; Z79.84 Long term (current) use of oral hypoglycemic drugs; Z79.899 Other long term (current) drug therapy
CPT/HCPCS: 36415; 71045; 71275; 76705; 80053; 80074; 82947; 83605; 83690; 83735; 84484; 85007; 85025; 85027; 85379; 85610; 85730; 87040; 93005; 93041; 96372; 96375; 96376; G0378

== ENCOUNTER 2022-10-14 18:42 | Observation (INO) | payer MEDICAID ==
[~2022-10-14] VITALS: Ht 175.3 cm; Wt 131.5 kg
[~2022-10-14 18:42] MED LIST changes: +CLON1TAB13 PO; +GBPN600T PO; +INSU100I14 SQ; +INSU100I88 SQ; +PANT40TA52 PO
[2022-10-14] MEDS ORDERED: KETOROLAC INJ 30 MG/ML VIAL IVP STA (18:45)
[2022-10-14] MEDS ORDERED: PANTOPRAZOLE INJECTION 40 MG VIAL IV ONE (18:45)
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
[2022-10-14 19:06] LABS: BASOPHILS # (AUTO) 0.1 10^3/uL (0.0-0.1); BASOPHILS % (AUTO) 1 % (0-10); EOSINOPHILS # (AUTO) 0.3 10^3/uL (0.0-0.3); EOSINOPHILS % (AUTO) 2 % (0-10); HEMATOCRIT 49 % (40-54); HEMOGLOBIN 16.1 g/dL (13.3-17.7); LYMPHOCYTES # (AUTO) 3.4 10^3/uL (1.0-4.0); LYMPHOCYTES % (AUTO) 22 % (12-44); MEAN CORPUSCULAR HEMOGLOBIN 27 pg (25-34); MEAN CORPUSCULAR HGB CONC 33 g/dL (32-36); MEAN CORPUSCULAR VOLUME 83 fL (80-99); MEAN PLATELET VOLUME 9.9 fL (9.0-12.2); MONOCYTES % (AUTO) 6 % (0-12); NEUTROPHILS # (AUTO) 10.5 10^3/uL (1.8-7.8); NEUTROPHILS % (AUTO) 68 % (42-75); PLATELET COUNT 248 10^3/uL (130-400); WHITE BLOOD COUNT 15.4 10^3/uL (4.3-11.0)
[2022-10-14 19:17] LABS: INR 0.8 (0.8-1.4); PROTHROMBIN TIME PATIENT 11.7 SEC (12.2-14.7)
--- NOTE | 2022-10-14 19:25 | Diagnostic Imaging Report ---
EXAMINATION: Chest radiograph, portable AP view. DATE: 10/14/2022 7:20 PM INDICATION: 27-year-old male, chest pain. COMPARISON: October 12, 2022. FINDINGS: Heart size and mediastinal contours are unchanged. There are redemonstrated low lung volumes with streaky opacities in the lung bases likely reflecting atelectasis. There is no identified pneumothorax. There is no large pleural effusion. IMPRESSION: 1. Low lung volumes with probable bibasilar atelectasis. 2. No identified acute cardiopulmonary abnormality. Dictated by: Dictated on workstation # [id number]
[2022-10-14 19:31] LABS: BACTERIA,URINE NEGATIVE /HPF; BILIRUBIN,URINE NEGATIVE (NEGATIVE); CLARITY,URINE CLEAR; COLOR,URINE YELLOW; GLUCOSE, URINE (UA) 2+ (NEGATIVE); KETONES,URINE NEGATIVE (NEGATIVE); LEUKOCYTE ESTERASE ,URINE NEGATIVE (NEGATIVE); NITRITE,URINE NEGATIVE (NEGATIVE); PROTEIN,URINE NEGATIVE (NEGATIVE); SQUAMOUS EPITHELIAL CELL,UR RARE /HPF
[2022-10-14 19:36] LABS: BAND NEUTROPHILS 2 %; LYMPHOCYTES % (MANUAL) 23 %; METAMYELOCYTES % 1 %; MONOCYTES % (MANUAL) 4 %; NEUTROPHILS % (MANUAL) 70 %; PLATELET ESTIMATE ADEQUATE; RBC MORPH NORMAL
[2022-10-14 19:37] LABS: ERYTHROCYTE SEDIMENTATION RATE 4 MM/HR (0-15)
[2022-10-14 19:39] LABS: AMPHETAMINE SCREEN, URINE NEGATIVE (NEGATIVE); BARBITURATE SCREEN URINE NEGATIVE (NEGATIVE); BENZODIAZEPINES SCREEN URINE NEGATIVE (NEGATIVE); CANNABINOID SCREEN, URINE NEGATIVE (NEGATIVE); COCAINE SCREEN URINE NEGATIVE (NEGATIVE); METHADONE STAT NEGATIVE (NEGATIVE); OPIATE SCREEN URINE NEGATIVE (NEGATIVE); OXYCODONE STAT NEGATIVE (NEGATIVE); PROPOXYPHENE STAT NEGATIVE (NEGATIVE); TRICYCLIC ANTIDEPRESSANTS SCRE NEGATIVE (NEGATIVE)
[2022-10-14 20:09] LABS: ALANINE AMINOTRANSFERASE 139 U/L (0-55); ALBUMIN 4.6 GM/DL (3.2-4.5); ALKALINE PHOSPHATASE 129 U/L (40-136); AMYLASE 35 U/L (25-125); BILIRUBIN,TOTAL 0.2 MG/DL (0.1-1.0); BUN/CREATININE RATIO 10; CALCIUM 9.6 MG/DL (8.5-10.1); CHLORIDE 100 MMOL/L (98-107); CREATINE KINASE 87 U/L (30-200); CREATININE SERUM 0.87 MG/DL (0.60-1.30); GFR ESTIMATED 121; GLUCOSE 197 MG/DL (70-105); LIPASE 27 U/L (8-78); MAGNESIUM 2.1 MG/DL (1.6-2.4); POTASSIUM 3.6 MMOL/L (3.6-5.0); SODIUM 136 MMOL/L (135-145); TOTAL PROTEIN 9.3 GM/DL (6.4-8.2)
[2022-10-14 20:19] LABS: CARBON DIOXIDE 23 MMOL/L (21-32)
[2022-10-14] MEDS ORDERED: ONDANSETRON 4 MG ORAL DISSOLVE TABLET PO PRN (21:30)
[2022-10-14] MEDS ORDERED: MELATONIN 3 MG TABLET PO PRN (21:30)
[2022-10-14] MEDS ORDERED: ONDANSETRON INJECTION 4 MG/2 ML (SDV) IV PRN (21:30)
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
[2022-10-15] MEDS: KETOROLAC INJ 15 MG/ML VIAL IV SCH ×5 (01:32→20:19)
[2022-10-15] MEDS ORDERED: morphine EXTENDED RELEASE 15 MG TABLET PO ONE (02:45)
[2022-10-15] MEDS ORDERED: NALOXONE 0.4 MG/ML 1 ML VIAL IV PRN (03:00)
[2022-10-15 04:12] LABS: ABG BASE EXCESS 3.1 MMOL/L (-2.5-2.5); ABG OXYGEN SATURATION 97 % (94-100); ABG PCO2 58 MMHG (35-45); ABG PO2 83 MMHG (79-93); ABG TCO2 30.7 MMOL/L (21.0-31.0)
[2022-10-15 04:14] LABS: ALLENS TEST YES-POS; INSPIRED O2 4L; PATIENT TEMP 36.5; VENTILATOR NO
[2022-10-15 04:15] LABS: ABG PH 7.31 (7.37-7.43)
[2022-10-15 04:18] LABS: BASOPHILS # (AUTO) 0.1 10^3/uL (0.0-0.1); BASOPHILS % (AUTO) 1 % (0-10); EOSINOPHILS # (AUTO) 0.4 10^3/uL (0.0-0.3); EOSINOPHILS % (AUTO) 3 % (0-10); HEMATOCRIT 46 % (40-54); HEMOGLOBIN 14.8 g/dL (13.3-17.7); LYMPHOCYTES # (AUTO) 2.6 10^3/uL (1.0-4.0); LYMPHOCYTES % (AUTO) 17 % (12-44); MEAN CORPUSCULAR HEMOGLOBIN 27 pg (25-34); MEAN CORPUSCULAR HGB CONC 32 g/dL (32-36); MEAN CORPUSCULAR VOLUME 83 fL (80-99); MEAN PLATELET VOLUME 10.5 fL (9.0-12.2); MONOCYTES # (AUTO) 0.9 10^3/uL (0.0-1.0); MONOCYTES % (AUTO) 6 % (0-12); NEUTROPHILS # (AUTO) 11.1 10^3/uL (1.8-7.8); NEUTROPHILS % (AUTO) 73 % (42-75); PLATELET COUNT 225 10^3/uL (130-400); WHITE BLOOD COUNT 15.1 10^3/uL (4.3-11.0)
[2022-10-15 04:37] LABS: ALBUMIN 3.9 GM/DL (3.2-4.5); BILIRUBIN,TOTAL 0.3 MG/DL (0.1-1.0); CALCIUM 8.8 MG/DL (8.5-10.1); CREATININE SERUM 1.08 MG/DL (0.60-1.30); POTASSIUM 4.1 MMOL/L (3.6-5.0)
[2022-10-15] MEDS: inSUlin ASPART 1 UNIT/0.01 ML (PER UNIT) SC SCH ×4 (04:51→20:34)
--- NOTE | 2022-10-15 05:54 | Diagnostic Imaging Report ---
EXAMINATION: Chest 1 view HISTORY: Hypoxia. Follow-up. COMPARISON: 10/14/2022. FINDINGS: Persistent low lung volumes with slight improved aeration in the lung bases. No large pleural effusion or pneumothorax. Stable cardiac silhouette. IMPRESSION: 1. Slight improved aeration in the lung bases with continued low lung volumes. Dictated by: Dictated on workstation # [id number]
[2022-10-15] MEDS ORDERED: IOHEXOL 350 MG/ML 100 ML (OMNIPAQUE 350) VIAL IV ONE (07:00)
[2022-10-15] MEDS ORDERED: NS 100 ML (IVPB) BAG IV ONE (07:00)
[2022-10-15] MEDS ORDERED: HOLD METFORMIN - RECEIVED CONTRAST 20 ML VIAL IV SCH (07:00)
--- NOTE | 2022-10-15 07:11 | Diagnostic Imaging Report ---
EXAMINATION: CT head without contrast. TECHNIQUE: Multiple contiguous axial images were obtained through the brain without the use of intravenous contrast. All CT scans use one or more of the following dose optimizing techniques: automated exposure control, MA and/or KvP adjustment based on patient size and exam type or iterative reconstruction. HISTORY: Altered mental status. COMPARISON: 02/25/2022. FINDINGS: No large acute territorial ischemia, mass, or hemorrhage. No midline shift or mass effect. The ventricles, cortical sulci, and basilar cisterns are patent and unremarkable. The orbits are normal. Paranasal sinuses are normal. Mastoid air cells are clear. No soft tissue abnormality is seen. No osseus lesions or fractures are seen. IMPRESSION: 1. No large acute territorial ischemia, mass, or hemorrhage. Dictated by: Dictated on workstation # [id number]
--- NOTE | 2022-10-15 07:18 | Diagnostic Imaging Report ---
PROCEDURE: CT abdomen with and without contrast. TECHNIQUE: Multiple contiguous axial CT images of the abdomen were obtained prior to and after intravenous administration of iodinated contrast. Auto Exposure Controls were utilized during the CT exam to meet ALARA standards for radiation dose reduction. INDICATION: Epigastric pain. Abdominal distention. COMPARISON: 09/26/2022.. FINDINGS: The heart is unremarkable. Opacities are seen in the right lung base. There is hepatic steatosis. No focal hepatic lesions. The gallbladder is decompressed. The spleen, pancreas, adrenal glands, and kidneys have a normal appearance. There is no pathologically enlarged mesenteric or retroperitoneal adenopathy. The included bowel loops are nondilated. The appendix is visualized in the right lower quadrant and has a normal appearance. There is no free fluid or free air. No acute osseous abnormalities. IMPRESSION: 1. Hepatic steatosis. No focal hepatic lesions. 2. Small amount of opacities in the right lung base, favored to represent atelectasis. Dictated by: Dictated on workstation # [id number]
[2022-10-15 08:00] VITALS: BP 125/88
[2022-10-15] MEDS: ACETAMINOPHEN 325 MG TABLET PO PRN ×2 (08:14→13:12)
[2022-10-15] MEDS ORDERED: PANTOPRAZOLE INJECTION 40 MG VIAL IV SCH (09:00)
[2022-10-15] MEDS ORDERED: ENOXAPARIN 40 MG/0.4 ML SYRINGE SC SCH (09:00)
[2022-10-15] MEDS: clonazePAM 1 MG TABLET PO SCH ×2 (09:56→20:19)
[2022-10-15] MEDS: inSUlin DETERMIR 1 UNIT/0.01 ML (CHARGE PER UNIT) SQ SCH ×2 (09:56→20:35)
[2022-10-15] MEDS: HYDROcodone/ACETAMINOPHEN 5 MG/325 MG TABLET PO PRN ×4 (09:58→23:03)
[2022-10-15] MEDS: OLANZapine 5 MG ODT TABLET PO SCH ×2 (10:28→17:12)
[2022-10-15] MEDS: inSUlin ASPART 1 UNIT/0.01 ML (PER UNIT) SQ SCH ×2 (11:21→17:12)
[2022-10-15] MEDS ORDERED: METF-478 PO (11:32)
[2022-10-15 11:52] VITALS: BP 149/78
[2022-10-15] MEDS: GABAPENTIN 600 MG TABLET PO SCH ×2 (12:37→20:19)
[2022-10-15] MEDS: busPIRone 10 MG TABLET PO SCH ×2 (12:37→17:12)
[2022-10-15] MEDS ORDERED: ENOXAPARIN 300 MG/3 ML MULTI-DOSE VIAL SQ NR ×2 (14:00→17:00)
[2022-10-15 16:00] VITALS: BP 150/98
[2022-10-15] MEDS ORDERED: ENOXAPARIN 100 MG/1 ML SYRINGE SC SCH (17:00)
[2022-10-15] MEDS: SENNA W/DOCUSATE (SENOKOT S) TABLET PO SCH (17:06)
--- NOTE | 2022-10-15 18:26 | Consultation-Cardiology ---
HPI-Cardiology Cardiology Consultation: Date of Consultation 10/15/22 Date of Admission Attending Physician [facility] Admitting Physician Admitting Physician: Chai Logan MD Attending Physician: Chai Logan MD Consulting Physician Breezy RM MD HPI: Time Seen by a Provider: 14:00 Chief Complaint: Chest pain This is a 27-year-old gentleman who has history of type 2 diabetes. Previous history of traumatic left-sided below-knee amputation. [facility] with complaints of chest pain and shortness of breath. Sinus tachycardia is noted. Review of Systems-Cardiology Review of Systems Constitutional: no symptoms reported Eyes: no symptoms reported Ears/Nose/Throat: no symptoms reported Respiratory: shortness of breath Cardiovascular: chest pain FQT-Dijciw-Bumphk Hx Patient Social History Smoking Status: Current Everyday Smoker Alcohol Use?: No Pt feels they are or have been: No Tobacco type used: Cigarettes Past Medical History PMH As described under Assessment. Allergies and Home Medications Allergies Coded Allergies: No Known Drug Allergies (Unverified , 11/10/11) Patient Home Medication List Home Medication List Reviewed: Yes Buspirone HCl (Buspirone HCl) 10 Mg Tablet, 10 MG PO 0900,1300,1700, (Reported) Entered as Reported by: DOYLE SANTIAGO on 09/27/22 1020 Last Action: Reviewed Clonazepam (Clonazepam) 1 Mg Tablet, 1 MG PO BID, (Reported) Entered as Reported by: CHAI LOGAN on 10/13/22 1640 Last Action: Reviewed Clopidogrel Bisulfate (Clopidogrel) 75 Mg Tablet, 75 MG PO 0600, (Reported) Entered as Reported by: DOYLE SANTIAGO on 09/27/22 1020 Last Action: Reviewed Duloxetine HCl (Duloxetine HCl) 30 Mg Capsule.dr, 90 MG PO 0900, (Reported) Entered as Reported by: DOYLE SANTIAGO on 09/27/22 1020 Last Action: Reviewed Gabapentin (Gabapentin) 600 Mg Tablet, 600 MG PO TID, (Reported) Entered as Reported by: CHAI LOGAN on 10/13/22 1640 Last Action: Reviewed Insulin Aspart (Novolog Flexpen) 100 Unit/Ml (3 Ml) Solution, 20 UNITS SQ AC, (Reported) Entered as Reported by: CHAI LGOAN on 10/13/22 1640 Last Action: Reviewed Insulin Detemir (Levemir Flexpen) 100 Unit/Ml (3 Ml) Insuln.pen, 40 UNITS SQ BID, (Reported) Entered as Reported by: CHAI LOGAN on 10/13/22 1640 Last Action: Reviewed Losartan Potassium (Losartan Potassium) 100 Mg Tablet, 100 MG PO DAILY Prescribed by: CLAUDIA BA on 09/30/22 1450 Last Action: Reviewed Metformin HCl (Metformin HCl ER) 500 Mg Tab.er.24, 500 MG PO 0700,1700, (Reported) Entered as Reported by: DOYLE SANTIAGO on 10/15/22 1132 Last Action: Reviewed Mirtazapine (Mirtazapine) 30 Mg Tablet, 30 MG PO HS, (Reported) Entered as Reported by: DOYLE SANTIAGO on 09/27/22 1020 Last Action: Reviewed Olanzapine (Olanzapine) 5 Mg Tablet, 5 MG PO 0900,1700, (Reported) Entered as Reported by: DOYLE SANTIAGO on 09/27/22 102 Last Action: Reviewed Pantoprazole Sodium (Pantoprazole Sodium) 40 Mg Tablet.dr, 40 MG PO DAILY Prescribed by: CHAI LOGAN on 10/13/22 1641 Last Action: Reviewed Sennosides/Docusate Sodium (Senna-S Tablet) 8.6 Mg-50 Mg Tablet, 1 EACH PO 09 00,1700, (Reported) Entered as Reported by: DOYLE SANTIAGO on 09/27/22 1020 Last Action: Reviewed Trazodone HCl (Trazodone HCl) 50 Mg Tablet, 50-100 MG PO HS, (Reported) Entered as Reported by: DOYLE SANTIAGO on 09/27/22 102 Last Action: Reviewed Discontinued Medications Insulin Aspart (Novolog) 100 Unit/Ml Susp, 10 UNIT SC AC Prescribed by: CLAUDIA BA on 09/30/22 145 Insulin Determir (Levemir) 100 Unit/Ml Soln, 25 UNIT SQ BID Prescribed by: CLAUDIA BA on 09/30/22 145 Metformin HCl (Metformin HCl ER) 500 Mg Tab.er.24h, 500 MG PO BID@07,17 Discontinued Reason: Duplicate Order Prescribed by: CLAUDIA BA on 09/30/22 145 Last Action: Discontinued Pregabalin (Pregabalin) 200 Mg Capsule, 200 MG PO 0600,1000,1800, (Reported) Entered as Reported by: DOYLE SANTIAGO on 09/27/22 1020 Exam Vital Signs Vital Signs Date Time Temp Pulse Resp B/P (MAP) Pulse Ox O2 Delivery O2 Flow Rate FiO2 10/15/22 16:00 98 26 202/173 (187) 91 Nasal Cannula 4.00 10/15/22 16:00 35.7 Physical Exam Constitutional: Not in respiratory distress. Chest examination is normal. CVS: Reproducible chest pain substernal. No murmur. Neuro: Nonfocal Left BKA. Labs Laboratory Tests Test 10/14/22 18:55 10/14/22 19:14 10/14/22 20:29 10/15/22 03:24 Range/Units White Blood Count 15.4 H 4.3-11.0 10^3/uL Red Blood Count 5.94 H 4.30-5.52 10^6/uL Hemoglobin 16.1 13.3-17.7 g/dL Hematocrit 49 40-54 % Mean Corpuscular Volume 83 80-99 fL Mean Corpuscular Hemoglobin 27 25-34 pg Mean Corpuscular Hemoglobin Concent 33 32-36 g/dL Red Cell Distribution Width 15.4 H 10.0-14.5 % Platelet Count 248 130-400 10^3/uL Mean Platelet Volume 9.9 9.0-12.2 fL Immature Granulocyte % (Auto) 1 % Neutrophils (%) (Auto) 68 42-75 % Lymphocytes (%) (Auto) 22 12-44 % Monocytes (%) (Auto) 6 0-12 % Eosinophils (%) (Auto) 2 0-10 % Basophils (%) (Auto) 1 0-10 % Neutrophils # (Auto) 10.5 H 1.8-7.8 10^3/uL Lymphocytes # (Auto) 3.4 1.0-4.0 10^3/uL Monocytes # (Auto) 1.0 0.0-1.0 10^3/uL Eosinophils # (Auto) 0.3 0.0-0.3 10^3/uL Basophils # (Auto) 0.1 0.0-0.1 10^3/uL Immature Granulocyte # (Auto) 0.2 H 0.0-0.1 10^3/uL Neutrophils % (Manual) 70 % Lymphocytes % (Manual) 23 % Monocytes % (Manual) 4 % Metamyelocytes % 1 % Band Neutrophils 2 % Platelet Estimate ADEQUATE Blood Morphology Comment NORMAL Erythrocyte Sedimentation Rate 4 0-15 MM/HR Prothrombin Time 11.7 L 12.2-14.7 SEC INR Comment 0.8 0.8-1.4 Activated Partial Thromboplast Time 26 24-35 SEC Sodium Level 136 135-145 MMOL/L Potassium Level 3.6 3.6-5.0 MMOL/L Chloride Level 100 98-107 MMOL/L Carbon Dioxide Level 23 21-32 MMOL/L Anion Gap 13 5-14 MMOL/L Blood Urea Nitrogen 9 7-18 MG/DL Creatinine 0.87 0.60-1.30 MG/DL Estimat Glomerular Filtration Rate 121 BUN/Creatinine Ratio 10 Glucose Level 197 H 70-105 MG/DL Calcium Level 9.6 8.5-10.1 MG/DL Corrected Calcium 8.5-10.1 MG/DL Magnesium Level 2.1 1.6-2.4 MG/DL Total Bilirubin 0.2 0.1-1.0 MG/DL Aspartate Amino Transf (AST/SGOT) 55 H 5-34 U/L Alanine Aminotransferase (ALT/SGPT) 139 H 0-55 U/L Alkaline Phosphatase 129 40-136 U/L Total Creatine Kinase 87 30-200 U/L Creatine Kinase MB 2.0 <6.6 NG/ML Myoglobin 22.2 10.0-92.0 NG/ML Troponin I < 0.028 <0.028 NG/ML C-Reactive Protein High Sensitivity 1.93 H 0.00-0.50 MG/DL B-Type Natriuretic Peptide 20.2 <100.0 PG/ML Total Protein 9.3 H 6.4-8.2 GM/DL Albumin 4.6 H 3.2-4.5 GM/DL Amylase Level 35 25-125 U/L Lipase 27 8-78 U/L Serum Alcohol < 10 <10 MG/DL Urine Color YELLOW Urine Clarity CLEAR Urine pH 6.0 5-9 Urine Specific [place] 1.010 L 1.016-1.022 Urine Protein NEGATIVE NEGATIVE Urine Glucose (UA) 2+ H NEGATIVE Urine Ketones NEGATIVE NEGATIVE Urine Nitrite NEGATIVE NEGATIVE Urine Bilirubin NEGATIVE NEGATIVE Urine Urobilinogen 0.2 < = 1.0 MG/DL Urine Leukocyte Esterase NEGATIVE NEGATIVE Urine RBC (Auto) NEGATIVE NEGATIVE Urine RBC NONE /HPF Urine WBC NONE /HPF Urine Squamous Epithelial Cells RARE /HPF Urine Crystals NONE /LPF Urine Bacteria NEGATIVE /HPF Urine Casts NONE /LPF Urine Mucus NEGATIVE /LPF Urine Culture Indicated NO Urine Opiates Screen NEGATIVE NEGATIVE Urine Oxycodone Screen NEGATIVE NEGATIVE Urine Methadone Screen NEGATIVE NEGATIVE Urine Propoxyphene Screen NEGATIVE NEGATIVE Urine Barbiturates Screen NEGATIVE NEGATIVE Ur Tricyclic Antidepressants Screen NEGATIVE NEGATIVE Urine Phencyclidine Screen NEGATIVE NEGATIVE Urine Amphetamines Screen NEGATIVE NEGATIVE Urine Methamphetamines Screen NEGATIVE NEGATIVE Urine Benzodiazepines Screen NEGATIVE NEGATIVE Urine Cocaine Screen NEGATIVE NEGATIVE Urine Cannabinoids Screen NEGATIVE NEGATIVE Venous Blood pH 7.44 H 7.31-7.41 Venous Blood Partial Pressure CO2 41 40-52 MMHG Venous Blood HCO3 27 22-28 MMOL/L Lactic Acid Level 1.27 0.50-2.00 MMOL/L Glucometer 378 H 70-110 MG/DL Test 10/15/22 04:05 10/15/22 07:36 10/15/22 10:44 10/15/22 13:44 Range/Units White Blood Count 15.1 H 4.3-11.0 10^3/uL Red Blood Count 5.48 4.30-5.52 10^6/uL Hemoglobin 14.8 13.3-17.7 g/dL Hematocrit 46 40-54 % Mean Corpuscular Volume 83 80-99 fL Mean Corpuscular Hemoglobin 27 25-34 pg Mean Corpuscular Hemoglobin Concent 32 32-36 g/dL Red Cell Distribution Width 15.7 H 10.0-14.5 % Platelet Count 225 130-400 10^3/uL Mean Platelet Volume 10.5 9.0-12.2 fL Immature Granulocyte % (Auto) 1 % Neutrophils (%) (Auto) 73 42-75 % Lymphocytes (%) (Auto) 17 12-44 % Monocytes (%) (Auto) 6 0-12 % Eosinophils (%) (Auto) 3 0-10 % Basophils (%) (Auto) 1 0-10 % Neutrophils # (Auto) 11.1 H 1.8-7.8 10^3/uL Lymphocytes # (Auto) 2.6 1.0-4.0 10^3/uL Monocytes # (Auto) 0.9 0.0-1.0 10^3/uL Eosinophils # (Auto) 0.4 H 0.0-0.3 10^3/uL Basophils # (Auto) 0.1 0.0-0.1 10^3/uL Immature Granulocyte # (Auto) 0.1 0.0-0.1 10^3/uL Blood Gas Puncture Site RR Blood Gas Patient Temperature 36.5 Arterial Blood pH 7.31 *L 7.37-7.43 Arterial Blood Partial Pressure CO2 58 H 35-45 MMHG Arterial Blood Partial Pressure O2 83 79-93 MMHG Arterial Blood HCO3 29 H 23-27 MMOL/L Arterial Blood Total CO2 30.7 21.0-31.0 MMOL/L Arterial Blood Oxygen Saturation 97 94-100 % Arterial Blood Base Excess 3.1 H -2.5-2.5 MMOL/L Mike Test YES-POS Blood Gas Ventilator Setting NO Blood Gas Inspired Oxygen 4L Sodium Level 134 L 135-145 MMOL/L Potassium Level 4.1 3.6-5.0 MMOL/L Chloride Level 100 98-107 MMOL/L Carbon Dioxide Level 24 21-32 MMOL/L Anion Gap 10 5-14 MMOL/L Blood Urea Nitrogen 12 7-18 MG/DL Creatinine 1.08 0.60-1.30 MG/DL Estimat Glomerular Filtration Rate 96 BUN/Creatinine Ratio 11 Glucose Level 412 *H 70-105 MG/DL Lactic Acid Level 1.23 0.50-2.00 MMOL/L Calcium Level 8.8 8.5-10.1 MG/DL Corrected Calcium 8.9 8.5-10.1 MG/DL Total Bilirubin 0.3 0.1-1.0 MG/DL Aspartate Amino Transf (AST/SGOT) 69 H 5-34 U/L Alanine Aminotransferase (ALT/SGPT) 125 H 0-55 U/L Alkaline Phosphatase 114 40-136 U/L Troponin I 0.091 H < 0.028 <0.028 NG/ML Total Protein 8.0 6.4-8.2 GM/DL Albumin 3.9 3.2-4.5 GM/DL Glucometer 365 H 350 H 70-110 MG/DL Test 10/15/22 16:25 Range/Units Glucometer 124 H 70-110 MG/DL ECG Impression ECG Initial ECG Rhythm: Normal Sinus Initial ECG Impression: Normal A/P-Cardiology Assessment/Admission Diagnosis Chest pain, borderline positive troponin. Reproducible chest pain, type 2 diabetes, Traumatic BKA Plan This is a 27-year-old gentleman with chest pain with borderline troponin. Echocardiogram shows normal LV function. I discussed at length with the patient and recommended coronary angiography with possible intervention. Informed consent was taken including a 1% risk of complication including . Patient excepted all risk would like to proceed. N.p.o. after midnight. 1 dose of full Lovenox. No Lovenox dose in the morning. Patient will continue Plavix. Breezy RM MD Oct 15, 2022 18:25
[2022-10-15 20:00] VITALS: BP 141/96
[2022-10-15] MEDS: traZODone 50 MG (DESYREL) TAB PO SCH (20:20)
[2022-10-15] MEDS: MIRTAZAPINE 15 MG TABLET PO SCH (20:20)
[2022-10-16] VITALS: BP 158/85
[2022-10-16] MEDS: KETOROLAC INJ 15 MG/ML VIAL IV SCH ×4 (02:30→20:57)
[2022-10-16 04:52] LABS: BASOPHILS # (AUTO) 0.1 10^3/uL (0.0-0.1); BASOPHILS % (AUTO) 1 % (0-10); EOSINOPHILS # (AUTO) 0.4 10^3/uL (0.0-0.3); EOSINOPHILS % (AUTO) 5 % (0-10); HEMATOCRIT 45 % (40-54); HEMOGLOBIN 14.1 g/dL (13.3-17.7); LYMPHOCYTES # (AUTO) 2.4 10^3/uL (1.0-4.0); LYMPHOCYTES % (AUTO) 30 % (12-44); MEAN CORPUSCULAR HEMOGLOBIN 27 pg (25-34); MEAN CORPUSCULAR HGB CONC 31 g/dL (32-36); MEAN CORPUSCULAR VOLUME 86 fL (80-99); MEAN PLATELET VOLUME 10.6 fL (9.0-12.2); MONOCYTES # (AUTO) 0.5 10^3/uL (0.0-1.0); MONOCYTES % (AUTO) 6 % (0-12); NEUTROPHILS # (AUTO) 4.7 10^3/uL (1.8-7.8); NEUTROPHILS % (AUTO) 57 % (42-75); PLATELET COUNT 211 10^3/uL (130-400); WHITE BLOOD COUNT 8.2 10^3/uL (4.3-11.0)
[2022-10-16 05:10] LABS: ALBUMIN 3.7 GM/DL (3.2-4.5); BILIRUBIN,TOTAL 0.2 MG/DL (0.1-1.0); CALCIUM 8.8 MG/DL (8.5-10.1); CREATININE SERUM 0.85 MG/DL (0.60-1.30); POTASSIUM 4.8 MMOL/L (3.6-5.0); TOTAL PROTEIN 8.1 GM/DL (6.4-8.2)
[2022-10-16] MEDS: inSUlin ASPART 1 UNIT/0.01 ML (PER UNIT) SQ SCH ×3 (06:35→16:39)
[2022-10-16] MEDS: CLOPIDOGREL 75 MG TABLET PO SCH (06:35)
[2022-10-16] MEDS: inSUlin ASPART 1 UNIT/0.01 ML (PER UNIT) SC SCH ×4 (06:38→21:18)
[2022-10-16] MEDS: HYDROcodone/ACETAMINOPHEN 5 MG/325 MG TABLET PO PRN ×4 (07:05→20:58)
[2022-10-16 08:00] VITALS: BP 140/84
[2022-10-16] MEDS: busPIRone 10 MG TABLET PO SCH ×3 (08:00→16:39)
[2022-10-16] MEDS: SENNA W/DOCUSATE (SENOKOT S) TABLET PO SCH ×2 (08:00→16:40)
[2022-10-16] MEDS: PANTOPRAZOLE 40 MG TABLET PO SCH (08:00)
[2022-10-16] MEDS: clonazePAM 1 MG TABLET PO SCH ×3 (08:00→20:57)
[2022-10-16] MEDS: OLANZapine 5 MG ODT TABLET PO SCH ×2 (08:00→16:39)
[2022-10-16] MEDS: GABAPENTIN 600 MG TABLET PO SCH ×3 (08:00→20:58)
[2022-10-16] MEDS: inSUlin DETERMIR 1 UNIT/0.01 ML (CHARGE PER UNIT) SQ SCH ×2 (08:55→21:18)
[2022-10-16] MEDS ORDERED: PANTOPRAZOLE 40 MG TABLET PO SCH (09:00)
--- NOTE | 2022-10-16 09:21 | Progress Note ---
NATHALIE MANUEL MD 10/16/22 0921: Subjective Subjective/Events-last exam No acute events overnight. Pt reports he has a headache this morning along with his chest pain that persists. He says he would just like to rest prior to his procedure today. Focused Exam Lactate Level 10/14/22 20:29: Lactic Acid Level 1.27 10/15/22 04:05: Lactic Acid Level 1.23 Objective Exam Last Set of Vital Signs Vital Signs Date Time Temp Pulse Resp B/P (MAP) Pulse Ox O2 Delivery O2 Flow Rate FiO2 10/16/22 09:08 140/84 (102) 10/16/22 09:00 Nasal Cannula 5.00 10/16/22 08:00 36.0 87 14 10/16/22 00:00 92 Capillary Refill : Less Than 3 Seconds I&O Intake and Output 10/16/22 00:00 Intake Total 3175 ml Output Total 1050 ml Balance 2125 ml Intake Oral 3175 ml Output Urine Total 1050 ml # Voids 1 # Bowel Movements 1 General: Alert, Oriented X3, Cooperative HEENT: Atraumatic, EOMI Neck: Supple Lungs: Clear to Auscultation Heart: Regular Rate, No Murmurs Abdomen: No Tenderness, Other (Distended) Extremities: Normal Pulses Skin: No Rashes, No Breakdown Neuro: Normal Speech, Strength at 5/5 X4 Ext, Normal Tone, Sensation Intact Psych/Mental Status: Mental Status NL Results/Procedures Lab Laboratory Tests 10/15/22 10:44: Glucometer 350H 10/15/22 13:44: Troponin I < 0.028 10/15/22 16:25: Glucometer 124H 10/15/22 20:15: Glucometer 268H 10/16/22 04:05: White Blood Count 8.2, Red Blood Count 5.25, Hemoglobin 14.1, Hematocrit 45, Mean Corpuscular Volume 86, Mean Corpuscular Hemoglobin 27, Mean Corpuscular Hemoglobin Concent 31L, Red Cell Distribution Width 15.7H, Platelet Count 211, Mean Platelet Volume 10.6, Immature Granulocyte % (Auto) 2, Neutrophils (%) (Auto) 57, Lymphocytes (%) (Auto) 30, Monocytes (%) (Auto) 6, Eosinophils (%) (Auto) 5, Basophils (%) (Auto) 1, Neutrophils # (Auto) 4.7, Lymphocytes # (Auto) 2.4, Monocytes # (Auto) 0.5, Eosinophils # (Auto) 0.4H, Basophils # (Auto) 0.1, Immature Granulocyte # (Auto) 0.1, Sodium Level 137, Potassium Level 4.8, Chl oride Level 104, Carbon Dioxide Level 22, Anion Gap 11, Blood Urea Nitrogen 12, Creatinine 0.85, Estimat Glomerular Filtration Rate 122, BUN/Creatinine Ratio 14, Glucose Level 283H, Calcium Level 8.8, Corrected Calcium 9.0, Total Bilir ubin 0.2, Aspartate Amino Transf (AST/SGOT) 77H, Alanine Aminotransferase (ALT/SGPT) 127H, Alkaline Phosphatase 106, Total Protein 8.1, Albumin 3.7 Assessment/Plan Assessment/Plan Admission Status: Inpatient Order (span 2 midnights) (1) Tachycardia Status: Acute Assessment & Plan: PLAN: - Telemetry - Cardiology consult - IVF - Pain management - tylenol, hydrocodone - Plan for cardiac cath with possible intervention today. (2) Type 2 diabetes mellitus Status: Chronic Assessment & Plan: PLAN: - LDCF - Diabetic diet - ACHS BG checks (3) Chest pain Status: Acute Assessment & Plan: - CXR NEG - EKG unremarkable - Head CT unremarkable - CT ABD unremarkable except for hepatic steatosis PLAN: - Cardiology consult in AM - tylenol, hydrocodone - PPI, tums - Pain radiates to epigastrium and RUQ, abdomen distended on exam - Consider EGD to investigate for possible esophagitis, ulcers Clinical Quality Measures AMI/AHF: ASA po Prior to arrival: Yes (324 MG ) SANAM TAVARES MD 10/17/22 1211: Subjective Physician Addendum Progress 12:10 Addendum Physician Addendum Addendum I personally performed the [place] portions of the visit, discussed case with resident and concur with resident documentation of history, physical exam, a ssessment and treatment plan unless otherwise noted. Progress 12:11 NATHALIE MANUEL MD Oct 16, 2022 09:21 SANAM TAVARES MD Oct 17, 2022 12:11
[2022-10-16] MEDS ORDERED: NS IV 1000 ML 1,000 ML ONE (10:20)
[2022-10-16] MEDS ORDERED: HEParin (CATH LAB) 2,000 ML IV ONE (10:20)
[2022-10-16] MEDS ORDERED: LIDOCAINE 1% INJ 20 ML VIAL ONE (10:20)
[2022-10-16] MEDS ORDERED: NS IV 1000 ML 1,000 ML IV SCH (10:31)
[2022-10-16] MEDS ORDERED: NITRO DRIP 25000 MCG/D5W 250 ML IV ONE (10:37)
[2022-10-16] MEDS ORDERED: HEParin 1000 UNIT/ML (10ML VIAL) FOR BOLUS ONE (10:37)
[2022-10-16] MEDS ORDERED: fentaNYL INJECTION 100 MCG/2 ML VIAL ONE (10:37)
[2022-10-16] MEDS ORDERED: VERAPAMIL 5 MG/2 ML (CALAN) VIAL IV ONE (10:37)
[2022-10-16] MEDS ORDERED: MIDAZOLAM INJ 5 MG/5 ML VIAL ONE (10:37)
[2022-10-16] MEDS ORDERED: diphenhydrAMINE INJ 50 MG/ML VIAL ONE (11:08)
--- NOTE | 2022-10-16 11:33 | Cardiac Procedure Note-CS/ASA ---
Pre-Procedure Note Pre-Op Procedure Note Date H&P Reviewed: Oct 16, 2022 Time H&P Reviewed: 10:30 History & Physical: H&P Reviewed, No changes noted Pre-Operative Diagnosis: Chest pain, borderline positive troponin Moderate Sedation PreProcedure Time 10:30 ASA Score 2 Airway Lungs Heart ASA score ASA 1: a normal healthy patient ASA 2: a patient with a mild systemic disease (mid diabetes, controlled hypertension, obesity ASA 3: a patient with a severe systemic disease that limits activity (angina, COPD, prior Myocardial infarction) ASA 4: a patient with an incapacitating disease that is a constant threat to life (CHF, renal failure) ASA 5: a moribund patient not expected to survive 24 hrs. (ruptured aneurysm) ASA 6: a declared brain- patient whose organs are being harvested. For emergent operations, add the letter E after the classification Mallampati Classification Grade 1 Sedation Plan Analgesia, Amnesia, Plan communicated to team members, Discussed options with p atient/fam, Discussed risks with patient/fam The patient is an appropriate candidate to undergo the planned procedure, sedation, and anesthesia. The patient immediately re-assessed prior to indication. Breezy RM MD Oct 16, 2022 11:33
--- NOTE | 2022-10-16 11:38 | Coronary Angiography Report ---
Coronary Angiography Report DATE OF PROCEDURE: 10/16/22 INDICATION: Prolonged refractory chest pain, borderline positive troponin. PREOPERATIVE DIAGNOSIS: Prolonged refractory chest pain, borderline positive troponin. POSTOPERATIVE DIAGNOSIS: Normal coronaries HISTORY: This is a 27-year-old gentleman with morbid obesity, type 2 diabetes who presents with prolonged chest pain with sinus tachycardia with no ST-T wave abnormalities. Borderline positive troponin. Therefore, the patient was scheduled for coronary angiography. PROCEDURES PERFORMED: 1.Coronary angiography. 2.Left heart catheterization. 3. Aortic root injection: Medical necessity: Moderate to severe intractable chest pain in a patient with normal coronaries. Need to rule out thoracic aortic dissection. COMPLICATIONS: None. SPECIMENS: None. ESTIMATED BLOOD LOSS: 10 mL ANESTHESIA: Conscious sedation ANTICOAGULATION: IV heparin CONTRAST: 67 ml FLUOROSCOPY: 6.4 minutes FLOUROSCOPY DOSE: 1008 mgy. PROCEDURE DETAILS: The patient is a 27 male and was brought to the photographic laboratory technician after informed consent was taken. All the risks and complications were explained in detail; this included the risk of bleeding, vascular damage, stroke, ID and even . The patient was draped and prepped in the usual sterile fashion. Access was gained in the right radial artery with a 6 [place] sheath. Coronary angiography and left heart catheterization was performed with the [place] catheter. Right coronary angiogram was done with a JR4 catheter. Aortic root shot was done with a JR4 catheter. FINDINGS: 1.Left main: Patent. 2.LAD: Patent. 3.Left circumflex artery: Patent. 4.RCA: Patent. 5.Left heart catheterization: Aortic pressure 127/105 mmHg. LV pressure 131/9 mmHg. LVEDP 15 mmHg. Normal LV function with no wall motion abnormalities. No gradient across the aortic valve. 6. Aortic root injection: Medical necessity: Normal coronaries in a patient with moderate to severe refractory chest pain. Need to rule out aortic dissection. No proximal aortic aneurysm or dissection was noted. No significant aortic regurgitation. CONCLUSIONS: Normal coronaries and no ascending thoracic aorta dissection or aneurysm. David Roger MD, FACP, FACC, [facility] Interventional Cardiology Breezy ROGER MD Oct 16, 2022 11:38
[2022-10-16] MEDS ORDERED: PATIENT MAY USE OWN MEDS, ALL PO SCH (11:45)
[2022-10-16] MEDS: NS IV 1000 ML 1,000 ML IV SCH (11:58)
[2022-10-16] MEDS: DULoxetine 30 MG CAPSULE PO SCH (12:21)
[2022-10-16] MEDS: LOSARTAN 100 MG TABLET PO SCH (12:22)
[2022-10-16 12:30] VITALS: BP 143/96
[2022-10-16 16:00] VITALS: BP 135/99
[2022-10-16] MEDS: CALCIUM CARBONATE 500 MG CHEW TABLET PO PRN (18:20)
[2022-10-16] MEDS ORDERED: LIDOCAINE 4% PATCH ONE (19:30)
[2022-10-16] MEDS: traZODone 50 MG (DESYREL) TAB PO SCH (20:57)
[2022-10-16] MEDS: MIRTAZAPINE 15 MG TABLET PO SCH (20:58)
[2022-10-16 21:00] VITALS: BP 138/87
[2022-10-17] VITALS: BP 107/58
[2022-10-17] MEDS: NS IV 1000 ML 1,000 ML IV SCH ×2 (01:21→08:20)
[2022-10-17] MEDS: KETOROLAC INJ 15 MG/ML VIAL IV SCH ×2 (01:34→08:20)
[2022-10-17] MEDS: HYDROcodone/ACETAMINOPHEN 5 MG/325 MG TABLET PO PRN ×2 (03:37→08:20)
[2022-10-17 04:00] VITALS: BP 117/78
[2022-10-17 04:20] LABS: BASOPHILS # (AUTO) 0.1 10^3/uL (0.0-0.1); BASOPHILS % (AUTO) 1 % (0-10); EOSINOPHILS # (AUTO) 0.4 10^3/uL (0.0-0.3); EOSINOPHILS % (AUTO) 4 % (0-10); HEMATOCRIT 44 % (40-54); HEMOGLOBIN 13.7 g/dL (13.3-17.7); LYMPHOCYTES # (AUTO) 2.3 10^3/uL (1.0-4.0); LYMPHOCYTES % (AUTO) 26 % (12-44); MEAN CORPUSCULAR HEMOGLOBIN 27 pg (25-34); MEAN CORPUSCULAR HGB CONC 31 g/dL (32-36); MEAN CORPUSCULAR VOLUME 86 fL (80-99); MEAN PLATELET VOLUME 10.3 fL (9.0-12.2); MONOCYTES # (AUTO) 0.6 10^3/uL (0.0-1.0); MONOCYTES % (AUTO) 7 % (0-12); NEUTROPHILS # (AUTO) 5.5 10^3/uL (1.8-7.8); NEUTROPHILS % (AUTO) 62 % (42-75); PLATELET COUNT 212 10^3/uL (130-400); WHITE BLOOD COUNT 8.9 10^3/uL (4.3-11.0)
[2022-10-17 04:34] LABS: ALBUMIN 3.8 GM/DL (3.2-4.5); BILIRUBIN,TOTAL 0.3 MG/DL (0.1-1.0); CALCIUM 8.8 MG/DL (8.5-10.1); CREATININE SERUM 0.83 MG/DL (0.60-1.30); PHOSPHORUS 4.5 MG/DL (2.3-4.7); POTASSIUM 4.2 MMOL/L (3.6-5.0); TOTAL PROTEIN 7.5 GM/DL (6.4-8.2)
[2022-10-17 05:10] VITALS: BP 117/78
--- NOTE | 2022-10-17 07:09 | Progress Note ---
Focused Exam Lactate Level 10/14/22 20:29: Lactic Acid Level 1.27 10/15/22 04:05: Lactic Acid Level 1.23 Objective Exam Last Set of Vital Signs Vital Signs Date Time Temp Pulse Resp B/P (MAP) Pulse Ox O2 Delivery O2 Flow Rate FiO2 10/17/22 04:00 89 25 117/78 (91) 89 Nasal Cannula 2.00 10/16/22 16:00 36.7 Capillary Refill : Less Than 3 Seconds I&O Intake and Output 10/17/22 00:00 Intake Total 1550 ml Output Total 2050 ml Balance -500 ml Intake Oral 1550 ml Output Urine Total 2050 ml Results/Procedures Lab Laboratory Tests 10/16/22 12:20: Glucometer 145H 10/16/22 15:40: Glucometer 256H 10/16/22 21:05: Glucometer 158H 10/17/22 04:08: White Blood Count 8.9, Red Blood Count 5.09, Hemoglobin 13.7, Hematocrit 44, Mean Corpuscular Volume 86, Mean Corpuscular Hemoglobin 27, Mean Corpuscular Hemoglobin Concent 31L, Red Cell Distribution Width 15.6H, Platelet Count 212, Mean Platelet Volume 10.3, Immature Granulocyte % (Auto) 1, Neutrophils (%) (Auto) 62, Lymphocytes (%) (Auto) 26, Monocytes (%) (Auto) 7, Eosinophils (%) (Auto) 4, Basophils (%) (Auto) 1, Neutrophils # (Auto) 5.5, Lymphocytes # (Auto) 2.3, Monocytes # (Auto) 0.6, Eosinophils # (Auto) 0.4H, Basophils # (Auto) 0.1, Immature Granulocyte # (Auto) 0.1, Sodium Level 139, Potassium Level 4.2, Chloride Level 105, Carbon Dioxide Level 23, Anion Gap 11, Blood Urea Nitrogen 12, Creatinine 0.83, Estimat Glomerular Filtration Rate 123, BUN/Creatinine Ratio 14, Glucose Level 155H, Calcium Level 8.8, Corrected Calcium 9.0, Phosphorus Level 4.5, Magnesium Level 2.0, Total Bilirubin 0.3, Aspartate Amino Transf (AST/SGOT) 75H, Alanine Aminotransferase (ALT/SGPT) 136H, Alkaline Phosphatase 100, Total Protein 7.5, Albumin 3.8 Assessment/Plan Assessment/Plan (1) Tachycardia Status: Acute Assessment & Plan: PLAN: - Telemetry - Cardiology consult - IVF - Pain management - tylenol, hydrocodone - Plan for cardiac cath with possible intervention today. (2) Type 2 diabetes mellitus Status: Chronic Assessment & Plan: PLAN: - LDCF - Diabetic diet - ACHS BG checks (3) Chest pain Status: Acute Assessment & Plan: - CXR NEG - EKG unremarkable - Head CT unremarkable - CT ABD unremarkable except for hepatic steatosis PLAN: - Cardiology consult in AM - tylenol, hydrocodone - PPI, tums - Pain radiates to epigastrium and RUQ, abdomen distended on exam - Consider EGD to investigate for possible esophagitis, ulcers Clinical Quality Measures AMI/AHF: ASA po Prior to arrival: Yes (324 MG ) NATHALIE MANUEL MD Oct 17, 2022 07:08
[2022-10-17] MEDS: inSUlin ASPART 1 UNIT/0.01 ML (PER UNIT) SC SCH (07:20)
[2022-10-17] MEDS: inSUlin ASPART 1 UNIT/0.01 ML (PER UNIT) SQ SCH (07:20)
[2022-10-17] MEDS: CLOPIDOGREL 75 MG TABLET PO SCH (07:21)
[2022-10-17 07:55] VITALS: BP 142/117
[2022-10-17] MEDS: inSUlin DETERMIR 1 UNIT/0.01 ML (CHARGE PER UNIT) SQ SCH (08:18)
[2022-10-17] MEDS: clonazePAM 1 MG TABLET PO SCH (08:19)
[2022-10-17] MEDS: SENNA W/DOCUSATE (SENOKOT S) TABLET PO SCH (08:19)
[2022-10-17] MEDS: PANTOPRAZOLE 40 MG TABLET PO SCH (08:19)
[2022-10-17] MEDS: GABAPENTIN 600 MG TABLET PO SCH (08:19)
[2022-10-17] MEDS: DULoxetine 30 MG CAPSULE PO SCH (08:19)
[2022-10-17] MEDS: OLANZapine 5 MG ODT TABLET PO SCH (08:20)
[2022-10-17] MEDS: busPIRone 10 MG TABLET PO SCH (08:20)
[2022-10-17] MEDS: CALCIUM CARBONATE 500 MG CHEW TABLET PO PRN (08:20)
[2022-10-17] MEDS: LOSARTAN 100 MG TABLET PO SCH (08:20)
[2022-10-17] MEDS ORDERED: LIDOCAINE 4% PATCH TOP SCH (09:00)
--- NOTE | 2022-10-17 10:06 | Discharge Summary ---
NATHALIE ORDONEZ MD 10/17/22 1006: Discharge Summary Hospital Course Problems Reviewed?: Yes Problems/Diagnosis: (1) Tachycardia Status: Acute Assessment & Plan: PLAN: - Telemetry - Cardiology consult - IVF - Pain management - tylenol, hydrocodone - Plan for cardiac cath with possible intervention today. (2) Type 2 diabetes mellitus Status: Chronic Assessment & Plan: PLAN: - LDCF - Diabetic diet - ACHS BG checks (3) Chest pain Status: Acute Assessment & Plan: - CXR NEG - EKG unremarkable - Head CT unremarkable - CT ABD unremarkable except for hepatic steatosis - Pain radiates to epigastrium and RUQ, abdomen distended on exam PLAN: - Cardiology consult in AM - tylenol, hydrocodone - PPI, tums - Consider EGD to investigate for possible esophagitis, ulcers - Will dc home on ibuprophen for likely viral pleuritis Hospital Course Date of Admission: Oct 14, 2022 at 21:05 Admission Diagnosis : Chest pain Family Physician/Provider: [facility] Date of Discharge: 10/17/22 Discharge Diagnosis: Viral pleuritis Hospital Course: Pt admitted for chest pain. EKG unremarkable. CTA chest 10/13 was unremarkable except for hepatic steatosis with hepatomegaly. CMP showed elevated LFTs. Pleuritic chest pain, likely pleuritis d/t viral infection Cardiac catheterization was unremarkable Discontinue olanzipine and mirtazepine on discharge due to increased appetite and worsening liver function. Will increase duloxetine on dc for pain and anxiety symptoms Of note, overnight on 818m he had reported slurred speech and hypoxia, Dr. Ordonez did evaluate the patient at that, per her exam he had no neurologic findings, did have hypercapnea and was started on bipap, but of note is on cpap at home and had not been started last night here. The next morning he was oriented and has no obvious deficits. CT head was unremarkable and CT abdomen showed hepatic steatosis and small amount of opacities in right lung base favored to represent atelectasis. Patient requesting IV pain medication this morning, states Toradol does not help and that last time "something like dilaudid or something" helped. When we discussed that opiates would not be a good assisted option and he is on neuropathic pain meds at home already, he stated he thought just one dose might be enough to help him get through the yan n. Will treat pleuritis with ibuprophen on discharge. Discharged back to his prior living facility. Labs and Pending Lab Test: Laboratory Tests 10/16/22 12:20: Glucometer 145H 10/16/22 15:40: Glucometer 256H 10/16/22 21:05: Glucometer 158H 10/17/22 04:08: White Blood Count 8.9, Red Blood Count 5.09, Hemoglobin 13.7, Hematocrit 44, Mean Corpuscular Volume 86, Mean Corpuscular Hemoglobin 27, Mean Corpuscular Hemoglobin Concent 31L, Red Cell Distribution Width 15.6H, Platelet Count 212, Mean Platelet Volume 10.3, Immature Granulocyte % (Auto) 1, Neutrophils (%) (Auto) 62, Lymphocytes (%) (Auto) 26, Monocytes (%) (Auto) 7, Eosinophils (%) (Auto) 4, Basophils (%) (Auto) 1, Neutrophils # (Auto) 5.5, Lymphocytes # (Auto) 2.3, Monocytes # (Auto) 0.6, Eosinophils # (Auto) 0.4H, Basophils # (Auto) 0.1, Immature Granulocyte # (Auto) 0.1, Sodium Level 139, Potassium Level 4.2, Chloride Level 105, Carbon Dioxide Level 23, Anion Gap 11, Blood Urea Nitrogen 12, Creatinine 0.83, Estimat Glomerular Filtration Rate 123, BUN/Creatinine Ratio 14, Glucose Level 155H, Calcium Level 8.8, Corrected Calcium 9.0, Phosphorus Level 4.5, Magnesium Level 2.0, Total Bilirubin 0.3, Aspartate Amino Transf (AST/SGOT) 75H, Alanine Aminotransferase (ALT/SGPT) 136H, Alkaline Phosphatase 100, Total Protein 7.5, Albumin 3.8 Home Meds Active Pantoprazole Sodium 40 Mg Tablet.dr 40 Mg PO DAILY Losartan Potassium 100 Mg Tablet 100 Mg PO DAILY Reported Metformin HCl ER (Metformin HCl) 500 Mg Tab.er.24 500 Mg PO 0700,1700 Novolog Flexpen (Insulin Aspart) 100 Unit/Ml (3 Ml) Solution 20 Units SQ AC Levemir Flexpen (Insulin Detemir) 100 Unit/Ml (3 Ml) Insuln.pen 40 Units SQ BID Clonazepam 1 Mg Tablet 1 Mg PO BID Gabapentin 600 Mg Tablet 600 Mg PO TID Buspirone HCl 10 Mg Tablet 10 Mg PO 0900,1300,1700 Senna-S Tablet (Sennosides/Docusate Sodium) 8.6 Mg-50 Mg Tablet 1 Each PO 0900,1700 Olanzapine 5 Mg Tablet 5 Mg PO 0900,1700 Trazodone HCl 50 Mg Tablet 50-100 Mg PO HS TAKES 1 TO 2 (50MG) TABS Mirtazapine 30 Mg Tablet 30 Mg PO HS Duloxetine HCl 30 Mg Capsule.dr 90 Mg PO 0900 TAKES 3 (30MG) CAPS Clopidogrel (Clopidogrel Bisulfate) 75 Mg Tablet 75 Mg PO 0600 Assessment/Pt DC Instructions Please take ibuprohen for pleuritic chest pain. Stop taking olanzepine and mirtazepine. Continue taking Duloxetine at new dose. 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
[2022-10-17] MEDS ORDERED: DULO60CA59 PO (10:10)
[2022-10-17 10:50] VITALS: BP 148/110
== END 2022-10-17 10:54 ==
LOC: EDUNIT# 18:42 → ER 18:43 → INTOOBSV 21:05 → ICU 21:05
PROVIDERS: ADMIT Family Medicine; ATTEND Family Medicine
DX: R09.1 Pleurisy (principal); R00.0 Tachycardia, unspecified; B97.89 Other viral agents as the cause of diseases classified elsewhere; E11.9 Type 2 diabetes mellitus without complications; E66.01 Morbid (severe) obesity due to excess calories; D72.829 Elevated white blood cell count, unspecified; F17.210 Nicotine dependence, cigarettes, uncomplicated; K76.0 Fatty (change of) liver, not elsewhere classified; Z79.84 Long term (current) use of oral hypoglycemic drugs; Z79.4 Long term (current) use of insulin; Z89.512 Acquired absence of left leg below knee
CPT/HCPCS: 36600; 70450; 71045 ×2; 74170; 80053 ×4; 80306; 81000; 82150; 82550; 82553; 82805 ×2; 82947 ×2; 83605 ×2; 83690; 83735 ×2; 83874; 83880; 84100; 84484 ×2; 85007; 85025 ×3; 85027; 85610; 85652; 85730; 86141; 93005 ×2; 93041; 93458; 93567; 94660; 96372 ×3; 96375; 96376 ×3; 99284; C1769; C1894; C8929; G0378; G0480; 36415; 80320; 93306

== ENCOUNTER 2022-12-17 15:31 | Emergency (ER) | payer MEDICAID ==
[~2022-12-17] VITALS: Ht 175.2 cm; Wt 131.9 kg
[~2022-12-17 15:31] MED LIST changes: +DULO60CA59 PO; +METF-478 PO; -PREG150C46 PO; +PREG150C47 PO; -PREG200C28 PO; +PREG200C29 PO
[2022-12-17] MEDS ORDERED: HYDROcodone/ACETAMINOPHEN 10/325 TABLET PO ONE (15:45)
[2022-12-17 15:47] LABS: BASOPHILS # (AUTO) 0.1 10^3/uL (0.0-0.1); BASOPHILS % (AUTO) 1 % (0-10); EOSINOPHILS # (AUTO) 0.4 10^3/uL (0.0-0.3); EOSINOPHILS % (AUTO) 2 % (0-10); HEMATOCRIT 51 % (40-54); HEMOGLOBIN 16.2 g/dL (13.3-17.7); LYMPHOCYTES % (AUTO) 20 % (12-44); MEAN CORPUSCULAR HEMOGLOBIN 28 pg (25-34); MEAN CORPUSCULAR HGB CONC 32 g/dL (32-36); MEAN CORPUSCULAR VOLUME 86 fL (80-99); MEAN PLATELET VOLUME 11.4 fL (9.0-12.2); MONOCYTES # (AUTO) 0.8 10^3/uL (0.0-1.0); MONOCYTES % (AUTO) 5 % (0-12); NEUTROPHILS # (AUTO) 10.4 10^3/uL (1.8-7.8); NEUTROPHILS % (AUTO) 70 % (42-75); WHITE BLOOD COUNT 14.7 10^3/uL (4.3-11.0)
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
[2022-12-17 15:53] LABS: PLATELET COUNT 234 10^3/uL (130-400)
[2022-12-17] MEDS: LORazepam 0.5 MG TABLET PO ONE ×2 (15:59→16:05)
[2022-12-17 16:03] LABS: ALBUMIN 4.2 GM/DL (3.2-4.5)
--- NOTE | 2022-12-17 16:03 | Diagnostic Imaging Report ---
INDICATION: Stabbing pain in the chest radiating into both arms x1 week. EXAMINATION: Portable chest, 4:03 p.m. FINDINGS: Heart size and pulmonary vascularity are normal. Lungs are clear. There are no effusions or pneumothoraces. IMPRESSION: No acute abnormalities in the chest. Dictated by: Dictated on workstation # [id number]
[2022-12-17 16:04] LABS: CHLORIDE 105 MMOL/L (98-107); INR 0.9 (0.8-1.4); PROTHROMBIN TIME PATIENT 12.3 SEC (12.2-14.7); SODIUM 137 MMOL/L (135-145)
[2022-12-17 16:05] LABS: CALCIUM 9.4 MG/DL (8.5-10.1)
[2022-12-17 16:06] LABS: GLUCOSE 178 MG/DL (70-105); TOTAL PROTEIN 8.5 GM/DL (6.4-8.2)
[2022-12-17 16:07] LABS: CARBON DIOXIDE 19 MMOL/L (21-32)
[2022-12-17 16:08] LABS: BILIRUBIN,TOTAL 0.2 MG/DL (0.1-1.0)
[2022-12-17 16:09] LABS: ALKALINE PHOSPHATASE 112 U/L (40-136)
[2022-12-17 16:10] LABS: CREATININE SERUM 0.77 MG/DL (0.60-1.30); GFR ESTIMATED 126
[2022-12-17 16:11] LABS: BUN/CREATININE RATIO 13
[2022-12-17 16:13] LABS: ALANINE AMINOTRANSFERASE 249 U/L (0-55); MAGNESIUM 2.2 MG/DL (1.6-2.4)
[2022-12-17 16:14] LABS: LIPASE 38 U/L (8-78)
[2022-12-17 16:40] LABS: EOSINOPHILS % (MANUAL) 4 %; LYMPHOCYTES % (MANUAL) 20 %; MONOCYTES % (MANUAL) 4 %; NEUTROPHILS % (MANUAL) 72 %; SPHEROCYTES MODERATE
[2022-12-17 16:46] VITALS: BP 112/59
== END 2022-12-17 16:56 | disposition home or self-care (01) ==
LOC: EDUNIT# 15:31 → ER 15:32
DX: R07.9 Chest pain, unspecified (principal); F41.9 Anxiety disorder, unspecified; R00.0 Tachycardia, unspecified; F17.290 Nicotine dependence, other tobacco product, uncomplicated; Z79.899 Other long term (current) drug therapy; Z79.891 Long term (current) use of opiate analgesic
CPT/HCPCS: 36415; 71045; 80053; 83690; 83735; 84484; 85007; 85027; 85610; 85730; 93005; 93041

== ENCOUNTER → 2023-01-05 | Outpatient (CLI) | payer MEDICAID ==
[~2023-01-05] MED LIST changes: +ACET-2267 PO; +ACHD5005 PO; +ALPR0.5T7 PO; +BUSP15TA60 PO; +CELE-112 PO; +METF-397 PO; +TOPI25TA10 PO
== END | disposition home or self-care (01) ==
LOC: PREOP 10:22
PROVIDERS: ATTEND Surgery
DX: Z01.818 Encounter for other preprocedural examination (principal)

== ENCOUNTER 2023-01-07 05:43 | Observation (INO) | payer MEDICAID ==
[~2023-01-07] VITALS: Ht 175 cm; Wt 143.0 kg
[~2023-01-07 05:43] MED LIST changes: -ACET-2267 PO; -ACHD5005 PO; -ALPR0.5T7 PO; -BUSP15TA60 PO; -CELE-112 PO; -METF-397 PO; -TOPI25TA10 PO
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
[2023-01-07 06:21] LABS: BASOPHILS # (AUTO) 0.1 10^3/uL (0.0-0.1); BASOPHILS % (AUTO) 1 % (0-10); EOSINOPHILS # (AUTO) 0.4 10^3/uL (0.0-0.3); EOSINOPHILS % (AUTO) 3 % (0-10); HEMATOCRIT 53 % (40-54); HEMOGLOBIN 16.3 g/dL (13.3-17.7); LYMPHOCYTES # (AUTO) 3.6 10^3/uL (1.0-4.0); LYMPHOCYTES % (AUTO) 27 % (12-44); MEAN CORPUSCULAR HEMOGLOBIN 27 pg (25-34); MEAN CORPUSCULAR HGB CONC 31 g/dL (32-36); MEAN CORPUSCULAR VOLUME 87 fL (80-99); MEAN PLATELET VOLUME 10.5 fL (9.0-12.2); MONOCYTES # (AUTO) 0.7 10^3/uL (0.0-1.0); MONOCYTES % (AUTO) 6 % (0-12); NEUTROPHILS # (AUTO) 8.3 10^3/uL (1.8-7.8); NEUTROPHILS % (AUTO) 63 % (42-75); PLATELET COUNT 314 10^3/uL (130-400); WHITE BLOOD COUNT 13.2 10^3/uL (4.3-11.0)
[2023-01-07 06:25] LABS: PROTHROMBIN TIME PATIENT 13.3 SEC (12.2-14.7)
[2023-01-07 06:35] LABS: ALANINE AMINOTRANSFERASE 199 U/L (0-55); ALBUMIN 4.4 GM/DL (3.2-4.5); ALKALINE PHOSPHATASE 122 U/L (40-136); BILIRUBIN,TOTAL 0.2 MG/DL (0.1-1.0); BUN/CREATININE RATIO 14; CALCIUM 9.3 MG/DL (8.5-10.1); CARBON DIOXIDE 23 MMOL/L (21-32); CHLORIDE 105 MMOL/L (98-107); CREATININE SERUM 0.86 MG/DL (0.60-1.30); GFR ESTIMATED 122; GLUCOSE 99 MG/DL (70-105); MAGNESIUM 2.2 MG/DL (1.6-2.4); POTASSIUM 3.7 MMOL/L (3.6-5.0); SODIUM 141 MMOL/L (135-145); TOTAL PROTEIN 8.6 GM/DL (6.4-8.2)
[2023-01-07] MEDS ORDERED: ACETAMINOPHEN 500 MG TABLET PO ONE ×2 (06:45)
--- NOTE | 2023-01-07 06:53 | Diagnostic Imaging Report ---
INDICATION: Chest pain COMPARISON: 12/17/2022 TECHNIQUE: Single radiograph chest dated 01/07/2023 FINDINGS: Examination slightly limited secondary to patient body habitus. The cardiac silhouette is within normal limits in size. No significant pulmonary vascular congestion. The lungs are clear of focal pulmonary opacity. No pleural effusion. No pneumothorax. No acute osseous abnormality. IMPRESSION: Similar-appearing examination without acute cardiopulmonary abnormality. Dictated by: Dictated on workstation # [id number]
[2023-01-07] MEDS ORDERED: LACTATED RINGERS 1,000 ML 1,000 ML IV ONE (07:00)
[2023-01-07] MEDS ORDERED: SENNA W/DOCUSATE TABLET PO PRN (10:30)
[2023-01-07] MEDS ORDERED: LORazepam 1 MG TABLET PO PRN (10:30)
[2023-01-07] MEDS ORDERED: ONDANSETRON INJECTION 4 MG/2 ML (SDV) IV PRN (10:30)
[2023-01-07] MEDS ORDERED: ONDANSETRON 4 MG ORAL DISSOLVE TABLET SL PRN (10:30)
[2023-01-07] MEDS ORDERED: 1/2 NS IV SOLUTION 1000 ML 1,000 ML IV PRN (10:30)
[2023-01-07] MEDS ORDERED: D5 1/2 NS 1,000 ML IV 1,000 ML IV PRN (10:30)
[2023-01-07] MEDS ORDERED: ANTACID SUSPENSION 30 ML UDC PO PRN (10:30)
[2023-01-07] MEDS: ENOXAPARIN 40 MG/0.4 ML SYRINGE SC SCH (10:56)
[2023-01-07 11:01] VITALS: BP 110/71
[2023-01-07] MEDS ORDERED: RT-Ipratropium/Albuterol NEB 3 ML VIAL INH PRN (11:15)
[2023-01-07 11:35] VITALS: BP 139/87
[2023-01-07] MEDS ORDERED: CLOP75TA28 PO (12:23)
[2023-01-07] MEDS ORDERED: TOPI25TA10 PO (12:23)
[2023-01-07] MEDS ORDERED: ALPR0.5T7 PO (12:23)
[2023-01-07] MEDS ORDERED: BUSP15TA60 PO (12:23)
[2023-01-07] MEDS ORDERED: PREG150C47 PO (12:23)
[2023-01-07] MEDS ORDERED: ACHD5005 PO (12:23)
[2023-01-07] MEDS ORDERED: ACET-2267 PO (12:23)
[2023-01-07] MEDS ORDERED: METF-397 PO (12:23)
[2023-01-07] MEDS ORDERED: PANT40TA52 PO (12:23)
[2023-01-07] MEDS ORDERED: DULO30CA49 PO (12:23)
[2023-01-07] MEDS ORDERED: LOSA100T58 PO (12:23)
[2023-01-07] MEDS ORDERED: CELE-112 PO (12:23)
[2023-01-07] MEDS ORDERED: TRZ50T PO (12:23)
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
[2023-01-07 13:59] LABS: AMPHETAMINE SCREEN, URINE NEGATIVE (NEGATIVE); BARBITURATE SCREEN URINE NEGATIVE (NEGATIVE); CANNABINOID SCREEN, URINE NEGATIVE (NEGATIVE); COCAINE SCREEN URINE NEGATIVE (NEGATIVE); METHADONE STAT NEGATIVE (NEGATIVE); OPIATE SCREEN URINE POSITIVE (NEGATIVE); OXYCODONE STAT NEGATIVE (NEGATIVE); TRICYCLIC ANTIDEPRESSANTS SCRE NEGATIVE (NEGATIVE)
[2023-01-07] MEDS: inSUlin ASPART 1 UNIT/0.01 ML (PER UNIT) SC SCH ×2 (16:06→21:00)
[2023-01-07] MEDS: busPIRone 15 MG TABLET PO SCH (16:06)
[2023-01-07] MEDS: PREGABALIN 150 MG CAPSULE PO SCH ×2 (16:06→21:36)
[2023-01-07] MEDS: ALPRAZolam 0.5 MG TABLET PO PRN (16:06)
[2023-01-07 16:28] VITALS: BP 123/78
[2023-01-07 19:22] VITALS: BP 100/58
[2023-01-07 20:09] VITALS: BP 123/77
[2023-01-07] MEDS: traZODone 50 MG (DESYREL) TAB PO SCH (21:25)
[2023-01-07] MEDS: toPIRamate 25 MG (TOPAMAX) TAB PO SCH (21:25)
[2023-01-07] MEDS: CELECOXIB 100 MG CAPSULE PO SCH (21:25)
[2023-01-07] MEDS: MAGNESIUM OXIDE 400 MG TABLET PO SCH (21:25)
[2023-01-07] MEDS: metFORMIN 500 MG TABLET PO SCH (21:25)
[2023-01-07 23:58] VITALS: BP 115/64
[2023-01-08 03:42] VITALS: BP 120/69
[2023-01-08 04:35] LABS: HEMATOCRIT 45 % (40-54); HEMOGLOBIN 14.3 g/dL (13.3-17.7); MEAN CORPUSCULAR HEMOGLOBIN 27 pg (25-34); MEAN CORPUSCULAR HGB CONC 32 g/dL (32-36); MEAN CORPUSCULAR VOLUME 86 fL (80-99); MEAN PLATELET VOLUME 10.4 fL (9.0-12.2); PLATELET COUNT 230 10^3/uL (130-400); WHITE BLOOD COUNT 9.7 10^3/uL (4.3-11.0)
[2023-01-08 04:52] LABS: POTASSIUM 3.8 MMOL/L (3.6-5.0)
[2023-01-08 04:53] LABS: CALCIUM 9.3 MG/DL (8.5-10.1)
[2023-01-08 04:57] LABS: CREATININE SERUM 0.75 MG/DL (0.60-1.30)
[2023-01-08] MEDS: inSUlin ASPART 1 UNIT/0.01 ML (PER UNIT) SC SCH ×4 (05:35→20:33)
[2023-01-08] MEDS: THERAPEUTIC MULTIVITAMIN W/MINERALS TABLET PO SCH (06:18)
[2023-01-08] MEDS: THIAMINE 100 MG (VITAMIN B-1) TAB PO SCH (06:18)
[2023-01-08 07:53] VITALS: BP 142/78
--- NOTE | 2023-01-08 08:43 | Progress Note ---
CHRISTAL NEWBY MD, RESIDENT 01/08/23 0843: Subjective Subjective/Events-last exam Patient states that he is continuing to have right-sided chest pain that radiates into his back. That a 4 out of 10 this morning. He is also feeling a little bit nauseous this morning. Otherwise has no concerns today. Review of Systems General: No Fatigue HEENT: No Head Aches Pulmonary: No Dyspnea, No Cough Cardiovascular: Chest Pain; No: Palpitations, Edema Gastrointestinal: Nausea; No: Vomiting, Diarrhea, Constipation Genitourinary: No Dysuria Objective Exam Last Set of Vital Signs Vital Signs Date Time Temp Pulse Resp B/P (MAP) Pulse Ox O2 Delivery O2 Flow Rate FiO2 01/08/23 07:53 36.6 99 17 142/78 (99) 93 Room Air 01/08/23 03:42 0.00 0.00 01/07/23 11:00 95 Capillary Refill : Less Than 3 Seconds I&O Intake and Output 01/08/23 00:00 Intake Total 4344 ml Output Total 1450 ml Balance 2894 ml Intake Oral 4344 ml Output Urine Total 1450 ml Daily Weight Change No General: Alert, Oriented X3 HEENT: Atraumatic Neck: Supple Lungs: Clear to Auscultation, Normal Air Movement Heart: Regular Rate, No Murmurs Abdomen: Normal Bowel Sounds, Soft, No Tenderness Extremities: No Edema Skin: No Rashes Neuro: Normal Speech Psych/Mental Status: Mental Status NL Results/Procedures Lab Laboratory Tests 01/07/23 11:29: Glucometer 104 01/07/23 13:40: Urine Opiates Screen POSITIVEH, Urine Oxycodone Screen NEGATIVE, Urine Methadone Screen NEGATIVE, Urine Barbiturates Screen NEGATIVE, Ur Tricyclic Antidepressants Screen NEGATIVE, Urine Phencyclidine Screen NEGATIVE, Urine Amphetamines Screen NEGATIVE, Urine Methamphetamines Screen NEGATIVE, Urine Benzodiazepines Screen POSITIVEH, Urine Cocaine Screen NEGATIVE, Urine Cannabinoids Screen NEGATIVE 01/07/23 15:58: Glucometer 169H 01/07/23 20:12: Glucometer 122H 01/08/23 04:21: White Blood Count 9.7, Red Blood Count 5.25, Hemoglobin 14.3, Hematocrit 45, Mean Corpuscular Volume 86, Mean Corpuscular Hemoglobin 27, Mean Corpuscular Hemoglobin Concent 32, Red Cell Distribution Width 15.6H, Platelet Count 230, Mean Platelet Volume 10.4, Sodium Level 138, Potassium Level 3.8, Chloride Level 105, Carbon Dioxide Level 25, Anion Gap 8, Blood Urea Nitrogen 15, Creatinine 0.75, Estimat Glomerular Filtration Rate 127, BUN/Creatinine Ratio 20, Glucose Level 114H, Calcium Level 9.3, Triglycerides Level 386H, Cholesterol Level 205H, LDL Cholesterol Direct 132H, VLDL Cholesterol 77H, HDL Cholesterol 32L 01/08/23 05:36: Glucometer 130H Radiology Chest x-ray (01/07/2023): IMPRESSION: Similar-appearing examination without acute cardiopulmonary abnormality. Assessment/Plan Assessment/Plan Admission Status: Observation (1) Hypoxia Status: Resolved Assessment & Plan: Patient noted to be hypoxic in the ED requiring 2 L nasal cannula. Lungs clear on examination and chest x-ray otherwise unremarkable. Mild leukocytosis on CBC however no signs of infection noted. Weaned off of oxygen this morning and maintaining saturations. Plan: Continue to monitor (2) Chest pain Status: Chronic Assessment & Plan: Chest pain appears to be chronic and right-sided. Not reproducible on exam however troponin and EKG were normal. No chest x-ray findings. Patient has a prior heart cath in September that was normal. We will continue to monitor during hospitalization. Plan: Discontinue telemetry today Tylenol only for chest pain May benefit from EGD in the outpatient Qualifiers: Qualified Codes: R07.9 - Chest pain, unspecified (3) Homeless Status: Chronic Assessment & Plan: Social work consulted for assistance with disposition after discharge (4) Status post below-knee amputation of left lower extremity Status: Chronic Assessment & Plan: Prosthetic in place. Continue home medications. (5) Alcohol use Status: Acute Assessment & Plan: Alcohol level mildly elevated to 26 in the ED. patient scoring 3 on CIWA however has not required any additional medications outside of his home medications. Plan: Monitor on CIWA protocol (6) Elevated LFTs Status: Acute Assessment & Plan: LFTs noted to be mildly elevated. May be secondary to alcohol use however unclear cause at this time. Will monitor with daily CMP Clinical Quality Measures AMI/AHF: ASA po Prior to arrival: Yes (325) JEANA ANGELES MD 01/08/23 1244: Addendum Physician Addendum Addendum I personally have seen and evaluated the patient and performed the physical exam. I agree with the documented assessment and plan. Progress 12:43 CHRISTAL NEWBY MD, RESIDENT Jan 08, 2023 08:43 JEANA ANGELES MD Jan 08, 2023 12:44
[2023-01-08] MEDS: LOSARTAN 100 MG TABLET PO SCH (09:23)
[2023-01-08] MEDS: DULoxetine 30 MG CAPSULE PO SCH (09:23)
[2023-01-08] MEDS: metFORMIN 500 MG TABLET PO SCH ×2 (09:23→20:33)
[2023-01-08] MEDS: toPIRamate 25 MG (TOPAMAX) TAB PO SCH ×2 (09:24→20:33)
[2023-01-08] MEDS: MAGNESIUM OXIDE 400 MG TABLET PO SCH ×2 (09:24→20:33)
[2023-01-08] MEDS: CLOPIDOGREL 75 MG TABLET PO SCH (09:24)
[2023-01-08] MEDS: CELECOXIB 100 MG CAPSULE PO SCH ×2 (09:24→20:33)
[2023-01-08] MEDS: PANTOPRAZOLE 40 MG TABLET PO SCH (09:24)
[2023-01-08] MEDS: ENOXAPARIN 40 MG/0.4 ML SYRINGE SC SCH (09:25)
[2023-01-08] MEDS: busPIRone 15 MG TABLET PO SCH ×3 (09:26→18:20)
[2023-01-08] MEDS: PREGABALIN 150 MG CAPSULE PO SCH ×3 (09:30→20:37)
[2023-01-08 11:24] VITALS: BP 139/79
[2023-01-08] MEDS: ACETAMINOPHEN 500 MG TABLET PO SCH ×2 (11:58→18:20)
[2023-01-08] MEDS: ALPRAZolam 0.5 MG TABLET PO PRN (12:22)
[2023-01-08 12:32] LABS: CLARITY,URINE CLOUDY; COLOR,URINE YELLOW
[2023-01-08 12:33] LABS: AMORPHOUS SEDIMENT,UR MOD AMOR PHOSPHATE /LPF; BACTERIA,URINE NEGATIVE /HPF; BILIRUBIN,URINE NEGATIVE (NEGATIVE); GLUCOSE, URINE (UA) NEGATIVE (NEGATIVE); KETONES,URINE NEGATIVE (NEGATIVE); LEUKOCYTE ESTERASE ,URINE NEGATIVE (NEGATIVE); NITRITE,URINE NEGATIVE (NEGATIVE); PH,URINE 8.5 (5-9); PROTEIN,URINE NEGATIVE (NEGATIVE)
[2023-01-08 15:29] VITALS: BP 101/69
[2023-01-08 19:49] VITALS: BP 118/73
[2023-01-08] MEDS: traZODone 50 MG (DESYREL) TAB PO SCH (20:33)
[2023-01-08] MEDS: MELATONIN 3 MG TABLET PO SCH (20:33)
[2023-01-08 23:14] VITALS: BP 110/74
[2023-01-09] MEDS: ACETAMINOPHEN 500 MG TABLET PO SCH ×2 (00:54→06:35)
[2023-01-09 03:21] VITALS: BP 126/75
[2023-01-09] MEDS: inSUlin ASPART 1 UNIT/0.01 ML (PER UNIT) SC SCH ×4 (05:52→20:50)
[2023-01-09 06:31] LABS: HEMATOCRIT 46 % (40-54); HEMOGLOBIN 14.6 g/dL (13.3-17.7); MEAN CORPUSCULAR HEMOGLOBIN 27 pg (25-34); MEAN CORPUSCULAR HGB CONC 32 g/dL (32-36); MEAN CORPUSCULAR VOLUME 86 fL (80-99); PLATELET COUNT 217 10^3/uL (130-400); WHITE BLOOD COUNT 10.5 10^3/uL (4.3-11.0)
[2023-01-09] MEDS: THIAMINE 100 MG (VITAMIN B-1) TAB PO SCH (06:35)
[2023-01-09] MEDS: THERAPEUTIC MULTIVITAMIN W/MINERALS TABLET PO SCH (06:35)
[2023-01-09 06:40] LABS: ALBUMIN 3.7 GM/DL (3.2-4.5); POTASSIUM 3.9 MMOL/L (3.6-5.0)
[2023-01-09 06:41] LABS: CALCIUM 9.2 MG/DL (8.5-10.1)
[2023-01-09 06:42] LABS: TOTAL PROTEIN 7.3 GM/DL (6.4-8.2)
[2023-01-09 06:44] LABS: BILIRUBIN,TOTAL 0.2 MG/DL (0.1-1.0)
[2023-01-09 06:46] LABS: CREATININE SERUM 0.77 MG/DL (0.60-1.30)
[2023-01-09 07:12] VITALS: BP 115/72
[2023-01-09] MEDS: LOSARTAN 100 MG TABLET PO SCH (08:45)
[2023-01-09] MEDS: CELECOXIB 100 MG CAPSULE PO SCH ×2 (08:45→20:54)
[2023-01-09] MEDS: metFORMIN 500 MG TABLET PO SCH ×2 (08:45→20:54)
[2023-01-09] MEDS: MAGNESIUM OXIDE 400 MG TABLET PO SCH ×2 (08:45→20:54)
[2023-01-09] MEDS: PANTOPRAZOLE 40 MG TABLET PO SCH (08:45)
[2023-01-09] MEDS: CLOPIDOGREL 75 MG TABLET PO SCH (08:46)
[2023-01-09] MEDS: DULoxetine 30 MG CAPSULE PO SCH (08:46)
[2023-01-09] MEDS: PREGABALIN 150 MG CAPSULE PO SCH ×3 (08:52→20:54)
[2023-01-09] MEDS: toPIRamate 25 MG (TOPAMAX) TAB PO SCH ×2 (08:52→20:54)
[2023-01-09] MEDS: busPIRone 15 MG TABLET PO SCH ×3 (08:54→17:09)
[2023-01-09] MEDS ORDERED: ACETAMINOPHEN 500 MG TABLET PO PRN (10:15)
[2023-01-09] MEDS: ENOXAPARIN 40 MG/0.4 ML SYRINGE SC SCH (10:36)
[2023-01-09] MEDS: HYDROcodone/ACETAMINOPHEN 5 MG/325 MG TABLET PO PRN ×2 (10:36→18:18)
[2023-01-09 11:26] VITALS: BP 114/69
--- NOTE | 2023-01-09 12:13 | Progress Note - Hospitalist ---
Subjective HPI/CC On Admission Date Seen by Provider: Jan 09, 2023 Subjective/Events-last exam Pt reports being anxious. Concerned about where he will discharge and if he has the resources to DC form the hospital. Informed him of need for social work involvement and his own buy in as he left the [facility]. Objective Exam Vital Signs Vital Signs Date Time Temp Pulse Resp B/P (MAP) Pulse Ox O2 Delivery O2 Flow Rate FiO2 01/09/23 11:26 36.8 91 18 114/69 (84) 96 Room Air 01/09/23 03:21 0.00 0.00 01/07/23 11:00 95 Capillary Refill : Less Than 3 Seconds General Appearance: No Apparent Distress, Chronically ill, Obese Respiratory: Lungs Clear Cardiovascular: Regular Rate, Rhythm Gastrointestinal: Normal Bowel Sounds, Soft Neurologic/Psychiatric: Alert, Oriented x3 Results/Procedures Lab Laboratory Tests 01/09/23 06:20 Patient resulted labs reviewed. Assessment/Plan Assessment and Plan Assess & Plan/Chief Complaint Hypoxia Homeless Below-knee amputation Alcohol use Obesity Chronic chest pain Dependent diabetes Chronic back pain Hypertension Plan Continue home meds Sugars well controlled Resume home hydrocodone as mentation much improved administrative services manager consult Clinical Quality Measures AMI/AHF: ASA po Prior to arrival: Yes (325) JEANA ANGELES MD Jan 09, 2023 12:13
[2023-01-09] MEDS: ALPRAZolam 0.5 MG TABLET PO PRN (12:19)
[2023-01-09 16:12] VITALS: BP 133/85
[2023-01-09 19:37] VITALS: BP 112/69
[2023-01-09] MEDS: traZODone 50 MG (DESYREL) TAB PO SCH (20:54)
[2023-01-09] MEDS: MELATONIN 3 MG TABLET PO SCH (20:54)
[2023-01-09 23:18] VITALS: BP 110/67
[2023-01-10 03:41] VITALS: BP 151/82
[2023-01-10] MEDS: THERAPEUTIC MULTIVITAMIN W/MINERALS TABLET PO SCH (05:42)
[2023-01-10] MEDS: THIAMINE 100 MG (VITAMIN B-1) TAB PO SCH (05:42)
[2023-01-10] MEDS: HYDROcodone/ACETAMINOPHEN 5 MG/325 MG TABLET PO PRN ×3 (05:42→20:08)
[2023-01-10 06:01] LABS: HEMATOCRIT 48 % (40-54); HEMOGLOBIN 15.5 g/dL (13.3-17.7); MEAN CORPUSCULAR HEMOGLOBIN 27 pg (25-34); MEAN CORPUSCULAR HGB CONC 32 g/dL (32-36); MEAN CORPUSCULAR VOLUME 85 fL (80-99); MEAN PLATELET VOLUME 10.1 fL (9.0-12.2); PLATELET COUNT 236 10^3/uL (130-400); WHITE BLOOD COUNT 10.9 10^3/uL (4.3-11.0)
[2023-01-10] MEDS: inSUlin ASPART 1 UNIT/0.01 ML (PER UNIT) SC SCH ×4 (06:13→21:33)
[2023-01-10 06:16] LABS: BILIRUBIN,TOTAL 0.2 MG/DL (0.1-1.0); CALCIUM 9.2 MG/DL (8.5-10.1); CREATININE SERUM 0.78 MG/DL (0.60-1.30); POTASSIUM 3.8 MMOL/L (3.6-5.0); TOTAL PROTEIN 7.7 GM/DL (6.4-8.2)
[2023-01-10 07:24] VITALS: BP 125/63
[2023-01-10] MEDS: DULoxetine 30 MG CAPSULE PO SCH (09:18)
[2023-01-10] MEDS: CLOPIDOGREL 75 MG TABLET PO SCH (09:18)
[2023-01-10] MEDS: CELECOXIB 100 MG CAPSULE PO SCH ×2 (09:18→20:04)
[2023-01-10] MEDS: ENOXAPARIN 40 MG/0.4 ML SYRINGE SC SCH ×2 (09:18→20:04)
[2023-01-10] MEDS: ALPRAZolam 0.5 MG TABLET PO PRN (09:18)
[2023-01-10] MEDS: busPIRone 15 MG TABLET PO SCH ×3 (09:19→17:43)
[2023-01-10] MEDS: LOSARTAN 100 MG TABLET PO SCH (09:19)
[2023-01-10] MEDS: metFORMIN 500 MG TABLET PO SCH ×2 (09:19→20:04)
[2023-01-10] MEDS: PANTOPRAZOLE 40 MG TABLET PO SCH (09:19)
[2023-01-10] MEDS: toPIRamate 25 MG (TOPAMAX) TAB PO SCH ×2 (09:19→20:04)
[2023-01-10] MEDS: MAGNESIUM OXIDE 400 MG TABLET PO SCH (09:24)
[2023-01-10] MEDS: PREGABALIN 150 MG CAPSULE PO SCH ×3 (09:24→20:04)
--- NOTE | 2023-01-10 10:28 | Progress Note ---
CHRISTAL NEWBY MD, RESIDENT 01/10/23 1028: Subjective HPI/CC On Admission Date Seen by Provider: Jan 10, 2023 Time Seen by Provider: 08:20 Subjective/Events-last exam Patient is feeling anxious this morning. States his right-sided chest pain has improved. He is worried about where he will be going after discharge from the hospital. He otherwise has no concerns today. Review of Systems General: No Fatigue HEENT: No Head Aches Pulmonary: No Dyspnea, No Cough Cardiovascular: No: Chest Pain, Palpitations, Edema Gastrointestinal: No: Nausea, Vomiting, Diarrhea, Constipation Genitourinary: No Dysuria Objective Exam Vital Signs Vital Signs Date Time Temp Pulse Resp B/P (MAP) Pulse Ox O2 Delivery O2 Flow Rate FiO2 01/10/23 07:24 36.4 73 20 125/63 (83) 94 Room Air 01/10/23 03:41 0.00 0.00 01/07/23 11:00 95 Capillary Refill : Less Than 3 Seconds General Appearance: No Apparent Distress HEENT: Normal ENT Inspection Neck: Full Range of Motion, Normal Inspection Respiratory: Chest Non Tender, Lungs Clear, Normal Breath Sounds, No Accessory Muscle Use, No Respiratory Distress Cardiovascular: Regular Rate, Rhythm, No Edema, No Murmur Gastrointestinal: Normal Bowel Sounds, Non Tender, Soft Extremity: No Pedal Edema, Other (Left BKA) Neurologic/Psychiatric: Alert, Oriented x3 Results/Procedures Lab Laboratory Tests 01/10/23 05:50 Patient resulted labs reviewed. Assessment/Plan Assessment and Plan Assess & Plan/Chief Complaint 27-year-old male with a past medical history of diabetes presenting with right- sided chest pain and hypoxia. Diagnosis/Problems Diagnosis/Problems (1) Chest pain Status: Resolved Assessment & Plan: Chest pain appears to be chronic and right-sided. Not reproducible on exam however troponin and EKG were normal. No chest x-ray findings. Patient has a prior heart cath in September that was normal. We will continue to monitor during hospitalization. Resolved as of this morning. Plan: Tylenol and home pain medications for chest pain May benefit from EGD in the outpatient Qualifiers: Qualified Codes: R07.9 - Chest pain, unspecified Resolution Date/Time: 01/10/23 @ 10:27 (2) Homeless Status: Chronic Assessment & Plan: Social work consulted for assistance with disposition after discharge (3) Status post below-knee amputation of left lower extremity Status: Chronic Assessment & Plan: Prosthetic in place. Continue home medications. (4) Alcohol use Status: Chronic Assessment & Plan: Alcohol level mildly elevated to 26 in the ED. patient scoring 3 on CIWA however has not required any additional medications outside of his home medications. No concerning CIWA scores. Plan: Monitor on CIWA protocol (5) Elevated LFTs Status: Acute Assessment & Plan: LFTs noted to be mildly elevated. May be secondary to alcohol use however unclear cause at this time. Will monitor with daily CMP Clinical Quality Measures AMI/AHF: ASA po Prior to arrival: Yes (325) XIANG ANDERSON DO 01/11/23 0433: Subjective Subjective/Events-last exam No new issues Awaiting placement If no NH will accept he will remain homeless Objective Exam General Appearance: No Apparent Distress, WD/WN Assessment/Plan Assessment and Plan Assess & Plan/Chief Complaint Placement I personally performed the [place] portions of the visit, discussed case with resident and concur with resident documentation of history, physical exam, assessment and treatment plan unless otherwise noted. CHRISTAL NEWBY MD, RESIDENT Jan 10, 2023 10:28 XIANG ANDERSON DO Jan 11, 2023 04:33
[2023-01-10 11:27] VITALS: BP 138/90
--- NOTE | 2023-01-10 11:58 | Physical Therapy Evaluation ---
PT Evaluation-General Medical Diagnosis Admission Date Jan 07, 2023 at 10:23 Medical Diagnosis: chest pain/hypoxia Onset Date: Jan 07, 2023 Therapy Diagnosis Therapy Diagnosis: debility Precautions Precautions/Isolations: Fall Prevention, Standard Precautions Referral Physician: Drake Reason for Referral: Evaluation/Treatment Medical History Pertinent Medical History: DM, HTN, Neuropathy, Smoking Additional Medical History left BKA Current History EMS secondary patient left NH AMA/CP Reviewed History: Yes Social History Current Living Status: Homeless Prior Prior Level of Function SCALE: Activities may be completed with or without assistive devices. 2-Xbmyudnurx-pyqzska completes the activity by him/herself with no assistance from a helper. 5-Set-up or Clean-up Assistance-helper sets up or cleans up; patient completes activity. [place] assists only prior to or following the activity. 4-Supervision or Touching Assistance-helper provides verbal cues and/or touching/steadying and/or contact guard assistance as patient completes activity. Assistance may be provided throughout the activity or intermittently. 3-Partial/Moderate Assistance-helper does LESS THAN HALF the effort. [place] lifts, holds or supports trunk or limbs, but provides less than half the effort. 2-Substantial/Maximal Assistance-helper does MORE THAN HALF the effort. [place] lifts or holds trunk or limbs and provides more than half the effort. 4-[id number]-[id number] does ALL the effort. Patient does none of the effort to complete the activity. Or, the assistance of 2 or more helpers is required for the patient to complete the activity. If activity was not attempted, code reason: 7-Patient Refused. 9-Not Applicable-not attempted and the patient did not perform the activity before the current illness, exacerbation or injury. 10-Not Attempted due to Environmental Limitations-(lack of equipment, weather restraints, etc.). 88-Not Attempted due to Medical Conditions or Safety Concerns. Bed Mobility: 6 Transfers (B,C,W/C): 6 Gait: 6 Indoor Mobility (Ambulation): Independent Prior Device Use: walking stick PT Evaluation-Current Subjective Patient reports he is very anxious and agrees to PT. ROM/Strength ROM Lower Extremities left BKA with prosthesis in place/right LE WFL Strength Lower Extremities 4/5 grossly bilateral LE Integumentary/Posture Posture WFL Neuromuscular (Tone, Coordination, Reflexes) grossly intact Sensory Vision: Functional Hearing: Functional Transfers Sit to Stand (QC): 6 Gait Mode of Locomotion: Both Anticipated Mode of Locomotion: Both Walk 10 feet (QC): 6 Walk 50 ft with 2 Turns(QC): 6 Walk 150 ft (QC): 6 Distance: 150' Gait Assistive Device: Cane Single Point Comments/Gait Description slow, steady gait sequence Wheelchair Training Wheel 50 ft with 2 turns (QC): 6 Wheel 150 ft (QC): 6 Type of Wheelchair: Manual Balance Sitting Static: Normal Sitting Dynamic: Normal Standing Static: Good Standing Dynamic: Good Assessment/Needs Patient is currently at independent LOF with all gross motor skills. No skilled PT intervention indicated at this time. Rehab Potential: Fair PT Plan Treatment/Plan Treatment Plan: Discontinue PT Treatment Duration: Jan 10, 2023 Frequency: 1 time per week Estimated Hrs Per Day: .25 hour per day Patient and/or Family Agrees t: Yes Time Time In: 1053 Time Out: 1101 DATE: Jan 10, 2023 Total Billed Treatment Time: 8 [facility] Jan 10, 2023 11:58
[2023-01-10 17:21] VITALS: BP 122/63
[2023-01-10] MEDS: traZODone 50 MG (DESYREL) TAB PO SCH (20:04)
[2023-01-10] MEDS: MELATONIN 3 MG TABLET PO SCH (20:04)
[2023-01-10 21:00] VITALS: BP 99/51
[2023-01-10 21:05] VITALS: BP 99/51
[2023-01-11] VITALS: BP 128/77
[2023-01-11 04:00] VITALS: BP 132/77
[2023-01-11] MEDS: inSUlin ASPART 1 UNIT/0.01 ML (PER UNIT) SC SCH ×2 (06:03→11:27)
[2023-01-11] MEDS: THERAPEUTIC MULTIVITAMIN W/MINERALS TABLET PO SCH (06:03)
[2023-01-11 07:09] LABS: HEMATOCRIT 50 % (40-54); HEMOGLOBIN 15.8 g/dL (13.3-17.7); MEAN CORPUSCULAR HEMOGLOBIN 27 pg (25-34); MEAN CORPUSCULAR HGB CONC 32 g/dL (32-36); MEAN CORPUSCULAR VOLUME 86 fL (80-99); MEAN PLATELET VOLUME 10.4 fL (9.0-12.2); PLATELET COUNT 247 10^3/uL (130-400); WHITE BLOOD COUNT 10.9 10^3/uL (4.3-11.0)
[2023-01-11 07:21] LABS: ALBUMIN 4.1 GM/DL (3.2-4.5); POTASSIUM 4.2 MMOL/L (3.6-5.0)
[2023-01-11 07:22] LABS: CALCIUM 9.2 MG/DL (8.5-10.1)
[2023-01-11 07:23] LABS: TOTAL PROTEIN 7.9 GM/DL (6.4-8.2)
[2023-01-11 07:25] LABS: BILIRUBIN,TOTAL 0.3 MG/DL (0.1-1.0)
[2023-01-11 07:27] LABS: CREATININE SERUM 0.8 MG/DL (0.60-1.30)
[2023-01-11 07:28] VITALS: BP 120/75
[2023-01-11] MEDS: toPIRamate 25 MG (TOPAMAX) TAB PO SCH (08:39)
[2023-01-11] MEDS: HYDROcodone/ACETAMINOPHEN 5 MG/325 MG TABLET PO PRN ×2 (08:39→13:19)
[2023-01-11] MEDS: ENOXAPARIN 40 MG/0.4 ML SYRINGE SC SCH (08:39)
[2023-01-11] MEDS: PANTOPRAZOLE 40 MG TABLET PO SCH (08:40)
[2023-01-11] MEDS: LOSARTAN 100 MG TABLET PO SCH (08:40)
[2023-01-11] MEDS: DULoxetine 30 MG CAPSULE PO SCH (08:40)
[2023-01-11] MEDS: CLOPIDOGREL 75 MG TABLET PO SCH (08:40)
[2023-01-11] MEDS: metFORMIN 500 MG TABLET PO SCH (08:40)
[2023-01-11] MEDS: busPIRone 15 MG TABLET PO SCH ×2 (08:40→13:19)
[2023-01-11] MEDS: CELECOXIB 100 MG CAPSULE PO SCH (08:40)
[2023-01-11] MEDS: PREGABALIN 150 MG CAPSULE PO SCH (08:45)
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
[2023-01-11 11:26] VITALS: BP 146/86
[2023-01-11] MEDS ORDERED: CELE-112 PO (12:12)
[2023-01-11] MEDS ORDERED: PANT40TA52 PO (12:12)
[2023-01-11] MEDS ORDERED: METF-397 PO (12:12)
[2023-01-11] MEDS ORDERED: TOPI25TA10 PO (12:12)
[2023-01-11] MEDS ORDERED: TRZ50T PO (12:12)
[2023-01-11] MEDS ORDERED: MIRT-69 PO (12:12)
[2023-01-11] MEDS ORDERED: LOSA100T58 PO (12:12)
[2023-01-11] MEDS ORDERED: PREG150C47 PO (12:12)
[2023-01-11] MEDS ORDERED: CLOP75TA28 PO (12:12)
[2023-01-11] MEDS ORDERED: INSU100I14 SQ (12:12)
[2023-01-11] MEDS ORDERED: INSU100I88 SQ (12:12)
[2023-01-11] MEDS ORDERED: BUSP15TA60 PO (12:12)
[2023-01-11] MEDS ORDERED: ALPR0.5T7 PO (12:12)
[2023-01-11] MEDS ORDERED: ACHD5005 PO (12:12)
[2023-01-11] MEDS ORDERED: DULO30CA49 PO (12:12)
[2023-01-11 14:03] VITALS: BP 146/86
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
== END 2023-01-11 14:00 | disposition home or self-care (01) ==
LOC: EDUNIT# 05:43 → ER 05:44 → 4TH 10:23 → UNDOADMOB 10:23 → 4TH 11:08 → UNDODISOB 01-11 14:00
PROVIDERS: ADMIT Family Medicine; ATTEND Internal Medicine
DX: R07.9 Chest pain, unspecified (principal); F11.90 Opioid use, unspecified, uncomplicated; F10.90 Alcohol use, unspecified, uncomplicated; Y90.9 Presence of alcohol in blood, level not specified; R79.89 Other specified abnormal findings of blood chemistry; Z59.00 Homelessness unspecified; R10.11 Right upper quadrant pain; G89.29 Other chronic pain; R09.02 Hypoxemia; E66.9 Obesity, unspecified; Z89.512 Acquired absence of left leg below knee; E11.9 Type 2 diabetes mellitus without complications; M54.9 Dorsalgia, unspecified; I10 Essential (primary) hypertension
CPT/HCPCS: 71045; 80048; 80053 ×4; 80061; 80306; 81000; 82947 ×5; 83735; 83874; 84484; 85025; 85027 ×4; 85379; 85610; 85730; 86141; 87389; 87636; 93005; 93041; 96372 ×5; 97162; 99284; G0378; G0480; 36415; 80320